=== PATIENT | female | born 1935 | race African-American/Black ===

== ENCOUNTER 2016-08-18 09:31 | Day surgery (SDC) | payer OTHER, MEDICARE ==
[2016-08-17 14:55] VITALS: BMI 25.2
[2016-08-18] MEDS ORDERED: PROPOFOL 20 ML ONE ×3 (12:46)
[2016-08-18 13:22] VITALS: TEMP 97.5
[2016-08-18 14:12] VITALS: BP 136/60; PULSE 56
== END 2016-08-18 14:20 | disposition home or self-care (01) ==
LOC: JASU-ENDO 09:31
PROVIDERS: ATTEND Internal Medicine Gastroenterology
PROC: 0DJD8ZZ Inspection of Lower Intestinal Tract, Via Natural or Artificial Opening Endoscopic (ICD-10-PCS; principal; 2016-08-18 10:30)
DX: Z86.010 Personal history of colon polyps (principal); K57.30 Diverticulosis of large intestine without perforation or abscess without bleeding

== ENCOUNTER 2017-01-15 09:22 | Day surgery (SDC) | payer OTHER, MEDICARE ==
[2017-01-15] MEDS ORDERED: LIDOCAINE HCL 1%, 10 MG/ML (20ML VIAL) ONE (10:05)
[2017-01-15 11:38] VITALS: BMI 25.7
--- NOTE | 2017-01-15 11:51 | HP ---
Admitting History and Physical - Admission Chief Complaint: Dysproteinemia History Source: Patient - Past Medical History Cardiovascular: Yes: HTN Renal/: Yes: Renal Inusuff ...LMP Comment: years ago ...: No Heme/Onc: Yes: Anemia Endocrine: Yes: Diabetes Mellitus - Smoking History Smoking history: Never smoked Have you smoked in the past 12 months: No Aproximately how many cigarettes per day: 0 - Alcohol/Substance Use Hx Alcohol Use: No - Social History Usual Living Arrangement: Yes: With Spouse Home Medications - Allergies Allergies/Adverse Reactions: Allergies Allergy/AdvReac Type Severity Reaction Status Date / Time tetanus and diphtheria Allergy Rash Verified 07/28/16 14:38 toxoids [Tetanus&Diphtheria Toxoid] - Home Medications Home Medications: Ambulatory Orders Allopurinol [Zyloprim -] 100 mg PO DAILY 01/20/14 Amlodipine Besylate [Norvasc -] 5 mg PO DAILY 01/20/14 Rosuvastatin Calcium [Crestor] 10 mg PO HS 01/20/14 Aspirin [ASA -] 81 mg PO DAILY 07/11/16 Losartan Potassium [Cozaar -] 50 mg PO HS 07/11/16 Nateglinide [Starlix (Nf) -] 60 mg PO DAILY 07/11/16 Sitagliptin Phosphate [Januvia] 25 mg PO DAILY 07/11/16 Sodium Bicarbonate - 650 mg PO BID 07/11/16 Isosorbide Mononitrate [Imdur -] 30 mg PO DAILY 07/13/16 Ergocalciferol [Drisdol -] 50,000 unit PO Q7D@1000 08/17/16 Review of Systems - Review of Systems Constitutional: reports: Fever, Loss of Appetite, Night Sweats, Weakness Eyes: denies: Blurred Vision, Double Vision, Photophobia HENT: denies: Difficult Swallowing, Epistaxis, Hearing Loss, Throat Pain Neck: denies: Lumps, Stiffness, Tenderness Cardiovascular: denies: Chest Pain, Shortness of Breath Respiratory: denies: Cough, SOB, SOB on Exertion Gastrointestinal: denies: Constipation, Melena, Nausea, Vomiting Genitourinary: denies: Burning, Dysuria, Flank Pain, Frequency Breasts: reports: No Symptoms Reported Musculoskeletal: reports: Back Pain Integumentary: denies: Eczema, Erythema Neurological: reports: No Symptoms Endocrine: reports: No Symptoms Hematology/Lymphatic: denies: Excessive Bleeding, Swollen Glands Psychiatric: reports: No Symptoms Physical Examination Vital Signs: Vital Signs Temperature 98.1 F 01/15/17 11:26 Pulse Rate 56 L 01/15/17 11:26 Respiratory Rate 18 01/15/17 11:26 Blood Pressure 154/74 01/15/17 11:26 O2 Sat by Pulse Oximetry (%) Constitutional: Yes: No Distress Eyes: Yes: PERRL, Other (proptosis). No: Diplopia, Sclera Icterus HENT: Yes: Normocephalic. No: Hoarseness, Thrush, Tonsillar Exudate Neck: Yes: Supple. No: Lymphadenopathy, Tenderness, Thyromegaly Cardiovascular: Yes: Regular Rate and Rhythm Respiratory: Yes: Regular, CTA Bilaterally Gastrointestinal: Yes: Normal Bowel Sounds, Soft. No: Ascites, Hepatomegaly, Splenomegaly Renal/: No: CVA Tenderness - Left, CVA Tenderness - Right Breast(s): Yes: WNL, Left, Right Musculoskeletal: Yes: Back Pain. No: Muscle Pain Extremities: No: Calf Tenderness Edema: No Integumentary: No: Erythema, Jaundice Neurological: Yes: WNL ...Motor Strength: WNL Psychiatric: Yes: WNL Problem List - Problems (1) Dysproteinemia Assessment/Plan: Anemia, renal insufficiency,dysproteinemia For bone marrow aspirate under CT guidance with biopsy. Code(s): E88.09 - [facility] DISORDERS OF PLASMA-PROTEIN METABOLISM, NEC (2) Diabetes Code(s): E11.9 - TYPE 2 DIABETES MELLITUS WITHOUT COMPLICATIONS Qualifiers: Diabetes mellitus type: type 2 Diabetes mellitus complication status: with kidney complications Diabetes mellitus terminal operator insulin use: without prison use Chronic kidney disease stage: stage 3 (moderate)
[2017-01-15 15:29] VITALS: BP 149/62; PULSE 57; TEMP 98.8
--- NOTE | 2017-01-15 16:41 | PN ---
Progress Note (short form) - Note Progress Note: Patient seen in CT scan . Bone marrow biopsy performed. Hand carried specimen to path. No spicules. Sent for Flow and cytogenetics and biopsy. Spoke with as patient has been sleeping - advil prn. For discharge if stable. Problem List - Problems (1) Dysproteinemia Code(s): E88.09 - OTH DISORDERS OF PLASMA-PROTEIN METABOLISM, NEC (2) Diabetes Code(s): E11.9 - TYPE 2 DIABETES MELLITUS WITHOUT COMPLICATIONS Qualifiers: Diabetes mellitus type: type 2 Diabetes mellitus complication status: with kidney complications Diabetes mellitus ad terminal makeup operator insulin use: without jail use Chronic kidney disease stage: stage 3 (moderate)
[2017-01-15] MEDS ORDERED: IBUPROFEN 100 MG/5 ML UNIT DOSE CUPS PO ONE (16:42)
--- NOTE | 2017-01-20 16:21 | PATH ---
Surgical Pathology Report Patient Name: KING BARNETT Med. Rec. #: [id number] /Age/Gender: 1935 (Age: 81) / F Account: [id number] Location: [facility] MED/SURG Taken: 01/15/2017 Received: 01/15/2017 Reported: 01/20/2017 Physicians: Fariba Goode M.D. 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 Comment: The biopsy shows an increase in plasma cells (~10%), concurrent flow cytometry demonstrates a clonal IgG [place] plasma cell population. 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 Clinical and serological correlations are suggested. Note: The biopsy shows bone marrow with trilineage maturing hematopoiesis and overall cellularity of approximately 35% and M:E ratio of approximately 1.5:1. The aspirate smears are aparticulate. The myeloid precursors show preserved complete maturation to segmented granulocytes. No increase in myeloblasts is seen as highlighted by CD34 immunostain. The erythroid precursors appear slightly decreased as highlighted by CD71 immunostain. The megakaryocytes appear adequate in numbers with no significant cytological atypia. There is a significant increase in plasma cells (~10%) as highlighted by CD138 immunostain; few blood vessels are also positive for CD56 immunostain the plasma cells are negative for MUM-1 immunostain. CD3 immunostain highlight scattered T lymphocytes, CD20 immunostain highlight few B lymphocytes. The stainable iron cannot be assessed since the aspirate is aparticulate. There is mild increase in reticulin fibers seen with reticulin stain. Immunohistochemical stains were performed at the [facility], [place], [place] ([id number]) and interpreted at [facility]. C. 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 Comment: Plasma cell induration by flow cytometry been may not be entirely labor union business representative of the degree of marrow infiltration due to variable sampling. Phenotype: CD38+ clonal plasma cells are detected that co-express IgG and [place] cytoplasmic light chain, comprising 1.2% of all analyzed white blood cells. Lymphocytes include polyclonal B-cells, NK-cells and immunophenotypically normal CD4+ and CD8+ T-cells in normal proportions. Myeloid forms exhibit immunophenotypic evidence of normal maturation. Blasts are not increased. Cytomorphology: Bone marrow aspirate is no other abnormalities in the hematopoietic precursors, scattered plasma cells are seen. 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 No evidence of a deletion of the p53 (17p13) locus. No CCND1/IGH t(11;14) translocation is detected. No FGFR3/IGH t(4;14) translocation is detected. No IGH/MAF t(14;16) translocation is detected. Comments: Deletion of band 13q14 on chromosome 13 is detected in 10% to 20% of patients by conventional cytogenetics and in 50% by FISH. Deletion of 13q is associated with inferior survival after standard chromotherapy. The amplification/duplication of the proximal 1q31 region in MM has been reported by FISH in about 40% of patients with newly diagnosed MM and in 70% of patients at relapse. Electronically Signed Trever Lira M.D. Gross Description A. Received in formalin, labeled with the patient's name and indicated on the requisition to be a bone marrow biopsy, is a 1.0 x 0.8 x 0.2 cm aggregate of [place]an bone fragments admixed with blood clot. The specimen is entirely submitted in one cassette, following decalcification. B. Received are 3 bone marrow aspiration smear slides C. Received are 2 green top tubes of bone marrow blood which are sent to [facility]. 01/18/201701/18/2017
== END 2017-01-15 18:00 | disposition home or self-care (01) ==
LOC: JONCNONCHE 09:22 → J7W 09:23 → JONCNONCHE 18:00
PROVIDERS: ATTEND Internal Medicine Hematology & Oncology
PROC: 07DR3ZX Extraction of Iliac Bone Marrow, Percutaneous Approach, Diagnostic (ICD-10-PCS; principal; 2017-01-15)
PROC: BW2GYZZ Computerized Tomography (CT Scan) of Pelvic Region using Other Contrast (ICD-10-PCS; 2017-01-15)
DX: E88.09 Other disorders of plasma-protein metabolism, not elsewhere classified (principal); I12.9 Hypertensive chronic kidney disease with stage 1 through stage 4 chronic kidney disease, or unspecified chronic kidney disease; E11.22 Type 2 diabetes mellitus with diabetic chronic kidney disease; N18.3 Chronic kidney disease, stage 3 (moderate)
CPT/HCPCS: 13152; 20225; 76098-TC; 87899; 88300-TC; 88305-TC; 88311-TC; 88313-TC

== ENCOUNTER 2017-05-13 13:32 | Inpatient (IN) | payer OTHER, MEDICARE ==
--- NOTE | 2017-05-13 14:07 | PDOC ---
History of Present Illness - General History Source: Patient Exam Limitations: No Limitations - History of Present Illness Initial Comments: 05/13/17 15:16 The patient is a 81 year old female, with a significant past medical history of DM, HTN, HLD who presents to the emergency department s/p fall. Patient went to the bank with her aide when she suddenly felt lightheaded and dizzy. Patient fell onto the ground and was unable to recall the event. Patient reports LOC however denies any nausea, vomiting, headache, neck pain. As per aide, patient hit her head on the parking ground. Patient denies any recent travel or recent illnesses. She denies chest pain, headache. She denies fever, chills, abdominal pain, diarrhea or constipation. She denies dysuria, frequency, urgency or hematuria. <Mis Stern - Last Filed: 05/13/17 15:16> <Krista Zamarripa - Last Filed: 05/13/17 16:07> - General Chief Complaint: Syncope/Near Syncope Stated Complaint: SYNCOPE Time Seen by Provider: 05/13/17 13:53 Past History <Mis Stern - Last Filed: 05/13/17 15:16> - Past Medical History Anemia: No Asthma: No Cancer: No Cardiac Disorders: No CVA: No COPD: No CHF: No Dementia: No Diabetes: Yes GI Disorders: No Disorders: No HTN: Yes Hypercholesterolemia: Yes Liver Disease: No Seizures: No Thyroid Disease: No - Surgical History Neurologic Surgery: No - Immunization History Immunization Up to Date: Yes - Suicide/Smoking/Psychosocial Hx Smoking History: Never smoked Have you smoked in the past 12 months: No Number of Cigarettes Smoked Daily: 0 Hx Alcohol Use: No Drug/Substance Use Hx: No Substance Use Type: None Hx Substance Use Treatment: No <Krista Zamarripa - Last Filed: 05/13/17 16:07> - Past Medical History Allergies/Adverse Reactions: Allergies Allergy/AdvReac Type Severity Reaction Status Date / Time tetanus and diphtheria Allergy Rash Verified 05/13/17 13:36 toxoids [Tetanus&Diphtheria Toxoid] Home Medications: Ambulatory Orders Allopurinol [Zyloprim -] 100 mg PO DAILY 01/20/14 Amlodipine Besylate [Norvasc -] 5 mg PO DAILY 01/20/14 Rosuvastatin Calcium [Crestor] 10 mg PO HS 01/20/14 Aspirin [ASA -] 81 mg PO DAILY 07/11/16 Losartan Potassium [Cozaar -] 50 mg PO HS 07/11/16 Nateglinide [Starlix (Nf) -] 60 mg PO DAILY 07/11/16 Sitagliptin Phosphate [Januvia] 25 mg PO DAILY 07/11/16 Sodium Bicarbonate - 650 mg PO BID 07/11/16 Isosorbide Mononitrate [Imdur -] 30 mg PO DAILY 07/13/16 Ergocalciferol [Vitamin D2] 50,000 unit PO Q7D@1000 08/17/16 Review of Systems - Review of Systems Able to Perform ROS?: Yes Comments:: 05/13/17 15:16 GENERAL/CONSTITUTIONAL: No fever or chills. No weakness. HEAD, EYES, EARS, NOSE AND THROAT: No change in vision. No ear pain or discharge. No sore throat. CARDIOVASCULAR: No chest pain or shortness of breath. RESPIRATORY: No cough, wheezing, or hemoptysis. GASTROINTESTINAL: No nausea, vomiting, diarrhea or constipation. GENITOURINARY: No dysuria, frequency, or change in urination. MUSCULOSKELETAL: No joint or muscle swelling or pain. No neck or back pain. SKIN: No rash NEUROLOGIC: No headache, vertigo, loss of consciousness, or change in strength/ sensation. ENDOCRINE: No increased thirst. No abnormal weight change. HEMATOLOGIC/LYMPHATIC: No anemia, easy bleeding, or history of blood clots. ALLERGIC/IMMUNOLOGIC: No hives or skin allergy. <Mis Stern - Last Filed: 05/13/17 15:16> *Physical Exam - Vital Signs Last Vital Signs Temp Pulse Resp BP Pulse Ox 98.8 F 48 L 20 155/108 98 05/13/17 13:38 05/13/17 13:38 05/13/17 13:38 05/13/17 13:38 05/13/17 13:38 - Physical Exam Comments: 05/13/17 15:17 GENERAL: Awake, alert, and fully oriented, in no acute distress HEAD: No signs of trauma EYES: PERRLA, EOMI, sclera anicteric, conjunctiva clear ENT: Auricles normal inspection, hearing grossly normal, nares patent, oropharynx clear without exudates. Moist mucosa NECK: Normal ROM, supple, no lymphadenopathy, JVD, or masses LUNGS: Breath sounds equal, clear to auscultation bilaterally. No wheezes, and no crackles HEART: Regular rate and rhythm, normal S1 and S2, no murmurs, rubs or gallops ABDOMEN: Soft, nontender, normoactive bowel sounds. No guarding, no rebound. No masses EXTREMITIES: Normal range of motion, no edema. No clubbing or cyanosis. No cords, erythema, or tenderness NEUROLOGICAL: Cranial nerves II through XII grossly intact. Normal speech, normal gait SKIN: Warm, Dry, normal turgor, no rashes or lesions noted. <Mis Stern - Last Filed: 05/13/17 15:16> - Vital Signs Last Vital Signs Temp Pulse Resp BP Pulse Ox 98.8 F 48 L 20 155/108 98 05/13/17 13:38 05/13/17 13:38 05/13/17 13:38 05/13/17 13:38 05/13/17 13:38 <Krista Zamarripa - Last Filed: 05/13/17 16:07> Heart Score/ECG Review - ECG Intrepretation Comment:: 05/13/17 15:05 sinus valentin at 48, nl axis, nl interval, no acute st/t wave findings <Krista Zamarripa - Last Filed: 05/13/17 16:07> ED Treatment Course - LABORATORY CBC & Chemistry Diagram: 05/13/17 14:24 05/13/17 14:24 - ADDITIONAL ORDERS Additional order review: Laboratory Results 05/13/17 05/13/17 05/13/17 14:24 14:24 14:24 PT with INR INR Sodium 140 Potassium 5.2 H Chloride 111 H Carbon Dioxide 20 L Anion Gap 9 BUN 31 H D Creatinine 2.5 H Creat Clearance w eGFR 18.58 Random Glucose 103 Calcium 8.7 Magnesium 2.3 Total Bilirubin 0.4 AST 26 ALT 38 D Alkaline Phosphatase 46 Creatine Kinase 108 Troponin I < 0.02 B-Natriuretic Peptide Cancelled 368.30 Total Protein 7.9 Albumin 2.9 L 05/13/17 14:24 PT with INR 11.20 INR 1.02 Sodium Potassium Chloride Carbon Dioxide Anion Gap BUN Creatinine Creat Clearance w eGFR Random Glucose Calcium Magnesium Total Bilirubin AST ALT Alkaline Phosphatase Creatine Kinase Troponin I B-Natriuretic Peptide Total Protein Albumin 05/13/17 14:24 RBC 3.09 L MCV 93.7 MCHC 33.0 RDW 16.8 H MPV 8.5 D Neutrophils % 54.3 D Lymphocytes % 34.2 D Monocytes % 8.3 Eosinophils % 2.9 Basophils % 0.3 <Mis Stern - Last Filed: 05/13/17 15:16> - LABORATORY CBC & Chemistry Diagram: 05/13/17 14:24 05/13/17 14:24 <Krista Zamarripa - Last Filed: 05/13/17 16:07> Medical Decision Making - Medical Decision Making 05/13/17 15:06 81yo female with a witnessed syncopal episode at the bank -labs -ekg -ct head given closed head injury -cxr -reassess -recently told she had low blood counts - will check HGB -most likely will need admission for syncope workup 05/13/17 16:07 case discussed with hospitalist who accept pt to service <Krista Zamarripa - Last Filed: 05/13/17 16:07> *DC/Admit/Observation/Transfer - Attestations Scribe Attestion: 05/13/17 15:17 Documentation prepared by Mis Stern, acting as medical assistant internal medicine for Krista Zamarripa DO, MD/. <Mis Stern - Last Filed: 05/13/17 15:16> - Discharge Dispostion Admit: Yes - Attestations Physician Attestion: 05/13/17 16:07 I, Dr. Krista Zamarripa DO, attest that this document has been prepared under my direction and personally reviewed by me in its entirety. I further attest, that it accurately reflects all work, treatment, procedures and medical decision -making performed by me. <Krista Zamarripa - Last Filed: 05/13/17 16:07> Diagnosis at time of Disposition: Syncope - Discharge Dispostion Condition at time of disposition: Fair - Referrals Referrals: Ofelia Yoder MD [Primary Care Provider] -
[2017-05-13 14:50] LABS: BASOPHIL 0.3 % (0-2.0); EOSINOPHIL 2.9 % (0-4.5); MCH 30.9 pg (25.7-33.7); MEAN CELL VOLUME 93.7 fl (80-96); MEAN PLT VOLUME 8.5 fl (7.5-11.1); NEUTROPHILS 54.3 % (42.8-82.8); PLATELET COUNT 170 K/MM3 (134-434); RDW 16.8 % (11.6-15.6); WHITE BLOOD COUNT 7.8 K/mm3 (4.0-10.0)
[2017-05-13 15:06] LABS: ALBUMIN 2.9 g/dl (3.4-5.0); ANION GAP 9 (8-16); CALCIUM 8.7 mg/dL (8.5-10.1); CO2 20 mmol/L (21-32); CREATININE 2.5 mg/dL (0.55-1.02); GLUCOSE,RANDOM 103 mg/dL (74-106); INR 1.02 (0.82-1.09); MAGNESIUM 2.3 mg/dL (1.8-2.4); PROTHROMBIN TIME (PATIENT) 11.2 SEC (9.98-11.88); SGOT/AST 26 U/L (15-37); SGPT/ALT 38 U/L (12-78)
[2017-05-13 15:10] LABS: ALK PHOS 46 U/L (45-117); BILIRUBIN,TOTAL 0.4 mg/dL (0.2-1.0); CPK 108 IU/L (26-192); TOT PROT 7.9 g/dl (6.4-8.2); TROPONIN I < 0.02 ng/ml (0.00-0.05)
--- NOTE | 2017-05-13 15:26 | EKG ---
Test Reason : Blood Pressure : / mmHG Vent. Rate : 048 BPM Atrial Rate : 048 BPM P-R Int : 122 ms QRS Dur : 088 ms QT Int : 486 ms P-R-T Axes : 046 010 046 degrees QTc Int : 434 ms SINUS BRADYCARDIA NONSPECIFIC ST AND T WAVE ABNORMALITY ABNORMAL ECG WHEN COMPARED WITH ECG OF 28-JUL-2016 21:52, NO SIGNIFICANT CHANGE WAS FOUND Confirmed by YECENIA HARKINS MD ([id number]) on 05/13/2017 3:26:02 PM Referred By: Confirmed By:YECENIA HARKINS MD
[2017-05-13] MEDS ORDERED: SODIUM CHLORIDE 0.9% 1000 ML INFUS.BAG IV ONE (16:07)
--- NOTE | 2017-05-13 17:24 | HP ---
CHIEF COMPLAINT: PCP: Dr. Barry Cardio: Dr. Estevez heme/onc: Dr. Khan GI: Dr. Galdamez Neurosurg: Dr. Galindo HISTORY OF PRESENT ILLNESS: 81 yr old woman with hx of HTN, CKD, anemia, bradycardia, presents after witnessed syncope this afternoon. She was waiting in line at the bank when she felt a "hot flash" and felt weak when she felt herself go down to the ground. denied LOC but does not know if she hit her head, says she was aware of what happening around her throughout the event. She has not been eating or drinking as per usual for the past few days due to poor appetite. She had a recent medication change by her roll inspector, losartan was changed from 50mg bid to 100mg qd. She was also seen by Dr. Galdamez and started on iron tablets due to a drop in her h/h. she was being followedfor a hx of diverticular bleeds, as per pt. recently told by her friend that she had left lower eye lid continuous fasciculation for past 1 day, patient says she does not feel it and it is not bothering her. denies headache, palpitations, incontinences, post-ictal phase, seizure like activity, dysuria, fever, n/v, diarrhea. ER course was notable for: (1) head CT - no acute pathology (2) IVF Recent Travel: [place] for 2 weeks in march PAST MEDICAL HISTORY: HTN NIDDM Pituitary macroadenoma - stable Multiple myeloma esophageal stricture anemia previous hx of syncopal episodes hx of strep bovis bacteremia - last ech 07/2016 with normal LV fxn, with increased pulmonary HTN PAST SURGICAL HISTORY: bone marrow biopsy in 03/2017 Social History: Smoking: denies Alcohol:denies Drugs: denies Allergies tetanus and diphtheria toxoids [Tetanus&Diphtheria Toxoid] Allergy (Verified 12/23 13:36) Rash HOME MEDICATIONS: [facility] pharmacy allopurinol 100mg daily by dr. barry toprol 25mg bid murphy villarreal januvia 25mg daily dany burris losartan 100mg daily(04/30/2017) dr. mckinney changed from 50mg bid hydralazine 50mg bid norvasc 10mg daily crestor 10mg daily sodium bicarb 650mg bid dr. barry imdur 30mg and 60mg daily murphy villarreal albuterol 100mg daily, prn eye drop: cosopt both eyes daily, lumigan both eyes daily by Dr. Lee Home Medications Medication Instructions Recorded Allopurinol [Zyloprim -] 100 mg PO DAILY 01/20/14 Amlodipine Besylate [Norvasc -] 5 mg PO DAILY 01/20/14 Rosuvastatin Calcium [Crestor] 10 mg PO HS 01/20/14 Aspirin [ASA -] 81 mg PO DAILY 07/11/16 Losartan Potassium [Cozaar -] 50 mg PO HS 07/11/16 Nateglinide [Starlix (Nf) -] 60 mg PO DAILY 07/11/16 Sitagliptin Phosphate [Januvia] 25 mg PO DAILY 07/11/16 Sodium Bicarbonate - 650 mg PO BID 07/11/16 Isosorbide Mononitrate [Imdur -] 30 mg PO DAILY 07/13/16 Ergocalciferol [Vitamin D2] 50,000 unit PO Q7D@1000 08/17/16 REVIEW OF SYSTEMS CONSTITUTIONAL: Present: unintentional 4-6 lbs lost in last 3 months, loss of appetite Absent: fever, chills, diaphoresis, generalized weakness, malaise, HEENT: Present: chronic occasional difficulty with swallowing Absent: rhinorrhea, nasal congestion, throat pain, throat swelling, mouth swelling, ear pain, eye pain, visual changes CARDIOVASCULAR: Present: lightheadedness Absent: chest pain, syncope, palpitations, irregular heart rate, peripheral edema RESPIRATORY: Absent: cough, shortness of breath, dyspnea with exertion, orthopnea, wheezing, stridor, hemoptysis GASTROINTESTINAL: Absent: abdominal pain, abdominal distension, nausea, vomiting, diarrhea, constipation, melena, hematochezia GENITOURINARY: Absent: dysuria, frequency, urgency, hesitancy, hematuria, flank pain MUSCULOSKELETAL: Absent: myalgia, arthralgia, joint swelling, back pain, neck pain SKIN: Absent: rash, itching, pallor HEMATOLOGIC/IMMUNOLOGIC: Absent: easy bleeding, easy bruising, lymphadenopathy, frequent infections ENDOCRINE: Absent: unexplained weight gain, unexplained weight loss, heat intolerance, cold intolerance NEUROLOGIC: Absent: headache, dizziness, unsteady gait, seizure, mental status changes, bladder or bowel incontinence PHYSICAL EXAMINATION GENERAL: Awake, alert, and fully oriented, in no acute distress. HEAD: Normal with no signs of trauma. EYES: Pupils equal, round and reactive to light, extraocular movements intact, sclera anicteric, conjunctiva clear. No lid lag. mild proptosis. EARS, NOSE, THROAT: Ears normal, nares patent, oropharynx clear without exudates. Moist mucous membranes. NECK: Normal range of motion, supple without lymphadenopathy, JVD, or masses. LUNGS: Breath sounds equal, clear to auscultation bilaterally. No wheezes, and no crackles. No accessory muscle use. HEART: Regular rate and rhythm, normal S1 and S2 without murmur, rub or gallop. ABDOMEN: Soft, nontender, not distended, normoactive bowel sounds, no guarding, no rebound, no masses. No hepatomegaly or splenomegaly. MUSCULOSKELETAL: Normal range of motion at all joints. No bony deformities or tenderness. No CVA tenderness. UPPER EXTREMITIES: 2+ radial pulses, warm, well-perfused. No cyanosis. No clubbing. No peripheral edema. LOWER EXTREMITIES: 2+ dp pulses, warm, well-perfused. No calf tenderness. No peripheral edema. NEUROLOGICAL: Cranial nerves II-XII intact. Normal speech. left lower eye lid fasciculations. no in upper or lower extremitities. PSYCHIATRIC: Cooperative. Good eye contact. Appropriate mood and affect. SKIN: Warm, dry, normal turgor, no rashes or lesions noted, normal capillary refill. ASSESSMENT/PLAN: 81 yr old woman with multiple co-morbidities, hx of syncopal episodes presents after syncopal episode found to have LISANDRA and be bradycardic, admitted to Tele for further w/u. #Syncope - likely vasovagal vs orthostatic - poor po intake/waiting in line, vs bradycardia as cause, but less likely. lower suspicion for infectious/cva/acs - r/o acs, trend trop x2 - telemonitoring for bradycardia, hold losartan and toprol - gentle hydration with NS @50cc/hr due to pulm htn - orthostatic BPs #LISANDRA (CKD baseline Cr 2.0) - in setting of poo po intake, repeat bmp after hydration #Hyperkalemia - in setting of LISANDRA likely secondary to volume depletion and +arb use, no changes in EKG, repeat labs #DM - hold oral meds, BGM ACHS with NISS #HTN - cont norvasc, imdur, hydralazine, hold losartan and toprol #bradycardia - hold losartan and toprol #DVT: heparin TID #Diet: low/diabetic Visit type - Emergency Visit Emergency Visit: Yes ED Registration Date: 05/13/17 Care time: The patient presented to the Emergency Department on the above date and was hospitalized for further evaluation of their emergent condition. - New Patient This patient is new to me today: Yes Date on this admission: 05/13/17 - Critical Care Critical Care patient: No
--- NOTE | 2017-05-13 17:40 | PN ---
Teaching Attending Note Name of Resident: Lucrecia Dawson ATTENDING PHYSICIAN STATEMENT I saw and evaluated the patient. I reviewed the resident's note and discussed the case with the resident. I agree with the resident's findings and plan as documented. SUBJECTIVE: 81 y/o lady with h/o HTN, CKD , DM , pituitary macroadenoma,recent diagnosis of MM, HTN and gout , who presented with a fall , and near syncope. She walked to the store and stood in line whenshe felt light headed, and fell down to the floor. She denies LOC. reports recent changes to her BP meds. no cp or SOB or palpitations before or after the fall, no urinary or stool incontinence OBJECTIVE: NAD , AAOx3. HEENT: EOMI, round pupils, R deformed with sluggish reaction. CV: RRR, noMRG Lungs: CTAB Abd : soft, NT, ND , NL BS Ext: no edema Neuro : EOMI, pupils as above, no facial droop, nl facial sensation , tongue at mid line. strength 5/5 in upper and lower extremities proximally and distally. sensation to light touch nL. reflexes 2+ b/l knee jerk and biceps ASSESSMENT AND PLAN: 81 y/o lady with h/o HTN, CKD , DM , pituitary macroadenoma,recent diagnosis of MM, HTN and gout , who presented with a fall , and near syncope.She was found to have LISANDRA on CKD and hyperkalemia 1- Near syncope: etiology is likely due to orthostatic hypotension ( LISANDRA, change in BP meds, decreased flluid intake , also positive orthostatics by diastolic BP even after receiving IVF in ER) other DDx include vasovagal syncope. arrhythmias are lesslikely. Bradycardia is unlikely to be causing that. EKG with 1st degreee AV block, no other signs of ischemia . Unlikly NSTEMI. Unlikly seizure or TIA. - tele - repeat trop - give IVF - repeat ortho VS tomorrow 2- LISANDRA on CKD : base line Cr 2. - cont IVF - hold losartan due to hyperkalemia and LISANDRA - cont sodium bicarb 3- Hyperkalemia , due to LISANDRA and losartan use - hold losartan - repeat K tonight 4- DM : hold oral meds and give SSI 5- HTN: meds to be confirmed. cousin to bring med list in AM - Cont norvasc, HZN, Imdur, and hold losartan as above 6- DVT px : heparin
[2017-05-13] MEDS ORDERED: FLU VACCINE QUAD 60 MCG/0.5 ML (MDV 17-18) IM ONE (18:04)
[2017-05-13] MEDS ORDERED: PNEUMOC 13-VAL CONJ-DIP CRM/PF 0.5 ML DISP.SYRIN IM ONE (18:04)
[2017-05-13] MEDS ORDERED: SODIUM CHLORIDE 1,000 ML IV SCH (18:45)
[2017-05-13] MEDS ORDERED: ISOSORBIDE MONONITRATE 30 MG TAB.SR.24H (FP) PO SCH (19:00)
--- NOTE | 2017-05-13 19:11 | HP ---
Addendum entered and electronically signed by Lucrecia Dawson I RES 05/14/17 05: 45: She had colonoscopy last year, has diverticulosis and anemia. Mamography done 2 years ago Had not been up to date on vaccines, received pneumovax and influenza vaccine in this visit. Original Note: CHIEF COMPLAINT: Syncope PCP: Dr. Ofelia Calhoun Wafer Production Worker: Dr Barakat GI: Dr Galdamez Hemonc: Dr Khan HISTORY OF PRESENT ILLNESS: The patient is a 81 F with PMHx of DM, HTN, HLD, Gout, CKD, Multiple myeloma, Pituitary macroadenoma with independent ADLs and recurrent syncope, presenting with syncope. The patient walked up a steep hill for about half a mile, sat down briefly at the bank with her paid corporate administrative assistant, then when she got up to join the bank line, she suddenly felt dizzy, felt a glare and warmth all over her, and then felt weak then fell down. She said she did not loose consciousness, but there was no one with her to confirm her story. There was no associated seizures, no bowel or urinary incontinence, no weakness of any side of her body. She could not tell whether or not she hit her head but says she was aware of her surroundings as she could hear voices. There was no hx of headaches, no nausea or vomiting and no fevers. No palpitations, no cough, no SOB, no chest pain, no dyspnea, no orthopnea or PND. Patient had a recent adjustment to her medications (04/28) with her cozaar changed from 50 bid to 100 HS. She also said she has not been eating and drinking as well as before. Patient has been admitted here for similar symptoms in the past. At the ED she was found to be bradycardic at 48/min, 155/108 ER course was notable for: (1)Head CT_ stable macroadenoma, no evidence of hemorrehage (2) EKG- sinus valentin, nl axis, no acute ST findings, QT/QTc- 486/434 (3)Hyperkalemia-5.2, Cr-2.5, 4) Trops were negative, BNP-38.0 5) CXR- Recent Travel: Traveled to [place] in March and returned Apr 15 PAST MEDICAL HISTORY: DM, HTN, HLD, Gout, CKD, Multiple myeloma, Pituitary macroadenoma PAST SURGICAL HISTORY: R eye Cataract surgery 2014 Social History: Smoking: Never Alcohol:Never Drugs: Never Family History: Allergies tetanus and diphtheria toxoids [Tetanus&Diphtheria Toxoid] Allergy (Verified 12/23 13:36) Rash HOME MEDICATIONS: Home Medications Medication Instructions Recorded Allopurinol [Zyloprim -] 100 mg PO DAILY 01/20/14 Amlodipine Besylate [Norvasc -] 5 mg PO DAILY 01/20/14 Rosuvastatin Calcium [Crestor] 10 mg PO HS 01/20/14 Aspirin [ASA -] 81 mg PO DAILY 07/11/16 Losartan Potassium [Cozaar -] 50 mg PO HS 07/11/16 Nateglinide [Starlix (Nf) -] 60 mg PO DAILY 07/11/16 Sitagliptin Phosphate [Januvia] 25 mg PO DAILY 07/11/16 Sodium Bicarbonate - 650 mg PO BID 07/11/16 Isosorbide Mononitrate [Imdur -] 30 mg PO DAILY 07/13/16 Ergocalciferol [Vitamin D2] 50,000 unit PO Q7D@1000 08/17/16 REVIEW OF SYSTEMS CONSTITUTIONAL: Absent: fever, chills, diaphoresis, generalized weakness, malaise, loss of appetite, weight change HEENT: Absent: rhinorrhea, nasal congestion, throat pain, throat swelling, difficulty swallowing, mouth swelling, ear pain, eye pain, visual changes CARDIOVASCULAR: Absent: chest pain, syncope, palpitations, irregular heart rate, lightheadedness , peripheral edema RESPIRATORY: Absent: cough, shortness of breath, dyspnea with exertion, orthopnea, wheezing, stridor, hemoptysis GASTROINTESTINAL: Absent: abdominal pain, abdominal distension, nausea, vomiting, diarrhea, constipation, melena, hematochezia GENITOURINARY: Absent: dysuria, frequency, urgency, hesitancy, hematuria, flank pain, genital pain MUSCULOSKELETAL: Absent: myalgia, arthralgia, joint swelling, back pain, neck pain SKIN: Absent: rash, itching, pallor HEMATOLOGIC/IMMUNOLOGIC: Absent: easy bleeding, easy bruising, lymphadenopathy, frequent infections ENDOCRINE: Absent: unexplained weight gain, unexplained weight loss, heat intolerance, cold intolerance NEUROLOGIC: Absent: headache, focal weakness or paresthesias, dizziness+, unsteady gait, seizure, mental status changes, bladder or bowel incontinence PSYCHIATRIC: Absent: anxiety, depression, suicidal or homicidal ideation, hallucinations. PHYSICAL EXAMINATION Vital Signs - 24 hr 05/13/17 05/13/17 17:46 18:07 Temperature 98.8 F Pulse Rate 49 L Pulse Rate [ 47 L Right side Standing] Respiratory 20 Rate Blood Pressure 159/92 Blood Pressure 159/69 [Right side Standing] GENERAL: Awake, alert, and fully oriented, in no acute distress. HEAD: Normal with no signs of trauma. EYES: Bilateral mild exophthalmos, arcus senilis bilaterally, extraocular movements intact, sclera anicteric, conjunctiva clear. No lid lag. EARS, NOSE, THROAT: Ears normal, nares patent, oropharynx clear without exudates. Moist mucous membranes. NECK: Normal range of motion, supple without lymphadenopathy, JVD, or masses. LUNGS: Breath sounds equal, clear to auscultation bilaterally. No wheezes, and no crackles. No accessory muscle use. HEART: bradycardia, S1 and S2 without murmur, rub or gallop. ABDOMEN: Soft, nontender, not distended, normoactive bowel sounds, no guarding, no rebound, no masses. No hepatomegaly or splenomegaly. MUSCULOSKELETAL: Normal range of motion at all joints. No bony deformities or tenderness. No CVA tenderness. UPPER EXTREMITIES: 2+ pulses, warm, well-perfused. No cyanosis. No clubbing. No peripheral edema. LOWER EXTREMITIES: 2+ pulses, warm, well-perfused. No calf tenderness. No peripheral edema. NEUROLOGICAL: No facial droop, Cranial nerves II-XII intact. Normal speech. Normal tone globally, power 5/5, reflexes 2+ globally. PSYCHIATRIC: Cooperative. Good eye contact. Appropriate mood and affect. SKIN: Warm, dry, normal turgor, no rashes or lesions noted, normal capillary refill. ASSESSMENT/PLAN: 81 F with PMHx of DM, HTN, HLD, Gout, CKD, Multiple myeloma, Pituitary macroadenoma with independent ADLs and recurrent syncope, presenting with syncope. #Syncope: Likely orthostatic Patient had not been eating and drink as well of late and could be dehydrated, Also she had just walked half a mile, sat down briefly, then had the syncope after she got up suddenly Also she had recently had her cozaar changed from 50mg bid to 100mg daily She also has CKD and could be volume depleted as a result Plan orthostatic vitals iv fluid Nsaline @ 50mls/hr Hold losartan Telemetry- continous cardiac monitoring R/O cardiogenic, but unlikely because the bradycardia is not severe, and she has no other cardiac symptoms or signs- EKG showed no ischemia, trops are negative Monitor #Hyperkalemia Patient has been on cozaar Also had CKD with baseline creatinine as 2 No tented T waves or other evidence of hyperkalemia on EKG Repeat K this evening Monitor #LISANDRA Likely prerenal from reduced intake, dehydration IV Normal saline 50mls/hr BMP Monitor #CKD Could be due to the DM, HTN, or MM BMP Will monitor #DM Hold Januvia ISS BGM #HTN Hold cozaar Cont Imdur, toprol and norvasc #Gout Stable Monitor #Pit Macroadenoma Stable Monitor #DVT Heparin 5000 tid #FEN IV Normal saline 50mls/hr Monitor electrolytes DM diet #Dispo Telemetry Visit type - Emergency Visit Emergency Visit: Yes ED Registration Date: 05/13/17 Care time: The patient presented to the Emergency Department on the above date and was hospitalized for further evaluation of their emergent condition. - New Patient This patient is new to me today: Yes Date on this admission: 05/13/17 - Critical Care Critical Care patient: No
[2017-05-13 19:28] LABS: URINE APPEARANCE SLCLOUDY; URINE BILIRUBIN NEGATIVE (NEGATIVE); URINE BLOOD NEGATIVE (NEGATIVE); URINE COLOR LTYELLOW; URINE GLUCOSE (UA) NEGATIVE (NEGATIVE); URINE KETONE NEGATIVE (NEGATIVE); URINE NITRITE NEGATIVE (NEGATIVE); URINE UROBILINOGEN NEGATIVE mg/dL (0.2-1.0)
[2017-05-13 19:31] LABS: URINE PROTEIN 2+ (NEGATIVE)
[2017-05-13 19:34] LABS: URINE BACTERIA RARE /hpf (NONE SEEN); URINE RBC 1 /hpf (0-3); URINE WBC 21 /hpf (3-5)
[2017-05-13 21:28] LABS: ANION GAP 11 (8-16); CALCIUM 8.8 mg/dL (8.5-10.1); CO2 20 mmol/L (21-32); CREATININE 2.5 mg/dL (0.55-1.02); GLUCOSE,RANDOM 103 mg/dL (74-106)
[2017-05-13 21:49] LABS: URINE LEUK ESTERASE 1+ (NEGATIVE)
[2017-05-13] MEDS: SODIUM BICARBONATE 650 MG TABLET PO SCH (22:14)
[2017-05-13] MEDS: HEPARIN NA (PORCINE) 5,000 UNITS/ML 1ML VIAL SQ SCH ×2 (22:15→22:27)
[2017-05-13] MEDS: hydrALAZINE HCL 50 MG TABLET (FP) PO SCH (22:15)
[2017-05-13] MEDS: ROSUVASTATIN CA 10 MG TABLET (FP) PO SCH (22:15)
[2017-05-13] MEDS: INSULIN SLIDING SCALE (NOVOLOG) 1 VIAL SQ SCH (22:16)
[2017-05-14] MEDS: INSULIN SLIDING SCALE (NOVOLOG) 1 VIAL SQ SCH ×4 (06:14→21:53)
[2017-05-14] MEDS: HEPARIN NA (PORCINE) 5,000 UNITS/ML 1ML VIAL SQ SCH ×3 (06:15→21:50)
[2017-05-14 07:16] LABS: BASOPHIL 0.3 % (0-2.0); EOSINOPHIL 1.9 % (0-4.5); MCH 31.1 pg (25.7-33.7); MCHC 33.1 g/dl (32.0-36.0); MEAN CELL VOLUME 93.9 fl (80-96); MEAN PLT VOLUME 8.4 fl (7.5-11.1); NEUTROPHILS 61.4 % (42.8-82.8); PLATELET COUNT 168 K/MM3 (134-434); RDW 17.1 % (11.6-15.6); WHITE BLOOD COUNT 7.1 K/mm3 (4.0-10.0)
[2017-05-14 07:32] LABS: ALBUMIN 2.9 g/dl (3.4-5.0); ANION GAP 11 (8-16); CALCIUM 8.4 mg/dL (8.5-10.1); CO2 19 mmol/L (21-32); CREATININE 2.3 mg/dL (0.55-1.02); GLUCOSE,RANDOM 83 mg/dL (74-106); PHOSPHOROUS 3.7 mg/dL (2.5-4.9); SGOT/AST 26 U/L (15-37); SGPT/ALT 36 U/L (12-78)
[2017-05-14 07:34] LABS: ALK PHOS 46 U/L (45-117); BILIRUBIN,TOTAL 0.6 mg/dL (0.2-1.0)
[2017-05-14] MEDS ORDERED: ISOSORBIDE MONONITRATE 30 MG TAB.SR.24H (FP) PO ONE (09:19)
[2017-05-14] MEDS ORDERED: ISOSORBIDE MONONITRATE 60 MG TAB.SR.24H (FP) PO ONE (09:19)
[2017-05-14] MEDS ORDERED: ASPIRIN COATED 81 MG TABLET.EC PO SCH (10:00)
[2017-05-14] MEDS ORDERED: ASPIRIN 81 MG CHEWABLE TABLETS PO SCH (10:00)
[2017-05-14] MEDS ORDERED: PATIENT'S OWN MEDICATION (NON-FORMULARY) (Bimatoprost [Lumigan] 1 DROP) IO SCH (10:00)
[2017-05-14] MEDS ORDERED: ISOSORBIDE MONONITRATE 60 MG TAB.SR.24H (FP) PO SCH (10:00)
[2017-05-14] MEDS: hydrALAZINE HCL 50 MG TABLET (FP) PO SCH (11:30)
[2017-05-14] MEDS: FERROUS SO4 325 MG TABLET (FP) PO SCH (11:31)
[2017-05-14] MEDS: amLODIPine BESYLATE 10 MG TABLET (FP) PO SCH (11:31)
[2017-05-14] MEDS: SODIUM BICARBONATE 650 MG TABLET PO SCH ×2 (11:31→21:50)
[2017-05-14] MEDS: ALLOPURINOL 100 MG TABLET (FP) PO SCH (11:31)
[2017-05-14] MEDS: ISOSORBIDE MONONITRATE 30 MG, ISOSORBIDE MONONITRATE 60 MG PO SCH (11:31)
[2017-05-14] MEDS: DOCUSATE SODIUM 100 MG CAPSULE (FP) PO SCH (11:31)
[2017-05-14 11:49] VITALS: BMI 23.6
--- NOTE | 2017-05-14 11:49 | CON.NEP ---
Consult Consult Specialty:: Nephrology ([facility]) Referred by:: Dr. Pena Reason for Consultation:: LISANDRA/CKD - History of Present Illness Chief Complaint: Syncope History of Present Illness: This is a 81 year old woman with PMhx of Proteinuric CKD Stage 4 (baseline Cr ~ 1.7-2.2), Multiple Myloma, Pituitary adenoma, Hypertension, HLD who presented with syncope and found to have BUN/Cr of 31/2.5 and K of 5.2. Last outpatient Cr was 2.76 in March. Pt reports prodrome of dizziness prior to syncope. Pt also reports decreased appetite recently. No N/V/D. No fever or chills. No chest pain or palpitations. No flank pain. Losartan recently increased to 100mg once daily. - History Source History Provided By: Patient Limitations to Obtaining History: No Limitations - Past Medical History Cardio/Vascular: Yes: HTN Renal/: Yes: Renal Inusuff Endocrine: Yes: Diabetes Mellitus - Alcohol/Substance Use Hx Alcohol Use: No - Smoking History Smoking history: Never smoked Have you smoked in the past 12 months: No Aproximately how many cigarettes per day: 0 Home Medications - Allergies Allergies/Adverse Reactions: Allergies Allergy/AdvReac Type Severity Reaction Status Date / Time tetanus and diphtheria Allergy Rash Verified 05/13/17 13:36 toxoids [Tetanus&Diphtheria Toxoid] - Home Medications Home Medications: Ambulatory Orders Allopurinol [Zyloprim -] 100 mg PO DAILY 01/20/14 Rosuvastatin Calcium [Crestor] 10 mg PO HS 01/20/14 Aspirin [ASA -] 81 mg PO DAILY 07/11/16 Sitagliptin Phosphate [Januvia] 25 mg PO DAILY 07/11/16 Sodium Bicarbonate - 650 mg PO BID 07/11/16 Isosorbide Mononitrate [Imdur -] 30 mg PO DAILY 07/13/16 Bimatoprost [Lumigan] 1 drop IO DAILY 05/13/17 Dorzolamide HCl/Timolol Maleat [Cosopt Eye Drops] 10 ml OP 05/13/17 Hydralazine HCl 50 BID 05/13/17 Isosorbide Mononitrate [Imdur] 60 mg PO DAILY 05/13/17 Losartan Potassium 100 mg PO DAILY 05/13/17 Metoprolol Succinate [Toprol XL -] 25 tab DAILY 05/13/17 Review of Systems - Review of Systems Constitutional: reports: No Symptoms Eyes: reports: No Symptoms HENT: reports: No Symptoms Neck: reports: No Symptoms Cardiovascular: denies: Chest Pain, Edema, Palpitations, Shortness of Breath Respiratory: denies: Cough, Hemoptysis, Orthopnea, PND, Snoring, SOB, SOB on Exertion Gastrointestinal: denies: Abdominal Pain, Constipation, Diarrhea, Dysphagia, Indigestion, Vomiting Genitourinary: denies: Burning, Discharge, Dysuria, Flank Pain, Hematuria Musculoskeletal: denies: Back Pain Neurological: reports: Dizziness, Syncope. denies: Change in Speech, Confusion , Headache, Incoordination, Numbness Nephrology Consult - Height Height: 5 ft 4 in - Weight Weight: 138 lb - BMI Body Mass Index (BMI): 23.6 - Lab Results CBC,BMP: CBC, BMP 05/14/17 06:30 05/14/17 06:30 Anion Gap: Anion Gap Anion Gap 11 (8-16) 05/14/17 06:30 - Imaging Chest X-ray: Report Reviewed Cat Scan: Report Reviewed - Physical Examination Vital Signs: Vital Signs Temperature 98.3 F 05/14/17 02:20 Pulse Rate 52 L 05/14/17 06:50 Respiratory Rate 20 05/14/17 06:00 Blood Pressure 119/54 05/14/17 06:50 O2 Sat by Pulse Oximetry (%) 100 05/13/17 21:00 Constitutional: Yes: Well Nourished, No Distress, Calm Eyes: Yes: Conjunctiva Clear, EOM Intact HENT: Yes: Atraumatic, Normocephalic Neck: Yes: Supple Cardiovascular: Yes: Regular Rate and Rhythm, Bradycardia, S1, S2. No: JVD, Murmur Respiratory: Yes: Regular, CTA Bilaterally. No: Rales, Rhonchi, SOB, Wheezes Gastrointestinal: Yes: Normal Bowel Sounds, Soft. No: Tenderness Renal/: No: Anuria, Bladder Distention, CVA Tenderness - Left, CVA Tenderness - Right Extremities: No: Cold, Cool, Cyanosis Edema: No Neurological: Yes: Alert, Oriented Psychiatric: Yes: Alert, Oriented Problem List - Problems (1) Syncope Code(s): R55 - SYNCOPE AND COLLAPSE (2) Near syncope Code(s): R55 - SYNCOPE AND COLLAPSE (3) Diabetes Code(s): E11.9 - TYPE 2 DIABETES MELLITUS WITHOUT COMPLICATIONS Qualifiers: Diabetes mellitus type: type 2 Diabetes mellitus complication status: with kidney complications Diabetes mellitus watermaster insulin use: without retirement use Chronic kidney disease stage: stage 3 (moderate) (4) Hypertension Code(s): I10 - ESSENTIAL (PRIMARY) HYPERTENSION Qualifiers: Hypertension type: essential hypertension Qualified Code(s): I10 - Essential (primary) hypertension; I10 - Essential (primary) hypertension; I10 - Essential (primary) hypertension (5) Weakness Code(s): R53.1 - WEAKNESS (6) CKD (chronic kidney disease) Code(s): N18.9 - CHRONIC KIDNEY DISEASE, UNSPECIFIED (7) Acute kidney failure Code(s): N17.9 - ACUTE KIDNEY FAILURE, UNSPECIFIED (8) Proteinuria Code(s): R80.9 - PROTEINURIA, UNSPECIFIED (9) Multiple myeloma Code(s): C90.00 - MULTIPLE MYELOMA NOT HAVING ACHIEVED REMISSION Assessment/Plan 81 year old woman with PMhx of Proteinuric CKD Stage 4 (baseline 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 #Acute on Chronic Renal Insufficiency with proteinuria with known Multiple Myloma Differential includes volume depletion +/- hemodynamic changes leading to renal hypoprofusion vs. Cr rise with higher dose of ARB vs. progressive CKD in setting of myloma Agree with holding ARB for the time being Check Urine studies for FeNa, UPCR Check Renal US to r/o obstruction and check size of the kidneys continue isotonic IVF keep MAP > 65 Avoid NSAIDs, Fleets, IV contrast if possible Dose all meds for Cr Cl less then 20 no indication for VAMP SEAMER #Hypertension BP higher now that pt is off ARB can up titrate Hydrazine to 100mg BID if BP remains persistency > 150/100 expect BP to be lower once off IVF Thank you Will follow Current Medications Allopurinol (Zyloprim -) 100 mg PO DAILY [facility] Last Admin: 05/14/17 11:31 Dose: 100 mg Amlodipine Besylate (Norvasc -) 10 mg PO DAILY [facility] Last Admin: 05/14/17 11:31 Dose: 10 mg Docusate Sodium (Colace -) 100 mg PO DAILY [facility] Last Admin: 05/14/17 11:31 Dose: Not Given Ferrous Sulfate (Feosol -) 325 mg PO DAILY [facility] Last Admin: 05/14/17 11:31 Dose: 325 mg Heparin Sodium (Porcine) (Heparin -) 5,000 unit SQ TID [facility] Last Admin: 05/14/17 06:15 Dose: 5,000 unit Hydralazine HCl (Apresoline -) 50 mg PO BID [facility] Last Admin: 05/14/17 11:30 Dose: Not Given Sodium Chloride (Normal Saline -) 1,000 mls @ 50 mls/hr IV ASDIR [facility] Stop: 05/14/17 18:42 Last Admin: 05/13/17 22:06 Dose: 50 mls/hr Insulin Aspart (Novolog Vial Sliding Scale -) 1 vial SQ ACHS [facility] PRN Reason: Protocol Last Admin: 05/14/17 11:36 Dose: Not Given Isosorbide Mononitrate 30 mg/ (Isosorbide Mononitrate 60 mg) 90 mg PO DAILY [facility] Last Admin: 05/14/17 11:31 Dose: 90 mg Non-Formulary Medication (Bimatoprost [Lumigan]) 1 drop IO DAILY [facility] Rosuvastatin Calcium (Crestor -) 10 mg PO HS [facility] Last Admin: 05/13/17 22:15 Dose: Not Given Sodium Bicarbonate (Sodium Bicarbonate -) 650 mg PO BID [facility] Last Admin: 05/14/17 11:31 Dose: 650 mg
--- NOTE | 2017-05-14 17:44 | PN ---
Teaching Attending Note Name of Resident: Lucrecia Dawson ATTENDING PHYSICIAN STATEMENT I saw and evaluated the patient. I reviewed the resident's note and discussed the case with the resident. I agree with the resident's findings and plan as documented. SUBJECTIVE: no fever or chills. feels well. No SOB . walked to bathroom with no problem OBJECTIVE: NAD , AAOx3. HEENT: EOMI, round pupils, R deformed with sluggish reaction. CV: RRR, no MRG Lungs: CTAB Abd: soft, NT, ND, NL BS Ext: no edema ASSESSMENT AND PLAN: 81 y/o lady with h/o HTN, CKD , DM , pituitary macroadenoma,recent diagnosis of MM, HTN and gout , who presented with a fall , and near syncope.She was found to have LISANDRA on CKD and hyperkalemia 1- Near syncope: likely due to orthostatic hypotension. She is still orthostatic this am. - cont tele - cont IVF - repeat ortho VS tomorrow - No need to repeat echo and carotid US ( done 07/24) 2- LISANDRA on CKD : base line Cr 2. I don't believe there was a kidney Bx done in past. - cont IVF - cont to hold losartan - cont sodium bicarb 3- Hyperkalemia , due to LISANDRA and losartan use - resolved . losartan on hold 4- DM : hold oral meds and give SSI 5- HTN: better this afternoon. Meds confirmed . Not on HZN at home. - cont imdur, norvasc, and resume home metoprolol - dc HZN as she had experienced SE to it before. 6- DVT px : heparin MEDS confirmed with family
--- NOTE | 2017-05-14 17:54 | PN ---
Physical Exam: SUBJECTIVE: Patient seen and examined this am. [place] a bit wobbly last night on the way to bathroom, but feels better today. OBJECTIVE: Vital Signs Period Temp Pulse Resp BP Sys/Gustafson Pulse Ox Last 24 Hr 98.1 F-98.8 F 47-60 20-20 119-175/54-92 100 Selected Entries 05/14/17 05/14/17 06:50 11:44 Blood Pressure 123/54 147/68 [Right side Sitting] Blood Pressure 119/54 135/65 [Right side Standing] Blood Pressure 175/74 167/60 [Right side Supine] GENERAL: The patient is awake, in no acute distress. ENT: moist mucous membranes. LUNGS: Breath sounds equal, clear to auscultation bilaterally, no wheezes, no crackles, no accessory muscle use. HEART: Regular rate and rhythm, S1, S2 without murmur, rub or gallop. ABDOMEN: Soft, nontender, nondistended, normoactive bowel sounds, no guarding, no rebound, no hepatosplenomegaly, no masses. EXTREMITIES: 2+ pulses, warm, well-perfused, no edema. NEUROLOGICAL: No facial droop. Normal tone, reflexes and power globally. Normal speech, gait not observed. PSYCH: Normal mood, normal affect. Laboratory Results - last 24 hr 05/13/17 05/13/17 05/13/17 17:30 20:30 20:30 WBC RBC Hgb Hct MCV MCH MCHC RDW Plt Count MPV Neutrophils % Lymphocytes % Monocytes % Eosinophils % Basophils % Sodium 142 Potassium 4.4 Chloride 111 H Carbon Dioxide 20 L Anion Gap 11 BUN 31 H Creatinine 2.5 H Creat Clearance w eGFR POC Glucometer Random Glucose 103 Calcium 8.8 Phosphorus Total Bilirubin AST ALT Alkaline Phosphatase Troponin I < 0.02 Total Protein Albumin Urine Color Ltyellow Urine Appearance Slcloudy Urine pH 7.0 Ur Specific [place] 1.015 Urine Protein 2+ H Urine Glucose (UA) Negative Urine Ketones Negative Urine Blood Negative Urine Nitrite Negative Urine Bilirubin Negative Urine Urobilinogen Negative Ur Leukocyte Esterase 1+ H Urine RBC 1 Urine WBC 21 Ur Epithelial Cells Rare Urine Bacteria Rare U Random Total Protein Ur Random Sodium Ur Random Potassium Ur Random Chloride Ur Random Urea Nitrogn Urine Creatinine 05/13/17 05/14/17 05/14/17 22:02 05:38 06:30 WBC 7.1 RBC 3.24 L Hgb 10.1 L Hct 30.4 L MCV 93.9 MCH 31.1 MCHC 33.1 RDW 17.1 H Plt Count 168 MPV 8.4 Neutrophils % 61.4 Lymphocytes % 29.6 Monocytes % 6.8 Eosinophils % 1.9 Basophils % 0.3 Sodium Potassium Chloride Carbon Dioxide Anion Gap BUN Creatinine Creat Clearance w eGFR POC Glucometer 104 85 Random Glucose Calcium Phosphorus Total Bilirubin AST ALT Alkaline Phosphatase Troponin I Total Protein Albumin Urine Color Urine Appearance Urine pH Ur Specific [place] Urine Protein Urine Glucose (UA) Urine Ketones Urine Blood Urine Nitrite Urine Bilirubin Urine Urobilinogen Ur Leukocyte Esterase Urine RBC Urine WBC Ur Epithelial Cells Urine Bacteria U Random Total Protein Ur Random Sodium Ur Random Potassium Ur Random Chloride Ur Random Urea Nitrogn Urine Creatinine 05/14/17 05/14/17 05/14/17 06:30 11:34 14:40 WBC RBC Hgb Hct MCV MCH MCHC RDW Plt Count MPV Neutrophils % Lymphocytes % Monocytes % Eosinophils % Basophils % Sodium 144 Potassium 4.2 Chloride 114 H Carbon Dioxide 19 L Anion Gap 11 BUN 31 H Creatinine 2.3 H Creat Clearance w eGFR 20.45 POC Glucometer 113 Random Glucose 83 Calcium 8.4 L Phosphorus 3.7 D Total Bilirubin 0.6 D AST 26 ALT 36 Alkaline Phosphatase 46 Troponin I Total Protein 8.0 Albumin 2.9 L Urine Color Urine Appearance Urine pH Ur Specific [place] Urine Protein Urine Glucose (UA) Urine Ketones Urine Blood Urine Nitrite Urine Bilirubin Urine Urobilinogen Ur Leukocyte Esterase Urine RBC Urine WBC Ur Epithelial Cells Urine Bacteria U Random Total Protein 124 H Ur Random Sodium Ur Random Potassium Ur Random Chloride Ur Random Urea Nitrogn Urine Creatinine 05/14/17 05/14/17 05/14/17 14:40 14:40 14:40 WBC RBC Hgb Hct MCV MCH MCHC RDW Plt Count MPV Neutrophils % Lymphocytes % Monocytes % Eosinophils % Basophils % Sodium Potassium Chloride Carbon Dioxide Anion Gap BUN Creatinine Creat Clearance w eGFR POC Glucometer Random Glucose Calcium Phosphorus Total Bilirubin AST ALT Alkaline Phosphatase Troponin I Total Protein Albumin Urine Color Urine Appearance Urine pH Ur Specific [place] Urine Protein Urine Glucose (UA) Urine Ketones Urine Blood Urine Nitrite Urine Bilirubin Urine Urobilinogen Ur Leukocyte Esterase Urine RBC Urine WBC Ur Epithelial Cells Urine Bacteria U Random Total Protein Ur Random Sodium 90 90 Ur Random Potassium 22.7 Ur Random Chloride 86 Ur Random Urea Nitrogn Urine Creatinine 46.8 05/14/17 05/14/17 14:40 15:44 WBC RBC Hgb Hct MCV MCH MCHC RDW Plt Count MPV Neutrophils % Lymphocytes % Monocytes % Eosinophils % Basophils % Sodium Potassium Chloride Carbon Dioxide Anion Gap BUN Creatinine Creat Clearance w eGFR POC Glucometer 101 Random Glucose Calcium Phosphorus Total Bilirubin AST ALT Alkaline Phosphatase Troponin I Total Protein Albumin Urine Color Urine Appearance Urine pH Ur Specific [place] Urine Protein Urine Glucose (UA) Urine Ketones Urine Blood Urine Nitrite Urine Bilirubin Urine Urobilinogen Ur Leukocyte Esterase Urine RBC Urine WBC Ur Epithelial Cells Urine Bacteria U Random Total Protein Ur Random Sodium Ur Random Potassium Ur Random Chloride Ur Random Urea Nitrogn 293 Urine Creatinine Active Medications Generic Name Dose Route Start Last Admin Trade Name Freq PRN Reason Stop Dose Admin Allopurinol 100 mg 05/14/17 10:00 05/14/17 11:31 Zyloprim - PO 100 mg DAILY YASMEEN Administration Amlodipine Besylate 10 mg 05/14/17 10:00 05/14/17 11:31 Norvasc - PO 10 mg DAILY YASMEEN Administration Docusate Sodium 100 mg 05/14/17 10:00 05/14/17 11:31 Colace - PO Not Given DAILY YASMEEN Ferrous Sulfate 325 mg 05/14/17 10:00 05/14/17 11:31 Feosol - PO 325 mg DAILY [facility] Administration Heparin Sodium (Porcine) 5,000 unit 05/13/17 19:00 05/14/17 15:53 Heparin - SQ 5,000 unit TID YASMEEN Administration Sodium Chloride 1,000 mls @ 50 mls/hr 05/13/17 18:45 05/13/17 22:06 Normal Saline - IV 05/14/17 18:42 50 mls/hr ASDIR [facility] Administration Insulin Aspart 1 vial 05/13/17 22:00 05/14/17 16:23 Novolog Vial Sliding Scale - SQ Not Given ACHS [facility] Protocol Isosorbide Mononitrate 30 mg/ 90 mg 05/14/17 10:00 05/14/17 11:31 Isosorbide Mononitrate 60 mg PO 90 mg DAILY YASMEEN Administration Metoprolol Succinate 25 mg 05/15/17 10:00 Toprol Xl - PO DAILY [facility] Non-Formulary Medication 1 drop 05/14/17 10:00 Bimatoprost [Lumigan] IO DAILY [facility] Rosuvastatin Calcium 10 mg 05/13/17 22:00 05/13/17 22:15 Crestor - PO Not Given HS YASMEEN Sodium Bicarbonate 650 mg 05/13/17 22:00 05/14/17 11:31 Sodium Bicarbonate - PO 650 mg BID YASMEEN Administration ASSESSMENT/PLAN: 81 F with PMHx of DM, HTN, HLD, Gout, CKD, Multiple myeloma, Pituitary macroadenoma with independent ADLs and recurrent syncope, presenting with syncope. #Syncope:Likely orthostatic orthostatic hypotension this am and afternoon iv fluid Nsaline @ 50mls/hr Continue to hold losartan Telemetry- Monitor #Hyperkalemia: Likely due to losartan increase or prerenal Resolved Continue to hold losartan Continue IV fluids Monitor #LISANDRA Likely prerenal from reduced intake, dehydration IV Normal saline 50mls/hr BMP Monitor #CKD Could be due to the DM, HTN, or MM BMP Will monitor #DM Hold Januvia ISS BGM #HTN Hold cozaar Cont Imdur, toprol and norvasc #Gout Stable Monitor #Pit Macroadenoma Stable Monitor #DVT Heparin 5000 tid #FEN IV Normal saline 50mls/hr Monitor electrolytes DM diet #Dispo Telemetry Visit type - Emergency Visit Emergency Visit: Yes ED Registration Date: 05/13/17 Care time: The patient presented to the Emergency Department on the above date and was hospitalized for further evaluation of their emergent condition. - New Patient This patient is new to me today: No - Critical Care Critical Care patient: No - Discharge Referral Referred to [facility] Med [facility] No
[2017-05-14] MEDS: ROSUVASTATIN CA 10 MG TABLET (FP) PO SCH (21:50)
[2017-05-15] MEDS: INSULIN SLIDING SCALE (NOVOLOG) 1 VIAL SQ SCH ×4 (06:11→21:36)
[2017-05-15] MEDS: HEPARIN NA (PORCINE) 5,000 UNITS/ML 1ML VIAL SQ SCH ×3 (06:12→21:28)
[2017-05-15 07:02] LABS: BASOPHIL 0.3 % (0-2.0); EOSINOPHIL 3.3 % (0-4.5); MCH 30.8 pg (25.7-33.7); MCHC 32.7 g/dl (32.0-36.0); MEAN CELL VOLUME 94.1 fl (80-96); MEAN PLT VOLUME 8.5 fl (7.5-11.1); NEUTROPHILS 36.4 % (42.8-82.8); PLATELET COUNT 158 K/MM3 (134-434); RDW 16.7 % (11.6-15.6); WHITE BLOOD COUNT 5.9 K/mm3 (4.0-10.0)
[2017-05-15 07:39] LABS: ANION GAP 7 (8-16); CALCIUM 8.5 mg/dL (8.5-10.1); CO2 20 mmol/L (21-32); GLUCOSE,RANDOM 82 mg/dL (74-106); MAGNESIUM 2.3 mg/dL (1.8-2.4); URIC ACID 7.3 mg/dL (2.6-7.2)
[2017-05-15 08:10] LABS: CREATININE 2.3 mg/dL (0.55-1.02)
[2017-05-15] MEDS: amLODIPine BESYLATE 10 MG TABLET (FP) PO SCH (09:15)
[2017-05-15] MEDS: DOCUSATE SODIUM 100 MG CAPSULE (FP) PO SCH (09:15)
[2017-05-15] MEDS: FERROUS SO4 325 MG TABLET (FP) PO SCH (09:15)
[2017-05-15] MEDS: ALLOPURINOL 100 MG TABLET (FP) PO SCH (09:15)
[2017-05-15] MEDS ORDERED: ISOSORBIDE MONONITRATE 30 MG TAB.SR.24H (FP) PO ONE (09:18)
[2017-05-15] MEDS ORDERED: ISOSORBIDE MONONITRATE 60 MG TAB.SR.24H (FP) PO ONE (09:18)
[2017-05-15] MEDS: METOPROLOL SUCCINATE 25 MG TAB.SR.24H (FP) PO SCH (09:22)
[2017-05-15] MEDS: ISOSORBIDE MONONITRATE 30 MG, ISOSORBIDE MONONITRATE 60 MG PO SCH (09:22)
[2017-05-15] MEDS: SODIUM BICARBONATE 650 MG TABLET PO SCH ×2 (09:22→21:28)
[2017-05-15] MEDS ORDERED: LOSARTAN POTASSIUM 50 MG TABLET (FP) PO SCH (10:00)
[2017-05-15] MEDS: NIFEdipine E.R 60 MG TABLET (UD) PO SCH (10:25)
--- NOTE | 2017-05-15 11:08 | PN ---
Progress Note (short form) - Note Progress Note: Renal Follow up for LISANDRA on CKD Pt seen and examined at the bedside awake and alert no acute complaints denies any dizziness, or LOC no sob, chest pain BP high overnight Vital Signs Temperature 98.2 F 05/15/17 09:12 Pulse Rate 68 05/15/17 09:14 Respiratory Rate 14 05/15/17 09:14 Blood Pressure 154/76 05/15/17 09:14 O2 Sat by Pulse Oximetry (%) 100 05/14/17 20:05 Intake & Output 05/12/17 05/13/17 05/14/17 05/15/17 23:59 23:59 23:59 23:59 Intake Total 200 2049 Balance 200 2049 Weight 140 lb 138 lb 137 lb 6.4 oz NAD, awake and alert MMM, no JVD Bradycardic, no Murmur CTA, no rales No edema in LE CBC, BMP 05/15/17 05:10 05/15/17 05:10 Laboratory Tests 05/14/17 05/14/17 05/14/17 14:40 14:40 14:40 Uric Acid Calcium Phosphorus Magnesium U Random Total Protein 124 H Ur Random Sodium 90 Ur Random Potassium 22.7 Ur Random Chloride 86 Ur Random Urea Nitrogn Urine Creatinine 46.8 05/14/17 05/15/17 14:40 05:10 Uric Acid 7.3 H Calcium 8.5 Phosphorus 4.0 Magnesium 2.3 U Random Total Protein Ur Random Sodium Ur Random Potassium Ur Random Chloride Ur Random Urea Nitrogn 293 Urine Creatinine Current Medications Allopurinol (Zyloprim -) 100 mg PO DAILY [facility] Last Admin: 05/15/17 09:15 Dose: 100 mg Docusate Sodium (Colace -) 100 mg PO DAILY [facility] Last Admin: 05/15/17 09:15 Dose: 100 mg Ferrous Sulfate (Feosol -) 325 mg PO DAILY [facility] Last Admin: 05/15/17 09:15 Dose: 325 mg Heparin Sodium (Porcine) (Heparin -) 5,000 unit SQ TID [facility] Last Admin: 05/15/17 06:12 Dose: 5,000 unit Insulin Aspart (Novolog Vial Sliding Scale -) 1 vial SQ ACHS [facility] PRN Reason: Protocol Last Admin: 05/15/17 06:11 Dose: Not Given Isosorbide Mononitrate 30 mg/ (Isosorbide Mononitrate 60 mg) 90 mg PO DAILY [facility] Last Admin: 05/15/17 09:22 Dose: 90 mg Metoprolol Succinate (Toprol Xl -) 25 mg PO DAILY [facility] Last Admin: 05/15/17 09:22 Dose: 25 mg Nifedipine (Procardia Xl -) 60 mg PO DAILY [facility] Last Admin: 05/15/17 10:25 Dose: 60 mg Non-Formulary Medication (Bimatoprost [Lumigan]) 1 drop IO DAILY [facility] Rosuvastatin Calcium (Crestor -) 10 mg PO HS [facility] Last Admin: 05/14/17 21:50 Dose: 10 mg Sodium Bicarbonate (Sodium Bicarbonate -) 650 mg PO BID [facility] Last Admin: 05/15/17 09:22 Dose: 650 mg 81 year old woman with PMhx of Proteinuric CKD Stage 4 (baseline 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 #Acute on Chronic Renal Insufficiency with proteinuria with known Multiple Myloma Differential includes volume depletion +/- hemodynamic changes leading to renal hypoprofusion vs. Cr rise with higher dose of ARB vs. progressive CKD in setting of myloma Renal function essentially unchanged at this time can continue IVF for additional 12-24 hours maintain of ARB for now (can restart as outpatient if renal function remains stable) Urine studies show Fena of 3% and Nephrotic range UPCR (likely due to myloma), will need to recheck once renal function is stable #Hypertension No hydralzine b/c of rash D/c Norvasc, start Nifedipine ER 60mg daily goal BP < 140/90, ideally less then 130/80 given proteinuria #Non Anion gap Metabolic acidosis + urine anion gap - likely RTA 4 / CKD related acidosis continue sodium bicarbonate 650mg BID goal Bicarb >22 Thank you Will follow Problem List - Problems (1) Syncope Code(s): R55 - SYNCOPE AND COLLAPSE (2) Near syncope Code(s): R55 - SYNCOPE AND COLLAPSE (3) Diabetes Code(s): E11.9 - TYPE 2 DIABETES MELLITUS WITHOUT COMPLICATIONS Qualifiers: Diabetes mellitus type: type 2 Diabetes mellitus complication status: with kidney complications Diabetes mellitus snf insulin use: without continuous churn buttermaker use Chronic kidney disease stage: stage 3 (moderate) (4) Hypertension Code(s): I10 - ESSENTIAL (PRIMARY) HYPERTENSION Qualifiers: Hypertension type: essential hypertension Qualified Code(s): I10 - Essential (primary) hypertension; I10 - Essential (primary) hypertension; I10 - Essential (primary) hypertension (5) Weakness Code(s): R53.1 - WEAKNESS (6) CKD (chronic kidney disease) Code(s): N18.9 - CHRONIC KIDNEY DISEASE, UNSPECIFIED (7) Acute kidney failure Code(s): N17.9 - ACUTE KIDNEY FAILURE, UNSPECIFIED (8) Proteinuria Code(s): R80.9 - PROTEINURIA, UNSPECIFIED (9) Multiple myeloma Code(s): C90.00 - MULTIPLE MYELOMA NOT HAVING ACHIEVED REMISSION
--- NOTE | 2017-05-15 15:19 | PN ---
Progress Note (short form) - Note Progress Note: Subjective: no fever or chills. huber sno abd pain , has no CP , no dizziness even when she stood up Objective: Vital Signs: Last Vital Signs Temp Pulse Resp BP Pulse Ox 98.3 F 59 L 20 106/49 100 05/15/17 14:00 05/15/17 14:00 05/15/17 14:00 05/15/17 14:00 05/15/17 09:00 Laboratory Results - last 24 hr 05/14/17 05/14/17 05/14/17 14:40 14:40 14:40 WBC RBC Hgb Hct MCV MCH MCHC RDW Plt Count MPV Neutrophils % Lymphocytes % Monocytes % Eosinophils % Basophils % Sodium Potassium Chloride Carbon Dioxide Anion Gap BUN Creatinine POC Glucometer Random Glucose Uric Acid Calcium Phosphorus Magnesium U Random Total Protein 124 H Ur Random Sodium 90 90 Ur Random Potassium 22.7 Ur Random Chloride 86 Ur Random Urea Nitrogn Urine Creatinine 05/14/17 05/14/17 05/14/17 14:40 14:40 15:44 WBC RBC Hgb Hct MCV MCH MCHC RDW Plt Count MPV Neutrophils % Lymphocytes % Monocytes % Eosinophils % Basophils % Sodium Potassium Chloride Carbon Dioxide Anion Gap BUN Creatinine POC Glucometer 101 Random Glucose Uric Acid Calcium Phosphorus Magnesium U Random Total Protein Ur Random Sodium Ur Random Potassium Ur Random Chloride Ur Random Urea Nitrogn 293 Urine Creatinine 46.8 05/14/17 05/15/17 05/15/17 21:52 05:10 05:10 WBC 5.9 RBC 2.99 L Hgb 9.2 L Hct 28.2 L MCV 94.1 MCH 30.8 MCHC 32.7 RDW 16.7 H Plt Count 158 MPV 8.5 Neutrophils % 36.4 L D Lymphocytes % 52.5 H D Monocytes % 7.5 Eosinophils % 3.3 Basophils % 0.3 Sodium 144 Potassium 4.2 Chloride 117 H Carbon Dioxide 20 L Anion Gap 7 L BUN 30 H Creatinine 2.3 H POC Glucometer 113 Random Glucose 82 Uric Acid 7.3 H Calcium 8.5 Phosphorus 4.0 Magnesium 2.3 U Random Total Protein Ur Random Sodium Ur Random Potassium Ur Random Chloride Ur Random Urea Nitrogn Urine Creatinine 05/15/17 05/15/17 05:26 11:48 WBC RBC Hgb Hct MCV MCH MCHC RDW Plt Count MPV Neutrophils % Lymphocytes % Monocytes % Eosinophils % Basophils % Sodium Potassium Chloride Carbon Dioxide Anion Gap BUN Creatinine POC Glucometer 78 84 Random Glucose Uric Acid Calcium Phosphorus Magnesium U Random Total Protein Ur Random Sodium Ur Random Potassium Ur Random Chloride Ur Random Urea Nitrogn Urine Creatinine Physical Exam: NAD , AAOx3. CV: RRR, no MRG Lungs: CTAB Abd: soft, NT, ND, NL BS Ext: no edema gait, slow but steady , no light headedness was noted ASSESSMENT AND PLAN: 81 y/o lady with h/o HTN, CKD , DM , pituitary macroadenoma,recent diagnosis of MM, HTN and gout , who presented with a fall , and near syncope.She was found to have LISANDRA on CKD and hyperkalemia 1- Near syncope: likely due to orthostatic hypotension. She is still orthostatic - cont tele ( no events on tele , other that bradycardia ) - cont IVF till am - repeat ortho VS tomorrow 2- LISANDRA on CKD : base line Cr 2. CKD cold be due to HTN/MM/Dm or combination . - cont IVF till am - cont to hold losartan ( it will be started as out pt if needed ) - cont sodium bicarb - urine protein /cr = 2.6 . further w/u as out pt 3- Hyperkalemia, due to LISANDRA and losartan use - resolved . losartan on hold 4- DM : hold oral meds and give SSI 5- HTN: better this afternoon. - cont imdur, and metoprolol - appreciate renal input, Niphedipine added - off HZN 6- DVT px : heparin possible dc tomorrow Visit type - Emergency Visit Emergency Visit: Yes ED Registration Date: 05/13/17 Care time: The patient presented to the Emergency Department on the above date and was hospitalized for further evaluation of their emergent condition. - New Patient This patient is new to me today: No - Critical Care Critical Care patient: No
[2017-05-15] MEDS ORDERED: SODIUM CHLORIDE 1,000 ML IV SCH (17:30)
[2017-05-15] MEDS: ROSUVASTATIN CA 10 MG TABLET (FP) PO SCH (21:28)
[2017-05-16] MEDS: HEPARIN NA (PORCINE) 5,000 UNITS/ML 1ML VIAL SQ SCH ×2 (06:23→14:32)
[2017-05-16] MEDS: INSULIN SLIDING SCALE (NOVOLOG) 1 VIAL SQ SCH ×3 (06:28→17:05)
[2017-05-16 07:07] LABS: ANION GAP 9 (8-16); CALCIUM 8.2 mg/dL (8.5-10.1); CO2 19 mmol/L (21-32); CREATININE 2.5 mg/dL (0.55-1.02); GLUCOSE,RANDOM 81 mg/dL (74-106); MAGNESIUM 2.2 mg/dL (1.8-2.4); PHOSPHOROUS 3.9 mg/dL (2.5-4.9)
[2017-05-16 07:26] LABS: BASOPHIL 0.2 % (0-2.0); EOSINOPHIL 3.8 % (0-4.5); MCH 31.1 pg (25.7-33.7); MCHC 33.1 g/dl (32.0-36.0); MEAN CELL VOLUME 93.8 fl (80-96); MEAN PLT VOLUME 8.4 fl (7.5-11.1); NEUTROPHILS 29.3 % (42.8-82.8); PLATELET COUNT 155 K/MM3 (134-434); RDW 16.6 % (11.6-15.6); WHITE BLOOD COUNT 6.6 K/mm3 (4.0-10.0)
--- NOTE | 2017-05-16 08:39 | PN ---
Progress Note (short form) - Note Progress Note: Renal Follow up for LISANDRA on CKD Pt seen and examined at the bedside awake and alert no acute complaints no dizziness Vital Signs Temperature 97.5 F L 05/16/17 05:44 Pulse Rate 60 05/16/17 05:44 Respiratory Rate 18 05/16/17 05:44 Blood Pressure 129/57 05/16/17 05:44 O2 Sat by Pulse Oximetry (%) 96 05/15/17 20:10 Intake & Output 05/13/17 05/14/17 05/15/17 05/16/17 23:59 23:59 23:59 23:59 Intake Total 200 2049 200 700 Balance 200 2049 200 700 Weight 140 lb 138 lb 137 lb 6.4 oz 137 lb 8 oz NAD, awake and alert MMM, no JVD Bradycardic, no Murmur CTA, no rales No edema in LE CBC, BMP 05/16/17 05:10 05/16/17 05:10 Current Medications Allopurinol (Zyloprim -) 100 mg PO DAILY [facility] Last Admin: 05/15/17 09:15 Dose: 100 mg Docusate Sodium (Colace -) 100 mg PO DAILY [facility] Last Admin: 05/15/17 09:15 Dose: 100 mg Ferrous Sulfate (Feosol -) 325 mg PO DAILY [facility] Last Admin: 05/15/17 09:15 Dose: 325 mg Heparin Sodium (Porcine) (Heparin -) 5,000 unit SQ TID [facility] Last Admin: 05/16/17 06:23 Dose: 5,000 unit Sodium Chloride (Normal Saline -) 1,000 mls @ 50 mls/hr IV ASDIR [facility] Stop: 05/16/17 17:25 Last Admin: 05/15/17 17:45 Dose: 50 mls/hr Insulin Aspart (Novolog Vial Sliding Scale -) 1 vial SQ ACHS [facility] PRN Reason: Protocol Last Admin: 05/16/17 06:28 Dose: Not Given Isosorbide Mononitrate 30 mg/ (Isosorbide Mononitrate 60 mg) 90 mg PO DAILY [facility] Last Admin: 05/15/17 09:22 Dose: 90 mg Metoprolol Succinate (Toprol Xl -) 25 mg PO DAILY [facility] Last Admin: 05/15/17 09:22 Dose: 25 mg Nifedipine (Procardia Xl -) 60 mg PO DAILY [facility] Last Admin: 05/15/17 10:25 Dose: 60 mg Non-Formulary Medication (Bimatoprost [Lumigan]) 1 drop IO DAILY [facility] Rosuvastatin Calcium (Crestor -) 10 mg PO HS [facility] Last Admin: 05/15/17 21:28 Dose: 10 mg Sodium Bicarbonate (Sodium Bicarbonate -) 650 mg PO BID [facility] Last Admin: 05/15/17 21:28 Dose: 650 mg 81 year old woman with PMhx of Proteinuric CKD Stage 4 (baseline 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 #Acute on Chronic Renal Insufficiency with proteinuria with known Multiple Myloma Differential includes volume depletion +/- hemodynamic changes leading to renal hypoprofusion vs. Cr rise with higher dose of ARB vs. progressive CKD in setting of myloma Renal function stable at this time pt appears evolemic, can d/c IVF maintain off ARB for now renal US noted, no obstruction #Hypertension with orthostatic hypotension BP improved on nifedipine 60mg orthostatic from yesterday morning remain mildly orthostatic repeat orthostatics today #Non Anion gap Metabolic acidosis + urine anion gap - likely RTA 4 / CKD related acidosis increase sodium bicarb to 1300 BID Thank you Will follow Problem List - Problems (1) Syncope Code(s): R55 - SYNCOPE AND COLLAPSE (2) Near syncope Code(s): R55 - SYNCOPE AND COLLAPSE (3) Diabetes Code(s): E11.9 - TYPE 2 DIABETES MELLITUS WITHOUT COMPLICATIONS Qualifiers: Diabetes mellitus type: type 2 Diabetes mellitus complication status: with kidney complications Diabetes mellitus city solicitor insulin use: without longterm use Chronic kidney disease stage: stage 3 (moderate) (4) Hypertension Code(s): I10 - ESSENTIAL (PRIMARY) HYPERTENSION Qualifiers: Hypertension type: essential hypertension Qualified Code(s): I10 - Essential (primary) hypertension; I10 - Essential (primary) hypertension; I10 - Essential (primary) hypertension (5) Weakness Code(s): R53.1 - WEAKNESS (6) CKD (chronic kidney disease) Code(s): N18.9 - CHRONIC KIDNEY DISEASE, UNSPECIFIED (7) Acute kidney failure Code(s): N17.9 - ACUTE KIDNEY FAILURE, UNSPECIFIED (8) Proteinuria Code(s): R80.9 - PROTEINURIA, UNSPECIFIED (9) Multiple myeloma Code(s): C90.00 - MULTIPLE MYELOMA NOT HAVING ACHIEVED REMISSION
[2017-05-16] MEDS ORDERED: SODIUM BICARBONATE 650 MG TABLET PO SCH (08:40)
[2017-05-16] MEDS ORDERED: ISOSORBIDE MONONITRATE 30 MG TAB.SR.24H (FP) PO ONE (09:20)
[2017-05-16] MEDS ORDERED: ISOSORBIDE MONONITRATE 60 MG TAB.SR.24H (FP) PO ONE (09:20)
[2017-05-16] MEDS: DOCUSATE SODIUM 100 MG CAPSULE (FP) PO SCH (09:28)
[2017-05-16] MEDS: FERROUS SO4 325 MG TABLET (FP) PO SCH (09:28)
[2017-05-16] MEDS: ALLOPURINOL 100 MG TABLET (FP) PO SCH (09:28)
[2017-05-16] MEDS: NIFEdipine E.R 60 MG TABLET (UD) PO SCH (09:28)
[2017-05-16] MEDS: ISOSORBIDE MONONITRATE 30 MG, ISOSORBIDE MONONITRATE 60 MG PO SCH (09:28)
[2017-05-16] MEDS: METOPROLOL SUCCINATE 25 MG TAB.SR.24H (FP) PO SCH (10:30)
--- NOTE | 2017-05-16 13:59 | DS ---
Physical Examination Vital Signs: Vital Signs Temperature 97.5 F L 05/16/17 05:44 Pulse Rate 52 L 05/16/17 08:40 Respiratory Rate 18 05/16/17 09:00 Blood Pressure 154/70 05/16/17 08:40 O2 Sat by Pulse Oximetry (%) 96 05/16/17 09:00 Findings/Remarks: deneis any CP or SOB, has no fever ro chills. has no dizziness with walking PE: NAD , AAOx3. CV: RRR, no MRG Lungs: CTAB Abd: soft, NT, ND, NL BS Ext: no edema gait, slow but steady , no light headedness was noted Labs: CBC, BMP 05/16/17 05:10 05/16/17 05:10 Discharge Summary Reason For Visit: BRADYCARDIA,SYNCOPE Current Active Problems Acute kidney failure (Acute) Near syncope (Acute) Orthostatic hypotension (Acute) CKD (chronic kidney disease) (Chronic) Diabetes (Chronic) Hypertension (Chronic) Multiple myeloma (Chronic) Proteinuria (Chronic) Hospital Course: DC Diagnoses: 1- Near syncope 2- LISANDRA on CKD : stabilized 3- Hyperkalemia : resolved 4- uncontrolled HTN. improved Hospital course 81 y/o lady with h/o HTN, CKD , DM , pituitary macroadenoma,recent diagnosis of MM, HTN and gout , who presented with a fall , and near syncope.She was found to have LISANDRA on CKD and hyperkalemia . On admission, she had a neg CT of the head and her EKG showed no acute ischemic changes ( just 1st degree AV block). Her near syncope was determined to be due to orthostatic hypotension, as her ortho VS were positive even after receiving IVF. She was given more IVF, and monitored on tele which showed sinus bradycardia, especially at night ( 30s) , so toprol was stopped. On day of DC, her VS showed no orthostatic drop and her gait was steady with no light headedness. Her BP was hard to control after losartan was held ( due to LISANDRA and hyperkalemia ) . few changes were made to her BP meds. Norvasc was stopped and Nifedipine was started. torpol was stopped. Losartan was held ( especially it cause hyperkalemia in past too ) . Her imdur was continued Decision about resuming losartan to be made by Dr. Lutz as outpt Her renal function was 2.5 on admission ( base line of 2 ) . cr fluctuated on IVF then stabilized at 2.5. she looked euvolemic today. Her chronci renal failure is thought to be due to MM/HTN/DM. Not clear if she had renal BX in past. Her other chronic conditions were monitored in house Dispo: HOme , has private VNS service Condition : improved Time spent 40 min verbal and written instructions were given. F/U with PCP/Electroencephalograph Technologist Dr. lutz Condition: Improved - Instructions Diet, Activity, Other Instructions: - Please follow with Dr. Lutz in 1 week. - Some adjustments were made to your medications : No longer take the metoprolol, it makes your heart slow your sodium bicarb was increased to 1300 twice a day losartan was stopped. Nifedipine is added. Norvasc ( amlodpipine ) stopped - Dr. Lutz will continue to adjust your meds after discharge . - please do not get up from bed quickly, sit at the edge of the bed for few min first. - call MD with any dizziness, fever , chills, or palpitations . Referrals: Ofelia Yoder MD [Primary Care Provider] - 1 Week Disposition: VNS/HOME HEALTH CARE - Home Medications Comprehensive Discharge Medication List: Ambulatory Orders Allopurinol [Zyloprim -] 100 mg PO DAILY 01/20/14 Rosuvastatin Calcium [Crestor] 10 mg PO HS 01/20/14 Sitagliptin Phosphate [Januvia] 25 mg PO DAILY 07/11/16 Isosorbide Mononitrate [Imdur -] 30 mg PO DAILY 07/13/16 Bimatoprost [Lumigan] 1 drop IO DAILY 05/13/17 Dorzolamide HCl/Timolol Maleat [Cosopt Eye Drops] 10 ml OP DAILY 05/13/17 Isosorbide Mononitrate [Imdur] 60 mg PO DAILY 05/13/17 Ferrous Sulfate [Feosol] 325 mg PO DAILY 05/14/17 Nifedipine ER [Procardia XL -] 60 mg PO DAILY #30 tab 05/16/17 Sodium Bicarbonate - 1,300 mg PO BID #90 tab 05/16/17 This patient is new to me today: No Emergency Visit: Yes ED Registration Date: 05/13/17 Care time: The patient presented to the Emergency Department on the above date and was hospitalized for further evaluation of their emergent condition. Critical Care patient: No - Discharge Referral Referred to [facility] No
[2017-05-16 14:19] VITALS: BP 136/68; PULSE 75; TEMP 99
[2017-05-20] MEDS ORDERED: ERGOCALCIFEROL (VITAMIN D2) 50,000 UNIT CAPSULE (FP) PO SCH (10:00)
== END 2017-05-16 18:18 | disposition home health service (06) | DRG 312 ==
LOC: JER 13:32 → JERBED 16:07 → J4W 18:05
PROVIDERS: ADMIT Internal Medicine; ATTEND Internal Medicine
DX: I95.1 Orthostatic hypotension (principal); C90.00 Multiple myeloma not having achieved remission; N17.9 Acute kidney failure, unspecified; N18.4 Chronic kidney disease, stage 4 (severe); E87.2 Acidosis; E78.5 Hyperlipidemia, unspecified; D64.9 Anemia, unspecified; I12.9 Hypertensive chronic kidney disease with stage 1 through stage 4 chronic kidney disease, or unspecified chronic kidney disease; I27.20 Pulmonary hypertension, unspecified; M10.9 Gout, unspecified; E87.5 Hyperkalemia; D35.2 Benign neoplasm of pituitary gland; E86.0 Dehydration; E11.22 Type 2 diabetes mellitus with diabetic chronic kidney disease; Z79.84 Long term (current) use of oral hypoglycemic drugs; Z86.718 Personal history of other venous thrombosis and embolism
CPT/HCPCS: 36415; 70450-TC; 71010-TC; 76775-TC; 80048; 80053; 81003; 81015; 82436; 82570; 83735; 83880; 84100; 84133; 84156; 84300; 84484; 84540; 84550; 85025; 85610; 85730; 86850; 86900; 86901; 90670; 90688; 93005; 93010; 99285-25; J1644

== ENCOUNTER 2019-08-16 04:46 | Day surgery (SDC) | payer OTHER, MEDICARE ==
[2019-08-03 11:51] VITALS: BMI 25.9
[2019-08-16] MEDS ORDERED: BUPIVACAINE HCL/EPINEPHRINE/PF 30 ML VIAL IJ ONE (10:12)
[2019-08-16] MEDS ORDERED: ceFAZolin SODIUM 1 GM VIAL ONE (10:31)
[2019-08-16] MEDS ORDERED: LIDOCAINE HCL/PF 2% SDV 5ML VIAL ONE (10:31)
[2019-08-16] MEDS ORDERED: DEXAMETHASONE SOD PHOSPHATE 4 MG/1 ML VIAL ONE (10:31)
[2019-08-16] MEDS ORDERED: SODIUM CHLORIDE 0.9% P/F 10 ML VIAL IJ ONE (10:31)
[2019-08-16] MEDS ORDERED: ROCURONIUM BROMIDE 50 MG/5 ML SYRINGE ONE (10:32)
[2019-08-16] MEDS ORDERED: PROPOFOL 20 ML ONE (10:32)
[2019-08-16] MEDS ORDERED: SUCCINYLCHOLINE CHLORIDE 200 MG/10 ML SYRINGE ONE (10:42)
[2019-08-16] MEDS ORDERED: ONDANSETRON 4 MG/2 ML VIAL IVPUSH PRN (10:45)
--- NOTE | 2019-08-16 10:50 | HP ---
History & Physical Update - History History: No Change - Physical Physical: No Change - Assessment Assessment: No Change - Plan Plan: No Change
[2019-08-16] MEDS ORDERED: ceFAZolin 2 GRAM PREMIX BAG IVPB ONE (11:29)
[2019-08-16] MEDS ORDERED: BUPIVACAINE HCL/PF 0.5% (5 MG/ML) 30 ML VIAL IJ ONE ×2 (11:34)
[2019-08-16] MEDS ORDERED: GLYCOPYRROLATE 0.2 MG/1 ML VIAL ONE ×3 (11:34→12:15)
[2019-08-16] MEDS ORDERED: NEOSTIGMINE METHYLSULFATE 0.5 MG/ML - 10 ML MDV ONE (12:07)
--- NOTE | 2019-08-16 12:34 | OP ---
Operative Note - Note: Operative Date: 08/16/19 Pre-Operative Diagnosis: Renal Failure Operation: Laparoscopy. Placement peritoneal dialysis catheter. Repair of umbilical hernia Findings: No intraabdominal adhesions, small umbilical hernia Implants: Small venralex mesh, PD catheter Post-Operative Diagnosis: Other (Umbilical hernia) Surgeon: Mark Rios Syrup Mixer Helper: Kellie Tian Anesthesiologist/WAITER/WAITRESS CLUB: Sixto Velázquez Anesthesia: General Estimated Blood Loss (mls): 5
[2019-08-16] MEDS ORDERED: oxyCODONE HCL 5 MG TABLET PO PRN (13:04)
[2019-08-16] MEDS ORDERED: ACETAMINOPHEN 325 MG TABLET (FP) PO PRN (13:04)
--- NOTE | 2019-08-16 13:56 | SURG ---
Surgery Nursing Informatics Clinical Analyst Note Nursing Informatics Clinical Analyst: Kellie Tina PA-C Date of Service: 08/16/19 Diagnosis: Renal Failure Procedure: Laparoscopy. Placement peritoneal dialysis catheter. Repair of umbilical hernia I was present for the entirety of the operative procedure. For further detail, please refer to operative report. Visit type - Case Type Case Type: Scheduled - Emergency Emergency Visit: No - New patient This patient is new to me today: Yes Date on this admission: 08/16/19
[2019-08-16 15:16] VITALS: TEMP 97.5
[2019-08-16 17:27] VITALS: BP 140/68; PULSE 56
--- NOTE | 2019-08-16 18:21 | OP ---
DATE OF OPERATION: 08/16/2019 SURGEON: Mark Villagran MD BOILER ROOM OPERATOR: NELIDA Serrano PROCEDURES: Laparoscopy with repair of umbilical hernia and placement of peritoneal dialysis catheter. PREOPERATIVE DIAGNOSIS: Renal failure. POSTOPERATIVE DIAGNOSIS: Renal failure with umbilical hernia. ANESTHESIA: General. ANESTHESIOLOGIST: Sixto Velázquez CRNA OPERATIVE FINDINGS: There were no intraabdominal adhesions. There was a small fascial defect at the umbilicus with a hernia that was without contents. OPERATIVE PROCEDURE: Following routine patient identification, general anesthesia was induced. The abdomen was prepped with ChloraPrep. A time-out was performed. A Veress needle was inserted atraumatically through the umbilicus and pneumoperitoneum was established to 15 mmHg pressure with carbon dioxide. A 5-mm Optiview port was then placed through a small incision in the left abdominal wall. Then, 0.5% Marcaine was infiltrated into all incisions. A 30-degree angled laparoscope was used to explore the abdomen with the above-noted findings. The decision was made to repair the umbilical defect to prevent a large hernia forming when the patient starts on peritoneal dialysis. A second 5-mm port was placed in the right side of the abdominal wall. A LigaSure was used to remove properitoneal fat from the fascia surrounding the fascial defect. An incision was then made through the umbilicus and an 8-mm port was advanced under laparoscopic vision through the hernia defect. A small Ventralex mesh was passed through the port and the port was removed. The mesh was pulled taut up against the abdominal wall. ProTack was used to fix the mesh along its edges to the muscle fascia. An incision was then made to the right, superiorly up to the umbilicus, and the 8-mm port was advanced through the fascia until the tip was seen tenting the peritoneum. It was then advanced toward the pelvis, where it entered the peritoneal cavity inferior to the umbilicus. A curled swan-neck double-cuff Tenckhoff catheter was then straightened with a stylet, passed through the 8-mm port and deployed into the pelvis. The inner cuff was left at the level of the fascia. The port was removed. The other end of the catheter was attached to a curved metal trocar which was passed in the subcutaneous tissues to exit at the predetermined site in the left lower abdominal wall. The Luer lock adapter was attached to the catheter and then, one liter of saline was run into the peritoneal cavity under gravity drainage after removing the carbon dioxide. This took approximately 3-1/2 minutes. The bag was dropped to the floor and approximately 400 mL drained within the first minute. The catheter was filled with heparin solution and was capped. All skin incisions were closed with subcutaneous sutures of 3-0 Vicryl and running subcuticular suture of 4-0 Biosyn. Dermabond glue was applied as dressing. The catheter was attached to the skin with a Tegaderm and a sterile dressing was applied. The patient was then taken to the recovery room in stable condition. MARK VILLAGRAN M.D. [id number] MTDD
== END 2019-08-16 16:15 | disposition home or self-care (01) ==
LOC: JASU-SURG 04:46
PROVIDERS: ATTEND Surgery
PROC: 0WUF4JZ Supplement Abdominal Wall with Synthetic Substitute, Percutaneous Endoscopic Approach (ICD-10-PCS; 2019-08-16)
PROC: 0WHG43Z Insertion of Infusion Device into Peritoneal Cavity, Percutaneous Endoscopic Approach (ICD-10-PCS; principal; 2019-08-16 10:00)
DX: I12.0 Hypertensive chronic kidney disease with stage 5 chronic kidney disease or end stage renal disease (principal); E11.22 Type 2 diabetes mellitus with diabetic chronic kidney disease; N18.6 End stage renal disease; Z99.2 Dependence on renal dialysis; K42.9 Umbilical hernia without obstruction or gangrene
CPT/HCPCS: 82962; 94760; J1644

== ENCOUNTER 2020-03-31 12:25 | Inpatient (IN) | payer OTHER, MEDICARE ==
[2020-03-31 12:33] VITALS: BMI 24.0
--- NOTE | 2020-03-31 13:27 | PDOC ---
History of Present Illness - General Chief Complaint: Weakness Stated Complaint: SENT BY DOC Time Seen by Provider: 03/31/20 12:40 History Source: Patient, Care Provider Exam Limitations: No Limitations - History of Present Illness Initial Comments: 03/31/20 13:19 84yo F with PMH of DM, HTN, HLD, Gout, CKD on PD, anemia,multiple myeloma, pituitary macroadenoma, independent in ADLs brought to ED by INFORMATICS PHARMACIST for generalized weakness, shivering, and reported fever of 100 at home. INFORMATICS PHARMACIST states that the patient normally can walk on her own, but was unsteady on her feet this morning, so the INFORMATICS PHARMACIST gave her a walker. She was shivering, so the INFORMATICS PHARMACIST took her temperature and it was 100F. INFORMATICS PHARMACIST also reports that the patient was diagnosed with a LLE DVT four days prior and started Eliquis, but the swelling is still present. The patient reports that she felt weak and nauseous this morning, but feels normal now. She also complains of intermittent, cramping, non-radiating suprapubic pain. She denies fever, chills, vomiting, chest pain, shortness of breath, urinary symptoms, constipation, diarrhea, focal weakness, muscle or joint pain, rash. PMH/PSH: as above Allergies Allergy/AdvReac Type Severity Reaction Status Date / Time No Known Drug Allergies Allergy Verified 03/31/20 12:33 tetanus and diphtheria Allergy Rash Verified 03/31/20 12:33 toxoids [Tetanus&Diphtheria Toxoid] Home Medication List Medication Instructions Recorded Confirmed Type Allopurinol [Zyloprim -] 100 mg PO DAILY 01/20/14 03/31/20 History Rosuvastatin Calcium [Crestor] 20 mg PO HS 01/20/14 03/31/20 History Bimatoprost [Lumigan] 1 drop IO DAILY 05/13/17 03/31/20 History Dorzolamide HCl/Timolol Maleat 10 ml OP DAILY 05/13/17 03/31/20 History [Cosopt Eye Drops] Ascorbic Acid [Vitamin C with Giuliana 500 mg PO DAILY 08/16/19 03/31/20 History Hips] Folic Acid 1 mg PO DAILY 08/16/19 03/31/20 History Furosemide 80 mg PO HS 08/16/19 03/31/20 History Icosapent Ethyl [Vascepa] 2 gm PO BID 08/16/19 03/31/20 History Metoprolol Succinate [Toprol Xl] 25 mg PO DAILY 08/16/19 03/31/20 History Nateglinide [Starlix (Nf) -] 60 mg PO BID 08/16/19 03/31/20 History Apixaban [Eliquis] 5 mg PO BID 03/31/20 03/31/20 History Docusate Sodium [Stool Softener] 100 mg PO DAILY 03/31/20 03/31/20 History Pantoprazole Sodium 40 mg PO DAILY 03/31/20 03/31/20 History Sevelamer Carbonate [Renvela] 800 mg PO TID 03/31/20 03/31/20 History ROS GENERAL/CONSTITUTIONAL: chills and weakness earlier this morning HEAD, EYES, EARS, NOSE AND THROAT: No change in vision. No ear pain or dis charge. No sore throat. CARDIOVASCULAR: No chest pain or shortness of breath RESPIRATORY: No cough, wheezing, or hemoptysis. GASTROINTESTINAL: nausea earlier this morning, no vomiting, diarrhea or constipation. GENITOURINARY: No dysuria, frequency, or change in urination. MUSCULOSKELETAL: No joint or muscle swelling or pain. No neck or back pain. SKIN: No rash NEUROLOGIC: No headache, vertigo, loss of consciousness, or change in strength/sensation. ENDOCRINE: No increased thirst. No abnormal weight change HEMATOLOGIC/LYMPHATIC: No anemia, easy bleeding, or history of blood clots. ALLERGIC/IMMUNOLOGIC: No hives or skin allergy. PE GENERAL: Awake, alert, and fully oriented, in no acute distress HEAD: No signs of trauma, normocephalic, atraumatic EYES: PERRLA, EOMI, sclera anicteric, conjunctiva clear ENT: Auricles normal inspection, hearing grossly normal, nares patent, oropharynx clear without exudates. Moist mucosa NECK: Normal ROM, supple, no lymphadenopathy, JVD, or masses LUNGS: No distress, speaks full sentences, clear to auscultation bilaterally HEART: Regular rate and rhythm, normal S1 and S2, no murmurs, rubs or gallops, peripheral pulses normal and equal bilaterally. ABDOMEN: Distending, PD attached, soft, nontender, normoactive bowel sounds. No guarding, no rebound. No masses EXTREMITIES : LLE swelling and calf tenderness. Normal range of motion, no edema. No clubbing or cyanosis. NEUROLOGICAL: Cranial nerves II through XII grossly intact. Normal speech, no focal sensorimotor deficits SKIN: Warm, Dry, normal turgor, no rashes or lesions noted Vital Signs Temp Pulse Resp BP Pulse Ox 98 F 79 18 132/70 99 03/31/20 12:28 03/31/20 12:28 03/31/20 12:28 03/31/20 12:28 03/31/20 12:28 84yo F with PMH of DM, HTN, HLD, Gout, CKD on PD, multiple myeloma, pituitary macroadenoma, independent in ADLs brought to ED by INFORMATICS PHARMACIST for generalized weakness, shivering, and reported fever of 100 at home. Recal temp 98.6. Physical exam did not show any focal neurological deficits. Differential includes infection, metabolic derangement, ACS. -Sepsis workup given reported fever, chills, weakness and on PD -Cardiac workup given age, nausea, weakness -Will not pursue PE workup in the setting of recent DVT as patient has normal HR, O2 sat, no SOB -Will not get CT A/P in the setting of intermittent suprapubic pain, as patient is not tender to palpation and not currently complaining of abdominal pain. 03/31/20 15:22 EKG: NSR, rate 78, PACs with aberrant conduction, normal axis and intervals, nonspecific t-wave abnormality CXR (portable): wnl (my read) Labs: no white count, baseline anemia, Na 129, Cl 89, BUN/Cr 40.8/89, glucose 181, lactate 3.[address] Mena (storeroom keeper on-call for Dr. Ofelia Yoder), who recommended getting a cell count and culture on the PD fluid. Stated he would see the patient later today. Will defer fluid management to nephrology and primary team. Admit to hospital for further workup and management. Will get urine via straight cath, and will obtain peritoneal fluid for cell count and culture. Trop 0.05 with non-specific t-wave changes. Will get second trop at 1700 03/31/20 16:15 Unable to obtain peritoneal fluid. 03/31/20 16:[address] Rahman, admitting physician. She recommended we do a 250ml fluid bolus, which we will do now. Past History - Medical History Allergies/Adverse Reactions: Allergies Allergy/AdvReac Type Severity Reaction Status Date / Time No Known Drug Allergies Allergy Verified 03/31/20 12:33 tetanus and diphtheria Allergy Rash Verified 03/31/20 12:33 toxoids [Tetanus&Diphtheria Toxoid] Home Medications: Ambulatory Orders Allopurinol [Zyloprim -] 100 mg PO DAILY 01/20/14 Rosuvastatin Calcium [Crestor] 20 mg PO HS 01/20/14 Bimatoprost [Lumigan] 1 drop IO DAILY 05/13/17 Dorzolamide HCl/Timolol Maleat [Cosopt Eye Drops] 10 ml OP DAILY 05/13/17 Ascorbic Acid [Vitamin C with Giuliana Hips] 500 mg PO DAILY 08/16/19 Folic Acid 1 mg PO DAILY 08/16/19 Furosemide 80 mg PO HS 08/16/19 Icosapent Ethyl [Vascepa] 2 gm PO BID 08/16/19 Metoprolol Succinate [Toprol Xl] 25 mg PO DAILY 08/16/19 Nateglinide [Starlix (Nf) -] 60 mg PO BID 08/16/19 Apixaban [Eliquis] 5 mg PO BID 03/31/20 Docusate Sodium [Stool Softener] 100 mg PO DAILY 03/31/20 Pantoprazole Sodium 40 mg PO DAILY 03/31/20 Sevelamer Carbonate [Renvela] 800 mg PO TID 03/31/20 Anemia: No Asthma: No Cancer: No Cardiac Disorders: No CVA: No COPD: No CHF: No Dementia: No Diabetes: Yes GI Disorders: No Disorders: No HTN: Yes Hypercholesterolemia: Yes Liver Disease: No Seizures: No Thyroid Disease: No Other medical history: LLE DVT - Surgical History Neurologic Surgery: No - Immunization History Immunization Up to Date: Yes - Psycho-Social/Smoking History Smoking History: Never smoked Have you smoked in the past 12 months: No Number of Cigarettes Smoked Daily: 0 - Substance Abuse Hx (Audit-C & DAST Scrn) How often the patient has a drink containing alcohol: Never Score: In Men: 4 or > Positive; In Women: 3 or > Positive: 0 Screen Result (Pos requires Nsg. Audit-10AR): Negative *Physical Exam - Vital Signs Last Vital Signs Temp Pulse Resp BP Pulse Ox 98 F 79 18 132/70 99 03/31/20 12:28 03/31/20 12:28 03/31/20 12:28 03/31/20 12:28 03/31/20 12:28 ED Treatment Course - LABORATORY CBC & Chemistry Diagram: 03/31/20 14:00 03/31/20 14:00 Discharge - Discharge Information Problems reviewed: Yes Clinical Impression/Diagnosis: Hyponatremia, Hypochloremia, Elevated serum creatinine, Elevated BUN, Lactate blood increase - Admission Yes - Follow up/Referral - Patient Discharge Instructions - Post Discharge Activity
--- NOTE | 2020-03-31 13:45 | PDOC ---
Documentation entered by Eli Rocha SCRIBE, acting as scribe for Fatemeh Garcia MD. Fatemeh Garcia MD: This documentation has been prepared by the scribe, Eli Rocha SCRIBE, under my direction and personally reviewed by me in its entirety. I confirm that the documentation accurately reflects all work, treatment, procedures, and medical decision making performed by me. Attending Attestation - Resident Resident Name: CristianElan - ED Attending Attestation I have performed the following: I have examined & evaluated the patient, The case was reviewed & discussed with the resident, I agree w/resident's findings & plan, Exceptions are as noted - HPI HPI: 03/31/20 12:43 Patient is an 84 year old female with a significant past medical history of recent LLE DVT diagnosis, diabetes, hypertension, hyperlipidemia, gout, CKD, multiple myeloma, and pituitary macroadenoma, who presents to the ED with generalized weakness, shivering, and fever. Patient stated she felt weak nauseous earlier this morning but says she feels fine now. At baseline, patient can walk on her own but was "unsteady on her feet" today. Patient denies: fever, chills, SOB, vomiting, chest pain, abdominal pain, or any other related symptoms. Allergies: tetanus and diphtheria toxoids. - Physicial Exam PE: GENERAL: Awake, alert, and fully oriented, in no acute distress HEAD: No signs of trauma EYES: PERRLA, EOMI, sclera anicteric, conjunctiva clear ENT: Auricles normal inspection, hearing grossly normal, nares patent, oropharynx clear without exudates. Moist mucosa NECK: Normal ROM, supple, no lymphadenopathy, JVD, or masses LUNGS: Breath sounds equal, clear to auscultation bilaterally. No wheezes, and no crackles HEART: Regular rate and rhythm, normal S1 and S2, no murmurs, rubs or gallops ABDOMEN: Soft, nontender, normoactive bowel sounds. +Moderate distension with fluid wave. +Dialysis catheter to LLQ. No guarding, no rebound. No masses EXTREMITIES: Normal range of motion, no edema. No clubbing or cyanosis. No cords, erythema, or tenderness NEUROLOGICAL: Cranial nerves II through XII grossly intact. Normal speech. Motor and sensation intact SKIN: Warm, dry, normal turgor, no rashes or lesions noted. - Medical Decision Making Pt with elevated lactate, hyponatremia. In light of her complex PMH, will admit based on the elevated lactate. High risk for sepsis. No signs of SBP on exam in ED, however, will send peritoneal fluid for culture. Discharge - Discharge Information Problems reviewed: Yes Clinical Impression/Diagnosis: Hyponatremia, Hypochloremia, Elevated serum creatinine, Elevated BUN - Follow up/Referral - Patient Discharge Instructions - Post Discharge Activity
[2020-03-31 14:11] LABS: BASO % 0.8 % (0-2.0); EOS % 0.7 % (0-4.5); HEMATOCRIT 29.5 % (32.4-45.2); HEMOGLOBIN 9.8 GM/dL (10.7-15.3); LYMPH % 30.8 % (8-40); MCHC 33.3 g/dl (32.0-36.0); MEAN CELL VOLUME 105.3 fl (80-96); MEAN PLT VOLUME 7.8 fl (7.5-11.1); NEUT % 57.7 % (42.8-82.8); PLATELET COUNT 240 K/MM3 (134-434); RDW 20.1 % (11.6-15.6); WHITE BLOOD COUNT 7.2 K/mm3 (4.0-10.0)
[2020-03-31 14:50] LABS: ALBUMIN 2.5 g/dl (3.4-5.0); BILIRUBIN,TOTAL 0.5 mg/dL (0.2-1); BLOOD UREA NITROGEN 40.8 mg/dL (7-18); CALCIUM 8.9 mg/dL (8.5-10.1); POTASSIUM 3.5 mmol/L (3.5-5.1); TOT PROT 8.9 g/dl (6.4-8.2)
[2020-03-31 14:52] LABS: CREATININE 8.9 mg/dL (0.55-1.3)
[2020-03-31 15:24] LABS: ANISOCYTOSIS 1+; MACROCYTOSIS 1+; PLATELET ESTIMATE NORMAL
--- NOTE | 2020-03-31 15:48 | HP ---
CHIEF COMPLAINT: unsteady on her feet, t 100.0, nausea PCP: Ofelia Lutz HISTORY OF PRESENT ILLNESS: 84yo Fwith PMH of DM, HTN, HLD, Gout, CKD on PD (baseline Cr about 5), anemia,multiple myeloma, pituitary macroadenoma, independent in ADLs brought to ED by ANIMAL BIOLOGIST for generalized weakness, chills and temp 100.0. As per ANIMAL BIOLOGIST pt usually performs own ALDs, but since yest, decreased po intake and not feeling well. Pt was nauseated this am, no vomiting, abd pain, cp or sob. Set to ED when aide noted chills and temp of 100.0 Of note, pt was recently noted to have a LLE dvt and started on Eliquis; Still reports some soreness to the LLE When examined by me in the ED -- pt states she feels much better, ANIMAL BIOLOGIST at bedside reports her being back to herself. Pt denies any cp, sob, cough, no further nausea, no vomiting or recent diarrhea. Still feels tired though Aide reports her BP being low at home, but could not quantify how low ER course was notable for: (1) CR up to 8.9 (2) normal vitals (3) Recent Travel: Denies PAST MEDICAL HISTORY: as above PAST SURGICAL HISTORY: recent cataract surgery PD catheter placement Social History: Smoking: Denies Alcohol: Denies Drugs: Denies Allergies No Known Drug Allergies Allergy (Verified 03/31/20 12:33) tetanus and diphtheria toxoids [Tetanus&Diphtheria Toxoid] Allergy (Verified 03/31/20 12:33) Rash HOME MEDICATIONS: Home Medications Medication Instructions Recorded Allopurinol [Zyloprim -] 100 mg PO DAILY 01/20/14 Rosuvastatin Calcium [Crestor] 20 mg PO HS 01/20/14 Bimatoprost [Lumigan] 1 drop IO DAILY 05/13/17 Dorzolamide HCl/Timolol Maleat 10 ml OP DAILY 05/13/17 [Cosopt Eye Drops] Ascorbic Acid [Vitamin C with Giuliana 500 mg PO DAILY 08/16/19 Hips] Folic Acid 1 mg PO DAILY 08/16/19 Furosemide 80 mg PO HS 08/16/19 Icosapent Ethyl [Vascepa] 2 gm PO BID 08/16/19 Metoprolol Succinate [Toprol Xl] 25 mg PO DAILY 08/16/19 Nateglinide [Starlix (Nf) -] 60 mg PO BID 08/16/19 Apixaban [Eliquis] 5 mg PO BID 03/31/20 Docusate Sodium [Stool Softener] 100 mg PO DAILY 03/31/20 Pantoprazole Sodium 40 mg PO DAILY 03/31/20 Sevelamer Carbonate [Renvela] 800 mg PO TID 03/31/20 REVIEW OF SYSTEMS CONSTITUTIONAL: POS fever, chills AT HOME TODAY, NO diaphoresis, POS generalized weakness, malaise, loss of appetite, NO weight change HEENT: Absent: rhinorrhea, nasal congestion, throat pain, throat swelling, difficulty swallowing, mouth swelling, ear pain, eye pain, visual changes CARDIOVASCULAR: Absent: chest pain, syncope, palpitations, irregular heart rate, lightheadedness, peripheral edema RESPIRATORY: Absent: cough, shortness of breath, dyspnea with exertion, orthopnea, wheezing, stridor, hemoptysis GASTROINTESTINAL: Absent: abdominal pain, abdominal distension, POS nausea THIS AM, NO vomiting, diarrhea, constipation, melena, hematochezia GENITOURINARY: Absent: dysuria, frequency, urgency, hesitancy, hematuria, flank pain, genital pain MUSCULOSKELETAL: Absent: myalgia, arthralgia, joint swelling, back pain, neck pain SKIN: Absent: rash, itching, pallor HEMATOLOGIC/IMMUNOLOGIC: Absent: easy bleeding, easy bruising, lymphadenopathy, frequent infections ENDOCRINE: Absent: unexplained weight gain, unexplained weight loss, heat intolerance, cold intolerance NEUROLOGIC: Absent: headache, focal weakness or paresthesias, dizziness, POS unsteady gait THIS AM, seizure, mental status changes, bladder or bowel incontinence PSYCHIATRIC: Absent: anxiety, depression, suicidal or homicidal ideation, hallucinations. PHYSICAL EXAMINATION Vital Signs - 24 hr 03/31/20 03/31/20 03/31/20 12:28 13:15 14:39 Temperature 98 F 98.6 F Pulse Rate 79 Pulse Rate [ 71 Radial] Respiratory 18 20 Rate Blood Pressure 132/70 Blood Pressure 126/63 [Right Arm] O2 Sat by Pulse 99 97 Oximetry (%) 03/31/20 15:23 Temperature Pulse Rate Pulse Rate [ Radial] Respiratory Rate Blood Pressure Blood Pressure [Right Arm] O2 Sat by Pulse 98 Oximetry (%) GENERAL: Awake, alert, and fully oriented, in no acute distress. FRAIL INDIVIDUAL HEAD: Normal with no signs of trauma. EYES: Pupils equal, round and reactive to light, POS CRUSTING OF BOTH EYELIDS WITH INJECTED CONJUNCTIVA extraocular movements intact, sclera anicteric, No lid lag. EARS, NOSE, THROAT: Ears normal, nares patent, oropharynx clear without exudates. Moist mucous membranes. NECK: Normal range of motion, supple without lymphadenopathy, JVD, or masses. LUNGS: Breath sounds equal, clear to auscultation bilaterally. No wheezes, and no crackles. No accessory muscle use. HEART: Regular rate and rhythm, normal S1 and S2 without murmur, rub or gallop. ABDOMEN: Soft, nontender, not distended, normoactive bowel sounds, no guarding, no rebound, no masses. No hepatomegaly or splenomegaly. POS LLQ PERITONEAL DIALYSIS CATHETER IN PLACE MUSCULOSKELETAL: Normal range of motion at all joints. No bony deformities or tenderness. No CVA tenderness. UPPER EXTREMITIES: 2+ pulses, warm, well-perfused. No cyanosis. No clubbing. No peripheral edema. LOWER EXTREMITIES: 2+ pulses, warm, well-perfused. MILD LEFT LE CALF TENDERNESS No peripheral edema. NEUROLOGICAL: Cranial nerves II-XII intact. Normal speech. DID NOT ASSESS GAIT PSYCHIATRIC: Cooperative. Good eye contact. Appropriate mood and affect. SKIN: Warm, dry, normal turgor, no rashes or lesions noted, normal capillary refill. Laboratory Results - last 24 hr 03/31/20 03/31/20 03/31/20 14:00 14:00 14:00 WBC 7.2 RBC 2.80 L Hgb 9.8 L Hct 29.5 L MCV 105.3 H MCH 35.0 H MCHC 33.3 RDW 20.1 H Plt Count 240 D MPV 7.8 Absolute Neuts (auto) 4.2 Neutrophils % 57.7 D Neutrophils % (Manual) 57.0 Band Neutrophils % 0.0 Lymphocytes % 30.8 D Lymphocytes % (Manual) 33.0 Monocytes % 10.0 Monocytes % (Manual) 6 Eosinophils % 0.7 Eosinophils % (Manual) 1.0 Basophils % 0.8 Basophils % (Manual) 0.0 Myelocytes % (Man) 2 Promyelocytes % (Man) 1 Blast Cells % (Manual) 0 Nucleated RBC % 0 Metamyelocytes 0 Hypochromia 0 Platelet Estimate Normal Polychromasia 0 Poikilocytosis 0 Anisocytosis 1+ Microcytosis 0 Macrocytosis 1+ Sodium 129 L Potassium 3.5 Chloride 89 L Carbon Dioxide 26 Anion Gap 13 BUN 40.8 H Creatinine 8.9 H* Est GFR (CKD-EPI)AfAm 4.32 Est GFR (CKD-EPI)NonAf 3.73 Random Glucose 181 H Lactic Acid Calcium 8.9 Total Bilirubin 0.5 AST 20 ALT 36 Alkaline Phosphatase 69 Creatine Kinase 42 Troponin I 0.05 0.05 Total Protein 8.9 H Albumin 2.5 L 03/31/20 14:00 WBC RBC Hgb Hct MCV MCH MCHC RDW Plt Count MPV Absolute Neuts (auto) Neutrophils % Neutrophils % (Manual) Band Neutrophils % Lymphocytes % Lymphocytes % (Manual) Monocytes % Monocytes % (Manual) Eosinophils % Eosinophils % (Manual) Basophils % Basophils % (Manual) Myelocytes % (Man) Promyelocytes % (Man) Blast Cells % (Manual) Nucleated RBC % Metamyelocytes Hypochromia Platelet Estimate Polychromasia Poikilocytosis Anisocytosis Microcytosis Macrocytosis Sodium Potassium Chloride Carbon Dioxide Anion Gap BUN Creatinine Est GFR (CKD-EPI)AfAm Est GFR (CKD-EPI)NonAf Random Glucose Lactic Acid 3.2 H* Calcium Total Bilirubin AST ALT Alkaline Phosphatase Creatine Kinase Troponin I Total Protein Albumin EKG: NSR@78BPM, PAC CXR: PER MY INTERPRETATION, [facility] -- AWAITING FINAL READ ASSESSMENT/PLAN: 84 Y/O FEMALE WITH THE ABOVE MED HX ADMITTED WITH FEVERS, CHILLS, ACUTE ON CKD *FEVERS/CHILLS - AFEBRILE IN THE ED CURRENTLY APPEARS STABLE UA WITH POS LEUKOCYTE ESTERASE, NEG NITRITE -- WILL COVER FOR UTI DID NOT MEET SIRS CRITERIA UPON ARRIVAL TO ED BLOOD CULTURES AND URINE CULTURES SENT ALREADY ID EVAL PERITONEAL CATHETER APPEARS CLEAN NO LEUKOCYTOSIS MONITOR FOR ANY FURTHER SIGNS OF INFECTION LACTATE ELEVATED BUT IN PT WITH KIDNEY DISEASE AND DEF VOLUME CONTRACTED REPEAT IN AM AFTER GENTLE HYDRATION *ACUTE ON CKD -- ED TO GIVE A SMALL BOLUS AND WILL GENTLY HYDRATE FOR ANOTHER 250CC RENAL EVAL NO S/SX OF FLUID OVERLOAD ON EXAM CURRENTLY BELIEVE PT IS PRERENAL, DECREASED PO INTAKE THE PAST TWO DAYS * LLE DVT - CAN CONT ELIQUIS *ANEMIA - HX OF MULTIPLE MYELOMA AND CKD NO S.SX OF ACUTE BLEEDING H/H STABLE WILL MONITOR AND RECHECK IN AM *HYPONATREMIA/HYPOCHLOREMIA - FROM VOLUME CONTRACTION GENTLY HYDRATING RECHECK IN AM *DVT PROPHY - ON ELIQUIS ALREADY Family Medical History Family History: As Documented Family Hx Cardiac Disorders: Father Visit type - Medication Review Med list reviewed for High Risk Meds patients 65 and older: Yes - Emergency Visit Emergency Visit: Yes ED Registration Date: 03/31/20 Care time: The patient presented to the Emergency Department on the above date and was hospitalized for further evaluation of their emergent condition. - New Patient This patient is new to me today: Yes Date on this admission: 03/31/20 - Critical Care Critical Care patient: No
[2020-03-31 16:18] LABS: EPI CELLS 29 /uL (0-25.1); HYALINE CASTS 3 /uL (0-3.1); URINE APPEARANCE CLOUDY; URINE BACTERIA 57 /uL (0-1359); URINE BILIRUBIN NEGATIVE (NEGATIVE); URINE COLOR YELLOW; URINE GLUCOSE (UA) NEGATIVE (NEGATIVE); URINE KETONE TRACE (NEGATIVE); URINE LEUK ESTERASE 1+ (NEGATIVE); URINE NITRITE NEGATIVE (NEGATIVE); URINE PROTEIN 3+ (NEGATIVE); URINE RBC 13 /uL (0-23.9); URINE WBC 36 /uL (0-25.8)
[2020-03-31] MEDS ORDERED: SODIUM CHLORIDE 0.9% 500 ML INFUS.BAG IV ONE (16:24)
[2020-03-31] MEDS ORDERED: ONDANSETRON 4 MG/2 ML VIAL IVPUSH PRN (17:00)
[2020-03-31] MEDS ORDERED: SODIUM CHLORIDE 250 ML IV SCH (17:00)
[2020-03-31] MEDS ORDERED: CEFTRIAXONE 1 GM/50 ML BAG ONE (17:40)
[2020-03-31] MEDS: ERYTHROMYCIN 0.5% OPHTHALMIC OINTMENT 3.5 GM TUBE OU SCH (17:52)
[2020-03-31] MEDS: CEFTRIAXONE 1 GM in DEXTROSE 5%-WATER - 50 ML IVPB SCH (17:53)
[2020-03-31 18:11] LABS: INR 2.69 (0.83-1.09); PROTHROMBIN TIME (PATIENT) 32.1 SEC (9.7-13.0)
[2020-03-31] MEDS ORDERED: ROSUVASTATIN CA 20 MG TABLET (FP) PO SCH (22:00)
[2020-03-31] MEDS ORDERED: APIXABAN 5 MG TABLET PO SCH (22:00)
[2020-03-31] MEDS ORDERED: PATIENT'S OWN MEDICATION (NON-FORMULARY) (Icosapent Ethyl [Vascepa] 2 GM) PO SCH (22:00)
[2020-03-31] MEDS: INSULIN SLIDING SCALE (NOVOLOG) 1 VIAL SQ SCH (22:21)
[2020-03-31] MEDS: LATANOPROST 0.005% OPHTH SOLN 2.5ML BOTTLE OS SCH (22:22)
[2020-03-31] MEDS: ROSUVASTATIN CA 10 MG TABLET (FP) PO SCH (22:22)
[2020-04-01] MEDS: INSULIN SLIDING SCALE (NOVOLOG) 1 VIAL SQ SCH ×4 (06:08→21:21)
[2020-04-01 07:34] LABS: HEMOGLOBIN 8.8 GM/dL (10.7-15.3); MCH 34.8 pg (25.7-33.7); MCHC 33.9 g/dl (32.0-36.0); MEAN CELL VOLUME 102.9 fl (80-96); MEAN PLT VOLUME 7.7 fl (7.5-11.1); PLATELET COUNT 211 K/MM3 (134-434); RBC 2.53 M/mm3 (3.60-5.2); RDW 20.1 % (11.6-15.6); WHITE BLOOD COUNT 6.6 K/mm3 (4.0-10.0)
[2020-04-01 07:53] LABS: INR 2.34 (0.83-1.09); PROTHROMBIN TIME (PATIENT) 27.9 SEC (9.7-13.0)
[2020-04-01 07:57] LABS: BLOOD UREA NITROGEN 45.3 mg/dL (7-18); CALCIUM 8.1 mg/dL (8.5-10.1); MAGNESIUM 2.1 mg/dL (1.8-2.4); PHOSPHOROUS 3.9 mg/dL (2.5-4.9); POTASSIUM 3.7 mmol/L (3.5-5.1)
[2020-04-01 08:22] LABS: CREATININE 9.2 mg/dL (0.55-1.3)
[2020-04-01] MEDS: SEVELAMER CARBONATE 800 MG TAB (FP) PO SCH ×3 (09:25→17:22)
[2020-04-01] MEDS ORDERED: cefTRIAXone SODIUM 1 GM VIAL ONE (09:36)
[2020-04-01] MEDS ORDERED: PT OWN MED DRAWER 7, Y5N ONE ×4 (09:36→14:15)
[2020-04-01] MEDS ORDERED: DEXTROSE 5%-WATER - 50 ML IVPB ONE ×3 (09:36→17:14)
[2020-04-01] MEDS: CEFTRIAXONE 1 GM in DEXTROSE 5%-WATER - 50 ML IVPB SCH (09:55)
[2020-04-01] MEDS: DOCUSATE SODIUM 100 MG CAPSULE (FP) PO SCH (09:56)
[2020-04-01] MEDS: PANTOPRAZOLE 40 MG TABLET PO SCH (09:56)
[2020-04-01] MEDS: metoPROLOL SUCCINATE 25 MG TAB.SR.24H (FP) PO SCH (09:56)
[2020-04-01] MEDS: FOLIC ACID 1 MG TABLET (FP) PO SCH (09:56)
[2020-04-01] MEDS: ALLOPURINOL 100 MG TABLET (FP) PO SCH (09:56)
[2020-04-01] MEDS ORDERED: PATIENT'S OWN MEDICATION (NON-FORMULARY) (Dorzolamide Hcl/Timolol Maleat [Cosopt Eye Drops OP SCH (10:00)
[2020-04-01] MEDS ORDERED: PATIENT'S OWN MEDICATION (NON-FORMULARY) (Bimatoprost [Lumigan] 1 DROP) IO SCH (10:00)
[2020-04-01] MEDS ORDERED: APIXABAN 5 MG TABLET PO SCH (10:00)
--- NOTE | 2020-04-01 11:29 | CON.ID ---
Consult Consult Specialty:: infectious diseases Referred by:: hospitalist Reason for Consultation:: sepsis,fever,confusion - History of Present Illness Chief Complaint: fever,sepsis,confusion History of Present Illness: history obtained from the charts,as patient is confused and not able to give any history 84yo Fwith PMH of DM, HTN, HLD, Gout, CKD on PD (baseline Cr about 5), anemia,multiple myeloma, pituitary macroadenoma, independent in ADLs brought to ED by COUNTY TREASURER for generalized weakness, chills and temp 100.0. As per COUNTY TREASURER pt usually performs own ALDs, but since yest, decreased po intake and not feeling well. Pt was nauseated this am, no vomiting, abd pain, cp or sob. Set to ED when aide noted chills and temp of 100.0 Of note, pt was recently noted to have a LLE dvt and started on Eliquis; Still reports some soreness to the LLE patient very weak and confused, does not know what is going on - History Source History Provided By: Medical Record Limitations to Obtaining History: Clinical Condition - Past Medical History Cardio/Vascular: Yes: HTN Renal/: Yes: Renal Inusuff Endocrine: Yes: Diabetes Mellitus - Alcohol/Substance Use Hx Alcohol Use: No - Smoking History Smoking history: Never smoked Have you smoked in the past 12 months: No Aproximately how many cigarettes per day: 0 Home Medications - Allergies Allergies/Adverse Reactions: Allergies Allergy/AdvReac Type Severity Reaction Status Date / Time No Known Drug Allergies Allergy Verified 03/31/20 12:33 tetanus and diphtheria Allergy Rash Verified 03/31/20 12:33 toxoids [Tetanus&Diphtheria Toxoid] - Home Medications Home Medications: Ambulatory Orders RX: Allopurinol [Zyloprim -] 100 mg PO DAILY 01/20/14 RX: Rosuvastatin Calcium [Crestor] 20 mg PO HS 01/20/14 RX: Bimatoprost [Lumigan] 1 drop IO DAILY 05/13/17 RX: Dorzolamide HCl/Timolol Maleat [Cosopt Eye Drops] 10 ml OP DAILY 05/13/17 RX: Ascorbic Acid [Vitamin C with Giuliana Hips] 500 mg PO DAILY 08/16/19 RX: Folic Acid 1 mg PO DAILY 08/16/19 RX: Furosemide 80 mg PO HS 08/16/19 RX: Icosapent Ethyl [Vascepa] 2 gm PO BID 08/16/19 RX: Metoprolol Succinate [Toprol Xl] 25 mg PO DAILY 08/16/19 RX: Nateglinide [Starlix (Nf) -] 60 mg PO BID 08/16/19 Apixaban [Eliquis] 5 mg PO BID 03/31/20 Docusate Sodium [Stool Softener] 100 mg PO DAILY 03/31/20 RX: Pantoprazole Sodium 40 mg PO DAILY 03/31/20 Sevelamer Carbonate [Renvela] 800 mg PO TID 03/31/20 Family Medical History Family Hx Cardiac Disorders: Father Review of Systems Unable to obtain ROS, reason: unable to obtain Physical Exam Vital Signs: Vital Signs Temperature 98.8 F 04/01/20 06:00 Pulse Rate 80 04/01/20 06:00 Respiratory Rate 18 04/01/20 06:00 Blood Pressure 116/60 04/01/20 06:00 O2 Sat by Pulse Oximetry (%) 99 04/01/20 06:00 Constitutional: Yes: Thin, Other (failure to thrive) HENT: Yes: Atraumatic, Normocephalic Neck: Yes: Supple, Trachea Midline Cardiovascular: Yes: Regular Rate and Rhythm Respiratory: Yes: Regular, CTA Bilaterally Gastrointestinal: Yes: Normal Bowel Sounds, Soft, Other (PD catheter in place) Musculoskeletal: Yes: WNL Extremities: Yes: Other Neurological: Yes: Alert, Confusion, Other Psychiatric: Yes: Other Labs: CBC, BMP 04/01/20 06:19 04/01/20 06:19 Imaging - Results Chest X-ray: Report Reviewed, Image Reviewed Assessment/Plan 84-year-old -Russian woman with a past medical history of end-stage kidney disease on peritoneal dialysis, hypertension, hyperlipidemia, gout, recent diagnosis of deep venous thrombosis who presented from home with complaints of generalized malaise and low-grade fever with mild abdominal discomfort. fever esrd htn abd pain hld sepsis plan continue abx await for all cx reports should get a ct scan nutrition dialysis rest as per the team
[2020-04-01] MEDS ORDERED: EPOETIN ALFA 20,000 UNIT/1 ML VIAL SQ ONE (13:15)
[2020-04-01] MEDS: POTASSIUM CHLORIDE TABS 20 MEQ TABLET.ER (FP) PO SCH (13:17)
[2020-04-01] MEDS: ACETAMINOPHEN 325 MG TABLET (FP) PO PRN ×2 (13:48→20:31)
[2020-04-01] MEDS: ERYTHROMYCIN 0.5% OPHTHALMIC OINTMENT 3.5 GM TUBE OU SCH (13:58)
[2020-04-01] MEDS: TIMOLOL 0.5% OPHTHALMIC SOL 5 ML BOTTLE OS SCH (14:06)
[2020-04-01] MEDS ORDERED: PIPERACILLIN/TAZOBACTAM 2.25 GM VIAL IVPB ONE ×2 (14:12→17:14)
[2020-04-01] MEDS: DORZOLAMIDE 2% HCL OPHTHALMIC SOLUTION 10 ML BOTTLE OS SCH (14:13)
--- NOTE | 2020-04-01 14:20 | PN ---
Teaching Attending Note Name of Resident: Bella Liao ATTENDING PHYSICIAN STATEMENT I saw and evaluated the patient. I reviewed the resident's note and discussed the case with the resident. I agree with the resident's findings and plan as documented. SUBJECTIVE: seen at around 10 am . no fever or chills, no pain , reported abd pain at home x 2 days , had no dysuria, no BOOTHE . she is a poor historian and her aid will be called by team . OBJECTIVE: NAD, awake, alert, cooeprative , knows her location, her age, and not year or home address [place], in both eyes . R pupil is defromed, L pupil is round . MMM CV: RRR, no MRG , + JVD Lungs: CTAB Abd: soft, TTP in epigastric area and RUQ and RLQ. no guarding. nl BS . distended . + shifting dullness. LLQ PD cath with intact skin around it with no erythema or discharge Ext : No edema or erytehma abnormal skin turgor . + armpit sweating ASSESSMENT AND PLAN: 84 y/o lady with h/o DM, HTN, HLD, Gout, CKD on PD, anemia,multiple myeloma, pituitary macroadenoma who has 24 hour aids and lives a lone, who presented with fever and abd pain . 1- Fever. source could be UTI VS peritonitis given her PD cath. - follow blood cx - cont ceftriaxone - follow urine cx - peritoneal fluid to be taken for analysis and cx during dialysis today - tylenol for fever 2- SKD on PD: - received IVF in ER. volume status is better now. - hold off more IVF. - also hold home lasix - PD today - oral hydration - d/W dr. Means 3- H/o HTN: cont BB 4- H/o DVT: US on 03/27 shoed extensive DVT in LLE . dr. manriquez treated her fro the DVT. - Spoke to Herb Gr. She was given 10 mg BID of eliquis x 1 week then the 5 BID after then - will change eliquis to 10 BID x 1 more day then 5 BID - since she tolerated the hhigh dose of eliquis and per the manufacture , no dose adjustment is needed in setting of renal failure on dialysis ( in setting of DVT) 5- h/o DM : cont SSI fo rnow - check A1c . HLOC team to speak to son and to home aids for more details .
[2020-04-01] MEDS: PIPERACILLIN/TAZOB 2.25 GM 2.25 GM in DEXTROSE 5%-WATER - 50 ML IVPB SCH ×2 (14:24→17:22)
--- NOTE | 2020-04-01 14:56 | CON.NEP ---
Consult Consult Specialty:: Nephrology Referred by:: Medicine Reason for Consultation:: ESRD on PD - History of Present Illness Chief Complaint: Fever and abdominal pain History of Present Illness: This is a 84-year-old -[place] woman with a past medical history of end- stage kidney disease on peritoneal dialysis, hypertension, hyperlipidemia, gout, recent diagnosis of deep venous thrombosis who presented from home with complaints of generalized malaise and low-grade fever with mild abdominal discomfort. Patient was seen and examined at the bedside. She denies any fevers or chills currently. She still has some mild abdominal discomfort but not overt tenderness throughout the abdomen. She usually has her exchanges done by a home health aide but she denies seeing any cloudy peritoneal fluid. She denies any nausea, vomiting or diarrhea. She has no tenderness at her peritoneal dialysis catheter site. She was recently found to have a DVT and started on Eliquis 5 mg twice a day. - History Source History Provided By: Patient Limitations to Obtaining History: No Limitations - Past Medical History Cardio/Vascular: Yes: HTN Renal/: Yes: Renal Inusuff Endocrine: Yes: Diabetes Mellitus - Alcohol/Substance Use Hx Alcohol Use: No - Smoking History Smoking history: Never smoked Have you smoked in the past 12 months: No Aproximately how many cigarettes per day: 0 Home Medications - Allergies Allergies/Adverse Reactions: Allergies Allergy/AdvReac Type Severity Reaction Status Date / Time No Known Drug Allergies Allergy Verified 03/31/20 12:33 tetanus and diphtheria Allergy Rash Verified 03/31/20 12:33 toxoids [Tetanus&Diphtheria Toxoid] - Home Medications Home Medications: Ambulatory Orders Allopurinol [Zyloprim -] 100 mg PO DAILY 01/20/14 Rosuvastatin Calcium [Crestor] 20 mg PO HS 01/20/14 Bimatoprost [Lumigan] 1 drop IO DAILY 05/13/17 Dorzolamide HCl/Timolol Maleat [Cosopt Eye Drops] 10 ml OP DAILY 05/13/17 Ascorbic Acid [Vitamin C with Giuliana Hips] 500 mg PO DAILY 08/16/19 Folic Acid 1 mg PO DAILY 08/16/19 Furosemide 80 mg PO HS 08/16/19 Icosapent Ethyl [Vascepa] 2 gm PO BID 08/16/19 Metoprolol Succinate [Toprol Xl] 25 mg PO DAILY 08/16/19 Nateglinide [Starlix (Nf) -] 60 mg PO BID 08/16/19 Apixaban [Eliquis] 5 mg PO BID 03/31/20 Docusate Sodium [Stool Softener] 100 mg PO DAILY 03/31/20 Pantoprazole Sodium 40 mg PO DAILY 03/31/20 Sevelamer Carbonate [Renvela] 800 mg PO TID 03/31/20 Family Medical History Family History: Unremarkable Family Hx Cardiac Disorders: Father Review of Systems - Review of Systems Constitutional: reports: Fever, Malaise Eyes: reports: No Symptoms HENT: reports: No Symptoms, Ocular Prosthesis Cardiovascular: reports: No Symptoms Respiratory: reports: No Symptoms Gastrointestinal: reports: Abdominal Pain. denies: Bloating, Constipation, Melena Genitourinary: reports: No Symptoms Musculoskeletal: reports: No Symptoms Neurological: reports: No Symptoms Nephrology Consult - Height Height: 5 ft 4 in - Weight Weight: 63.503 kg - BMI Body Mass Index (BMI): 24.0 - Lab Results CBC,BMP: CBC, BMP 04/01/20 06:19 04/01/20 06:19 Anion Gap: Anion Gap Anion Gap 13 MMOL/L (8-16) 04/01/20 06:19 - Imaging Chest X-ray: Report Reviewed, Image Reviewed - Physical Examination Vital Signs: Vital Signs Temperature 98.3 F 04/01/20 10:00 Pulse Rate 85 04/01/20 10:00 Respiratory Rate 18 04/01/20 11:00 Blood Pressure 124/51 L 04/01/20 10:00 O2 Sat by Pulse Oximetry (%) 99 04/01/20 11:00 Constitutional: Yes: No Distress, Calm Eyes: Yes: Conjunctiva Clear HENT: Yes: Atraumatic Neck: Yes: Supple Cardiovascular: Yes: Regular Rate and Rhythm Respiratory: Yes: Regular. No: Diminished, Rales, Rhonchi Gastrointestinal: Yes: Normal Bowel Sounds, Soft, Other (peritoneal dialysis catheter in place, exit site is clean, and there is no discharge or erythema noted.). No: Tenderness Edema: Yes Edema: LLE: Trace Neurological: Yes: Alert, Oriented Assessment/Plan 84-year-old -[place] woman with a past medical history of end-stage kidney disease on peritoneal dialysis, hypertension, hyperlipidemia, gout, recent diagnosis of deep venous thrombosis who presented from home with complaints of generalized malaise and low-grade fever with mild abdominal discomfort. 1. low-grade fever with abdominal pain rule out peritonitis in a PD patient. 2. End-stage kidney disease on peritoneal dialysis. 3. Recently diagnosed DVT. 4. Hypertension 5. Hyperlipidemia We will continue peritoneal dialysis every 6 hours while inpatient. We will use 2 L of 1.5% solution will dwell time of 6 hours. Check PD fluid cell count and culture to rule out peritonitis. Antibiotics as per infectious disease. Continue Eliquis for management of DVT. given lactic acidosis on admission patient likely hypovolemic will use lower dextrose concentration to remove less fluid during PD. We will reevaluate fluid balance daily. Trend electrolytes daily well and patient. Trend hemoglobin/hematocrit, give CRESENCIO subcutaneously for anemia management. Thank you will follow. Nacho Means DO
[2020-04-01] MEDS: PERITONEAL DIALYSIS 1.5% SOLN 2,000 ML IP SCH ×2 (17:37→21:41)
--- NOTE | 2020-04-01 17:58 | CONSULT ---
Consultation: REQUESTING PROVIDER: CONSULT REQUEST: We have been asked to medically evaluate this patient for admission to the medical floors. 84yo F who is a poor historian with PMHx of DM, HTN, HLD, Gout, CKD on PD done nightly as per her cousin (baseline Cr about 9), anemia, multiple myeloma, pituitary macroadenoma, arcus senalis, independent in ADLs presented to the ED by her [employer]ST[employer] CREW PUSHER for generalized weakness, chills and temp 100.0. As per ROUSTABOUT CREW PUSHER pt usually performs own ADLs, but since yesterday has had decreased po intake and has not been feeling well. ROUSTABOUT CREW PUSHER noted a soft fever of 100.0 and chills w/ nausea, but no vomitting. Denied any CP, SoB, abdominal pain, dysuria. Patient recently had a LLE dvt and was started on Eliquis 10mg BID q7days, however is unsure if she has been taking the dose. To confirm with home care assistant. Still reports some soreness to the LLE REVIEW OF SYSTEMS: Unable to accurately complete 2/2 patient's mental status. However, patient does not appear to have any complaints. PHYSICAL EXAMINATION Vital Signs - 24 hr Last Vital Signs Temp Pulse Resp BP Pulse Ox 98.3 F 85 18 124/51 L 99 04/01/20 10:00 04/01/20 10:00 04/01/20 11:00 04/01/20 10:04/01/20 11:00 GENERAL: Awake, alert, and conversational, however, has baseline AMS HEAD: Normal with no signs of trauma. EYES: Arcus Senalis in both eyes bilaterally. THROAT: Oropharynx clear without exudates. Moist mucous membranes. NECK: JVD present. Normal range of motion, supple without lymphadenopathy. LUNGS: Breath sounds equal, clear to auscultation bilaterally. No wheezes, and no crackles. No accessory muscle use. HEART: Regular rate and rhythm, normal S1 and S2 without murmur, rub or gallop. ABDOMEN: Distended. Soft, nontender, normoactive bowel sounds MUSCULOSKELETAL: Not assessed UPPER EXTREMITIES: 2+ pulses, warm, well-perfused. No cyanosis. No clubbing. No peripheral edema. LOWER EXTREMITIES: 2+ pulses, warm, well-perfused. No peripheral edema. NEUROLOGICAL: Normal speech with altered mental status. Normal gait. PSYCHIATRIC: Cooperative. Good eye contact. SKIN: Warm, dry, decreased turgor Laboratory Results - last 24 hr CBC, BMP 04/01/20 06:19 04/01/20 06:19 Troponin, BNP 03/31/20 04/01/20 04/01/20 16:30 06:19 12:41 Troponin I 0.06 H 0.06 H 0.07 H Active Medications Acetaminophen (Tylenol -) 650 mg PO Q4H PRN PRN Reason: FEVER Last Admin: 04/01/20 13:48 Dose: 650 mg Documented by: Allopurinol (Zyloprim -) 100 mg PO DAILY [facility] Last Admin: 04/01/20 09:56 Dose: 100 mg Documented by: Apixaban (Eliquis -) 10 mg PO BID [facility] Stop: 04/02/20 22:01 Apixaban (Eliquis -) 5 mg PO BID [facility] Docusate Sodium (Colace -) 100 mg PO DAILY [facility] Last Admin: 04/01/20 09:56 Dose: 100 mg Documented by: Dorzolamide HCl (Trusopt 2%) 1 drop OS DAILY [facility] Last Admin: 04/01/20 14:13 Dose: 1 drop Documented by: Erythromycin (Erythromycin 0.5% Eye Ointment) 1 applic OU DAILY [facility] Last Admin: 04/01/20 13:58 Dose: 1 tube Documented by: Folic Acid (Folic Acid -) 1 mg PO DAILY [facility] Last Admin: 04/01/20 09:56 Dose: 1 mg Documented by: Peritoneal Dialysis Solution (Dianeal 1.5%) 2,000 mls @ 4,000 mls/hr IP Q6H [facility]; Protocol Last Admin: 04/01/20 17:37 Dose: 4,000 mls/hr Documented by: Piperacillin Sod/Tazobactam (Sod 2.25 gm/ Dextrose) 50 mls @ 100 mls/hr IVPB Q8H-IV [facility]; Protocol Last Admin: 04/01/20 17:22 Dose: 100 mls/hr Documented by: Insulin Aspart (Novolog Vial Sliding Scale -) 0 vial SQ ACHS [facility]; Protocol Last Admin: 04/01/20 17:09 Dose: Not Given Documented by: Latanoprost (Xalatan 0.005% Eye Drops -) 1 drop OS HS [facility] Last Admin: 08/23/20 22:22 Dose: Not Given Documented by: Metoprolol Succinate (Toprol Xl -) 25 mg PO DAILY [facility] Last Admin: 04/01/20 09:56 Dose: 25 mg Documented by: Non-Formulary Medication (Icosapent Ethyl [Vascepa]) 2 gm PO BID [facility] Ondansetron HCl (Zofran Injection) 4 mg IVPUSH Q6H PRN PRN Reason: NAUSEA Pantoprazole Sodium (Protonix -) 40 mg PO DAILY [facility] Last Admin: 04/01/20 09:56 Dose: 40 mg Documented by: Potassium Chloride (K-Dur -) 20 meq PO DAILY [facility] Last Admin: 04/01/20 13:17 Dose: 20 meq Documented by: Rosuvastatin Calcium (Crestor -) 10 mg PO HS [facility] Last Admin: 03/31/20 22:22 Dose: Not Given Documented by: Sevelamer Carbonate (Renvela -) 800 mg PO TIDCM [facility] Last Admin: 04/01/20 17:22 Dose: 800 mg Documented by: Timolol Maleate (Timoptic 0.5%) 1 drop OS DAILY [facility] Last Admin: 04/01/20 14:06 Dose: 1 drop Documented by: ASSESSMENT/PLAN: 84yo F who is a poor historian with PMHx of DM, HTN, HLD, Gout, CKD on PD done nightly as per her cousin (baseline Cr about 9), anemia, multiple myeloma, pituitary macroadenoma, arcus senalis, independent in ADLs presented to the ED by her [employer] P[employer]HER for generalized weakness, chills and temp 100.0. Chronic CKD on Nightly PD: - PD Nightly per ptn cousin, performed by [employer] PUSHER - received IVF in ER --> Patient is volume resuscitated --> DC IV fluids - DC Home lasix --> Reassess volume status and continue if necessary - Per Nephrology: PD today -1 Liter removed per nursing -2 liters infused per Nephro (Dr. Means) -Send fluid for cultures to r/o ascitic infx Fever of Unknown Origin - Possible 2/2 UTI vs Peritonitis: - FU Blood cx - FU Urine Cx - Trend WBCs - Per ID: DC Ceftriaxone, start Zosyn 2.225 - Peritoneal fluid culture following dialysis - Tylenol PRN for fever Hx of LLE DVT: - US on 03/27 demonstrated extensive DVT in LLE . - Treated by Dr. Melgar - Given 10 mg BID of eliquis x 1 week then the 5 BID after then - Day 6 of Elliquis, change Eliquis to 10 BID x 1 more day then 5 BID - Continue elliquis without dose adjustment, in spite of ESRD. Mfg shows no risk involved in use of drug. - Elevated INR expected on Elliquis, do not adjust Chronic Anemia -Likely 2/2 Chronic Renal Disease -Hgb 8.8 -Iron Studies, B12, Folate, Retic ordered -Continue Folic acid Hx of HTN: - VSS - BP stable - Continue Metoprolol 25mg qdaily. - Continue Vascepa - Slight troponins: Likely 2/2 demand ischemia Hx of DM: -DC Home Medications for now -Confirm Home meds with family -ISS -2/2 only 1 oral agent at home, no need to repeat Hba1c (6.5) Hx of HLD -Continue Rosuvastatin Hx of Gout -Continue Allopurinol Hx of Hypocalcemia -Continue Sevelemer Hx of Glaucoma -Continue Timolol -Continue Dorazolamide -Continue Lantaprost Goals of Care -Full Code -Followup w/ [employer] PUSHER & Cousin for further details -Phone number incorrect: [phone] . PPx -DVT Treatment: Elliquis 10mg BID -GI PPx: Pantoprazole FEN Fluids: No standing fluids Electrolytes: Monitor BMP Nutrition: Diabetic Diet Dispo: We will continue to follow the patient. Thank you for this consultative opportunity. ATTENDING PHYSICIAN STATEMENT I saw and evaluated the patient. I reviewed the resident's note and discussed the case with the resident. I agree with the resident's findings and plan as documented. SUBJECTIVE: OBJECTIVE: ASSESSMENT AND PLAN:
--- NOTE | 2020-04-01 18:25 | EKG ---
Test Reason : Blood Pressure : / mmHG Vent. Rate : 078 BPM Atrial Rate : 078 BPM P-R Int : 122 ms QRS Dur : 080 ms QT Int : 380 ms P-R-T Axes : 056 013 077 degrees QTc Int : 433 ms SINUS RHYTHM WITH PREMATURE ATRIAL COMPLEXES WITH ABERRANT CONDUCTION NONSPECIFIC T WAVE ABNORMALITY ABNORMAL ECG WHEN COMPARED WITH ECG OF 03-AUG-2019 11:33, ABERRANT CONDUCTION IS NOW PRESENT T WAVE VARIATION Confirmed by MIGUEL A MONTGOMERY, LAURENCE ([id number]) on 04/01/2020 6:25:03 PM Referred By: Confirmed By:LAURENCE GRADY MD
--- NOTE | 2020-04-01 18:42 | PN ---
Physical Exam: SUBJECTIVE: We have been asked to medically evaluate this patient for admission to the medical floors. 84yo F who is a poor historian with PMHx of DM, HTN, HLD, Gout, CKD on PD done nightly as per her cousin (baseline Cr about 9), anemia, multiple myeloma, pituitary macroadenoma, arcus senalis, independent in ADLs presented to the ED by her STEAM FLATTENER for generalized weakness, chills and temp 100.0. As per STEAM FLATTENER pt usually performs own ADLs, but since yesterday has had decreased po intake and has not been feeling well. STEAM FLATTENER noted a soft fever of 100.0 and chills w/ nausea, but no vomitting. Denied any CP, SoB, abdominal pain, dysuria. Patient recently had a LLE dvt and was started on Eliquis 10mg BID q7days, however is unsure if she has been taking the dose. To confirm with home housekeeper. Still reports some soreness to the LLE REVIEW OF SYSTEMS: Unable to accurately complete 2/2 patient's mental status. However, patient does not appear to have any complaints. OBJECTIVE: Vital Signs Period Temp Pulse Resp BP Sys/Gustafson Pulse Ox Last 24 Hr 98.1 F-99.6 F 76-93 17-20 116-151/49-88 98-99 GENERAL: Awake, alert, and conversational, however, has baseline AMS HEAD: Normal with no signs of trauma. EYES: Arcus Senalis in both eyes bilaterally. THROAT: Oropharynx clear without exudates. Moist mucous membranes. NECK: JVD present. Normal range of motion, supple without lymphadenopathy. LUNGS: Breath sounds equal, clear to auscultation bilaterally. No wheezes, and no crackles. No accessory muscle use. HEART: Regular rate and rhythm, normal S1 and S2 without murmur, rub or gallop. ABDOMEN: Distended. Soft, nontender, normoactive bowel sounds MUSCULOSKELETAL: Not assessed UPPER EXTREMITIES: 2+ pulses, warm, well-perfused. No cyanosis. No clubbing. No peripheral edema. LOWER EXTREMITIES: 2+ pulses, warm, well-perfused. No peripheral edema. NEUROLOGICAL: Normal speech with altered mental status. Normal gait. PSYCHIATRIC: Cooperative. Good eye contact. SKIN: Warm, dry, decreased turgor Laboratory Results - last 24 hr CBC, BMP 04/01/20 06:19 04/01/20 06:19 Troponin, BNP 04/01/20 04/01/20 06:19 12:41 Troponin I 0.06 H 0.07 H Active Medications Acetaminophen (Tylenol -) 650 mg PO Q4H PRN PRN Reason: FEVER Last Admin: 04/01/20 13:48 Dose: 650 mg Documented by: Allopurinol (Zyloprim -) 100 mg PO DAILY [facility] Last Admin: 04/01/20 09:56 Dose: 100 mg Documented by: Apixaban (Eliquis -) 10 mg PO BID [facility] Stop: 04/02/20 22:01 Apixaban (Eliquis -) 5 mg PO BID [facility] Docusate Sodium (Colace -) 100 mg PO DAILY [facility] Last Admin: 04/01/20 09:56 Dose: 100 mg Documented by: Dorzolamide HCl (Trusopt 2%) 1 drop OS DAILY [facility] Last Admin: 04/01/20 14:13 Dose: 1 drop Documented by: Erythromycin (Erythromycin 0.5% Eye Ointment) 1 applic OU DAILY [facility] Last Admin: 04/01/20 13:58 Dose: 1 tube Documented by: Folic Acid (Folic Acid -) 1 mg PO DAILY [facility] Last Admin: 04/01/20 09:56 Dose: 1 mg Documented by: Peritoneal Dialysis Solution (Dianeal 1.5%) 2,000 mls @ 4,000 mls/hr IP Q6H [facility]; Protocol Last Admin: 04/01/20 17:37 Dose: 4,000 mls/hr Documented by: Piperacillin Sod/Tazobactam (Sod 2.25 gm/ Dextrose) 50 mls @ 100 mls/hr IVPB Q8H-IV [facility]; Protocol Last Admin: 04/01/20 17:22 Dose: 100 mls/hr Documented by: Insulin Aspart (Novolog Vial Sliding Scale -) 0 vial SQ ACHS [facility]; Protocol Last Admin: 04/01/20 17:09 Dose: Not Given Documented by: Latanoprost (Xalatan 0.005% Eye Drops -) 1 drop OS HS [facility] Last Admin: 03/31/20 22:22 Dose: Not Given Documented by: Metoprolol Succinate (Toprol Xl -) 25 mg PO DAILY [facility] Last Admin: 04/01/20 09:56 Dose: 25 mg Documented by: Non-Formulary Medication (Icosapent Ethyl [Vascepa]) 2 gm PO BID [facility] Ondansetron HCl (Zofran Injection) 4 mg IVPUSH Q6H PRN PRN Reason: NAUSEA Pantoprazole Sodium (Protonix -) 40 mg PO DAILY [facility] Last Admin: 04/01/20 09:56 Dose: 40 mg Documented by: Potassium Chloride (K-Dur -) 20 meq PO DAILY [facility] Last Admin: 04/01/20 13:17 Dose: 20 meq Documented by: Rosuvastatin Calcium (Crestor -) 10 mg PO HS [facility] Last Admin: 03/31/20 22:22 Dose: Not Given Documented by: Sevelamer Carbonate (Renvela -) 800 mg PO TIDCM [facility] Last Admin: 04/01/20 17:22 Dose: 800 mg Documented by: Timolol Maleate (Timoptic 0.5%) 1 drop OS DAILY [facility] Last Admin: 04/01/20 14:06 Dose: 1 drop Documented by: ASSESSMENT/PLAN: 84yo F who is a poor historian with PMHx of DM, HTN, HLD, Gout, CKD on PD done nightly as per her cousin (baseline Cr about 9), anemia, multiple myeloma, pituitary macroadenoma, arcus senalis, independent in ADLs presented to the ED by her STEAM FLATTENER for generalized weakness, chills and temp 100.0. Chronic CKD on Nightly PD: - PD Nightly per ptn cousin, performed by STEAM FLATTENER - received IVF in ER --> Patient is volume resuscitated --> DC IV fluids - DC Home lasix --> Reassess volume status and continue if necessary - Per Nephrology: PD today -1 Liter removed per nursing -2 liters infused per Nephro (Dr. Means) -Send fluid for cultures to r/o ascitic infx Fever of Unknown Origin - Possible 2/2 UTI vs Peritonitis: - FU Blood cx - FU Urine Cx - Trend WBCs - LA normalizing - Per ID: DC Ceftriaxone, start Zosyn 2.225 - Peritoneal fluid culture following dialysis - Tylenol PRN for fever Hx of LLE DVT: - US on 03/27 demonstrated extensive DVT in LLE . - Treated by Dr. Melgar - Given 10 mg BID of eliquis x 1 week then the 5 BID after then - Day 6 of Elliquis, change Eliquis to 10 BID x 1 more day then 5 BID - Continue elliquis without dose adjustment, in spite of ESRD. Mfg shows no risk involved in use of drug. - Elevated INR expected on Elliquis, do not adjust Chronic Anemia -Likely 2/2 Chronic Renal Disease -Hgb 8.8 -Iron Studies, B12, Folate, Retic ordered -Continue Folic acid Hx of HTN: - VSS - BP stable - Continue Metoprolol 25mg qdaily. - Continue Vascepa - Slight troponins: Likely 2/2 demand ischemia Hx of DM: -DC Home Medications for now -Confirm Home meds with family -ISS -FU Hba1C Hx of HLD -Continue Rosuvastatin Hx of Gout -Continue Allopurinol Hx of Hypocalcemia -Continue Sevelemer Hx of Glaucoma -Continue Timolol -Continue Dorazolamide -Continue Lantaprost Recent Cataract Surgery Left Eye -Continue Erythromycin eye ointment Goals of Care -Full Code -Followup w/ STEAM FLATTENER & Cousin for further details -Phone number incorrect: [phone] . PPx -DVT Treatment: Elliquis 10mg BID -GI PPx: Pantoprazole FEN Fluids: No standing fluids Electrolytes: Monitor BMP Nutrition: Diabetic Diet Dispo: We will continue to follow the patient. Thank you for this consultative opportunity. Visit type - Emergency Visit Emergency Visit: No - New Patient This patient is new to me today: Yes Date on this admission: 04/01/20 - Critical Care Critical Care patient: No - Discharge Referral Referred to [facility] Med [facility] No - Medication Review Med list reviewed for High Risk Meds patients 65 and older: Yes ATTENDING PHYSICIAN STATEMENT I saw and evaluated the patient. I reviewed the resident's note and discussed the case with the resident. I agree with the resident's findings and plan as documented. SUBJECTIVE: OBJECTIVE: ASSESSMENT AND PLAN:
[2020-04-01 20:26] LABS: BF WBC & OTHER NUCLEATED CELLS 14 /mm3
[2020-04-01] MEDS ORDERED: INSULIN SLIDING SCALE (NOVOLOG) 1 VIAL SQ ONE (21:15)
[2020-04-01] MEDS: APIXABAN 5 MG TABLET PO SCH (21:20)
[2020-04-01] MEDS: ROSUVASTATIN CA 10 MG TABLET (FP) PO SCH (21:20)
[2020-04-01 21:39] LABS: BODY FLUID MACROPHAGES 33 %; BODY FLUID MESOTHELIAL 4 %; BODY FLUID MONOCYTE 5 %
[2020-04-01] MEDS: LATANOPROST 0.005% OPHTH SOLN 2.5ML BOTTLE OS SCH (21:39)
[2020-04-02] MEDS ORDERED: PIPERACILLIN/TAZOBACTAM 2.25 GM VIAL IVPB ONE ×3 (01:34→16:52)
[2020-04-02] MEDS ORDERED: DEXTROSE 5%-WATER - 50 ML IVPB ONE ×3 (01:34→16:52)
[2020-04-02] MEDS: PIPERACILLIN/TAZOB 2.25 GM 2.25 GM in DEXTROSE 5%-WATER - 50 ML IVPB SCH ×3 (01:58→17:00)
[2020-04-02] MEDS: PERITONEAL DIALYSIS 1.5% SOLN 2,000 ML IP SCH ×4 (04:34→21:24)
[2020-04-02] MEDS: ACETAMINOPHEN 325 MG TABLET (FP) PO PRN ×2 (06:18→19:00)
[2020-04-02] MEDS: INSULIN SLIDING SCALE (NOVOLOG) 1 VIAL SQ SCH ×4 (06:18→21:26)
[2020-04-02 07:44] LABS: BASO % 0.4 % (0-2.0); EOS % 0.2 % (0-4.5); HEMATOCRIT 25.8 % (32.4-45.2); HEMOGLOBIN 8.7 GM/dL (10.7-15.3); MCH 34.7 pg (25.7-33.7); MCHC 33.8 g/dl (32.0-36.0); MEAN CELL VOLUME 102.7 fl (80-96); MEAN PLT VOLUME 8.2 fl (7.5-11.1); MONO % 7.1 % (3.8-10.2); NEUT % 65.3 % (42.8-82.8); PLATELET COUNT 195 K/MM3 (134-434); RBC 2.52 M/mm3 (3.60-5.2); RDW 19.5 % (11.6-15.6); WHITE BLOOD COUNT 7.4 K/mm3 (4.0-10.0)
[2020-04-02 07:49] LABS: INR 2.39 (0.83-1.09); PROTHROMBIN TIME (PATIENT) 28.4 SEC (9.7-13.0)
[2020-04-02] MEDS: SEVELAMER CARBONATE 800 MG TAB (FP) PO SCH ×3 (08:25→16:58)
--- NOTE | 2020-04-02 08:36 | PN ---
Teaching Attending Note Name of Resident: Christiano Lindquist ATTENDING PHYSICIAN STATEMENT I saw and evaluated the patient. I reviewed the resident's note and discussed the case with the resident. I agree with the resident's findings and plan as documented. SUBJECTIVE: + for Rigors, visitor at bedside OBJECTIVE: Vital Signs Temperature 99.6 F 04/02/20 08:29 Pulse Rate 91 H 04/02/20 08:29 Respiratory Rate 16 04/02/20 08:29 Blood Pressure 117/56 L 04/02/20 08:29 O2 Sat by Pulse Oximetry (%) 99 04/02/20 08:29 PE:+ Rigors + Cataract of both eyes rest per resident's note CBCD WBC 7.4 K/mm3 (4.0-10.0) 04/02/20 06:34 RBC 2.52 M/mm3 (3.60-5.2) L 04/02/20 06:34 Hgb 8.7 GM/dL (10.7-15.3) L 04/02/20 06:34 Hct 25.8 % (32.4-45.2) L 04/02/20 06:34 MCV 102.7 fl (80-96) H 04/02/20 06:34 MCHC 33.8 g/dl (32.0-36.0) 04/02/20 06:34 RDW 19.5 % (11.6-15.6) H 04/02/20 06:34 Plt Count 195 K/MM3 (134-434) 04/02/20 06:34 MPV 8.2 fl (7.5-11.1) 04/02/20 06:34 CMP Sodium 131 mmol/L (136-145) L 04/01/20 06:19 Potassium 3.7 mmol/L (3.5-5.1) 04/01/20 06:19 Chloride 93 mmol/L (98-107) L 04/01/20 06:19 Carbon Dioxide 25 mmol/L (21-32) 04/01/20 06:19 Anion Gap 13 MMOL/L (8-16) 04/01/20 06:19 BUN 45.3 mg/dL (7-18) H 04/01/20 06:19 Creatinine 9.2 mg/dL (0.55-1.3) H* 04/01/20 06:19 Random Glucose 102 mg/dL (74-106) 04/01/20 06:19 Calcium 8.1 mg/dL (8.5-10.1) L 04/01/20 06:19 Total Bilirubin 0.5 mg/dL (0.2-1) 03/31/20 14:00 AST 20 U/L (15-37) 03/31/20 14:00 ALT 36 U/L (13-61) 03/31/20 14:00 Alkaline Phosphatase 69 U/L (45-117) 03/31/20 14:00 Total Protein 8.9 g/dl (6.4-8.2) H 03/31/20 14:00 Albumin 2.5 g/dl (3.4-5.0) L 03/31/20 14:00 CARDIAC ENZYMES Creatine Kinase 40 U/L (26-192) 03/31/20 16:30 Troponin I 0.07 ng/ml (0.00-0.05) H 04/01/20 21:35 Current Medications Generic Name Dose Route Start Last Admin Trade Name Freq PRN Reason Stop Dose Admin Acetaminophen 650 mg 03/31/20 16:55 04/02/20 06:18 Tylenol - PO 650 mg Q4H PRN Administration FEVER Allopurinol 100 mg 04/01/20 10:00 04/01/20 09:56 Zyloprim - PO 100 mg DAILY [facility] Administration Apixaban 10 mg 04/01/20 22:00 04/01/20 21:20 Eliquis - PO 04/02/20 22:01 10 mg BID [facility] Administration Apixaban 5 mg 04/03/20 10:00 Eliquis - PO BID [facility] Docusate Sodium 100 mg 04/01/20 10:00 04/01/20 09:56 Colace - PO 100 mg DAILY [facility] Administration Dorzolamide HCl 1 drop 04/01/20 10:00 04/01/20 14:13 Trusopt 2% OS 1 drop DAILY [facility] Administration Erythromycin 1 applic 03/31/20 17:30 04/01/20 13:58 Erythromycin 0.5% Eye Ointment OU 1 tube DAILY [facility] Administration Folic Acid 1 mg 04/01/20 10:00 04/01/20 09:56 Folic Acid - PO 1 mg DAILY [facility] Administration Peritoneal Dialysis Solution 2,000 mls @ 4,000 mls/hr 04/01/20 13:30 04/02/20 04:34 Dianeal 1.5% IP 4,000 mls/hr Q6H [facility] Administration Protocol Piperacillin Sod/Tazobactam 50 mls @ 100 mls/hr 04/01/20 14:00 04/02/20 01:58 Sod 2.25 gm/ Dextrose IVPB 100 mls/hr Q8H-IV [facility] Administration Protocol Insulin Aspart 0 vial 03/31/20 22:00 04/02/20 06:18 Novolog Vial Sliding Scale - SQ 2 unit ACHS [facility] Administration Protocol Latanoprost 1 drop 03/31/20 22:00 04/01/20 21:39 Xalatan 0.005% Eye Drops - OS 1 drop HS [facility] Administration Metoprolol Succinate 25 mg 04/01/20 10:00 04/01/20 09:56 Toprol Xl - PO 25 mg DAILY [facility] Administration [id number] Ethyl Esters 2 gm 04/02/20 10:00 Lovaza - PO BID [facility] Ondansetron HCl 4 mg 03/31/20 17:00 Zofran Injection IVPUSH Q6H PRN NAUSEA Pantoprazole Sodium 40 mg 04/01/20 10:00 04/01/20 09:56 Protonix - PO 40 mg DAILY [facility] Administration Potassium Chloride 20 meq 04/01/20 12:00 04/01/20 13:17 K-Dur - PO 20 meq DAILY [facility] Administration Rosuvastatin Calcium 10 mg 03/31/20 22:00 04/01/20 21:20 Crestor - PO 10 mg HS [facility] Administration Sevelamer Carbonate 800 mg 04/01/20 08:00 04/02/20 08:25 Renvela - PO 800 mg TIDCM [facility] Administration Timolol Maleate 1 drop 04/01/20 10:00 04/01/20 14:06 Timoptic 0.5% OS 1 drop DAILY [facility] Administration Home Medications Medication Instructions Recorded Allopurinol [Zyloprim -] 100 mg PO DAILY 01/20/14 Rosuvastatin Calcium [Crestor] 20 mg PO HS 01/20/14 Bimatoprost [Lumigan] 1 drop IO DAILY 05/13/17 Dorzolamide HCl/Timolol Maleat 10 ml OP DAILY 05/13/17 [Cosopt Eye Drops] Ascorbic Acid [Vitamin C with Giuliana 500 mg PO DAILY 08/16/19 Hips] Folic Acid 1 mg PO DAILY 08/16/19 Furosemide 80 mg PO HS 08/16/19 Icosapent Ethyl [Vascepa] 2 gm PO BID 08/16/19 Metoprolol Succinate [Toprol Xl] 25 mg PO DAILY 08/16/19 Nateglinide [Starlix (Nf) -] 60 mg PO BID 08/16/19 Apixaban [Eliquis] 5 mg PO BID 03/31/20 Docusate Sodium [Stool Softener] 100 mg PO DAILY 03/31/20 Pantoprazole Sodium 40 mg PO DAILY 03/31/20 Sevelamer Carbonate [Renvela] 800 mg PO TID 03/31/20 ASSESSMENT AND PLAN: This patient is an 84yof with Pmhx of T2DM, HTN, HLD, Gout, CKD on PD, anem ia,multiple myeloma, pituitary macroadenoma who has 24 hour aids and lives a lone, who presented with fever and abd pain , having Rigors # Rigors/ Fever: On PD dialysis, r/o Pneumonia vs UTI vs peritonitis given her PD cath., patient is c/o having low abdominal pain. still makes some urine, on Zosyn, added Vanconycin, will pancx the patient , added Flagyl IV wii continue to monitor, katie get CT abdomen/pelvis and chest # ESRD on PD: dr Means on the case # H/o HTN: cont BB # H/o DVT: US on 03/27 shoed extensive DVT in LLE on Eliquis 10mg bid last 10mg dose tonight then continue with 5mg po bid # h/o DM : cont SSI , check A1c [place] cx the patient. DVT Px: Eliquis 5mg bid
[2020-04-02 09:38] LABS: BLOOD UREA NITROGEN 45.5 mg/dL (7-18); CALCIUM 8.3 mg/dL (8.5-10.1); MAGNESIUM 2.1 mg/dL (1.8-2.4); PHOSPHOROUS 3.8 mg/dL (2.5-4.9); POTASSIUM 4.2 mmol/L (3.5-5.1)
[2020-04-02] MEDS ORDERED: VANCOMYCIN 1 GRAM (PRE-DOCKED) 1,000 MG/250 ML BAG IVPB ONE (09:45)
[2020-04-02] MEDS ORDERED: VANCOMYCIN 1 GM PREMIX - 1 GM/200 ML BAG IVPB ONE (09:45)
[2020-04-02 09:50] LABS: CREATININE 9.3 mg/dL (0.55-1.3)
[2020-04-02] MEDS: PANTOPRAZOLE 40 MG TABLET PO SCH (10:37)
[2020-04-02] MEDS: metoPROLOL SUCCINATE 25 MG TAB.SR.24H (FP) PO SCH (10:37)
[2020-04-02] MEDS: POTASSIUM CHLORIDE TABS 20 MEQ TABLET.ER (FP) PO SCH (10:37)
[2020-04-02] MEDS: APIXABAN 5 MG TABLET PO SCH ×2 (10:37→21:23)
[2020-04-02] MEDS: ALLOPURINOL 100 MG TABLET (FP) PO SCH (10:37)
[2020-04-02] MEDS: FOLIC ACID 1 MG TABLET (FP) PO SCH (10:37)
[2020-04-02] MEDS: DOCUSATE SODIUM 100 MG CAPSULE (FP) PO SCH (10:37)
[2020-04-02] MEDS ORDERED: PT OWN MED DRAWER 7, Y5N ONE ×2 (10:41→21:01)
[2020-04-02] MEDS: OMEGA-3 ACID ETHYL ESTERS (FATTY-ACIDS) 1 GM CAPSULE (FP) PO SCH ×2 (10:43→21:23)
[2020-04-02] MEDS: TIMOLOL 0.5% OPHTHALMIC SOL 5 ML BOTTLE OS SCH (10:44)
[2020-04-02] MEDS: ERYTHROMYCIN 0.5% OPHTHALMIC OINTMENT 3.5 GM TUBE OU SCH (10:44)
[2020-04-02] MEDS: DORZOLAMIDE 2% HCL OPHTHALMIC SOLUTION 10 ML BOTTLE OS SCH (10:44)
[2020-04-02] MEDS ORDERED: INSULIN SLIDING SCALE (NOVOLOG) 1 VIAL SQ ONE (11:48)
--- NOTE | 2020-04-02 13:14 | PN ---
Progress Note, Physician History of Present Illness: spiked fever in the morning currently afebrile - Current Medication List Current Medications: Active Medications Acetaminophen (Tylenol -) 650 mg PO Q4H PRN PRN Reason: FEVER Last Admin: 04/02/20 06:18 Dose: 650 mg Documented by: Allopurinol (Zyloprim -) 100 mg PO DAILY [facility] Last Admin: 04/02/20 10:37 Dose: 100 mg Documented by: Apixaban (Eliquis -) 10 mg PO BID [facility] Stop: 04/02/20 22:01 Last Admin: 04/02/20 10:37 Dose: 10 mg Documented by: Apixaban (Eliquis -) 5 mg PO BID [facility] Docusate Sodium (Colace -) 100 mg PO DAILY [facility] Last Admin: 04/02/20 10:37 Dose: 100 mg Documented by: Dorzolamide HCl (Trusopt 2%) 1 drop OS DAILY [facility] Last Admin: 04/02/20 10:44 Dose: 1 drop Documented by: Erythromycin (Erythromycin 0.5% Eye Ointment) 1 applic OU DAILY [facility] Last Admin: 04/02/20 10:44 Dose: 1 applic Documented by: Folic Acid (Folic Acid -) 1 mg PO DAILY [facility] Last Admin: 04/02/20 10:37 Dose: 1 mg Documented by: Peritoneal Dialysis Solution (Dianeal 1.5%) 2,000 mls @ 4,000 mls/hr IP Q6H [facility]; Protocol Last Admin: 04/02/20 10:38 Dose: 4,000 mls/hr Documented by: Piperacillin Sod/Tazobactam (Sod 2.25 gm/ Dextrose) 50 mls @ 100 mls/hr IVPB Q8H-IV [facility]; Protocol Last Admin: 04/02/20 10:38 Dose: 100 mls/hr Documented by: Insulin Aspart (Novolog Vial Sliding Scale -) 0 vial SQ ACHS [facility]; Protocol Last Admin: 04/02/20 11:50 Dose: 2 unit Documented by: Latanoprost (Xalatan 0.005% Eye Drops -) 1 drop OS HS [facility] Last Admin: 04/01/20 21:39 Dose: 1 drop Documented by: Metoprolol Succinate (Toprol Xl -) 25 mg PO DAILY [facility] Last Admin: 04/02/20 10:37 Dose: 25 mg Documented by: [id number] Ethyl Esters (Lovaza -) 2 gm PO BID [facility] Last Admin: 04/02/20 10:43 Dose: 2 gm Documented by: Ondansetron HCl (Zofran Injection) 4 mg IVPUSH Q6H PRN PRN Reason: NAUSEA Pantoprazole Sodium (Protonix -) 40 mg PO DAILY [facility] Last Admin: 04/02/20 10:37 Dose: 40 mg Documented by: Potassium Chloride (K-Dur -) 20 meq PO DAILY [facility] Last Admin: 04/02/20 10:37 Dose: 20 meq Documented by: Rosuvastatin Calcium (Crestor -) 10 mg PO HS [facility] Last Admin: 04/01/20 21:20 Dose: 10 mg Documented by: Sevelamer Carbonate (Renvela -) 800 mg PO TIDCM [facility] Last Admin: 04/02/20 11:53 Dose: 800 mg Documented by: Timolol Maleate (Timoptic 0.5%) 1 drop OS DAILY [facility] Last Admin: 04/02/20 10:44 Dose: 1 drop Documented by: - Objective Vital Signs: Vital Signs Temperature 99.6 F 04/02/20 08:29 Pulse Rate 91 H 04/02/20 08:29 Respiratory Rate 16 04/02/20 08:29 Blood Pressure 117/56 L 04/02/20 08:29 O2 Sat by Pulse Oximetry (%) 99 04/02/20 08:32 Constitutional: Yes: No Distress, Calm, Other (failure to thrive) Cardiovascular: Yes: S1, S2 Respiratory: Yes: Regular, Other Gastrointestinal: Yes: Normal Bowel Sounds, Soft Musculoskeletal: Yes: WNL Extremities: Yes: WNL Neurological: Yes: Alert, Oriented Psychiatric: Yes: Alert Labs: CBC, BMP 04/02/20 06:34 04/02/20 06:34 INR, PTT INR 2.39 (0.83-1.09) H 04/02/20 06:34 Assessment/Plan 84-year-old -[place]ones[place] woman with a past medical history of end-stage kidney disease on peritoneal dialysis, hypertension, hyperlipidemia, gout, recent diagnosis of deep venous thrombosis who presented from home with complaints of generalized malaise and low-grade fever with mild abdominal discomfort. fever esrd htn abd pain hld plan continue zosyn consider getting an ct of the abdomen close watch monitor for fevers rest as per the team
--- NOTE | 2020-04-02 15:55 | PN ---
Progress Note, Physician Chief Complaint: Fever History of Present Illness: Seen and examined at the bedside awake and alert sleepy febrile this am denies any sob, cp, chills, abdominal pain has been undergoing PD exchanges w/o complication - Current Medication List Current Medications: Active Medications Acetaminophen (Tylenol -) 650 mg PO Q4H PRN PRN Reason: FEVER Last Admin: 04/02/20 06:18 Dose: 650 mg Documented by: Allopurinol (Zyloprim -) 100 mg PO DAILY [facility] Last Admin: 04/02/20 10:37 Dose: 100 mg Documented by: Apixaban (Eliquis -) 10 mg PO BID [facility] Stop: 04/02/20 22:01 Last Admin: 04/02/20 10:37 Dose: 10 mg Documented by: Apixaban (Eliquis -) 5 mg PO BID [facility] Docusate Sodium (Colace -) 100 mg PO DAILY [facility] Last Admin: 04/02/20 10:37 Dose: 100 mg Documented by: Dorzolamide HCl (Trusopt 2%) 1 drop OS DAILY [facility] Last Admin: 04/02/20 10:44 Dose: 1 drop Documented by: Erythromycin (Erythromycin 0.5% Eye Ointment) 1 applic OU DAILY [facility] Last Admin: 04/02/20 10:44 Dose: 1 applic Documented by: Folic Acid (Folic Acid -) 1 mg PO DAILY [facility] Last Admin: 04/02/20 10:37 Dose: 1 mg Documented by: Peritoneal Dialysis Solution (Dianeal 1.5%) 2,000 mls @ 4,000 mls/hr IP Q6H [facility]; Protocol Last Admin: 04/02/20 10:38 Dose: 4,000 mls/hr Documented by: Piperacillin Sod/Tazobactam (Sod 2.25 gm/ Dextrose) 50 mls @ 100 mls/hr IVPB Q8 H-IV [facility]; Protocol Last Admin: 04/02/20 10:38 Dose: 100 mls/hr Documented by: Insulin Aspart (Novolog Vial Sliding Scale -) 0 vial SQ ACHS [facility]; Protocol Last Admin: 04/02/20 11:50 Dose: 2 unit Documented by: Latanoprost (Xalatan 0.005% Eye Drops -) 1 drop OS HS [facility] Last Admin: 04/01/20 21:39 Dose: 1 drop Documented by: Metoprolol Succinate (Toprol Xl -) 25 mg PO DAILY [facility] Last Admin: 04/02/20 10:37 Dose: 25 mg Documented by: [id number] Ethyl Esters (Lovaza -) 2 gm PO BID [facility] Last Admin: 04/02/20 10:43 Dose: 2 gm Documented by: Ondansetron HCl (Zofran Injection) 4 mg IVPUSH Q6H PRN PRN Reason: NAUSEA Pantoprazole Sodium (Protonix -) 40 mg PO DAILY [facility] Last Admin: 04/02/20 10:37 Dose: 40 mg Documented by: Potassium Chloride (K-Dur -) 20 meq PO DAILY [facility] Last Admin: 04/02/20 10:37 Dose: 20 meq Documented by: Rosuvastatin Calcium (Crestor -) 10 mg PO HS [facility] Last Admin: 04/01/20 21:20 Dose: 10 mg Documented by: Sevelamer Carbonate (Renvela -) 800 mg PO TIDCM [facility] Last Admin: 04/02/20 11:53 Dose: 800 mg Documented by: Timolol Maleate (Timoptic 0.5%) 1 drop OS DAILY [facility] Last Admin: 04/02/20 10:44 Dose: 1 drop Documented by: - Objective Vital Signs: Vital Signs Temperature 99.5 F 04/02/20 13:39 Pulse Rate 95 H 04/02/20 13:39 Respiratory Rate 18 04/02/20 13:39 Blood Pressure 122/56 L 04/02/20 13:39 O2 Sat by Pulse Oximetry (%) 99 04/02/20 08:32 Constitutional: Yes: No Distress, Calm HENT: Yes: Atraumatic Neck: Yes: Supple Cardiovascular: Yes: Regular Rate and Rhythm Respiratory: Yes: Regular Edema: Yes Edema: LLE: Trace, RLE: Trace Neurological: Yes: Alert Labs: CBC, BMP 04/02/20 06:34 04/02/20 06:34 INR, PTT INR 2.39 (0.83-1.09) H 04/02/20 06:34 Assessment/Plan 84-year-old -Guy[place] woman with a past medical history of end-stage kidney disease on peritoneal dialysis, hypertension, hyperlipidemia, gout, recent diagnosis of deep venous thrombosis who presented from home with complaints of generalized malaise and low-grade fever with mild abdominal discomfort. 1. Fever 2. End-stage kidney disease on peritoneal dialysis. 3. Recently diagnosed DVT. 4. Hypertension 5. Hyperlipidemia Continue PD exchanges every 6 hours PD fluid WBC cell count < 100, making it less likely that pt has bacterial p eritonitis but will await final culture results. Continue antibiotics as per ID Continue Eliquis for management of DVT. Trend electrolytes daily well and patient. Trend H/H, CRESENCIO given yesterday Thank you will follow. Nacho Means DO
--- NOTE | 2020-04-02 17:12 | PN ---
Physical Exam: SUBJECTIVE: Patient seen and examined today at bedside, in no acute distress. No change in mental status, alert, however not fully oriented. Reported to me, but not seen, that the patient had rigors. OBJECTIVE: Vital Signs Period Temp Pulse Resp BP Sys/Gustafson Pulse Ox Last 24 Hr 98.1 F-102.9 F 76-99 16-18 117-149/56-76 93-99 GENERAL: Awake, alert, and conversational, however, has baseline AMS HEAD: Normal with no signs of trauma. EYES: Arcus Senalis in both eyes bilaterally. THROAT: Oropharynx clear without exudates. Moist mucous membranes. NECK: JVD present. Normal range of motion, supple without lymphadenopathy. LUNGS: Breath sounds equal, clear to auscultation bilaterally. No wheezes, and no crackles. No accessory muscle use. HEART: Regular rate and rhythm, normal S1 and S2 without murmur, rub or gallop. ABDOMEN: Distended. Soft, nontender, normoactive bowel sounds MUSCULOSKELETAL: Not assessed UPPER EXTREMITIES: 2+ pulses, warm, well-perfused. No cyanosis. No clubbing. No peripheral edema. LOWER EXTREMITIES: 2+ pulses, warm, well-perfused. No peripheral edema. NEUROLOGICAL: Normal speech with altered mental status. Normal gait. PSYCHIATRIC: Cooperative. Good eye contact. SKIN: Warm, dry, decreased turgor Laboratory Results - last 24 hr CBC, BMP 04/02/20 06:34 04/02/20 06:34 Troponin, BNP 04/01/20 04/01/20 04/02/20 12:41 21:35 06:34 Troponin I 0.07 H 0.07 H 0.13 H Active Medications Acetaminophen (Tylenol -) 650 mg PO Q4H PRN PRN Reason: FEVER Last Admin: 04/02/20 06:18 Dose: 650 mg Documented by: Allopurinol (Zyloprim -) 100 mg PO DAILY [facility] Last Admin: 04/02/20 10:37 Dose: 100 mg Documented by: Apixaban (Eliquis -) 10 mg PO BID [facility] Stop: 04/02/20 22:01 Last Admin: 04/02/20 10:37 Dose: 10 mg Documented by: Apixaban (Eliquis -) 5 mg PO BID [facility] Docusate Sodium (Colace -) 100 mg PO DAILY [facility] Last Admin: 04/02/20 10:37 Dose: 100 mg Documented by: Dorzolamide HCl (Trusopt 2%) 1 drop OS DAILY [facility] Last Admin: 04/02/20 10:44 Dose: 1 drop Documented by: Erythromycin (Erythromycin 0.5% Eye Ointment) 1 applic OU DAILY [facility] Last Admin: 04/02/20 10:44 Dose: 1 applic Documented by: Folic Acid (Folic Acid -) 1 mg PO DAILY [facility] Last Admin: 04/02/20 10:37 Dose: 1 mg Documented by: Peritoneal Dialysis Solution (Dianeal 1.5%) 2,000 mls @ 4,000 mls/hr IP Q6H [facility]; Protocol Last Admin: 04/02/20 16:46 Dose: 4,000 mls/hr Documented by: Piperacillin Sod/Tazobactam (Sod 2.25 gm/ Dextrose) 50 mls @ 100 mls/hr IVPB Q8H-IV [facility]; Protocol Last Admin: 04/02/20 17:00 Dose: 100 mls/hr Documented by: Insulin Aspart (Novolog Vial Sliding Scale -) 0 vial SQ ACHS [facility]; Protocol Last Admin: 04/02/20 16:41 Dose: 2 unit Documented by: Latanoprost (Xalatan 0.005% Eye Drops -) 1 drop OS HS [facility] Last Admin: 04/01/20 21:39 Dose: 1 drop Documented by: Metoprolol Succinate (Toprol Xl -) 25 mg PO DAILY [facility] Last Admin: 04/02/20 10:37 Dose: 25 mg Documented by: [id number] Ethyl Esters (Lovaza -) 2 gm PO BID [facility] Last Admin: 04/02/20 10:43 Dose: 2 gm Documented by: Ondansetron HCl (Zofran Injection) 4 mg IVPUSH Q6H PRN PRN Reason: NAUSEA Pantoprazole Sodium (Protonix -) 40 mg PO DAILY [facility] Last Admin: 04/02/20 10:37 Dose: 40 mg Documented by: Potassium Chloride (K-Dur -) 20 meq PO DAILY [facility] Last Admin: 04/02/20 10:37 Dose: 20 meq Documented by: Rosuvastatin Calcium (Crestor -) 10 mg PO HS [facility] Last Admin: 04/01/20 21:20 Dose: 10 mg Documented by: Sevelamer Carbonate (Renvela -) 800 mg PO TIDCM [facility] Last Admin: 04/02/20 16:58 Dose: 800 mg Documented by: Timolol Maleate (Timoptic 0.5%) 1 drop OS DAILY [facility] Last Admin: 04/02/20 10:44 Dose: 1 drop Documented by: ASSESSMENT/PLAN: 84yo F who is a poor historian with PMHx of DM, HTN, HLD, Gout, CKD on PD done nightly as per her cousin (baseline Cr about 9), anemia, multiple myeloma, pituitary macroadenoma, arcus senalis, independent in ADLs presented to the ED by her UNIX MANAGER for generalized weakness, chills and temp 100.0. Chronic CKD on Nightly PD: - PD Nightly per ptn cousin, performed by UNIX MANAGER - received IVF in ER --> Patient is volume resuscitated --> DC IV fluids - DC Home lasix --> Reassess volume status and continue if necessary - Per Nephrology: PD today -1 Liter removed per nursing -2 liters infused per Nephro (Dr. Means) -Send fluid for cultures to r/o ascitic infx Fever of Unknown Origin - Possible 2/2 UTI vs Peritonitis: -Per Nephro: CT w/wo PO contrast acceptable in light of ESRD - FU Blood cx - FU Urine Cx - WBCs trending up, w/ Rigors - LA normalizing - Per ID: DC Ceftriaxone, start Zosyn 2.225 - Peritoneal fluid culture following dialysis -Culture shows no organisms on gram stain - Tylenol PRN for fever Hx of LLE DVT: - US on 03/27 demonstrated extensive DVT in LLE . - Treated by Dr. Melgar - Given 10 mg BID of eliquis x 1 week then the 5 BID after then - Day 6 of Elliquis, change Eliquis to 10 BID x 1 more day then 5 BID - Continue elliquis without dose adjustment, in spite of ESRD. Mfg shows no risk involved in use of drug. - Elevated INR expected on Elliquis, do not adjust Chronic Anemia -Likely 2/2 Chronic Renal Disease -Hgb 8.8 -Iron Studies, B12, Folate, Retic ordered -Likely Anemia of Chronic Disease -Normal Retic Count -Continue Folic acid Hx of HTN: - VSS - BP stable - Continue Metoprolol 25mg qdaily. - Continue Vascepa - Slight troponins: Likely 2/2 demand ischemia Hx of DM: -DC Home Medications for now -Confirm Home meds with family -ISS -FU Hba1C Hx of HLD -Continue Rosuvastatin Hx of Gout -Continue Allopurinol Hx of Hypocalcemia -Continue Sevelemer Hx of Glaucoma -Continue Timolol -Continue Dorazolamide -Continue Lantaprost Recent Cataract Surgery Left Eye -Continue Erythromycin eye ointment Goals of Care -Full Code -Followup w/ UNIX MANAGER & Cousin for further details -Phone number incorrect: [phone] . PPx -DVT Treatment: Elliquis 10mg BID -GI PPx: Pantoprazole FEN Fluids: No standing fluids Electrolytes: Monitor BMP Nutrition: Diabetic Diet Dispo: We will continue to follow the patient. Thank you for this consultative opportunity. Visit type - Emergency Visit Emergency Visit: No - New Patient This patient is new to me today: No - Critical Care Critical Care patient: No - Discharge Referral Referred to [facility] No - Medication Review Med list reviewed for High Risk Meds patients 65 and older: Yes ATTENDING PHYSICIAN STATEMENT I saw and evaluated the patient. I reviewed the resident's note and discussed the case with the resident. I agree with the resident's findings and plan as documented. SUBJECTIVE: OBJECTIVE: ASSESSMENT AND PLAN:
--- NOTE | 2020-04-02 20:13 | ECHO ---
Version: 1 Name: KING BARNETT Exam: Adult Echocardiogram Study Date: 04/02/2020, 2:01 PM Age: 84 Years Doppler Measurements & Calculations MV E max prasanth: 55.3 cm/sec Med E/e': 9.7 MV A max prasanth: 101.2 cm/sec Med Peak E' Prasanth: 5.7 cm/sec MV E/A: 0.55 Lat E/e': 11.7 Lat Peak E' Prasanth: 4.7 cm/sec Ao max P.0 mmHg Ao V2 max: 111.3 cm/sec Tech Comments . . technically difficult. Summary Statements Normal LV size and function EF 59% Normal RV size and function Normal LA and RA size Normal Mitral valve Normal Tricuspid valve Normal aortic valve Fibrocalcific changes of the aortic valve without aortic stenosis MD Jarred Cordero 04/02/2020, 8:12 PM Ordering Physician: Katie Thompson Referring Physician: ABE Performed By: Darlene Neville
[2020-04-02] MEDS: ROSUVASTATIN CA 10 MG TABLET (FP) PO SCH (21:23)
[2020-04-02] MEDS: LATANOPROST 0.005% OPHTH SOLN 2.5ML BOTTLE OS SCH (21:24)
[2020-04-03] MEDS: PERITONEAL DIALYSIS 1.5% SOLN 2,000 ML IP SCH ×4 (01:13→19:15)
[2020-04-03] MEDS ORDERED: PIPERACILLIN/TAZOBACTAM 2.25 GM VIAL IVPB ONE ×2 (01:17→09:00)
[2020-04-03] MEDS ORDERED: DEXTROSE 5%-WATER - 50 ML IVPB ONE ×2 (01:17→09:00)
[2020-04-03] MEDS: PIPERACILLIN/TAZOB 2.25 GM 2.25 GM in DEXTROSE 5%-WATER - 50 ML IVPB SCH ×2 (01:30→09:03)
[2020-04-03] MEDS: INSULIN SLIDING SCALE (NOVOLOG) 1 VIAL SQ SCH ×4 (06:17→21:20)
[2020-04-03 08:00] LABS: BASO % 0.6 % (0-2.0); EOS % 0.9 % (0-4.5); HEMATOCRIT 24.4 % (32.4-45.2); HEMOGLOBIN 8.2 GM/dL (10.7-15.3); LYMPH % 34.8 % (8-40); MCH 34.5 pg (25.7-33.7); MCHC 33.3 g/dl (32.0-36.0); MEAN CELL VOLUME 103.5 fl (80-96); MEAN PLT VOLUME 8.2 fl (7.5-11.1); MONO % 7.8 % (3.8-10.2); NEUT % 55.9 % (42.8-82.8); PLATELET COUNT 157 K/MM3 (134-434); RBC 2.36 M/mm3 (3.60-5.2); RDW 19.7 % (11.6-15.6); WHITE BLOOD COUNT 6.6 K/mm3 (4.0-10.0)
[2020-04-03 08:36] LABS: ALBUMIN 1.7 g/dl (3.4-5.0); BILIRUBIN,TOTAL 0.4 mg/dL (0.2-1); BLOOD UREA NITROGEN 40.3 mg/dL (7-18); CALCIUM 7.9 mg/dL (8.5-10.1); POTASSIUM 3.7 mmol/L (3.5-5.1); TOT PROT 7.1 g/dl (6.4-8.2)
[2020-04-03 08:38] LABS: EPI CELLS 8 /uL (0-25.1); HYALINE CASTS 0 /uL (0-3.1); PH,URINE 7.5 (5.0-8.0); URINE APPEARANCE CLEAR; URINE BACTERIA 2 /uL (0-1359); URINE BILIRUBIN NEGATIVE (NEGATIVE); URINE COLOR YELLOW; URINE GLUCOSE (UA) NEGATIVE (NEGATIVE); URINE KETONE NEGATIVE (NEGATIVE); URINE LEUK ESTERASE NEGATIVE (NEGATIVE); URINE NITRITE NEGATIVE (NEGATIVE); URINE PROTEIN 3+ (NEGATIVE); URINE RBC 8 /uL (0-23.9); URINE UROBILINOGEN 0.2 mg/dL (0.2-1.0); URINE WBC 3 /uL (0-25.8)
[2020-04-03 08:57] LABS: CREATININE 8.5 mg/dL (0.55-1.3)
[2020-04-03] MEDS ORDERED: PT OWN MED DRAWER 7, Y5N ONE (09:00)
[2020-04-03] MEDS: APIXABAN 5 MG TABLET PO SCH ×2 (09:03→21:20)
[2020-04-03] MEDS: OMEGA-3 ACID ETHYL ESTERS (FATTY-ACIDS) 1 GM CAPSULE (FP) PO SCH ×2 (09:03→21:20)
[2020-04-03] MEDS: metoPROLOL SUCCINATE 25 MG TAB.SR.24H (FP) PO SCH (09:03)
[2020-04-03] MEDS: ALLOPURINOL 100 MG TABLET (FP) PO SCH (09:03)
[2020-04-03] MEDS: POTASSIUM CHLORIDE TABS 20 MEQ TABLET.ER (FP) PO SCH (09:03)
[2020-04-03] MEDS: DORZOLAMIDE 2% HCL OPHTHALMIC SOLUTION 10 ML BOTTLE OS SCH (09:04)
[2020-04-03] MEDS: PANTOPRAZOLE 40 MG TABLET PO SCH (09:04)
[2020-04-03] MEDS: DOCUSATE SODIUM 100 MG CAPSULE (FP) PO SCH (09:04)
[2020-04-03] MEDS: FOLIC ACID 1 MG TABLET (FP) PO SCH (09:04)
[2020-04-03] MEDS: SEVELAMER CARBONATE 800 MG TAB (FP) PO SCH ×3 (09:04→17:23)
[2020-04-03] MEDS: ERYTHROMYCIN 0.5% OPHTHALMIC OINTMENT 3.5 GM TUBE OU SCH (09:04)
[2020-04-03] MEDS: TIMOLOL 0.5% OPHTHALMIC SOL 5 ML BOTTLE OS SCH (09:04)
[2020-04-03 10:01] LABS: ANISOCYTOSIS 2+; MACROCYTOSIS 1+; PLATELET ESTIMATE DECREASED
--- NOTE | 2020-04-03 10:39 | PN ---
Progress Note, Physician History of Present Illness: patient still spiking fevers inspite of being on zosyn more calmer still not fully oriented awake - Current Medication List Current Medications: Active Medications Acetaminophen (Tylenol -) 650 mg PO Q4H PRN PRN Reason: FEVER Last Admin: 04/02/20 19:00 Dose: 650 mg Documented by: Allopurinol (Zyloprim -) 100 mg PO DAILY [facility] Last Admin: 04/03/20 09:03 Dose: 100 mg Documented by: Apixaban (Eliquis -) 5 mg PO BID [facility] Last Admin: 04/03/20 09:03 Dose: 5 mg Documented by: Docusate Sodium (Colace -) 100 mg PO DAILY [facility] Last Admin: 04/03/20 09:04 Dose: 100 mg Documented by: Dorzolamide HCl (Trusopt 2%) 1 drop OS DAILY [facility] Last Admin: 04/03/20 09:04 Dose: 1 drop Documented by: Erythromycin (Erythromycin 0.5% Eye Ointment) 1 applic OU DAILY [facility] Last Admin: 04/03/20 09:04 Dose: 1 applic Documented by: Folic Acid (Folic Acid -) 1 mg PO DAILY [facility] Last Admin: 04/03/20 09:04 Dose: 1 mg Documented by: Peritoneal Dialysis Solution (Dianeal 1.5%) 2,000 mls @ 4,000 mls/hr IP Q6H [facility]; Protocol Last Admin: 04/03/20 07:19 Dose: 4,000 mls/hr Documented by: Metronidazole (Flagyl 500mg Premixed Ivpb -) 500 mg in 100 mls @ 100 mls/hr IVPB Q8H-IV [facility] Last Admin: 04/03/20 09:04 Dose: 100 mls/hr Documented by: Meropenem 500 mg/ Dextrose 100 mls @ 200 mls/hr IVPB Q12H [facility] Insulin Aspart (Novolog Vial Sliding Scale -) 0 vial SQ ACHS [facility]; Protocol Last Admin: 04/03/20 06:17 Dose: Not Given Documented by: Latanoprost (Xalatan 0.005% Eye Drops -) 1 drop OS HS [facility] Last Admin: 04/02/20 21:24 Dose: 1 drop Documented by: Metoprolol Succinate (Toprol Xl -) 25 mg PO DAILY [facility] Last Admin: 04/03/20 09:03 Dose: 25 mg Documented by: [id number] Ethyl Esters (Lovaza -) 2 gm PO BID [facility] Last Admin: 04/03/20 09:03 Dose: 2 gm Documented by: Ondansetron HCl (Zofran Injection) 4 mg IVPUSH Q6H PRN PRN Reason: NAUSEA Pantoprazole Sodium (Protonix -) 40 mg PO DAILY [facility] Last Admin: 04/03/20 09:04 Dose: 40 mg Documented by: Potassium Chloride (K-Dur -) 20 meq PO DAILY [facility] Last Admin: 04/03/20 09:03 Dose: 20 meq Documented by: Rosuvastatin Calcium (Crestor -) 10 mg PO HS [facility] Last Admin: 04/02/20 21:23 Dose: 10 mg Documented by: Sevelamer Carbonate (Renvela -) 800 mg PO TIDCM [facility] Last Admin: 04/03/20 09:04 Dose: 800 mg Documented by: Timolol Maleate (Timoptic 0.5%) 1 drop OS DAILY [facility] Last Admin: 04/03/20 09:04 Dose: 1 drop Documented by: - Objective Vital Signs: Vital Signs Temperature 99.5 F 04/03/20 06:00 Pulse Rate 95 H 04/03/20 06:00 Respiratory Rate 18 04/03/20 06:00 Blood Pressure 131/52 L 04/03/20 06:00 O2 Sat by Pulse Oximetry (%) 95 04/02/20 22:00 Constitutional: Yes: Calm, Mild Distress Cardiovascular: Yes: S1, S2 Respiratory: Yes: Regular, Poor Air Entry Gastrointestinal: Yes: Soft, Ascites, Other (pd catheter) Musculoskeletal: Yes: WNL Extremities: Yes: WNL Neurological: Yes: Alert Labs: CBC, BMP 04/03/20 07:10 04/03/20 07:10 INR, PTT INR 2.39 (0.83-1.09) H 04/02/20 06:34 - ....Imaging Cat Scan: Report Reviewed, Image Reviewed Assessment/Plan 84-year-old -[place] woman with a past medical history of end-stage kidney disease on peritoneal dialysis, hypertension, hyperlipidemia, gout, recent diagnosis of deep venous thrombosis who presented from home with complaints of generalized malaise and low-grade fever with mild abdominal discomfort. fever esrd htn abd pain hld plan i am going to change abx to meropenam and observe monitor fevers rest as per the team
[2020-04-03] MEDS ORDERED: MEROPENEM 500 MG VIAL (RESTRICTED TO ID) IVPB ONE ×2 (11:04→20:51)
[2020-04-03] MEDS ORDERED: DEXTROSE 5%-WATER 100 ML IVPB ONE ×2 (11:04→20:51)
[2020-04-03] MEDS: MEROPENEM 500 MG in DEXTROSE 5%-WATER 100 ML IVPB SCH ×2 (11:12→22:18)
[2020-04-03] MEDS ORDERED: ARTIFICIAL TEARS (POLYVINYL ALCOHOL) OPTH DROPS OU PRN (12:41)
--- NOTE | 2020-04-03 14:53 | PN ---
Physical Exam: SUBJECTIVE: Patient seen and examined this morning, appeared in no acute distress, able to answer questions. Nursing reported multiple episodes of diarrhea overnight. OBJECTIVE: Vital Signs Period Temp Pulse Resp BP Sys/Gustafson Pulse Ox Last 24 Hr 99.2 F-102.9 F 82-105 18-20 110-145/52-84 95-100 GENERAL: Awake, alert, and conversational, however, has baseline AMS HEAD: Normal with no signs of trauma. EYES: Arcus Senalis in both eyes bilaterally. THROAT: Oropharynx clear without exudates. Moist mucous membranes. NECK: JVD present. Normal range of motion, supple without lymphadenopathy. LUNGS: Breath sounds equal, clear to auscultation bilaterally. No wheezes, and no crackles. No accessory muscle use. HEART: Regular rate and rhythm, normal S1 and S2 without murmur, rub or gallop. ABDOMEN: Distended. Soft, nontender, normoactive bowel sounds MUSCULOSKELETAL: Not assessed UPPER EXTREMITIES: 2+ pulses, warm, well-perfused. No cyanosis. No clubbing. No peripheral edema. LOWER EXTREMITIES: 2+ pulses, warm, well-perfused. No peripheral edema. NEUROLOGICAL: Normal speech with altered mental status. Normal gait. PSYCHIATRIC: Cooperative. Good eye contact. SKIN: Warm, dry, decreased turgor Laboratory Results - last 24 hr CBC, BMP 04/03/20 07:10 04/03/20 07:10 Troponin, BNP 04/02/20 19:45 Troponin I 0.21 H Active Medications Acetaminophen (Tylenol -) 650 mg PO Q4H PRN PRN Reason: FEVER Last Admin: 04/02/20 19:00 Dose: 650 mg Documented by: Allopurinol (Zyloprim -) 100 mg PO DAILY [facility] Last Admin: 04/03/20 09:03 Dose: 100 mg Documented by: Apixaban (Eliquis -) 5 mg PO BID [facility] Last Admin: 04/03/20 09:03 Dose: 5 mg Documented by: Artificial Tears (Artificial Tears) 1 drop OU TID PRN PRN Reason: DRY EYES Docusate Sodium (Colace -) 100 mg PO DAILY [facility] Last Admin: 04/03/20 09:04 Dose: 100 mg Documented by: Dorzolamide HCl (Trusopt 2%) 1 drop OS DAILY [facility] Last Admin: 04/03/20 09:04 Dose: 1 drop Documented by: Erythromycin (Erythromycin 0.5% Eye Ointment) 1 applic OU DAILY [facility] Last Admin: 04/03/20 09:04 Dose: 1 applic Documented by: Folic Acid (Folic Acid -) 1 mg PO DAILY [facility] Last Admin: 04/03/20 09:04 Dose: 1 mg Documented by: Peritoneal Dialysis Solution (Dianeal 1.5%) 2,000 mls @ 4,000 mls/hr IP Q6H [facility]; Protocol Last Admin: 04/03/20 13:28 Dose: 4,000 mls/hr Documented by: Metronidazole (Flagyl 500mg Premixed Ivpb -) 500 mg in 100 mls @ 100 mls/hr IVPB Q8H-IV [facility] Last Admin: 04/03/20 09:04 Dose: 100 mls/hr Documented by: Meropenem 500 mg/ Dextrose 100 mls @ 200 mls/hr IVPB Q12H [facility] Last Admin: 04/03/20 11:12 Dose: 200 mls/hr Documented by: Insulin Aspart (Novolog Vial Sliding Scale -) 0 vial SQ ACHS [facility]; Protocol Last Admin: 04/03/20 11:19 Dose: 3 unit Documented by: Latanoprost (Xalatan 0.005% Eye Drops -) 1 drop OS [facility] Last Admin: 04/02/20 21:24 Dose: 1 drop Documented by: Metoprolol Succinate (Toprol Xl -) 25 mg PO DAILY [facility] Last Admin: 04/03/20 09:03 Dose: 25 mg Documented by: [id number] Ethyl Esters (Lovaza -) 2 gm PO BID [facility] Last Admin: 04/03/20 09:03 Dose: 2 gm Documented by: Ondansetron HCl (Zofran Injection) 4 mg IVPUSH Q6H PRN PRN Reason: NAUSEA Pantoprazole Sodium (Protonix -) 40 mg PO DAILY [facility] Last Admin: 04/03/20 09:04 Dose: 40 mg Documented by: Potassium Chloride (K-Dur -) 20 meq PO DAILY [facility] Last Admin: 04/03/20 09:03 Dose: 20 meq Documented by: Rosuvastatin Calcium (Crestor -) 10 mg PO HS [facility] Last Admin: 04/02/20 21:23 Dose: 10 mg Documented by: Sevelamer Carbonate (Renvela -) 800 mg PO TIDCM [facility] Last Admin: 04/03/20 11:18 Dose: 800 mg Documented by: Timolol Maleate (Timoptic 0.5%) 1 drop OS DAILY [facility] Last Admin: 04/03/20 09:04 Dose: 1 drop Documented by: ASSESSMENT/PLAN: 84yo F who is a poor historian with PMHx of DM, HTN, HLD, Gout, CKD on PD done nightly as per her cousin (baseline Cr about 9), anemia, multiple myeloma, pituitary macroadenoma, arcus senalis, independent in ADLs presented to the ED by her [employer] for generalized weakness, chills and temp 100.0. Chronic CKD on Nightly PD: - PD Nightly per ptn cousin, performed by [employer] - received IVF in ER --> Patient is volume resuscitated --> DC IV fluids - DC Home lasix --> Reassess volume status and continue if necessary - Per Nephrology: PD q6hrs -1 Liter removed per nursing -2 liters infused per Nephro (Dr. Means) Fever of Unknown Origin - Possible 2/2 UTI vs Peritonitis: -Per Nephro: CT w/wo PO contrast acceptable in light of ESRD - FU Blood cx - FU Urine Cx - WBCs trending up - LA normalizing - Per ID: Start Meropenem - Per Primary Team: Start IV Flagyl - Peritoneal fluid culture following dialysis -Culture shows no organisms on gram stain - Tylenol PRN for fever Hx of LLE DVT: - US on 03/27 demonstrated extensive DVT in LLE . - Treated by Dr. Melgar - Given 10 mg BID of eliquis x 1 week then the 5 BID after then - Continue Eliquis 5mg BID for 6 months - Continue elliquis without dose adjustment, in spite of ESRD. Mfg shows no risk involved in use of drug. - Elevated INR expected on Elliquis, do not adjust Chronic Anemia -Likely 2/2 Chronic Renal Disease -Hgb 8.2 -Iron Studies, B12, Folate, Retic results -Likely Anemia of Chronic Disease -Normal Retic Count -Continue Folic acid Hx of HTN: - VSS - BP stable - Continue Metoprolol 25mg qdaily. - Continue Vascepa - Slight troponins: Likely 2/2 demand ischemia Hx of DM: -DC Home Medications for now -Confirm Home meds with family -ISS -FU Hba1C Hx of HLD -Continue Rosuvastatin Hx of Gout -Continue Allopurinol Hx of Hypocalcemia -Continue Sevelemer Hx of Glaucoma -Continue Timolol -Continue Dorazolamide -Continue Lantaprost Recent Cataract Surgery Left Eye -Continue Erythromycin eye ointment Goals of Care -Full Code -Followup w/ [employer] & Cousin for further details -Phone number incorrect: [phone] . PPx -DVT Treatment: Elliquis 10mg BID -GI PPx: Pantoprazole FEN Fluids: No standing fluids Electrolytes: Monitor BMP Nutrition: Diabetic Diet Dispo: We will continue to follow the patient. Visit type - Emergency Visit Emergency Visit: No - New Patient This patient is new to me today: No - Critical Care Critical Care patient: No - Discharge Referral Referred to [facility] Med P.C[facility] No - Medication Review Med list reviewed for High Risk Meds patients 65 and older: Yes ATTENDING PHYSICIAN STATEMENT I saw and evaluated the patient. I reviewed the resident's note and discussed the case with the resident. I agree with the resident's findings and plan as documented. SUBJECTIVE: OBJECTIVE: ASSESSMENT AND PLAN:
--- NOTE | 2020-04-03 17:30 | PN ---
Teaching Attending Note Name of Resident: Christiano Lindquist ATTENDING PHYSICIAN STATEMENT I saw and evaluated the patient. I reviewed the resident's note and discussed the case with the resident. I agree with the resident's findings and plan as documented. SUBJECTIVE: Patient feels better today, + lethargy , no rigors OBJECTIVE: Vital Signs Temperature 99.7 F H 04/03/20 14:00 Pulse Rate 82 04/03/20 14:00 Respiratory Rate 18 04/03/20 14:00 Blood Pressure 110/56 L 04/03/20 14:00 O2 Sat by Pulse Oximetry (%) 100 04/03/20 10:00 PE: per resident's note more awake and responsive, no rigors today CBCD WBC 6.6 K/mm3 (4.0-10.0) 04/03/20 07:10 RBC 2.36 M/mm3 (3.60-5.2) L 04/03/20 07:10 Hgb 8.2 GM/dL (10.7-15.3) L 04/03/20 07:10 Hct 24.4 % (32.4-45.2) L 04/03/20 07:10 MCV 103.5 fl (80-96) H 04/03/20 07:10 MCHC 33.3 g/dl (32.0-36.0) 04/03/20 07:10 RDW 19.7 % (11.6-15.6) H 04/03/20 07:10 Plt Count 157 K/MM3 (134-434) 04/03/20 07:10 MPV 8.2 fl (7.5-11.1) 04/03/20 07:10 CMP Sodium 131 mmol/L (136-145) L 04/03/20 07:10 Potassium 3.7 mmol/L (3.5-5.1) 04/03/20 07:10 Chloride 95 mmol/L (98-107) L 04/03/20 07:10 Carbon Dioxide 21 mmol/L (21-32) 04/03/20 07:10 Anion Gap 16 MMOL/L (8-16) 04/03/20 07:10 BUN 40.3 mg/dL (7-18) H 04/03/20 07:10 Creatinine 8.5 mg/dL (0.55-1.3) H* 04/03/20 07:10 Random Glucose 142 mg/dL (74-106) H 04/03/20 07:10 Calcium 7.9 mg/dL (8.5-10.1) L 04/03/20 07:10 Total Bilirubin 0.4 mg/dL (0.2-1) 04/03/20 07:10 AST 64 U/L (15-37) H 04/03/20 07:10 ALT 47 U/L (13-61) 04/03/20 07:10 Alkaline Phosphatase 61 U/L (45-117) 04/03/20 07:10 Total Protein 7.1 g/dl (6.4-8.2) 04/03/20 07:10 Albumin 1.7 g/dl (3.4-5.0) L 04/03/20 07:10 CARDIAC ENZYMES Creatine Kinase 40 U/L (26-192) 03/31/20 16:30 Troponin I 0.21 ng/ml (0.00-0.05) H 04/02/20 19:45 Current Medications Generic Name Dose Route Start Last Admin Trade Name Freq PRN Reason Stop Dose Admin Acetaminophen 650 mg 03/31/20 16:55 04/02/20 19:00 Tylenol - PO 650 mg Q4H PRN Administration FEVER Allopurinol 100 mg 04/01/20 10:00 04/03/20 09:03 Zyloprim - PO 100 mg DAILY [facility] Administration Apixaban 5 mg 04/03/20 10:00 04/03/20 09:03 Eliquis - PO 5 mg BID [facility] Administration Artificial Tears 1 drop 04/03/20 12:41 Artificial Tears OU TID PRN DRY EYES Docusate Sodium 100 mg 04/01/20 10:00 04/03/20 09:04 Colace - PO 100 mg DAILY [facility] Administration Dorzolamide HCl 1 drop 04/01/20 10:00 04/03/20 09:04 Trusopt 2% OS 1 drop DAILY [facility] Administration Erythromycin 1 applic 03/31/20 17:30 04/03/20 09:04 Erythromycin 0.5% Eye Ointment OU 1 applic DAILY [facility] Administration Folic Acid 1 mg 04/01/20 10:00 04/03/20 09:04 Folic Acid - PO 1 mg DAILY [facility] Administration Peritoneal Dialysis Solution 2,000 mls @ 4,000 mls/hr 04/01/20 13:30 04/03/20 13:28 Dianeal 1.5% IP 4,000 mls/hr Q6H [facility] Administration Protocol Metronidazole 500 mg in 100 mls @ 100 mls/hr 04/02/20 19:00 04/03/20 17:21 Flagyl 500mg Premixed Ivpb - IVPB 100 mls/hr Q8H-IV [facility] Administration Meropenem 500 mg/ Dextrose 100 mls @ 200 mls/hr 04/03/20 10:45 04/03/20 11:12 IVPB 200 mls/hr Q12H [facility] Administration Insulin Aspart 0 vial 03/31/20 22:00 04/03/20 17:21 Novolog Vial Sliding Scale - SQ Not Given ACHS [facility] Protocol Latanoprost 1 drop 03/31/20 22:00 04/02/20 21:24 Xalatan 0.005% Eye Drops - OS 1 drop HS [facility] Administration Metoprolol Succinate 25 mg 04/01/20 10:00 04/03/20 09:03 Toprol Xl - PO 25 mg DAILY [facility] Administration [id number] Ethyl Esters 2 gm 04/02/20 10:00 04/03/20 09:03 Lovaza - PO 2 gm BID [facility] Administration Ondansetron HCl 4 mg 03/31/20 17:00 Zofran Injection IVPUSH Q6H PRN NAUSEA Pantoprazole Sodium 40 mg 04/01/20 10:00 04/03/20 09:04 Protonix - PO 40 mg DAILY [facility] Administration Potassium Chloride 20 meq 04/01/20 12:00 04/03/20 09:03 K-Dur - PO 20 meq DAILY [facility] Administration Rosuvastatin Calcium 10 mg 03/31/20 22:00 04/02/20 21:23 Crestor - PO 10 mg HS [facility] Administration Sevelamer Carbonate 800 mg 04/01/20 08:00 04/03/20 17:23 Renvela - PO 800 mg TIDCM [facility] Administration Timolol Maleate 1 drop 04/01/20 10:00 04/03/20 09:04 Timoptic 0.5% OS 1 drop DAILY [facility] Administration Home Medications Medication Instructions Recorded Allopurinol [Zyloprim -] 100 mg PO DAILY 01/20/14 Rosuvastatin Calcium [Crestor] 20 mg PO HS 01/20/14 Bimatoprost [Lumigan] 1 drop IO DAILY 05/13/17 Dorzolamide HCl/Timolol Maleat 10 ml OP DAILY 05/13/17 [Cosopt Eye Drops] Ascorbic Acid [Vitamin C with Giuliana 500 mg PO DAILY 08/16/19 Hips] Folic Acid 1 mg PO DAILY 08/16/19 Furosemide 80 mg PO HS 08/16/19 Icosapent Ethyl [Vascepa] 2 gm PO BID 08/16/19 Metoprolol Succinate [Toprol Xl] 25 mg PO DAILY 08/16/19 Nateglinide [Starlix (Nf) -] 60 mg PO BID 08/16/19 Apixaban [Eliquis] 5 mg PO BID 03/31/20 Docusate Sodium [Stool Softener] 100 mg PO DAILY 03/31/20 Pantoprazole Sodium 40 mg PO DAILY 03/31/20 Sevelamer Carbonate [Renvela] 800 mg PO TID 03/31/20 Microbiology 03/31/20 13:50 Blood - Peripheral Venous Blood Culture - Preliminary NO GROWTH OBTAINED AFTER 72 HOURS, INCUBATION TO CONTINUE FOR 2 DAYS. 03/31/20 14:00 Blood - Peripheral Venous Blood Culture - Preliminary NO GROWTH OBTAINED AFTER 72 HOURS, INCUBATION TO CONTINUE FOR 2 DAYS. 04/01/20 17:30 Ascites Gram Stain - Final 04/01/20 17:30 Ascites Body Fluid Culture - Preliminary NO AEROBIC GROWTH, 24 HRS 03/31/20 16:04 Urine - Urine Clean Catch Urine Culture - Final NO GROWTH OBTAINED Chest CT; Left lower lobe Pneumonia. small associated left pleural effusion CT abdomen and pelvis: gallstones, stable 4cm right renal cyst, myomatous uterus in the pelvis, fibroids suspected. ASSESSMENT AND PLAN: This patient is an 84yof with Pmhx of T2DM, HTN, HLD, Gout, CKD on PD, anemia,multiple myeloma, pituitary macroadenoma who has 24 hour aids and lives a lone, who presented with fever and abd pain , having Rigors #LLL Pneumonia: on meropenem and IV flagyl continue , ID on the case # Rigors/ Fever: resolved # ESRD on PD: dr Means on the case , continue PD dialysis # H/o HTN: cont BB # H/o DVT: US on 03/27 shoed extensive DVT in LLE on Eliquis 5mg bid l # h/o DM : cont SSI DVT Px: Eliquis 5mg bid
--- NOTE | 2020-04-03 19:50 | PN ---
Progress Note, Physician Chief Complaint: Fever History of Present Illness: Seen and examined at the bedside awake and alert offers no acute complaints family at the bedside tolerating meals CT yesterday showed possible PNA Tolerating PD exchanges w/o issue - Current Medication List Current Medications: Active Medications Acetaminophen (Tylenol -) 650 mg PO Q4H PRN PRN Reason: FEVER Last Admin: 04/02/20 19:00 Dose: 650 mg Documented by: Allopurinol (Zyloprim -) 100 mg PO DAILY [facility] Last Admin: 04/03/20 09:03 Dose: 100 mg Documented by: Apixaban (Eliquis -) 5 mg PO BID [facility] Last Admin: 04/03/20 09:03 Dose: 5 mg Documented by: Artificial Tears (Artificial Tears) 1 drop OU TID PRN PRN Reason: DRY EYES Docusate Sodium (Colace -) 100 mg PO DAILY [facility] Last Admin: 04/03/20 09:04 Dose: 100 mg Documented by: Dorzolamide HCl (Trusopt 2%) 1 drop OS DAILY [facility] Last Admin: 04/03/20 09:04 Dose: 1 drop Documented by: Erythromycin (Erythromycin 0.5% Eye Ointment) 1 applic OU DAILY [facility] Last Admin: 04/03/20 09:04 Dose: 1 applic Documented by: Folic Acid (Folic Acid -) 1 mg PO DAILY [facility] Last Admin: 04/03/20 09:04 Dose: 1 mg Documented by: Peritoneal Dialysis Solution (Dianeal 1.5%) 2,000 mls @ 4,000 mls/hr IP Q6H [facility]; Protocol Last Admin: 04/03/20 13:28 Dose: 4,000 mls/hr Documented by: Metronidazole (Flagyl 500mg Premixed Ivpb -) 500 mg in 100 mls @ 100 mls/hr IVPB Q8H-IV [facility] Last Admin: 04/03/20 17:21 Dose: 100 mls/hr Documented by: Meropenem 500 mg/ Dextrose 100 mls @ 200 mls/hr IVPB Q12H [facility] Last Admin: 04/03/20 11:12 Dose: 200 mls/hr Documented by: Insulin Aspart (Novolog Vial Sliding Scale -) 0 vial SQ ACHS [facility]; Protocol Last Admin: 04/03/20 17:21 Dose: Not Given Documented by: Latanoprost (Xalatan 0.005% Eye Drops -) 1 drop OS HS [facility] Last Admin: 04/02/20 21:24 Dose: 1 drop Documented by: Metoprolol Succinate (Toprol Xl -) 25 mg PO DAILY [facility] Last Admin: 04/03/20 09:03 Dose: 25 mg Documented by: [id number] Ethyl Esters (Lovaza -) 2 gm PO BID [facility] Last Admin: 04/03/20 09:03 Dose: 2 gm Documented by: Ondansetron HCl (Zofran Injection) 4 mg IVPUSH Q6H PRN PRN Reason: NAUSEA Pantoprazole Sodium (Protonix -) 40 mg PO DAILY [facility] Last Admin: 04/03/20 09:04 Dose: 40 mg Documented by: Potassium Chloride (K-Dur -) 20 meq PO DAILY [facility] Last Admin: 04/03/20 09:03 Dose: 20 meq Documented by: Rosuvastatin Calcium (Crestor -) 10 mg PO [facility] Last Admin: 04/02/20 21:23 Dose: 10 mg Documented by: Sevelamer Carbonate (Renvela -) 800 mg PO TIDCM [facility] Last Admin: 04/03/20 17:23 Dose: 800 mg Documented by: Timolol Maleate (Timoptic 0.5%) 1 drop OS DAILY [facility] Last Admin: 04/03/20 09:04 Dose: 1 drop Documented by: - Objective Vital Signs: Vital Signs Temperature 99 F 04/03/20 17:49 Pulse Rate 81 04/03/20 17:49 Respiratory Rate 18 04/03/20 17:49 Blood Pressure 131/59 L 04/03/20 17:49 O2 Sat by Pulse Oximetry (%) 97 04/03/20 17:49 Constitutional: Yes: No Distress, Calm HENT: Yes: Atraumatic Neck: Yes: Supple Cardiovascular: Yes: Regular Rate and Rhythm Respiratory: Yes: Regular Gastrointestinal: Yes: Soft, Distention Extremities: No: Cyanosis Edema: No Neurological: Yes: Alert Labs: CBC, BMP 04/03/20 07:10 04/03/20 07:10 INR, PTT INR 2.39 (0.83-1.09) H 04/02/20 06:34 Assessment/Plan 84-year-old -[place] woman with a past medical history of end-stage kidney disease on peritoneal dialysis, hypertension, hyperlipidemia, gout, recent diagnosis of deep venous thrombosis who presented from home with complaints of generalized malaise and low-grade fever with mild abdominal discomfort. 1. Fever 2. End-stage kidney disease on peritoneal dialysis. 3. Recently diagnosed DVT. 4. Hypertension 5. Hyperlipidemia Continue PD exchanges every 6 hours PD fluid WBC cell count < 100,and PD fluid culture w/o growth thus far. CT of the chest was suggestive of pneumonia Continue antibiotics as per ID Continue Eliquis for management of DVT. Trend electrolytes daily well and patient. Trend H/H, CRESENCIO given Wednesday. Thank you will follow. Nacho Means DO
[2020-04-03] MEDS: LATANOPROST 0.005% OPHTH SOLN 2.5ML BOTTLE OS SCH (21:20)
[2020-04-03] MEDS: ROSUVASTATIN CA 10 MG TABLET (FP) PO SCH (21:20)
[2020-04-04] MEDS: PERITONEAL DIALYSIS 1.5% SOLN 2,000 ML IP SCH ×4 (01:10→20:26)
[2020-04-04] MEDS: INSULIN SLIDING SCALE (NOVOLOG) 1 VIAL SQ SCH ×4 (06:04→22:09)
[2020-04-04 07:30] LABS: BASO % 0.6 % (0-2.0); EOS % 3.3 % (0-4.5); HEMATOCRIT 21.3 % (32.4-45.2); HEMOGLOBIN 7.2 GM/dL (10.7-15.3); MCH 34.4 pg (25.7-33.7); MCHC 33.8 g/dl (32.0-36.0); MEAN CELL VOLUME 101.8 fl (80-96); MEAN PLT VOLUME 8.6 fl (7.5-11.1); NEUT % 48.1 % (42.8-82.8); PLATELET COUNT 148 K/MM3 (134-434); WHITE BLOOD COUNT 5.4 K/mm3 (4.0-10.0)
[2020-04-04 08:38] LABS: ALBUMIN 1.6 g/dl (3.4-5.0); BILIRUBIN,TOTAL 0.3 mg/dL (0.2-1); BLOOD UREA NITROGEN 40.2 mg/dL (7-18); CALCIUM 7.8 mg/dL (8.5-10.1); POTASSIUM 3.2 mmol/L (3.5-5.1); TOT PROT 6.5 g/dl (6.4-8.2)
[2020-04-04 08:44] LABS: CREATININE 7.7 mg/dL (0.55-1.3)
[2020-04-04 09:12] LABS: ANISOCYTOSIS 1+; MACROCYTOSIS 1+; PLATELET ESTIMATE DECREASED
[2020-04-04] MEDS ORDERED: PT OWN MED DRAWER 7, Y5N ONE ×3 (09:23→21:34)
[2020-04-04] MEDS: DOCUSATE SODIUM 100 MG CAPSULE (FP) PO SCH (09:48)
[2020-04-04] MEDS: PANTOPRAZOLE 40 MG TABLET PO SCH (09:48)
[2020-04-04] MEDS: ALLOPURINOL 100 MG TABLET (FP) PO SCH (09:48)
[2020-04-04] MEDS: APIXABAN 5 MG TABLET PO SCH ×2 (09:48→21:47)
[2020-04-04] MEDS: POTASSIUM CHLORIDE TABS 20 MEQ TABLET.ER (FP) PO SCH (09:48)
[2020-04-04] MEDS: metoPROLOL SUCCINATE 25 MG TAB.SR.24H (FP) PO SCH (09:48)
[2020-04-04] MEDS: SEVELAMER CARBONATE 800 MG TAB (FP) PO SCH ×3 (09:48→16:48)
[2020-04-04] MEDS: FOLIC ACID 1 MG TABLET (FP) PO SCH (09:48)
[2020-04-04] MEDS: TIMOLOL 0.5% OPHTHALMIC SOL 5 ML BOTTLE OS SCH (09:49)
[2020-04-04] MEDS: ERYTHROMYCIN 0.5% OPHTHALMIC OINTMENT 3.5 GM TUBE OU SCH (09:49)
[2020-04-04] MEDS: DORZOLAMIDE 2% HCL OPHTHALMIC SOLUTION 10 ML BOTTLE OS SCH (09:49)
[2020-04-04] MEDS: OMEGA-3 ACID ETHYL ESTERS (FATTY-ACIDS) 1 GM CAPSULE (FP) PO SCH ×2 (09:52→21:47)
--- NOTE | 2020-04-04 10:33 | CONSULT ---
Admitting History and Physical - Primary Care Physician PCP: Katie Thompson - Admission History of Present Illness: 84yof with Pmhx of T2DM, HTN, HLD, Gout, CKD on PD, anemia,multiple myeloma, pituitary macroadenoma who has 24 hour aids and lives a lone, who presented 03/31 with fever and abd pain , having Rigors Selected Entries 04/03/20 04/03/20 04/03/20 06:00 09:00 10:00 Breakfast Diet Tolerated Fair Lunch Supper Temperature Pulse Rate Blood Pressure O2 Sat by Pulse 100 100 Oximetry (%) Oxygen Delivery Room Air Method 04/03/20 04/03/20 04/03/20 10:40 14:00 17:49 Breakfast 50% Diet Tolerated Fair Poor Lunch 25% Supper Temperature Pulse Rate Blood Pressure O2 Sat by Pulse 97 Oximetry (%) Oxygen Delivery Method 04/03/20 04/03/20 04/03/20 21:00 22:00 23:00 Breakfast Diet Tolerated Fair Lunch Supper 50% Temperature Pulse Rate Blood Pressure O2 Sat by Pulse 100 100 Oximetry (%) Oxygen Delivery Room Air Method 04/04/20 04/04/20 04/04/20 02:00 06:00 09:34 Breakfast Diet Tolerated Lunch Supper Temperature 99.4 F 99.5 F 98.6 F Pulse Rate 75 77 73 Blood Pressure 124/58 L 128/56 L 116/57 L O2 Sat by Pulse 99 96 98 Oximetry (%) Oxygen Delivery Method Laboratory Tests 03/31/20 04/04/20 16:05 06:18 WBC 5.4 COVID-19 ([facility]) Not detected Downgraded from reg diet 03/31 to chopped on 04/03. History Source: Patient, Medical Record Limitations to Obtaining History: Clinical Condition - Past Medical History Cardiovascular: Yes: HTN Renal/: Yes: Renal Inusuff Heme/Onc: Yes: Anemia Endocrine: Yes: Diabetes Mellitus - Smoking History Smoking history: Never smoked Have you smoked in the past 12 months: No Aproximately how many cigarettes per day: 0 - Alcohol/Substance Use Hx Alcohol Use: No History - Admission Reason For Visit: HYPONATREMIA/HIGH SERUM CREATINE/BLOOD UREA - Diagnostics X-ray: Report Reviewed CT Scan: Report Reviewed Other: Other (Chest CT; Left lower lobe Pneumonia. small associated left pleural effusion CT abdomen and pelvis: gallstones, stable 4cm right renal cyst, myomatous uterus in the pelvis, fibroids suspected.) - General Mental Status: Awake and Alert, Able to Follow Commands Attention: Intact Ability to Follow Directions: Fair Head/Neck Control: Good - Hearing Hearing: Normal Speech Evaluation - Communication Primary Language: TAJIK Communication: Yes: Simple Responses - Speech Production Intelligibility: Yes: WNL - Speech Characteristics Voice Loudness: Normal Voice Pitch: Yes: Normal Voice Phonatory-based Quality: Yes: Normal Speech Pattern: Normal Articulation: Yes: Precise - Language/Auditory Comprehension Follows: Yes: 1 Stage Simple Commands - Swallow Evaluation/Bedside Assessment Current Nutritional Intake: Other (reg chopped) Oral Secretions: Yes: WFL Dentition: Yes: Adequate Facial Symmetry on Retraction: Symmetrical Against Resistance Opening: Normal Against Resistance Closing: Normal Pucker Lips: Normal Smile: Normal Lingual Movement: Normal, Symmetric Lingual Speed of Movement: Normal Lingual Movement Strgth Against Opposition: Normal Lingual Movement Characteristics: Normal Velopharyngeal Movement: Normal Laryngeal Elevation: WFL Laryngeal Movement: Able to Palpate Needs Assistance: Yes Rate of Intake: Slow/Holding Bolus Size: Small Labial Seal: WFL Chewing: Impaired (slow, delayed transfer) Oral Prep Time: Increased A-P Transit: WFL Pocketing: None Timing of Swallow: WFL Coughing/Throat Clear: No Change in Voice: No Recommendations - Speech Evaluation, Impression/Plan Impression: Slow mastication, requiring cues to swallow. On reg chopped. Observe for now. If po intake insuuficient, may benefit from moist, easier to chew foods. - Dysphagia Impressions/Plan Dysphagia Impressions: Mild Impairment *Silent aspiration: cannot be R/O at bedside Dysphagia Treatment Plan: Small Bites, Clear Pocket Food, Facilitative Feeding, Safe Rate, Elevate HOB during feed, Other (alternate correia with liquids) - Recommendations Diet Consistency: Other (reg chopped downgrade to dys chopped if insufficient po acceptance) Medication Administration: Whole with water Liquids: Thin Liquids Supplement: Ensure, Magic Cup, Ensure Pudding
[2020-04-04] MEDS ORDERED: DEXTROSE 5%-WATER 100 ML IVPB ONE ×2 (11:49→21:34)
[2020-04-04] MEDS ORDERED: MEROPENEM 500 MG VIAL (RESTRICTED TO ID) IVPB ONE ×2 (11:49→21:33)
[2020-04-04] MEDS: MEROPENEM 500 MG in DEXTROSE 5%-WATER 100 ML IVPB SCH ×2 (11:55→21:47)
--- NOTE | 2020-04-04 11:56 | PN ---
Physical Exam: SUBJECTIVE: Patient seen and examined at bedside. No acute events reported overnight. No episodes of fever overnight as per nurse. Patient has no concerns or complaints this morning. OBJECTIVE: Vital Signs Period Temp Pulse Resp BP Sys/Gustfason Pulse Ox Last 24 Hr 98.4 F-99.7 F 73-82 18-20 110-131/56-63 96-100 GENERAL: awake and alert with baseline of AMS HEENT: NCAT, PERRLA, EOMI, sclera anicteric, conjunctiva clear, oropharynx clear w/o exudates. MMM. arcus senalis b/l eyes NECK: Normal ROM, supple, no lymphadenopathy, JVD +, or masses LUNGS: CTABL no wheezes/ rhonchi/ rales. No distress, speaks in full sentences. No increased work of breathing. HEART: RRR, normal S1 S2, no M/R/G, peripheral pulses 2+ and equal b/l ABDOMEN: Soft, + distension, + BS. No guarding or rebound. No hepatomegaly or splenomegaly. EXTREMITIES: Normal inspection. NEUROLOGICAL: CN II-XII intact. Normal speech. AMS + SKIN: Warm, Dry, decreased turgor, no rashes or lesions noted Laboratory Results - last 24 hr CBC, BMP 04/04/20 06:18 04/04/20 06:18 04/01/20 04/04/20 04/04/20 17:30 06:18 06:18 WBC 5.4 RBC 2.10 L Hgb 7.2 L Hct 21.3 L MCV 101.8 H MCH 34.4 H MCHC 33.8 RDW 20.0 H Plt Count 148 MPV 8.6 Absolute Neuts (auto) 2.6 Neutrophils % 48.1 Neutrophils % (Manual) 49.0 Band Neutrophils % 0.0 Lymphocytes % 38.0 Lymphocytes % (Manual) 45.0 H D Monocytes % 10.0 Monocytes % (Manual) 4 D Eosinophils % 3.3 D Eosinophils % (Manual) 2.0 D Basophils % 0.6 Basophils % (Manual) 0.0 Myelocytes % (Man) 0 D Promyelocytes % (Man) 0 Blast Cells % (Manual) 0 Nucleated RBC % 0 Metamyelocytes 0 D Hypochromia 0 Platelet Estimate Decreased Polychromasia 0 Poikilocytosis 0 Anisocytosis 1+ Microcytosis 0 Macrocytosis 1+ Sodium 132 L Potassium 3.2 L Chloride 96 L Carbon Dioxide 23 Anion Gap 13 BUN 40.2 H Creatinine 7.7 H* Est GFR (CKD-EPI)AfAm 5.15 Est GFR (CKD-EPI)NonAf 4.44 Random Glucose 146 H Calcium 7.8 L Total Bilirubin 0.3 AST 44 H ALT 43 Alkaline Phosphatase 53 Total Protein 6.5 Albumin 1.6 L Fluid Glucose 164 Active Medications Generic Name Dose Route Start Last Admin Trade Name Freq PRN Reason Stop Dose Admin Acetaminophen 650 mg 03/31/20 16:55 04/02/20 19:00 Tylenol - PO 650 mg Q4H PRN Administration FEVER Allopurinol 100 mg 04/01/20 10:00 04/04/20 09:48 Zyloprim - PO 100 mg DAILY YASMEEN Administration Apixaban 5 mg 04/03/20 10:00 04/04/20 09:48 Eliquis - PO 5 mg BID YASMEEN Administration Artificial Tears 1 drop 04/03/20 12:41 Artificial Tears OU TID PRN DRY EYES Docusate Sodium 100 mg 04/01/20 10:00 04/04/20 09:48 Colace - PO 100 mg DAILY YASMEEN Administration Dorzolamide HCl 1 drop 04/01/20 10:00 04/04/20 09:49 Trusopt 2% OS 1 drop DAILY YASMEEN Administration Erythromycin 1 applic 03/31/20 17:30 04/04/20 09:49 Erythromycin 0.5% Eye Ointment OU 1 applic DAILY YASMEEN Administration Folic Acid 1 mg 04/01/20 10:00 04/04/20 09:48 Folic Acid - PO 1 mg DAILY YASMEEN Administration Peritoneal Dialysis Solution 2,000 mls @ 4,000 mls/hr 04/01/20 13:30 04/04/20 06:54 Dianeal 1.5% IP 4,000 mls/hr Q6H YASMEEN Administration Protocol Metronidazole 500 mg in 100 mls @ 100 mls/hr 04/02/20 19:00 04/04/20 09:49 Flagyl 500mg Premixed Ivpb - IVPB 100 mls/hr Q8H-IV YASMEEN Administration Meropenem 500 mg/ Dextrose 100 mls @ 200 mls/hr 04/03/20 10:45 04/03/20 22:18 IVPB 200 mls/hr Q12H YASMEEN Administration Insulin Aspart 0 vial 03/31/20 22:00 04/04/20 06:04 Novolog Vial Sliding Scale - SQ Not Given ACHS YASMEEN Protocol Latanoprost 1 drop 03/31/20 22:00 04/03/20 21:20 Xalatan 0.005% Eye Drops - OS 1 drop HS YASMEEN Administration Metoprolol Succinate 25 mg 04/01/20 10:00 04/04/20 09:48 Toprol Xl - PO 25 mg DAILY YASMEEN Administration [id number] Ethyl Esters 2 gm 04/02/20 10:00 04/04/20 09:52 Lovaza - PO 2 gm BID YASMEEN Administration Ondansetron HCl 4 mg 03/31/20 17:00 Zofran Injection IVPUSH Q6H PRN NAUSEA Pantoprazole Sodium 40 mg 04/01/20 10:00 04/04/20 09:48 Protonix - PO 40 mg DAILY YASMEEN Administration Potassium Chloride 20 meq 04/01/20 12:00 04/04/20 09:48 K-Dur - PO 20 meq DAILY YASMEEN Administration Rosuvastatin Calcium 10 mg 03/31/20 22:00 04/03/20 21:20 Crestor - PO 10 mg HS YASMEEN Administration Sevelamer Carbonate 800 mg 04/01/20 08:00 04/04/20 09:48 Renvela - PO 800 mg TIDCM YASMEEN Administration Timolol Maleate 1 drop 04/01/20 10:00 04/04/20 09:49 Timoptic 0.5% OS 1 drop DAILY YASMEEN Administration ASSESSMENT/PLAN: 84yo F who is a poor historian with PMHx of DM, HTN, HLD, Gout, CKD on PD done nightly as per her cousin (baseline Cr about 9), anemia, multiple myeloma, pituitary macroadenoma, arcus senalis, independent in ADLs presented to the ED by her TRANSPORT ENGINEER for generalized weakness, chills and temp of 100.0 F. #Chronic CKD on Nightly PD: - PD Nightly per patient's cousin, performed by home health aid - Per Nephrology: PD q6hrs (1 Liter removed per nursing; 2 liters infused per Nephro (Dr. Means) #Fever of Unknown Origin: - Possible 2/2 UTI vs Peritonitis - f/u Blood cx - f/u Urine Cx - ID consulted: Meropenem abx as per ID - Per Primary Team: IV Flagyl - Peritoneal fluid culture following dialysis negative for organisms - Tylenol PRN for fever #LLE DVT: - US on 03/27 demonstrated extensive DVT in LLE which was managed by Dr. Melgar. - Given 10 mg BID of eliquis x 1 week then the 5 BID - Continue Eliquis 5mg BID for 6 months - Continue Eliquis without dose adjustment, in spite of ESRD. Mfg shows no risk involved in use of drug. - Elevated INR expected on Elliquis, do not adjust #Chronic Anemia -Likely Anemia of Chronic Disease -today's hemoglobin was 7.2 -Continue Folic acid #Hypertension: - VSS - BP stable - Continue Metoprolol 25mg qdaily. - Continue Vascepa - Slight troponins: Likely 2/2 demand ischemia #Diabetes Mellitus: - BGM ISS #Hyperlipidemia: -Rosuvastatin 10 mg PO #Gout -Continue Allopurinol #Hypocalcemia -Continue Sevelemer #Glaucoma -Continue Timolol -Continue Dorazolamide -Continue Lantaprost #Recent Cataract Surgery Left Eye -Erythromycin eye ointment Goals of Care -Full Code -Followup w/ TRANSPORT ENGINEER & Cousin for further details -Updated contact info: [phone] . #PPx -Elliquis 10mg BID -GI PPx: Pantoprazole 40 mg PO #FEN Fluids: No standing fluids Electrolytes: Monitor BMP Nutrition: Diabetic Diet #Dispo: -continue to monitor. Visit type - Emergency Visit Emergency Visit: No - New Patient This patient is new to me today: Yes Date on this admission: 04/04/20 - Critical Care Critical Care patient: No - Discharge Referral Referred to [facility] No - Medication Review Med list reviewed for High Risk Meds patients 65 and older: Yes ATTENDING PHYSICIAN STATEMENT I saw and evaluated the patient. I reviewed the resident's note and discussed the case with the resident. I agree with the resident's findings and plan as documented. SUBJECTIVE: OBJECTIVE: ASSESSMENT AND PLAN:
--- NOTE | 2020-04-04 12:20 | PN ---
Progress Note, Physician Chief Complaint: Fever History of Present Illness: Seen and examined at the bedside awake and alert offers no acute complaints tolerating PD exchanges w/o complication - Current Medication List Current Medications: Active Medications Acetaminophen (Tylenol -) 650 mg PO Q4H PRN PRN Reason: FEVER Last Admin: 04/02/20 19:00 Dose: 650 mg Documented by: Allopurinol (Zyloprim -) 100 mg PO DAILY [facility] Last Admin: 04/04/20 09:48 Dose: 100 mg Documented by: Apixaban (Eliquis -) 5 mg PO BID [facility] Last Admin: 04/04/20 09:48 Dose: 5 mg Documented by: Artificial Tears (Artificial Tears) 1 drop OU TID PRN PRN Reason: DRY EYES Docusate Sodium (Colace -) 100 mg PO DAILY [facility] Last Admin: 04/04/20 09:48 Dose: 100 mg Documented by: Dorzolamide HCl (Trusopt 2%) 1 drop OS DAILY [facility] Last Admin: 04/04/20 09:49 Dose: 1 drop Documented by: Erythromycin (Erythromycin 0.5% Eye Ointment) 1 applic OU DAILY [facility] Last Admin: 04/04/20 09:49 Dose: 1 applic Documented by: Folic Acid (Folic Acid -) 1 mg PO DAILY [facility] Last Admin: 04/04/20 09:48 Dose: 1 mg Documented by: Peritoneal Dialysis Solution (Dianeal 1.5%) 2,000 mls @ 4,000 mls/hr IP Q6H YASMEEN; Protocol Last Admin: 04/04/20 06:54 Dose: 4,000 mls/hr Documented by: Metronidazole (Flagyl 500mg Premixed Ivpb -) 500 mg in 100 mls @ 100 mls/hr IVPB Q8H-IV YASMEEN Last Admin: 04/04/20 09:49 Dose: 100 mls/hr Documented by: Meropenem 500 mg/ Dextrose 100 mls @ 200 mls/hr IVPB Q12H [facility] Last Admin: 04/04/20 11:55 Dose: 200 mls/hr Documented by: Insulin Aspart (Novolog Vial Sliding Scale -) 0 vial SQ ACHS YASMEEN; Protocol Last Admin: 04/04/20 12:03 Dose: 2 unit Documented by: Latanoprost (Xalatan 0.005% Eye Drops -) 1 drop OS HS [facility] Last Admin: 04/03/20 21:20 Dose: 1 drop Documented by: Metoprolol Succinate (Toprol Xl -) 25 mg PO DAILY [facility] Last Admin: 04/04/20 09:48 Dose: 25 mg Documented by: [id number] Ethyl Esters (Lovaza -) 2 gm PO BID [facility] Last Admin: 04/04/20 09:52 Dose: 2 gm Documented by: Ondansetron HCl (Zofran Injection) 4 mg IVPUSH Q6H PRN PRN Reason: NAUSEA Pantoprazole Sodium (Protonix -) 40 mg PO DAILY [facility] Last Admin: 04/04/20 09:48 Dose: 40 mg Documented by: Potassium Chloride (K-Dur -) 20 meq PO DAILY [facility] Last Admin: 04/04/20 09:48 Dose: 20 meq Documented by: Rosuvastatin Calcium (Crestor -) 10 mg PO HS [facility] Last Admin: 04/03/20 21:20 Dose: 10 mg Documented by: Sevelamer Carbonate (Renvela -) 800 mg PO TIDCM [facility] Last Admin: 04/04/20 11:55 Dose: 800 mg Documented by: Timolol Maleate (Timoptic 0.5%) 1 drop OS DAILY [facility] Last Admin: 04/04/20 09:49 Dose: 1 drop Documented by: - Objective Vital Signs: Vital Signs Temperature 98.6 F 04/04/20 09:34 Pulse Rate 73 04/04/20 09:34 Respiratory Rate 18 04/04/20 09:34 Blood Pressure 116/57 L 04/04/20 09:34 O2 Sat by Pulse Oximetry (%) 98 04/04/20 09:34 Constitutional: Yes: No Distress, Calm HENT: Yes: Atraumatic Neck: Yes: Supple Cardiovascular: Yes: Regular Rate and Rhythm. No: Murmur Respiratory: Yes: Regular, Diminished Genitourinary: No: Bladder Distention Extremities: No: Cold, Cool, Cyanosis Edema: No Neurological: Yes: Alert Labs: CBC, BMP 04/04/20 06:18 04/04/20 06:18 INR, PTT INR 2.39 (0.83-1.09) H 04/02/20 06:34 Assessment/Plan 84-year-old -Israeli woman with a past medical history of end-stage kidney disease on peritoneal dialysis, hypertension, hyperlipidemia, gout, recent diagnosis of deep venous thrombosis who presented from home with complaints of generalized malaise and low-grade fever with mild abdominal discomfort. 1. Fever 2. End-stage kidney disease on peritoneal dialysis. 3. Recently diagnosed DVT. 4. Hypertension 5. Hyperlipidemia Continue PD exchanges every 6 hours PD fluid WBC cell count < 100,and PD fluid culture w/o growth thus far. CT of the chest was suggestive of pneumonia Continue antibiotics as per ID Continue Eliquis for management of DVT. Check stool for occult blood and iron studies for anemia. Ig Hgb < 7, will require PRBC transfusion. Will give CRESENCIO 53938 units SC x 1 Trend electrolytes daily well and patient. Thank you will follow. Nacho Means DO
[2020-04-04] MEDS ORDERED: EPOETIN ALFA 20,000 UNIT/1 ML VIAL SQ ONE (13:00)
--- NOTE | 2020-04-04 14:03 | PN ---
Progress Note, Physician History of Present Illness: improving has remained afebrile - Current Medication List Current Medications: Active Medications Acetaminophen (Tylenol -) 650 mg PO Q4H PRN PRN Reason: FEVER Last Admin: 04/02/20 19:00 Dose: 650 mg Documented by: Allopurinol (Zyloprim -) 100 mg PO DAILY [facility] Last Admin: 04/04/20 09:48 Dose: 100 mg Documented by: Apixaban (Eliquis -) 5 mg PO BID [facility] Last Admin: 04/04/20 09:48 Dose: 5 mg Documented by: Artificial Tears (Artificial Tears) 1 drop OU TID PRN PRN Reason: DRY EYES Docusate Sodium (Colace -) 100 mg PO DAILY [facility] Last Admin: 04/04/20 09:48 Dose: 100 mg Documented by: Dorzolamide HCl (Trusopt 2%) 1 drop OS DAILY [facility] Last Admin: 04/04/20 09:49 Dose: 1 drop Documented by: Erythromycin (Erythromycin 0.5% Eye Ointment) 1 applic OU DAILY [facility] Last Admin: 04/04/20 09:49 Dose: 1 applic Documented by: Folic Acid (Folic Acid -) 1 mg PO DAILY [facility] Last Admin: 04/04/20 09:48 Dose: 1 mg Documented by: Peritoneal Dialysis Solution (Dianeal 1.5%) 2,000 mls @ 4,000 mls/hr IP Q6H [facility]; Protocol Last Admin: 04/04/20 13:05 Dose: 4,000 mls/hr Documented by: Metronidazole (Flagyl 500mg Premixed Ivpb -) 500 mg in 100 mls @ 100 mls/hr IVPB Q8H-IV [facility] Last Admin: 04/04/20 09:49 Dose: 100 mls/hr Documented by: Meropenem 500 mg/ Dextrose 100 mls @ 200 mls/hr IVPB Q12H [facility] Last Admin: 04/04/20 11:55 Dose: 200 mls/hr Documented by: Insulin Aspart (Novolog Vial Sliding Scale -) 0 vial SQ ACHS [facility]; Protocol Last Admin: 04/04/20 12:03 Dose: 2 unit Documented by: Latanoprost (Xalatan 0.005% Eye Drops -) 1 drop OS HS [facility] Last Admin: 04/03/20 21:20 Dose: 1 drop Documented by: Metoprolol Succinate (Toprol Xl -) 25 mg PO DAILY [facility] Last Admin: 04/04/20 09:48 Dose: 25 mg Documented by: [id number] Ethyl Esters (Lovaza -) 2 gm PO BID [facility] Last Admin: 04/04/20 09:52 Dose: 2 gm Documented by: Ondansetron HCl (Zofran Injection) 4 mg IVPUSH Q6H PRN PRN Reason: NAUSEA Pantoprazole Sodium (Protonix -) 40 mg PO DAILY [facility] Last Admin: 04/04/20 09:48 Dose: 40 mg Documented by: Potassium Chloride (K-Dur -) 20 meq PO DAILY [facility] Last Admin: 04/04/20 09:48 Dose: 20 meq Documented by: Rosuvastatin Calcium (Crestor -) 10 mg PO HS [facility] Last Admin: 04/03/20 21:20 Dose: 10 mg Documented by: Sevelamer Carbonate (Renvela -) 800 mg PO TIDCM [facility] Last Admin: 04/04/20 11:55 Dose: 800 mg Documented by: Timolol Maleate (Timoptic 0.5%) 1 drop OS DAILY [facility] Last Admin: 04/04/20 09:49 Dose: 1 drop Documented by: - Objective Vital Signs: Vital Signs Temperature 98.6 F 04/04/20 09:34 Pulse Rate 73 04/04/20 09:34 Respiratory Rate 18 04/04/20 09:34 Blood Pressure 116/57 L 04/04/20 09:34 O2 Sat by Pulse Oximetry (%) 98 04/04/20 09:34 Constitutional: Yes: No Distress, Calm Cardiovascular: Yes: S1, S2 Respiratory: Yes: Regular, CTA Bilaterally Gastrointestinal: Yes: Normal Bowel Sounds, Soft, Other (pd catheter in place) Musculoskeletal: Yes: WNL Extremities: Yes: WNL Neurological: Yes: Alert Labs: CBC, BMP 04/04/20 06:18 04/04/20 06:18 INR, PTT INR 2.39 (0.83-1.09) H 04/02/20 06:34 Assessment/Plan 84-year-old -[place]ralt[place] woman with a past medical history of end-stage ki dney disease on peritoneal dialysis, hypertension, hyperlipidemia, gout, recent diagnosis of deep venous thrombosis who presented from home with complaints of generalized malaise and low-grade fever with mild abdominal discomfort. fever esrd htn abd pain hld sepsis plan continue abx nutrition dialysis rest as per the team
--- NOTE | 2020-04-04 15:13 | PN ---
Teaching Attending Note Name of Resident: Christiano Lindquist ATTENDING PHYSICIAN STATEMENT I saw and evaluated the patient. I reviewed the resident's note and discussed the case with the resident. I agree with the resident's findings and plan as documented. SUBJECTIVE: Patient is comfortable with NAD , lying in bed comfortably OBJECTIVE: Vital Signs Temperature 97.3 F L 04/04/20 13:00 Pulse Rate 67 04/04/20 13:00 Respiratory Rate 18 04/04/20 13:00 Blood Pressure 132/60 04/04/20 13:00 O2 Sat by Pulse Oximetry (%) 98 04/04/20 09:34 PE:per resident's note CBCD WBC 5.4 K/mm3 (4.0-10.0) 04/04/20 06:18 RBC 2.10 M/mm3 (3.60-5.2) L 04/04/20 06:18 Hgb 7.2 GM/dL (10.7-15.3) L 04/04/20 06:18 Hct 21.3 % (32.4-45.2) L 04/04/20 06:18 MCV 101.8 fl (80-96) H 04/04/20 06:18 MCHC 33.8 g/dl (32.0-36.0) 04/04/20 06:18 RDW 20.0 % (11.6-15.6) H 04/04/20 06:18 Plt Count 148 K/MM3 (134-434) 04/04/20 06:18 MPV 8.6 fl (7.5-11.1) 04/04/20 06:18 CMP Sodium 132 mmol/L (136-145) L 04/04/20 06:18 Potassium 3.2 mmol/L (3.5-5.1) L 04/04/20 06:18 Chloride 96 mmol/L (98-107) L 04/04/20 06:18 Carbon Dioxide 23 mmol/L (21-32) 04/04/20 06:18 Anion Gap 13 MMOL/L (8-16) 04/04/20 06:18 BUN 40.2 mg/dL (7-18) H 04/04/20 06:18 Creatinine 7.7 mg/dL (0.55-1.3) H* 04/04/20 06:18 Random Glucose 146 mg/dL (74-106) H 04/04/20 06:18 Calcium 7.8 mg/dL (8.5-10.1) L 04/04/20 06:18 Total Bilirubin 0.3 mg/dL (0.2-1) 04/04/20 06:18 AST 44 U/L (15-37) H 04/04/20 06:18 ALT 43 U/L (13-61) 04/04/20 06:18 Alkaline Phosphatase 53 U/L (45-117) 04/04/20 06:18 Total Protein 6.5 g/dl (6.4-8.2) 04/04/20 06:18 Albumin 1.6 g/dl (3.4-5.0) L 04/04/20 06:18 CARDIAC ENZYMES Creatine Kinase 40 U/L (26-192) 03/31/20 16:30 Troponin I 0.21 ng/ml (0.00-0.05) H 04/02/20 19:45 Current Medications Generic Name Dose Route Start Last Admin Trade Name Freq PRN Reason Stop Dose Admin Acetaminophen 650 mg 03/31/20 16:55 04/02/20 19:00 Tylenol - PO 650 mg Q4H PRN Administration FEVER Allopurinol 100 mg 04/01/20 10:00 04/04/20 09:48 Zyloprim - PO 100 mg DAILY YASMEEN Administration Apixaban 5 mg 04/03/20 10:00 04/04/20 09:48 Eliquis - PO 5 mg BID YASMEEN Administration Artificial Tears 1 drop 04/03/20 12:41 Artificial Tears OU TID PRN DRY EYES Docusate Sodium 100 mg 04/01/20 10:00 04/04/20 09:48 Colace - PO 100 mg DAILY YASMEEN Administration Dorzolamide HCl 1 drop 04/01/20 10:00 04/04/20 09:49 Trusopt 2% OS 1 drop DAILY YASMEEN Administration Erythromycin 1 applic 03/31/20 17:30 04/04/20 09:49 Erythromycin 0.5% Eye Ointment OU 1 applic DAILY YASMEEN Administration Folic Acid 1 mg 04/01/20 10:00 04/04/20 09:48 Folic Acid - PO 1 mg DAILY YASMEEN Administration Peritoneal Dialysis Solution 2,000 mls @ 4,000 mls/hr 04/01/20 13:30 04/04/20 13:05 Dianeal 1.5% IP 4,000 mls/hr Q6H YASMEEN Administration Protocol Metronidazole 500 mg in 100 mls @ 100 mls/hr 04/02/20 19:00 04/04/20 09:49 Flagyl 500mg Premixed Ivpb - IVPB 100 mls/hr Q8H-IV YASMEEN Administration Meropenem 500 mg/ Dextrose 100 mls @ 200 mls/hr 04/03/20 10:45 04/04/20 11:55 IVPB 200 mls/hr Q12H YASMEEN Administration Insulin Aspart 0 vial 03/31/20 22:00 04/04/20 12:03 Novolog Vial Sliding Scale - SQ 2 unit ACHS YASMEEN Administration Protocol Latanoprost 1 drop 03/31/20 22:00 04/03/20 21:20 Xalatan 0.005% Eye Drops - OS 1 drop HS YASMEEN Administration Metoprolol Succinate 25 mg 04/01/20 10:00 04/04/20 09:48 Toprol Xl - PO 25 mg DAILY YASMEEN Administration Bbssd-[id number] Ethyl Esters 2 gm 04/02/20 10:00 04/04/20 09:52 Lovaza - PO 2 gm BID YASMEEN Administration Ondansetron HCl 4 mg 03/31/20 17:00 Zofran Injection IVPUSH Q6H PRN NAUSEA Pantoprazole Sodium 40 mg 04/01/20 10:00 04/04/20 09:48 Protonix - PO 40 mg DAILY YASMEEN Administration Potassium Chloride 20 meq 04/01/20 12:00 04/04/20 09:48 K-Dur - PO 20 meq DAILY YASMEEN Administration Rosuvastatin Calcium 10 mg 03/31/20 22:00 04/03/20 21:20 Crestor - PO 10 mg HS YASMEEN Administration Sevelamer Carbonate 800 mg 04/01/20 08:00 04/04/20 11:55 Renvela - PO 800 mg TIDCM YASMEEN Administration Timolol Maleate 1 drop 04/01/20 10:00 04/04/20 09:49 Timoptic 0.5% OS 1 drop DAILY YASMEEN Administration Home Medications Medication Instructions Recorded Allopurinol [Zyloprim -] 100 mg PO DAILY 01/20/14 Rosuvastatin Calcium [Crestor] 20 mg PO HS 01/20/14 Bimatoprost [Lumigan] 1 drop IO DAILY 10/05/17 Dorzolamide HCl/Timolol Maleat 10 ml OP DAILY 05/13/17 [Cosopt Eye Drops] Ascorbic Acid [Vitamin C with Giuliana 500 mg PO DAILY 08/16/19 Hips] Folic Acid 1 mg PO DAILY 08/16/19 Furosemide 80 mg PO HS 08/16/19 Icosapent Ethyl [Vascepa] 2 gm PO BID 08/16/19 Metoprolol Succinate [Toprol Xl] 25 mg PO DAILY 08/16/19 Nateglinide [Starlix (Nf) -] 60 mg PO BID 08/16/19 Apixaban [Eliquis] 5 mg PO BID 03/31/20 Docusate Sodium [Stool Softener] 100 mg PO DAILY 03/31/20 Pantoprazole Sodium 40 mg PO DAILY 03/31/20 Sevelamer Carbonate [Renvela] 800 mg PO TID 03/31/20 Microbiology 03/31/20 13:50 Blood - Peripheral Venous Blood Culture - Preliminary NO GROWTH OBTAINED AFTER 96 HOURS, INCUBATION TO CONTINUE FOR 1 DAYS. 03/31/20 14:00 Blood - Peripheral Venous Blood Culture - Preliminary NO GROWTH OBTAINED AFTER 96 HOURS, INCUBATION TO CONTINUE FOR 1 DAYS. 04/01/20 17:30 Ascites Gram Stain - Final 04/01/20 17:30 Ascites Body Fluid Culture - Final NO GROWTH OF AEROBIC ORGANISMS AFTER 48 HOURS INCUBATION 04/01/20 17:30 Ascites Anaerobic Culture - Final NO ANAEROBES WERE ISOLATED 04/03/20 06:30 Urine - Urine - Catheterized Urine Culture - Final NO GROWTH OBTAINED 04/02/20 18:00 Blood - Peripheral Venous Blood Culture - Preliminary NO GROWTH OBTAINED AFTER 24 HOURS, INCUBATION TO CONTINUE FOR 4 DAYS. 04/02/20 18:00 Blood - Peripheral Venous Blood Culture - Preliminary NO GROWTH OBTAINED AFTER 24 HOURS, INCUBATION TO CONTINUE FOR 4 DAYS. 03/31/20 16:04 Urine - Urine Clean Catch Urine Culture - Final NO GROWTH OBTAINED Chest CT; Left lower lobe Pneumonia. small associated left pleural effusion CT abdomen and pelvis: gallstones, stable 4cm right renal cyst, myomatous uterus in the pelvis, fibroids suspected. ASSESSMENT AND PLAN: This patient is an 84yof with Pmhx of T2DM, HTN, HLD, Gout, CKD on PD, anemia,multiple myeloma, pituitary macroadenoma who has 24 hour aids and lives a lone, who presented with fever and abd pain , having Rigors #LLL Pneumonia: on Meropenem and IV flagyl continue , ID on the case, patient has no fever now #Anemia: chronic , Dr pozo will order epo. inj # Rigors/ Fever: resolved # ESRD on PD: dr Pozo on the case , continue PD dialysis # H/o HTN: cont BB # H/o DVT: US on 03/27 shoed extensive DVT in LLE on Eliquis 5mg bid l # Hx fo DM : cont SSI DVT Px: Eliquis 5mg bid
[2020-04-04] MEDS: ROSUVASTATIN CA 10 MG TABLET (FP) PO SCH (21:47)
[2020-04-04] MEDS: LATANOPROST 0.005% OPHTH SOLN 2.5ML BOTTLE OS SCH (21:50)
[2020-04-05] MEDS: PERITONEAL DIALYSIS 1.5% SOLN 2,000 ML IP SCH ×4 (01:20→19:30)
[2020-04-05] MEDS: ACETAMINOPHEN 325 MG TABLET (FP) PO PRN (01:56)
[2020-04-05] MEDS: INSULIN SLIDING SCALE (NOVOLOG) 1 VIAL SQ SCH ×4 (07:12→22:02)
[2020-04-05 07:33] LABS: BASO % 0.2 % (0-2.0); EOS % 2.9 % (0-4.5); HEMATOCRIT 21.1 % (32.4-45.2); HEMOGLOBIN 7.1 GM/dL (10.7-15.3); LYMPH % 42.3 % (8-40); MCH 34.3 pg (25.7-33.7); MCHC 33.5 g/dl (32.0-36.0); MEAN CELL VOLUME 102.3 fl (80-96); MEAN PLT VOLUME 8.8 fl (7.5-11.1); MONO % 10.9 % (3.8-10.2); NEUT % 43.7 % (42.8-82.8); PLATELET COUNT 180 K/MM3 (134-434); RBC 2.06 M/mm3 (3.60-5.2); RDW 20.2 % (11.6-15.6); WHITE BLOOD COUNT 4.6 K/mm3 (4.0-10.0)
[2020-04-05 08:03] LABS: BLOOD UREA NITROGEN 36.7 mg/dL (7-18); CALCIUM 7.8 mg/dL (8.5-10.1); CREATININE 6.8 mg/dL (0.55-1.3); IRON SERUM 90 ug/dL (50-175); POTASSIUM 3.1 mmol/L (3.5-5.1); TOTAL IRON BINDING CAPACITY 121 ug/dL (250-450)
[2020-04-05] MEDS: SEVELAMER CARBONATE 800 MG TAB (FP) PO SCH ×3 (08:16→16:52)
[2020-04-05] MEDS ORDERED: POTASSIUM CHLORIDE TABS 20 MEQ TABLET.ER (FP) PO ONE (08:46)
[2020-04-05] MEDS ORDERED: POTASSIUM CHLORIDE ORAL LIQUID 20 MEQ/15 ML PO ONE (09:00)
[2020-04-05] MEDS ORDERED: MEROPENEM 500 MG VIAL (RESTRICTED TO ID) IVPB ONE ×2 (09:52→22:21)
[2020-04-05] MEDS ORDERED: DEXTROSE 5%-WATER 100 ML IVPB ONE ×2 (09:52→22:21)
[2020-04-05] MEDS: POTASSIUM CHLORIDE TABS 20 MEQ TABLET.ER (FP) PO SCH (09:56)
[2020-04-05] MEDS: DOCUSATE SODIUM 100 MG CAPSULE (FP) PO SCH (09:56)
[2020-04-05] MEDS: PANTOPRAZOLE 40 MG TABLET PO SCH (09:56)
[2020-04-05] MEDS: ALLOPURINOL 100 MG TABLET (FP) PO SCH (09:56)
[2020-04-05] MEDS: APIXABAN 5 MG TABLET PO SCH ×2 (09:56→21:33)
[2020-04-05] MEDS: TIMOLOL 0.5% OPHTHALMIC SOL 5 ML BOTTLE OS SCH (09:57)
[2020-04-05] MEDS: FOLIC ACID 1 MG TABLET (FP) PO SCH (09:57)
[2020-04-05] MEDS: metoPROLOL SUCCINATE 25 MG TAB.SR.24H (FP) PO SCH (09:57)
[2020-04-05] MEDS: MEROPENEM 500 MG in DEXTROSE 5%-WATER 100 ML IVPB SCH ×2 (09:58→22:23)
[2020-04-05] MEDS: ERYTHROMYCIN 0.5% OPHTHALMIC OINTMENT 3.5 GM TUBE OU SCH (09:59)
[2020-04-05] MEDS: OMEGA-3 ACID ETHYL ESTERS (FATTY-ACIDS) 1 GM CAPSULE (FP) PO SCH ×2 (10:00→21:33)
[2020-04-05] MEDS: DORZOLAMIDE 2% HCL OPHTHALMIC SOLUTION 10 ML BOTTLE OS SCH (10:00)
--- NOTE | 2020-04-05 11:08 | PN ---
Progress Note, FICTION WRITER - Note Progress Note: Selected Entries 04/04/20 04/04/20 04/04/20 02:00 06:00 09:34 Breakfast Diet Tolerated Lunch Supper Temperature 99.4 F 99.5 F 98.6 F Pulse Rate 75 77 73 Blood Pressure 124/58 L 128/56 L 116/57 L 04/04/20 04/04/20 04/05/20 12:32 19:31 01:00 Breakfast 25% Diet Tolerated Fair Lunch 25% Supper 25% Temperature 97.4 F L Pulse Rate 66 Blood Pressure 143/63 04/05/20 04/05/20 04/05/20 05:00 09:55 10:33 Breakfast 75% Diet Tolerated Well Lunch Supper Temperature 97.9 F 98.4 F Pulse Rate 69 64 Blood Pressure 118/69 131/65 Laboratory Tests 04/05/20 06:51 WBC 4.6 Lethargic, arousable, slow to respond, dysphonic, suspect close to baseline per discussion with medical team Pt tolerating reg,chopped diet. Reportedly ate well with family yesterday.
--- NOTE | 2020-04-05 11:24 | PN ---
Progress Note, Physician History of Present Illness: continues to be afebrile - Current Medication List Current Medications: Active Medications Acetaminophen (Tylenol -) 650 mg PO Q4H PRN PRN Reason: FEVER Last Admin: 04/05/20 01:56 Dose: 650 mg Documented by: Allopurinol (Zyloprim -) 100 mg PO DAILY [facility] Last Admin: 04/05/20 09:56 Dose: 100 mg Documented by: Apixaban (Eliquis -) 5 mg PO BID [facility] Last Admin: 04/05/20 09:56 Dose: 5 mg Documented by: Artificial Tears (Artificial Tears) 1 drop OU TID PRN PRN Reason: DRY EYES Docusate Sodium (Colace -) 100 mg PO DAILY [facility] Last Admin: 04/05/20 09:56 Dose: 100 mg Documented by: Dorzolamide HCl (Trusopt 2%) 1 drop OS DAILY [facility] Last Admin: 04/05/20 10:00 Dose: 1 drop Documented by: Erythromycin (Erythromycin 0.5% Eye Ointment) 1 applic OU DAILY [facility] Last Admin: 04/05/20 09:59 Dose: 1 applic Documented by: Folic Acid (Folic Acid -) 1 mg PO DAILY [facility] Last Admin: 04/05/20 09:57 Dose: 1 mg Documented by: Peritoneal Dialysis Solution (Dianeal 1.5%) 2,000 mls @ 4,000 mls/hr IP Q6H [facility]; Protocol Last Admin: 04/05/20 07:15 Dose: 4,000 mls/hr Documented by: Metronidazole (Flagyl 500mg Premixed Ivpb -) 500 mg in 100 mls @ 100 mls/hr IVPB Q8H-IV YASMEEN Last Admin: 04/05/20 10:25 Dose: 100 mls/hr Documented by: Meropenem 500 mg/ Dextrose 100 mls @ 200 mls/hr IVPB Q12H [facility] Last Admin: 04/05/20 09:58 Dose: 200 mls/hr Documented by: Insulin Aspart (Novolog Vial Sliding Scale -) 0 vial SQ ACHS [facility]; Protocol Last Admin: 04/05/20 07:12 Dose: 2 unit Documented by: Latanoprost (Xalatan 0.005% Eye Drops -) 1 drop OS HS [facility] Last Admin: 04/04/20 21:50 Dose: 1 drop Documented by: Metoprolol Succinate (Toprol Xl -) 25 mg PO DAILY [facility] Last Admin: 04/05/20 09:57 Dose: 25 mg Documented by: [id number] Ethyl Esters (Lovaza -) 2 gm PO BID [facility] Last Admin: 04/05/20 10:00 Dose: 2 gm Documented by: Ondansetron HCl (Zofran Injection) 4 mg IVPUSH Q6H PRN PRN Reason: NAUSEA Pantoprazole Sodium (Protonix -) 40 mg PO DAILY [facility] Last Admin: 04/05/20 09:56 Dose: 40 mg Documented by: Potassium Chloride (K-Dur -) 20 meq PO DAILY [facility] Last Admin: 04/05/20 09:56 Dose: 20 meq Documented by: Rosuvastatin Calcium (Crestor -) 10 mg PO HS [facility] Last Admin: 04/04/20 21:47 Dose: 10 mg Documented by: Sevelamer Carbonate (Renvela -) 800 mg PO TIDCM [facility] Last Admin: 04/05/20 08:16 Dose: 800 mg Documented by: Timolol Maleate (Timoptic 0.5%) 1 drop OS DAILY [facility] Last Admin: 04/05/20 09:57 Dose: 1 drop Documented by: - Objective Vital Signs: Vital Signs Temperature 98.4 F 04/05/20 09:55 Pulse Rate 64 04/05/20 09:55 Respiratory Rate 20 04/05/20 09:55 Blood Pressure 131/65 04/05/20 09:55 O2 Sat by Pulse Oximetry (%) 100 04/05/20 09:55 Constitutional: Yes: No Distress, Calm Cardiovascular: Yes: S1, S2 Respiratory: Yes: Regular, CTA Bilaterally Gastrointestinal: Yes: Normal Bowel Sounds, Soft Musculoskeletal: Yes: WNL Extremities: Yes: WNL Neurological: Yes: Alert Psychiatric: Yes: Alert Labs: CBC, BMP 04/05/20 06:51 04/05/20 06:51 INR, PTT INR 2.39 (0.83-1.09) H 04/02/20 06:34 Assessment/Plan 84yo F who is a poor historian with PMHx of DM, HTN, HLD, Gout, CKD on PD done nightly as per her cousin (baseline Cr about 9), anemia, multiple myeloma, pituitary macroadenoma, arcus senalis, independent in ADLs presented to the ED by her [employer] for generalized weakness, chills and temp of 100.0 F. Chronic CKD on Nightly PD: Fever of Unknown Origin: LLE DVT: Chronic Anemia Hypertension: Diabetes Mellitus: Hyperlipidemia: Gout Hypocalcemia Glaucoma sepsis plan continue abx monitor rest as per the team
[2020-04-05] MEDS: KCL 10 MEQ IVPB 10 MEQ/100 ML INFUS.BAG IVPB SCH ×2 (11:47→11:58)
--- NOTE | 2020-04-05 12:05 | PN ---
Physical Exam: SUBJECTIVE: Patient seen and examined this morning, as well as afternoon with her STOCK PITCHER. She was less talkative then prior and seemed withdrawn. Still alert. OBJECTIVE: Vital Signs Period Temp Pulse Resp BP Sys/Gustafson Pulse Ox Last 24 Hr 97.3 F-98.4 F 64-69 18-20 118-144/46-74 99-100 GENERAL: Awake, alert, less conversational, requires orientation, has baseline AMS HEAD: Normal with no signs of trauma. EYES: Arcus Senalis in both eyes bilaterally. THROAT: Oropharynx clear without exudates. Moist mucous membranes. NECK: JVD present. Normal range of motion, supple without lymphadenopathy. LUNGS: Breath sounds equal, clear to auscultation bilaterally. No wheezes, and no crackles. No accessory muscle use. HEART: Regular rate and rhythm, normal S1 and S2 without murmur, rub or gallop. ABDOMEN: Distended. Soft, nontender, normoactive bowel sounds MUSCULOSKELETAL: Not assessed UPPER EXTREMITIES: 2+ pulses, warm, well-perfused. No cyanosis. No clubbing. No peripheral edema. LOWER EXTREMITIES: 2+ pulses, warm, well-perfused. No peripheral edema. NEUROLOGICAL: Normal speech with altered mental status. Gait not tested. PSYCHIATRIC: Cooperative. Good eye contact. SKIN: Warm, dry, decreased turgor. Laboratory Results - last 24 hr CBC, BMP 04/05/20 06:51 04/05/20 06:51 04/04/20 04/05/20 04/05/20 06:18 06:51 06:51 WBC 4.6 RBC 2.06 L Hgb 7.1 L Hct 21.1 L MCV 102.3 H MCHC 33.5 RDW 20.2 H Plt Count 180 D Neutrophils % 43.7 Lymphocytes % 42.3 H Monocytes % 10.9 H Eosinophils % 2.9 Basophils % 0.2 Sodium 132 L 134 L Potassium 3.2 L 3.1 L Chloride 96 L 98 Carbon Dioxide 23 24 Anion Gap 13 12 BUN 40.2 H 36.7 H Creatinine 7.7 H* 6.8 H Active Medications Generic Name Dose Route Start Last Admin Trade Name Freq PRN Reason Stop Dose Admin Acetaminophen 650 mg 03/31/20 16:55 04/05/20 01:56 Tylenol - PO 650 mg Q4H PRN Administration FEVER Allopurinol 100 mg 04/01/20 10:00 04/05/20 09:56 Zyloprim - PO 100 mg DAILY YASMEEN Administration Apixaban 5 mg 04/03/20 10:00 04/05/20 09:56 Eliquis - PO 5 mg BID YASMEEN Administration Artificial Tears 1 drop 04/03/20 12:41 Artificial Tears OU TID PRN DRY EYES Docusate Sodium 100 mg 04/01/20 10:00 04/05/20 09:56 Colace - PO 100 mg DAILY YASMEEN Administration Dorzolamide HCl 1 drop 04/01/20 10:00 04/05/20 10:00 Trusopt 2% OS 1 drop DAILY YASMEEN Administration Erythromycin 1 applic 03/31/20 17:30 04/05/20 09:59 Erythromycin 0.5% Eye Ointment OU 1 applic DAILY YASMEEN Administration Folic Acid 1 mg 04/01/20 10:00 04/05/20 09:57 Folic Acid - PO 1 mg DAILY YASMEEN Administration Peritoneal Dialysis Solution 2,000 mls @ 4,000 mls/hr 04/01/20 13:30 04/05/20 07:15 Dianeal 1.5% IP 4,000 mls/hr Q6H YASMEEN Administration Protocol Metronidazole 500 mg in 100 mls @ 100 mls/hr 04/02/20 19:00 04/05/20 10:25 Flagyl 500mg Premixed Ivpb - IVPB 100 mls/hr Q8H-IV YASMEEN Administration Meropenem 500 mg/ Dextrose 100 mls @ 200 mls/hr 04/03/20 10:45 04/05/20 09:58 IVPB 200 mls/hr Q12H YASMEEN Administration Insulin Aspart 0 vial 03/31/20 22:00 04/05/20 11:58 Novolog Vial Sliding Scale - SQ 3 unit ACHS YASMEEN Administration Protocol Latanoprost 1 drop 03/31/20 22:00 04/04/20 21:50 Xalatan 0.005% Eye Drops - OS 1 drop HS YASMEEN Administration Metoprolol Succinate 25 mg 04/01/20 10:00 04/05/20 09:57 Toprol Xl - PO 25 mg DAILY YASMEEN Administration Dtisn-4-Fioc Ethyl Esters 2 gm 04/02/20 10:00 04/05/20 10:00 Lovaza - PO 2 gm BID YASMEEN Administration Ondansetron HCl 4 mg 03/31/20 17:00 Zofran Injection IVPUSH Q6H PRN NAUSEA Pantoprazole Sodium 40 mg 04/01/20 10:00 04/05/20 09:56 Protonix - PO 40 mg DAILY YASMEEN Administration Potassium Chloride 20 meq 04/01/20 12:00 04/05/20 09:56 K-Dur - PO 20 meq DAILY YASME[facility] Administration Rosuvastatin Calcium 10 mg 03/31/20 22:00 04/04/20 21:47 Crestor - PO 10 mg HS YASMEEN Administration Sevelamer Carbonate 800 mg 04/01/20 08:00 04/05/20 11:44 Renvela - PO 800 mg TIDCM YASMEEN Administration Timolol Maleate 1 drop 04/01/20 10:00 04/05/20 09:57 Timoptic 0.5% OS 1 drop DAILY [facility] Administration ASSESSMENT/PLAN: 84yo F who is a poor historian with PMHx of DM, HTN, HLD, Gout, CKD on PD done nightly as per her cousin (baseline Cr about 9), anemia, multiple myeloma, pituitary macroadenoma, arcus senalis, independent in ADLs presented to the ED by her [employer] for generalized weakness, chills and temp 100.0. Chronic CKD on Nightly PD: - PD Nightly per ptn cousin, performed by STOCK PITCHER - Per Nephrology: PD q6hrs Fever of Unknown Origin: Resolved - Possible 2/2 UTI vs Peritonitis: - Blood/Urine/Ascitic Cultures currently Negative - Per ID: Start Meropenem - Per Primary Team: Start IV Flagyl - Tylenol PRN for fever Hx of LLE DVT: - US on 03/27 demonstrated extensive DVT in LLE . - Treated by Dr. Melgar - Continue Eliquis 5mg BID for 6 months - Continue Elliquis without dose adjustment, in spite of ESRD. Mfg shows no risk involved in use of drug. - Elevated INR expected on Elliquis, do not adjust Acute on Chronic Anemia -Likely 2/2 Chronic Renal Disease -Hgb 8.2 --> 7.1 --> 1 Unit PRBC Ordered (04/05), no risk of overload per Dr. Means --> -Iron Studies, B12, Folate, Retic results -Likely Anemia of Chronic Disease -Normal Retic Count -Continue Folic acid -Rectal Exam Done (04/05) -No exterior excoriations or hemmorhoids, or gross blood -No anal fissures -Normal rectal tone -No polyps, hemorrhoids felt on sweep -Liquid stool felt in vault -No Melena, FOBT + -GI Consulted Hx of HTN: - VSS - BP stable - Continue Metoprolol 25mg qdaily. - Slight troponins: Likely 2/2 demand ischemia Hx of DM: -DC Home Medications for now -ISS -Hba1C 6.4 Hx of HLD -Continue Rosuvastatin Hx of Gout -Continue Allopurinol Hx of Hypocalcemia -Continue Sevelemer Hx of Glaucoma -Continue Timolol -Continue Dorazolamide -Continue Lantaprost Recent Cataract Surgery Left Eye -Continue Erythromycin eye ointment Goals of Care -Full Code -Followup w/ STOCK PITCHER & Cousin for further details -Phone number incorrect: [phone] . PPx -DVT Treatment: Elliquis 5mg BID -GI PPx: Pantoprazole FEN Fluids: No standing fluids Electrolytes: Monitor BMP Nutrition: Diabetic Diet Dispo: Continue medical management. Visit type - Emergency Visit Emergency Visit: No - New Patient This patient is new to me today: No - Critical Care Critical Care patient: No - Discharge Referral Referred to [facility] No - Medication Review Med list reviewed for High Risk Meds patients 65 and older: Yes ATTENDING PHYSICIAN STATEMENT I saw and evaluated the patient. I reviewed the resident's note and discussed the case with the resident. I agree with the resident's findings and plan as documented. SUBJECTIVE: OBJECTIVE: ASSESSMENT AND PLAN:
--- NOTE | 2020-04-05 12:58 | PN ---
Progress Note (short form) - Note Progress Note: PROGRESS NOTE: RECTAL EXAM Rectal exam performed by myself, along side two chaperones (Medical Student, and Nurse - Mia Pierce). Externally, no visible blood, external lesions or hemorrhoids, no anal fissures, anal tone was normal, no internal hemorrhoids, polyps, or other masses felt, liquid stool was felt in the rectal vault, melena not seen. FOBT sent to lab for examination.
--- NOTE | 2020-04-05 15:58 | PN ---
Progress Note (short form) - Note Progress Note: Called to evaluate anemia. Patient is an outpatient of Dr. Galdamez. Advised certified medical transcriptionist Lexa to contact Dr. Galdamez's office for further evaluation.
--- NOTE | 2020-04-05 16:33 | PN ---
Progress Note, Physician Chief Complaint: Fever History of Present Illness: Seen and examined at the bedside awake and alert offers no acute complaints denies any sob, cp, fever, chills, N/V/D tolerating PD exchanges w/o complication - Current Medication List Current Medications: Active Medications Acetaminophen (Tylenol -) 650 mg PO Q4H PRN PRN Reason: FEVER Last Admin: 04/05/20 01:56 Dose: 650 mg Documented by: Allopurinol (Zyloprim -) 100 mg PO DAILY [facility] Last Admin: 04/05/20 09:56 Dose: 100 mg Documented by: Apixaban (Eliquis -) 5 mg PO BID [facility] Last Admin: 04/05/20 09:56 Dose: 5 mg Documented by: Artificial Tears (Artificial Tears) 1 drop OU TID PRN PRN Reason: DRY EYES Docusate Sodium (Colace -) 100 mg PO DAILY [facility] Last Admin: 04/05/20 09:56 Dose: 100 mg Documented by: Dorzolamide HCl (Trusopt 2%) 1 drop OS DAILY [facility] Last Admin: 04/05/20 10:00 Dose: 1 drop Documented by: Erythromycin (Erythromycin 0.5% Eye Ointment) 1 applic OU DAILY [facility] Last Admin: 04/05/20 09:59 Dose: 1 applic Documented by: Folic Acid (Folic Acid -) 1 mg PO DAILY [facility] Last Admin: 04/05/20 09:57 Dose: 1 mg Documented by: Peritoneal Dialysis Solution (Dianeal 1.5%) 2,000 mls @ 4,000 mls/hr IP Q6H [facility]; Protocol Last Admin: 04/05/20 13:00 Dose: 4,000 mls/hr Documented by: Metronidazole (Flagyl 500mg Premixed Ivpb -) 500 mg in 100 mls @ 100 mls/hr IVPB Q8H-IV [facility] Last Admin: 04/05/20 10:25 Dose: 100 mls/hr Documented by: Meropenem 500 mg/ Dextrose 100 mls @ 200 mls/hr IVPB Q12H [facility] Last Admin: 04/05/20 09:58 Dose: 200 mls/hr Documented by: Insulin Aspart (Novolog Vial Sliding Scale -) 0 vial SQ ACHS [facility]; Protocol Last Admin: 04/05/20 11:58 Dose: 3 unit Documented by: Latanoprost (Xalatan 0.005% Eye Drops -) 1 drop OS HS [facility] Last Admin: 04/04/20 21:50 Dose: 1 drop Documented by: Metoprolol Succinate (Toprol Xl -) 25 mg PO DAILY [facility] Last Admin: 04/05/20 09:57 Dose: 25 mg Documented by: [id number] Ethyl Esters (Lovaza -) 2 gm PO BID [facility] Last Admin: 04/05/20 10:00 Dose: 2 gm Documented by: Ondansetron HCl (Zofran Injection) 4 mg IVPUSH Q6H PRN PRN Reason: NAUSEA Pantoprazole Sodium (Protonix -) 40 mg PO DAILY [facility] Last Admin: 04/05/20 09:56 Dose: 40 mg Documented by: Potassium Chloride (K-Dur -) 20 meq PO DAILY [facility] Last Admin: 04/05/20 09:56 Dose: 20 meq Documented by: Rosuvastatin Calcium (Crestor -) 10 mg PO [facility] Last Admin: 04/04/20 21:47 Dose: 10 mg Documented by: Sevelamer Carbonate (Renvela -) 800 mg PO TIDCM [facility] Last Admin: 04/05/20 11:44 Dose: 800 mg Documented by: Timolol Maleate (Timoptic 0.5%) 1 drop OS DAILY [facility] Last Admin: 04/05/20 09:57 Dose: 1 drop Documented by: - Objective Vital Signs: Vital Signs Temperature 97.5 F L 04/05/20 14:14 Pulse Rate 64 04/05/20 14:14 Respiratory Rate 20 04/05/20 14:14 Blood Pressure 147/71 04/05/20 14:14 O2 Sat by Pulse Oximetry (%) 100 04/05/20 09:55 Constitutional: Yes: No Distress, Calm HENT: Yes: Atraumatic Neck: Yes: Supple Respiratory: Yes: Regular Gastrointestinal: Yes: Normal Bowel Sounds, Soft. No: Tenderness Extremities: No: Cyanosis Edema: No Labs: CBC, BMP 04/05/20 06:51 04/05/20 06:51 INR, PTT INR 2.39 (0.83-1.09) H 04/02/20 06:34 Assessment/Plan 84-year-old -[place] woman with a past medical history of end-stage kidney disease on peritoneal dialysis, hypertension, hyperlipidemia, gout, recen t diagnosis of deep venous thrombosis who presented from home with complaints of generalized malaise and low-grade fever with mild abdominal discomfort. 1. Fever 2. End-stage kidney disease on peritoneal dialysis. 3. Recently diagnosed DVT. 4. Hypertension 5. Hyperlipidemia Continue PD exchanges every 6 hours PD fluid WBC cell count < 100,and PD fluid culture w/o growth thus far. CT of the chest was suggestive of pneumonia Continue antibiotics as per ID Continue Eliquis for management of DVT. Check stool for occult blood and iron studies for anemia. To get PRBC transfusion today. s/p Epogen x 1 Trend electrolytes daily well and patient. Thank you will follow. Nacho Means DO
--- NOTE | 2020-04-05 19:03 | PN ---
Teaching Attending Note Name of Resident: Christiano Lindquist ATTENDING PHYSICIAN STATEMENT I saw and evaluated the patient. I reviewed the resident's note and discussed the case with the resident. I agree with the resident's findings and plan as documented. SUBJECTIVE: Patient is doing better with NAD , no further chills or fever OBJECTIVE: Vital Signs Temperature 97.9 F 04/05/20 18:01 Pulse Rate 66 04/05/20 18:01 Respiratory Rate 20 04/05/20 18:01 Blood Pressure 143/66 04/05/20 18:01 O2 Sat by Pulse Oximetry (%) 99 04/05/20 18:01 PE;per resident's note CBCD WBC 4.6 K/mm3 (4.0-10.0) 04/05/20 06:51 RBC 2.06 M/mm3 (3.60-5.2) L 04/05/20 06:51 Hgb 7.1 GM/dL (10.7-15.3) L 04/05/20 06:51 Hct 21.1 % (32.4-45.2) L 04/05/20 06:51 MCV 102.3 fl (80-96) H 04/05/20 06:51 MCHC 33.5 g/dl (32.0-36.0) 04/05/20 06:51 RDW 20.2 % (11.6-15.6) H 04/05/20 06:51 Plt Count 180 K/MM3 (134-434) D 04/05/20 06:51 MPV 8.8 fl (7.5-11.1) 04/05/20 06:51 CMP Sodium 134 mmol/L (136-145) L 04/05/20 06:51 Potassium 3.1 mmol/L (3.5-5.1) L 04/05/20 06:51 Chloride 98 mmol/L (98-107) 04/05/20 06:51 Carbon Dioxide 24 mmol/L (21-32) 04/05/20 06:51 Anion Gap 12 MMOL/L (8-16) 04/05/20 06:51 BUN 36.7 mg/dL (7-18) H 04/05/20 06:51 Creatinine 6.8 mg/dL (0.55-1.3) H 04/05/20 06:51 Random Glucose 167 mg/dL (74-106) H 04/05/20 06:51 Calcium 7.8 mg/dL (8.5-10.1) L 04/05/20 06:51 Total Bilirubin 0.3 mg/dL (0.2-1) 04/04/20 06:18 AST 44 U/L (15-37) H 04/04/20 06:18 ALT 43 U/L (13-61) 04/04/20 06:18 Alkaline Phosphatase 53 U/L (45-117) 04/04/20 06:18 Total Protein 6.5 g/dl (6.4-8.2) 04/04/20 06:18 Albumin 1.6 g/dl (3.4-5.0) L 04/04/20 06:18 CARDIAC ENZYMES Creatine Kinase 40 U/L (26-192) 03/31/20 16:30 Troponin I 0.21 ng/ml (0.00-0.05) H 04/02/20 19:45 Current Medications Generic Name Dose Route Start Last Admin Trade Name Freq PRN Reason Stop Dose Admin Acetaminophen 650 mg 03/31/20 16:55 04/05/20 01:56 Tylenol - PO 650 mg Q4H PRN Administration FEVER Allopurinol 100 mg 04/01/20 10:00 04/05/20 09:56 Zyloprim - PO 100 mg DAILY YASMEEN Administration Apixaban 5 mg 04/03/20 10:00 04/05/20 09:56 Eliquis - PO 5 mg BID YASMEEN Administration Artificial Tears 1 drop 04/03/20 12:41 Artificial Tears OU TID PRN DRY EYES Docusate Sodium 100 mg 04/01/20 10:00 04/05/20 09:56 Colace - PO 100 mg DAILY YASMEEN Administration Dorzolamide HCl 1 drop 04/01/20 10:00 04/05/20 10:00 Trusopt 2% OS 1 drop DAILY [facility]AS[facility]EN Administration Erythromycin 1 applic 03/31/20 17:30 04/05/20 09:59 Erythromycin 0.5% Eye Ointment OU 1 applic DAILY [facility]AS[facility]EN Administration Folic Acid 1 mg 04/01/20 10:00 04/05/20 09:57 Folic Acid - PO 1 mg DAILY YASMEEN Administration Peritoneal Dialysis Solution 2,000 mls @ 4,000 mls/hr 04/01/20 13:30 04/05/20 13:00 Dianeal 1.5% IP 4,000 mls/hr Q6H YASMEEN Administration Protocol Metronidazole 500 mg in 100 mls @ 100 mls/hr 04/02/20 19:00 04/05/20 17:24 Flagyl 500mg Premixed Ivpb - IVPB 100 mls/hr Q8H-IV YASMEEN Administration Meropenem 500 mg/ Dextrose 100 mls @ 200 mls/hr 04/03/20 10:45 04/05/20 09:58 IVPB 200 mls/hr Q12H YASMEEN Administration Insulin Aspart 0 vial 03/31/20 22:00 04/05/20 16:52 Novolog Vial Sliding Scale - SQ 3 unit ACHS YASMEEN Administration Protocol Latanoprost 1 drop 03/31/20 22:00 04/04/20 21:50 Xalatan 0.005% Eye Drops - OS 1 drop HS YASMEEN Administration Metoprolol Succinate 25 mg 04/01/20 10:00 04/05/20 09:57 Toprol Xl - PO 25 mg DAILY [facility]AS[facility]EN Administration Wpjcq-[id number] Ethyl Esters 2 gm 04/02/20 10:00 04/05/20 10:00 Lovaza - PO 2 gm BID YASMEEN Administration Ondansetron HCl 4 mg 03/31/20 17:00 Zofran Injection IVPUSH Q6H PRN NAUSEA Pantoprazole Sodium 40 mg 04/01/20 10:00 04/05/20 09:56 Protonix - PO 40 mg DAILY [facility]AS[facility] Administration Potassium Chloride 20 meq 04/01/20 12:00 04/05/20 09:56 K-Dur - PO 20 meq DAILY [facility]AS[facility] Administration Rosuvastatin Calcium 10 mg 03/31/20 22:00 04/04/20 21:47 Crestor - PO 10 mg HS YASMEEN Administration Sevelamer Carbonate 800 mg 04/01/20 08:00 04/05/20 16:52 Renvela - PO 800 mg TIDCM YASMEEN Administration Timolol Maleate 1 drop 04/01/20 10:00 04/05/20 09:57 Timoptic 0.5% OS 1 drop DAILY [facility]ASMEEN Administration Home Medications Medication Instructions Recorded Allopurinol [Zyloprim -] 100 mg PO DAILY 01/20/14 Rosuvastatin Calcium [Crestor] 20 mg PO HS 01/20/14 Bimatoprost [Lumigan] 1 drop IO DAILY 05/13/17 Dorzolamide HCl/Timolol Maleat 10 ml OP DAILY 05/13/17 [Cosopt Eye Drops] Ascorbic Acid [Vitamin C with Giuliana 500 mg PO DAILY 08/16/19 Hips] Folic Acid 1 mg PO DAILY 08/16/19 Furosemide 80 mg PO HS 08/16/19 Icosapent Ethyl [Vascepa] 2 gm PO BID 08/16/19 Metoprolol Succinate [Toprol Xl] 25 mg PO DAILY 08/16/19 Nateglinide [Starlix (Nf) -] 60 mg PO BID 08/16/19 Apixaban [Eliquis] 5 mg PO BID 03/31/20 Docusate Sodium [Stool Softener] 100 mg PO DAILY 03/31/20 Pantoprazole Sodium 40 mg PO DAILY 03/31/20 Sevelamer Carbonate [Renvela] 800 mg PO TID 03/31/20 Microbiology 04/02/20 18:00 Blood - Peripheral Venous Blood Culture - Preliminary NO GROWTH OBTAINED AFTER 72 HOURS, INCUBATION TO CONTINUE FOR 2 DAYS. 04/02/20 18:00 Blood - Peripheral Venous Blood Culture - Preliminary NO GROWTH OBTAINED AFTER 72 HOURS, INCUBATION TO CONTINUE FOR 2 DAYS. 03/31/20 13:50 Blood - Peripheral Venous Blood Culture - Final NO GROWTH AFTER 5 DAYS INCUBATION 03/31/20 14:00 Blood - Peripheral Venous Blood Culture - Final NO GROWTH AFTER 5 DAYS INCUBATION 04/01/20 17:30 Ascites Gram Stain - Final 04/01/20 17:30 Ascites Body Fluid Culture - Final NO GROWTH OF AEROBIC ORGANISMS AFTER 48 HOURS INCUBATION 04/01/20 17:30 Ascites Anaerobic Culture - Final NO ANAEROBES WERE ISOLATED 04/03/20 06:30 Urine - Urine - Catheterized Urine Culture - Final NO GROWTH OBTAINED 03/31/20 16:04 Urine - Urine Clean Catch Urine Culture - Final NO GROWTH OBTAINED Chest CT; Left lower lobe Pneumonia. small associated left pleural effusion CT abdomen and pelvis: gallstones, stable 4cm right renal cyst, myomatous uterus in the pelvis, fibroids suspected. ASSESSMENT AND PLAN: This patient is an 84yof with Pmhx of T2DM, HTN, HLD, Gout, CKD on PD, anemia,multiple myeloma, pituitary macroadenoma who has 24 hour aids and lives a lone, who presented with fever and abd pain , having Rigors #LLL Pneumonia: on Meropenem and IV flagyl continue , ID on the case, patient h as no fever #Anemia:of chronic disease , also positive hemooccult positive , will get GI involved for futher w/u . Dr pozo will order epo. inj #Rigors/ Fever: resolved # ESRD on PD: dr Pozo on the case , continue PD dialysis # H/o HTN: cont BB # H/o DVT: US on 03/27 showed extensive DVT in LLE on Eliquis 5mg bid # Hx fo DM : cont SSI DVT Px: Eliquis 5mg bid
[2020-04-05] MEDS ORDERED: INSULIN SLIDING SCALE (NOVOLOG) 1 VIAL SQ ONE (21:25)
[2020-04-05] MEDS ORDERED: PT OWN MED DRAWER 7, Y5N ONE (21:26)
[2020-04-05] MEDS: ROSUVASTATIN CA 10 MG TABLET (FP) PO SCH (21:33)
[2020-04-05] MEDS: LATANOPROST 0.005% OPHTH SOLN 2.5ML BOTTLE OS SCH (21:34)
[2020-04-06] MEDS: PERITONEAL DIALYSIS 1.5% SOLN 2,000 ML IP SCH ×4 (01:33→19:03)
[2020-04-06] MEDS: ACETAMINOPHEN 325 MG TABLET (FP) PO PRN (01:40)
[2020-04-06] MEDS: INSULIN SLIDING SCALE (NOVOLOG) 1 VIAL SQ SCH ×4 (06:38→21:08)
[2020-04-06 08:21] LABS: BASO % 0.2 % (0-2.0); EOS % 3.8 % (0-4.5); HEMATOCRIT 25.7 % (32.4-45.2); HEMOGLOBIN 8.9 GM/dL (10.7-15.3); LYMPH % 40.6 % (8-40); MCH 34.1 pg (25.7-33.7); MCHC 34.5 g/dl (32.0-36.0); MEAN PLT VOLUME 8.9 fl (7.5-11.1); MONO % 11.8 % (3.8-10.2); NEUT % 43.6 % (42.8-82.8); PLATELET COUNT 211 K/MM3 (134-434); RDW 20.9 % (11.6-15.6)
[2020-04-06 08:30] LABS: ALBUMIN 1.6 g/dl (3.4-5.0); BILIRUBIN,TOTAL 0.4 mg/dL (0.2-1); BLOOD UREA NITROGEN 37.7 mg/dL (7-18); CALCIUM 7.7 mg/dL (8.5-10.1); CREATININE 6.2 mg/dL (0.55-1.3); PHOSPHOROUS 2.2 mg/dL (2.5-4.9); POTASSIUM 3.6 mmol/L (3.5-5.1); TOT PROT 6.3 g/dl (6.4-8.2)
[2020-04-06] MEDS: SEVELAMER CARBONATE 800 MG TAB (FP) PO SCH ×3 (08:46→17:20)
[2020-04-06] MEDS ORDERED: PT OWN MED DRAWER 7, Y5N ONE ×2 (09:41→20:41)
[2020-04-06] MEDS: ALLOPURINOL 100 MG TABLET (FP) PO SCH (09:44)
[2020-04-06] MEDS: OMEGA-3 ACID ETHYL ESTERS (FATTY-ACIDS) 1 GM CAPSULE (FP) PO SCH ×2 (09:44→21:08)
[2020-04-06] MEDS: APIXABAN 5 MG TABLET PO SCH ×2 (09:44→21:08)
[2020-04-06] MEDS: metoPROLOL SUCCINATE 25 MG TAB.SR.24H (FP) PO SCH (09:44)
[2020-04-06] MEDS: DOCUSATE SODIUM 100 MG CAPSULE (FP) PO SCH (09:44)
[2020-04-06] MEDS: FOLIC ACID 1 MG TABLET (FP) PO SCH (09:44)
[2020-04-06] MEDS: ERYTHROMYCIN 0.5% OPHTHALMIC OINTMENT 3.5 GM TUBE OU SCH (09:44)
[2020-04-06] MEDS: PANTOPRAZOLE 40 MG TABLET PO SCH (09:44)
[2020-04-06] MEDS: POTASSIUM CHLORIDE TABS 20 MEQ TABLET.ER (FP) PO SCH (09:44)
[2020-04-06] MEDS: TIMOLOL 0.5% OPHTHALMIC SOL 5 ML BOTTLE OS SCH (09:45)
[2020-04-06] MEDS: DORZOLAMIDE 2% HCL OPHTHALMIC SOLUTION 10 ML BOTTLE OS SCH (09:45)
[2020-04-06 09:57] LABS: ANISOCYTOSIS 1+; MACROCYTOSIS 1+; PLATELET ESTIMATE NORMAL
[2020-04-06] MEDS ORDERED: MEROPENEM 500 MG VIAL (RESTRICTED TO ID) IVPB ONE ×2 (11:07→20:40)
[2020-04-06] MEDS ORDERED: DEXTROSE 5%-WATER 100 ML IVPB ONE ×2 (11:07→20:40)
[2020-04-06] MEDS: MEROPENEM 500 MG in DEXTROSE 5%-WATER 100 ML IVPB SCH ×2 (11:09→21:53)
--- NOTE | 2020-04-06 14:27 | PN ---
Progress Note (short form) - Note Progress Note: Patient is feeling better with NAD, no further fever, awake. Vital Signs Temperature 97.6 F 04/06/20 10:00 Pulse Rate 61 04/06/20 10:00 Respiratory Rate 18 04/06/20 10:00 Blood Pressure 155/75 04/06/20 10:00 O2 Sat by Pulse Oximetry (%) 97 04/06/20 10:00 GENERAL: The patient is awake, alert, and fully oriented, in no acute distress. HEAD: Normal with no signs of trauma. EYES: PERRL, extraocular movements intact, ENT: Ears normal, oropharynx clear without exudates, moist mucous membranes. NECK: Trachea midline, full range of motion, supple. LUNGS: Breath sounds equal, clear to auscultation bilaterally, no wheezes, no crackles, no accessory muscle use. HEART: Regular rate and rhythm, S1, S2+, ALEXI 2/6 ,no rub or gallop. ABDOMEN: Soft, NT,ND, normoactive bowel sounds, no guarding, no rebound, no hepatosplenomegaly, no masses. EXTREMITIES: 2+ pulses, warm, well-perfused, no edema. NEUROLOGICAL: Cranial nerves II through XII grossly intact. Normal speech, gait not observed. PSYCH: Normal mood, normal affect. SKIN: Warm, dry, normal turgor, no rashes or lesions noted CBCD WBC 6.0 K/mm3 (4.0-10.0) 04/06/20 06:40 RBC 2.60 M/mm3 (3.60-5.2) L 04/06/20 06:40 Hgb 8.9 GM/dL (10.7-15.3) L 04/06/20 06:40 Hct 25.7 % (32.4-45.2) L D 04/06/20 06:40 MCV 99.0 fl (80-96) H 04/06/20 06:40 MCHC 34.5 g/dl (32.0-36.0) 04/06/20 06:40 RDW 20.9 % (11.6-15.6) H 04/06/20 06:40 Plt Count 211 K/MM3 (134-434) 04/06/20 06:40 MPV 8.9 fl (7.5-11.1) 04/06/20 06:40 CMP Sodium 133 mmol/L (136-145) L 04/06/20 06:40 Potassium 3.6 mmol/L (3.5-5.1) 04/06/20 06:40 Chloride 98 mmol/L (98-107) 04/06/20 06:40 Carbon Dioxide 27 mmol/L (21-32) 04/06/20 06:40 Anion Gap 8 MMOL/L (8-16) 04/06/20 06:40 BUN 37.7 mg/dL (7-18) H 04/06/20 06:40 Creatinine 6.2 mg/dL (0.55-1.3) H 04/06/20 06:40 Random Glucose 126 mg/dL (74-106) H 04/06/20 06:40 Calcium 7.7 mg/dL (8.5-10.1) L 04/06/20 06:40 Total Bilirubin 0.4 mg/dL (0.2-1) 04/06/20 06:40 AST 59 U/L (15-37) H 04/06/20 06:40 ALT 37 U/L (13-61) 04/06/20 06:40 Alkaline Phosphatase 51 U/L (45-117) 04/06/20 06:40 Total Protein 6.3 g/dl (6.4-8.2) L 04/06/20 06:40 Albumin 1.6 g/dl (3.4-5.0) L 04/06/20 06:40 CARDIAC ENZYMES Creatine Kinase 40 U/L (26-192) 03/31/20 16:30 Troponin I 0.21 ng/ml (0.00-0.05) H 04/02/20 19:45 Current Medications Generic Name Dose Route Start Last Admin Trade Name Freq PRN Reason Stop Dose Admin Acetaminophen 650 mg 03/31/20 16:55 04/06/20 01:40 Tylenol - PO 650 mg Q4H PRN Administration FEVER Allopurinol 100 mg 04/01/20 10:00 04/06/20 09:44 Zyloprim - PO 100 mg DAILY YASMEEN Administration Apixaban 5 mg 04/03/20 10:00 04/06/20 09:44 Eliquis - PO 5 mg BID YASMEEN Administration Artificial Tears 1 drop 04/03/20 12:41 Artificial Tears OU TID PRN DRY EYES Docusate Sodium 100 mg 04/01/20 10:00 04/06/20 09:44 Colace - PO 100 mg DAILY YASMEEN Administration Dorzolamide HCl 1 drop 04/01/20 10:00 04/06/20 09:45 Trusopt 2% OS 1 drop DAILY YASMEEN Administration Erythromycin 1 applic 03/31/20 17:30 04/06/20 09:44 Erythromycin 0.5% Eye Ointment OU 1 applic DAILY YASMEEN Administration Folic Acid 1 mg 04/01/20 10:00 04/06/20 09:44 Folic Acid - PO 1 mg DAILY YASMEEN Administration Peritoneal Dialysis Solution 2,000 mls @ 4,000 mls/hr 04/01/20 13:30 04/06/20 13:30 Dianeal 1.5% IP 4,000 mls/hr Q6H YASMEEN Administration Protocol Metronidazole 500 mg in 100 mls @ 100 mls/hr 04/02/20 19:00 04/06/20 09:44 Flagyl 500mg Premixed Ivpb - IVPB 100 mls/hr Q8H-IV YASMEEN Administration Meropenem 500 mg/ Dextrose 100 mls @ 200 mls/hr 04/03/20 10:45 04/06/20 11:09 IVPB 200 mls/hr Q12H YASMEEN Administration Insulin Aspart 0 vial 03/31/20 22:00 04/06/20 11:28 Novolog Vial Sliding Scale - SQ 2 unit ACHS YASMEEN Administration Protocol Latanoprost 1 drop 03/31/20 22:00 04/05/20 21:34 Xalatan 0.005% Eye Drops - OS 1 drop HS YASMEEN Administration Metoprolol Succinate 25 mg 04/01/20 10:00 04/06/20 09:44 Toprol Xl - PO 25 mg DAILY YASMEEN Administration [id number]-[id number] Ethyl Esters 2 gm 04/02/20 10:00 04/06/20 09:44 Lovaza - PO 2 gm BID YASMEEN Administration Ondansetron HCl 4 mg 03/31/20 17:00 Zofran Injection IVPUSH Q6H PRN NAUSEA Pantoprazole Sodium 40 mg 04/01/20 10:00 04/06/20 09:44 Protonix - PO 40 mg DAILY YASMEEN Administration Potassium Chloride 20 meq 04/01/20 12:00 04/06/20 09:44 K-Dur - PO 20 meq DAILY YASMEEN Administration Rosuvastatin Calcium 10 mg 03/31/20 22:00 04/05/20 21:33 Crestor - PO 10 mg HS YASMEEN Administration Sevelamer Carbonate 800 mg 04/01/20 08:00 04/06/20 11:28 Renvela - PO 800 mg TIDCM YASMEEN Administration Timolol Maleate 1 drop 04/01/20 10:00 04/06/20 09:45 Timoptic 0.5% OS 1 drop DAILY YASMEEN Administration Home Medications Medication Instructions Recorded RX: Allopurinol [Zyloprim -] 100 mg PO DAILY 01/20/14 RX: Rosuvastatin Calcium [Crestor] 20 mg PO HS 01/20/14 RX: Bimatoprost [Lumigan] 1 drop IO DAILY 05/13/17 RX: Dorzolamide HCl/Timolol Maleat 10 ml OP DAILY 05/13/17 [Cosopt Eye Drops] RX: Ascorbic Acid [Vitamin C with 500 mg PO DAILY 08/16/19 Giuliana Hips] RX: Folic Acid 1 mg PO DAILY 08/16/19 RX: Furosemide 80 mg PO HS 08/16/19 RX: Icosapent Ethyl [Vascepa] 2 gm PO BID 08/16/19 RX: Metoprolol Succinate [Toprol 25 mg PO DAILY 08/16/19 Xl] RX: Nateglinide [Starlix (Nf) -] 60 mg PO BID 08/16/19 Apixaban [Eliquis] 5 mg PO BID 03/31/20 Docusate Sodium [Stool Softener] 100 mg PO DAILY 03/31/20 RX: Pantoprazole Sodium 40 mg PO DAILY 03/31/20 Sevelamer Carbonate [Renvela] 800 mg PO TID 03/31/20 Microbiology 04/02/20 18:00 Blood - Peripheral Venous Blood Culture - Preliminary NO GROWTH OBTAINED AFTER 72 HOURS, INCUBATION TO CONTINUE FOR 2 DAYS. 04/02/20 18:00 Blood - Peripheral Venous Blood Culture - Preliminary NO GROWTH OBTAINED AFTER 72 HOURS, INCUBATION TO CONTINUE FOR 2 DAYS. 03/31/20 13:50 Blood - Peripheral Venous Blood Culture - Final NO GROWTH AFTER 5 DAYS INCUBATION 03/31/20 14:00 Blood - Peripheral Venous Blood Culture - Final NO GROWTH AFTER 5 DAYS INCUBATION 04/01/20 17:30 Ascites Gram Stain - Final 04/01/20 17:30 Ascites Body Fluid Culture - Final NO GROWTH OF AEROBIC ORGANISMS AFTER 48 HOURS INCUBATION 04/01/20 17:30 Ascites Anaerobic Culture - Final NO ANAEROBES WERE ISOLATED 04/03/20 06:30 Urine - Urine - Catheterized Urine Culture - Final NO GROWTH OBTAINED 03/31/20 16:04 Urine - Urine Clean Catch Urine Culture - Final NO GROWTH OBTAINED Chest CT; Left lower lobe Pneumonia. small associated left pleural effusion CT abdomen and pelvis: gallstones, stable 4cm right renal cyst, myomatous uterus in the pelvis, fibroids suspected. ASSESSMENT AND PLAN: This patient is an 84yof with Pmhx of T2DM, HTN, HLD, Gout, CKD on PD, anemia,multiple myeloma, pituitary macroadenoma who has 24 hour aids and lives a lone, who presented with fever and abd pain , having Rigors #LLL Pneumonia: on Meropenem and IV flagyl continue , ID on the case, patient has no fever , feeling better #Anemia:of chronic disease , also positive hemooccult positive , will get GI involved for futher w/u . Dr pozo will order epo. inj , also one unit of blood to transfuse . #Rigors/ Fever: resolved # ESRD on PD: dr Pozo on the case , continue PD dialysis # H/o HTN: cont BB # H/o DVT: US on 03/27 showed extensive DVT in LLE on Eliquis 5mg bid # Hx fo DM : cont SSI #Hx of Glaucoma On Xalatan continue DVT Px: Eliquis 5mg bid Visit type - Emergency Visit Emergency Visit: Yes ED Registration Date: 03/31/20 Care time: The patient presented to the Emergency Department on the above date and was hospitalized for further evaluation of their emergent condition. - New Patient This patient is new to me today: No - Critical Care Critical Care patient: No - Discharge Referral Referred to [facility] Med P.C[facility] No - Medication Review Med list reviewed for High Risk Meds patients 65 and older: Yes
--- NOTE | 2020-04-06 15:40 | PN ---
Progress Note (short form) - Note Progress Note: RENAL Pt is awake and alert comfortable denies complaints Last Vital Signs Temp Pulse Resp BP Pulse Ox 98 F 63 20 147/69 97 04/06/20 14:00 04/06/20 14:00 04/06/20 14:00 04/06/20 14:00 04/06/20 10:00 lungs clear cvs s1s2 rr abd soft ext no edema neuro a+ox3 CBC, BMP 04/06/20 06:40 04/06/20 06:40 Current Medications Generic Name Dose Route Start Last Admin Trade Name Freq PRN Reason Stop Dose Admin Acetaminophen 650 mg 03/31/20 16:55 04/06/20 01:40 Tylenol - PO 650 mg Q4H PRN Administration FEVER Allopurinol 100 mg 04/01/20 10:00 04/06/20 09:44 Zyloprim - PO 100 mg DAILY YASMEEN Administration Apixaban 5 mg 04/03/20 10:00 04/06/20 09:44 Eliquis - PO 5 mg BID YASMEEN Administration Artificial Tears 1 drop 04/03/20 12:41 Artificial Tears OU TID PRN DRY EYES Docusate Sodium 100 mg 04/01/20 10:00 04/06/20 09:44 Colace - PO 100 mg DAILY YASMEEN Administration Dorzolamide HCl 1 drop 04/01/20 10:00 04/06/20 09:45 Trusopt 2% OS 1 drop DAILY YASMEEN Administration Erythromycin 1 applic 03/31/20 17:30 04/06/20 09:44 Erythromycin 0.5% Eye Ointment OU 1 applic DAILY YASMEEN Administration Folic Acid 1 mg 04/01/20 10:00 04/06/20 09:44 Folic Acid - PO 1 mg DAILY YASMEEN Administration Peritoneal Dialysis Solution 2,000 mls @ 4,000 mls/hr 04/01/20 13:30 04/06/20 13:30 Dianeal 1.5% IP 4,000 mls/hr Q6H YASMEEN Administration Protocol Metronidazole 500 mg in 100 mls @ 100 mls/hr 04/02/20 19:00 04/06/20 09:44 Flagyl 500mg Premixed Ivpb - IVPB 100 mls/hr Q8H-IV YASMEEN Administration Meropenem 500 mg/ Dextrose 100 mls @ 200 mls/hr 04/03/20 10:45 04/06/20 11:09 IVPB 200 mls/hr Q12H YASMEEN Administration Insulin Aspart 0 vial 03/31/20 22:00 04/06/20 11:28 Novolog Vial Sliding Scale - SQ 2 unit ACHS YASMEEN Administration Protocol Latanoprost 1 drop 03/31/20 22:00 04/05/20 21:34 Xalatan 0.005% Eye Drops - OS 1 drop HS YASMEEN Administration Metoprolol Succinate 25 mg 04/01/20 10:00 04/06/20 09:44 Toprol Xl - PO 25 mg DAILY YASMEEN Administration Skrpi-0-Clwe Ethyl Esters 2 gm 04/02/20 10:00 04/06/20 09:44 Lovaza - PO 2 gm BID YASMEEN Administration Ondansetron HCl 4 mg 03/31/20 17:00 Zofran Injection IVPUSH Q6H PRN NAUSEA Pantoprazole Sodium 40 mg 04/01/20 10:00 04/06/20 09:44 Protonix - PO 40 mg DAILY YASMEEN Administration Potassium Chloride 20 meq 04/01/20 12:00 04/06/20 09:44 K-Dur - PO 20 meq DAILY YASMEEN Administration Rosuvastatin Calcium 10 mg 03/31/20 22:00 04/05/20 21:33 Crestor - PO 10 mg HS YASMEEN Administration Sevelamer Carbonate 800 mg 04/01/20 08:00 04/06/20 11:28 Renvela - PO 800 mg TIDCM YASMEEN Administration Timolol Maleate 1 drop 04/01/20 10:00 04/06/20 09:45 Timoptic 0.5% OS 1 drop DAILY YASMEEN Administration 84-year-old -[place] woman with a past medical history of end-stage kidney disease on peritoneal dialysis, hypertension, hyperlipidemia, gout, recent diagnosis of deep venous thrombosis who presented from home with complaints of generalized malaise and low-grade fever with mild abdominal discomfort. 1. Fever 2. End-stage kidney disease on peritoneal dialysis. 3. Recently diagnosed DVT. 4. Hypertension 5. Hyperlipidemia no evidence of fluid overload BP stable- therefore no change in dialysis order continue antibiotics erythropoietin MV
--- NOTE | 2020-04-06 16:54 | PN ---
Progress Note, Physician History of Present Illness: Pt is doing well. Alert and without acute distress. Denies SOB, abd pain/n/v/d. Remains afebrile. - Current Medication List Current Medications: Active Medications Acetaminophen (Tylenol -) 650 mg PO Q4H PRN PRN Reason: FEVER Last Admin: 04/06/20 01:40 Dose: 650 mg Documented by: Allopurinol (Zyloprim -) 100 mg PO DAILY [facility] Last Admin: 04/06/20 09:44 Dose: 100 mg Documented by: Apixaban (Eliquis -) 5 mg PO BID [facility] Last Admin: 04/06/20 09:44 Dose: 5 mg Documented by: Artificial Tears (Artificial Tears) 1 drop OU TID PRN PRN Reason: DRY EYES Docusate Sodium (Colace -) 100 mg PO DAILY [facility] Last Admin: 04/06/20 09:44 Dose: 100 mg Documented by: Dorzolamide HCl (Trusopt 2%) 1 drop OS DAILY [facility] Last Admin: 04/06/20 09:45 Dose: 1 drop Documented by: Erythromycin (Erythromycin 0.5% Eye Ointment) 1 applic OU DAILY [facility] Last Admin: 04/06/20 09:44 Dose: 1 applic Documented by: Folic Acid (Folic Acid -) 1 mg PO DAILY [facility] Last Admin: 04/06/20 09:44 Dose: 1 mg Documented by: Peritoneal Dialysis Solution (Dianeal 1.5%) 2,000 mls @ 4,000 mls/hr IP Q6H [facility]; Protocol Last Admin: 04/06/20 13:30 Dose: 4,000 mls/hr Documented by: Metronidazole (Flagyl 500mg Premixed Ivpb -) 500 mg in 100 mls @ 100 mls/hr IVPB Q8H-IV YASMEEN Last Admin: 04/06/20 09:44 Dose: 100 mls/hr Documented by: Meropenem 500 mg/ Dextrose 100 mls @ 200 mls/hr IVPB Q12H [facility] Last Admin: 04/06/20 11:09 Dose: 200 mls/hr Documented by: Insulin Aspart (Novolog Vial Sliding Scale -) 0 vial SQ ACHS YASMEEN; Protocol Last Admin: 04/06/20 11:28 Dose: 2 unit Documented by: Latanoprost (Xalatan 0.005% Eye Drops -) 1 drop OS HS [facility] Last Admin: 04/05/20 21:34 Dose: 1 drop Documented by: Metoprolol Succinate (Toprol Xl -) 25 mg PO DAILY [facility] Last Admin: 04/06/20 09:44 Dose: 25 mg Documented by: [id number] Ethyl Esters (Lovaza -) 2 gm PO BID [facility] Last Admin: 04/06/20 09:44 Dose: 2 gm Documented by: Ondansetron HCl (Zofran Injection) 4 mg IVPUSH Q6H PRN PRN Reason: NAUSEA Pantoprazole Sodium (Protonix -) 40 mg PO DAILY [facility] Last Admin: 04/06/20 09:44 Dose: 40 mg Documented by: Potassium Chloride (K-Dur -) 20 meq PO DAILY [facility] Last Admin: 04/06/20 09:44 Dose: 20 meq Documented by: Rosuvastatin Calcium (Crestor -) 10 mg PO [facility] Last Admin: 04/05/20 21:33 Dose: 10 mg Documented by: Sevelamer Carbonate (Renvela -) 800 mg PO TIDCM [facility] Last Admin: 04/06/20 11:28 Dose: 800 mg Documented by: Timolol Maleate (Timoptic 0.5%) 1 drop OS DAILY [facility] Last Admin: 04/06/20 09:45 Dose: 1 drop Documented by: - Objective Vital Signs: Vital Signs Temperature 98 F 04/06/20 14:00 Pulse Rate 63 04/06/20 14:00 Respiratory Rate 20 04/06/20 14:00 Blood Pressure 147/69 04/06/20 14:00 O2 Sat by Pulse Oximetry (%) 97 04/06/20 10:00 Constitutional: Yes: No Distress, Calm Cardiovascular: Yes: Regular Rate and Rhythm Respiratory: Yes: Rales (Lt base) Gastrointestinal: Yes: Normal Bowel Sounds, Soft Genitourinary: Yes: WNL Musculoskeletal: Yes: WNL Extremities: Yes: WNL Edema: No Integumentary: Yes: WNL Neurological: Yes: Alert, Oriented Labs: CBC, BMP 04/06/20 06:40 04/06/20 06:40 INR, PTT INR 2.39 (0.83-1.09) H 04/02/20 06:34 Laboratory Last Values WBC 6.0 K/mm3 (4.0-10.0) 04/06/20 06:40 RBC 2.60 M/mm3 (3.60-5.2) L 04/06/20 06:40 Hgb 8.9 GM/dL (10.7-15.3) L 04/06/20 06:40 Hct 25.7 % (32.4-45.2) L D 04/06/20 06:40 MCV 99.0 fl (80-96) H 04/06/20 06:40 MCH 34.1 pg (25.7-33.7) H 04/06/20 06:40 MCHC 34.5 g/dl (32.0-36.0) 04/06/20 06:40 RDW 20.9 % (11.6-15.6) H 04/06/20 06:40 Plt Count 211 K/MM3 (134-434) 04/06/20 06:40 MPV 8.9 fl (7.5-11.1) 04/06/20 06:40 Absolute Neuts (auto) 2.6 K/mm3 (1.5-8.0) 04/06/20 06:40 Neutrophils % 43.6 % (42.8-82.8) 04/06/20 06:40 Neutrophils % (Manual) 53.0 % (42.8-82.8) 04/06/20 06:40 Band Neutrophils % 2.4 % 04/06/20 06:40 Lymphocytes % 40.6 % (8-40) H 04/06/20 06:40 Lymphocytes % (Manual) 33.8 % (8-40) D 04/06/20 06:40 Monocytes % 11.8 % (3.8-10.2) H 04/06/20 06:40 Monocytes % (Manual) 8 % (3.8-10.2) D 04/06/20 06:40 Eosinophils % 3.8 % (0-4.5) 04/06/20 06:40 Eosinophils % (Manual) 2.4 % (0-4.5) 04/06/20 06:40 Basophils % 0.2 % (0-2.0) 04/06/20 06:40 Basophils % (Manual) 0.0 % (0-2.0) 04/06/20 06:40 Myelocytes % (Man) 0 % (0-2) 04/06/20 06:40 Promyelocytes % (Man) 0 % (0-2) 04/06/20 06:40 Blast Cells % (Manual) 0 % (0-0) 04/06/20 06:40 Nucleated RBC % 2 % (0-0) H 04/06/20 06:40 Metamyelocytes 0 % (0-2) 04/06/20 06:40 Hypochromia 0 04/06/20 06:40 Platelet Estimate Normal 04/06/20 06:40 Polychromasia 1+ 04/06/20 06:40 Poikilocytosis 0 04/06/20 06:40 Anisocytosis 1+ 04/06/20 06:40 Microcytosis 0 04/04/20 06:18 Macrocytosis 1+ 04/06/20 06:40 Retic Count 0.88 % (0.5-1.5) D 04/02/20 06:34 PT with INR 28.40 SEC (9.7-13.0) H 04/02/20 06:34 INR 2.39 (0.83-1.09) H 04/02/20 06:34 PTT (Actin FS) 35.0 SECONDS (25.2-36.5) 03/31/20 18:00 Sodium 133 mmol/L (136-145) L 04/06/20 06:40 Potassium 3.6 mmol/L (3.5-5.1) 04/06/20 06:40 Chloride 98 mmol/L (98-107) 04/06/20 06:40 Carbon Dioxide 27 mmol/L (21-32) 04/06/20 06:40 Anion Gap 8 MMOL/L (8-16) 04/06/20 06:40 BUN 37.7 mg/dL (7-18) H 04/06/20 06:40 Creatinine 6.2 mg/dL (0.55-1.3) H 04/06/20 06:40 Est GFR (CKD-EPI)AfAm 6.69 04/06/20 06:40 Est GFR (CKD-EPI)NonAf 5.77 04/06/20 06:40 POC Glucometer 179 UNITS (80-120) 04/06/20 11:28 Random Glucose 126 mg/dL (74-106) H 04/06/20 06:40 Hemoglobin A1c % 6.4 % (4.2-6.3) H 04/02/20 06:34 Lactic Acid 2.0 mmol/L (0.4-2.0) 04/01/20 06:19 Calcium 7.7 mg/dL (8.5-10.1) L 04/06/20 06:40 Phosphorus 2.2 mg/dL (2.5-4.9) L 04/06/20 06:40 Magnesium 2.1 mg/dL (1.8-2.4) 04/02/20 06:34 Iron 110 ug/dL (50-175) 04/06/20 06:40 TIBC 153 ug/dL (250-450) L 04/06/20 06:40 Iron Saturation 71 % (17.5-39) H 04/06/20 06:40 Unsaturated IBC 43 ug/dL (200-275) L 04/06/20 06:40 Ferritin 8431.6 ng/ml (8-388) H 04/04/20 06:18 Total Bilirubin 0.4 mg/dL (0.2-1) 04/06/20 06:40 AST 59 U/L (15-37) H 04/06/20 06:40 ALT 37 U/L (13-61) 04/06/20 06:40 Alkaline Phosphatase 51 U/L (45-117) 04/06/20 06:40 Creatine Kinase 40 U/L (26-192) 03/31/20 16:30 Troponin I 0.21 ng/ml (0.00-0.05) H 04/02/20 19:45 Total Protein 6.3 g/dl (6.4-8.2) L 04/06/20 06:40 Albumin 1.6 g/dl (3.4-5.0) L 04/06/20 06:40 Vitamin B12 1297 pg/ml (193-986) H 04/02/20 06:34 Serum Folate 99 ng/mL (3.1-17.5) H 04/02/20 06:34 TSH 0.56 uIU/ml (0.358-3.74) 04/01/20 06:19 Urine Color Yellow 04/03/20 06:30 Urine Appearance Clear 04/03/20 06:30 Urine pH 7.5 (5.0-8.0) D 04/03/20 06:30 Ur Specific [place] 1.025 (1.010-1.035) 04/03/20 06:30 Urine Protein 3+ (NEGATIVE) H 04/03/20 06:30 Urine Glucose (UA) Negative (NEGATIVE) 04/03/20 06:30 Urine Ketones Negative (NEGATIVE) 04/03/20 06:30 Urine Blood Trace (NEGATIVE) 04/03/20 06:30 Urine Nitrite Negative (NEGATIVE) 04/03/20 06:30 Urine Bilirubin Negative (NEGATIVE) 04/03/20 06:30 Urine Urobilinogen 0.2 mg/dL (0.2-1.0) 04/03/20 06:30 Ur Leukocyte Esterase Negative (NEGATIVE) 04/03/20 06:30 Urine WBC (Auto) 3 /uL (0-25.8) 04/03/20 06:30 Urine RBC (Auto) 8 /uL (0-23.9) 04/03/20 06:30 Urine Casts (Auto) 0 /uL (0-3.1) 04/03/20 06:30 U Epithel Cells (Auto) 8 /uL (0-25.1) 04/03/20 06:30 Urine Bacteria (Auto) 2 /uL (0-1359) 04/03/20 06:30 Fluid Source Ascitis 04/01/20 17:30 Fluid WBC 14 /mm3 04/01/20 17:30 Fluid RBC 550 /mm3 04/01/20 17:30 Fluid Neutrophils 6 % 04/01/20 17:30 Fluid Lymphocytes 52 % 04/01/20 17:30 Fluid Glucose 164 mg/dL (.) 04/01/20 17:30 Pleural Monocytes 5 % 04/01/20 17:30 Pleural Macrophages 33 % 04/01/20 17:30 Pleural Mesothelial 4 % 04/01/20 17:30 Stool Occult Blood Positive (NEGATIVE) 04/05/20 12:00 COVID-19 ([facility]) Not detected (Not Detected) 03/31/20 16:05 Blood Type O POSITIVE 04/05/20 15:30 Antibody Screen Negative 04/05/20 15:30 Crossmatch See Detail 04/05/20 15:30 Microbiology 04/02/20 18:00 Blood - Peripheral Venous Blood Culture - Preliminary NO GROWTH OBTAINED AFTER 72 HOURS, INCUBATION TO CONTINUE FOR 2 DAYS. 04/02/20 18:00 Blood - Peripheral Venous Blood Culture - Preliminary NO GROWTH OBTAINED AFTER 72 HOURS, INCUBATION TO CONTINUE FOR 2 DAYS. 03/31/20 13:50 Blood - Peripheral Venous Blood Culture - Final NO GROWTH AFTER 5 DAYS INCUBATION 03/31/20 14:00 Blood - Peripheral Venous Blood Culture - Final NO GROWTH AFTER 5 DAYS INCUBATION 04/01/20 17:30 Ascites Gram Stain - Final 04/01/20 17:30 Ascites Body Fluid Culture - Final NO GROWTH OF AEROBIC ORGANISMS AFTER 48 HOURS INCUBATION 04/01/20 17:30 Ascites Anaerobic Culture - Final NO ANAEROBES WERE ISOLATED 04/03/20 06:30 Urine - Urine - Catheterized Urine Culture - Final NO GROWTH OBTAINED 03/31/20 16:04 Urine - Urine Clean Catch Urine Culture - Final NO GROWTH OBTAINED - ....Imaging Chest X-ray: Report Reviewed Cat Scan: Report Reviewed Problem List - Problems (1) Anemia Code(s): D64.9 - ANEMIA, UNSPECIFIED (2) CKD (chronic kidney disease) Code(s): N18.9 - CHRONIC KIDNEY DISEASE, UNSPECIFIED (3) Diabetes Code(s): E11.9 - TYPE 2 DIABETES MELLITUS WITHOUT COMPLICATIONS Qualifiers: Diabetes mellitus type: type 2 Diabetes mellitus 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 terminal operator insulin use: w ithout 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 terminal operator use Diabetes mellitus complication status: with kidney c omplications Chronic kidney disease stage: stage 3 (moderate) (4) Hypertension Code(s): I10 - ESSENTIAL (PRIMARY) HYPERTENSION Qualifiers: Hypertension type: essential hypertension Qualified Code(s): I10 - Essential (primary) hypertension (5) Multiple myeloma Code(s): C90.00 - MULTIPLE MYELOMA NOT HAVING ACHIEVED REMISSION Assessment/Plan LLL PNA ESRD on PD Multiple myeloma HTN LLE DVT DM HTN Pituitary microadenoma -- Pt is alert, fevers resolved, no distress -- Continue antibiotics -- Blood/Urine/Peritoneal fluid cultures negative -- vitals relatively stable continue monitor
[2020-04-06] MEDS: LATANOPROST 0.005% OPHTH SOLN 2.5ML BOTTLE OS SCH (21:08)
[2020-04-06] MEDS: ROSUVASTATIN CA 10 MG TABLET (FP) PO SCH (21:08)
--- NOTE | 2020-04-06 22:13 | CON.GI ---
Consult Consult Specialty:: GI - History of Present Illness History of Present Illness: 84yo Fwith PMH of DM, HTN, HLD, Gout, CKD on PD (baseline Cr about 5), anemia,multiple myeloma, pituitary macroadenoma, independent in ADLs brought to ED by CONFERENCE DIRECTOR for generalized weakness, chills and temp 100.0. As per CONFERENCE DIRECTOR pt usually performs own ALDs, but since yest, decreased po intake and not feeling well. Pt was nauseated this am, no vomiting, abd pain, cp or sob. Set to ED when aide noted chills and temp of 100.0 Of note, pt was recently noted to have a LLE dvt and started on Eliquis; Still reports some soreness to the LLE Patient noted to have progressive anemia associated with guaic positive stool. - Past Medical History Cardio/Vascular: Yes: HTN Renal/: Yes: Renal Inusuff Endocrine: Yes: Diabetes Mellitus - Alcohol/Substance Use Hx Alcohol Use: No - Smoking History Smoking history: Never smoked Have you smoked in the past 12 months: No Aproximately how many cigarettes per day: 0 Home Medications - Allergies Allergies/Adverse Reactions: Allergies Allergy/AdvReac Type Severity Reaction Status Date / Time No Known Drug Allergies Allergy Verified 03/31/20 12:33 tetanus and diphtheria Allergy Rash Verified 03/31/20 12:33 toxoids [Tetanus&Diphtheria Toxoid] - Home Medications Home Medications: Ambulatory Orders Allopurinol [Zyloprim -] 100 mg PO DAILY 01/20/14 Rosuvastatin Calcium [Crestor] 20 mg PO HS 01/20/14 Bimatoprost [Lumigan] 1 drop IO DAILY 05/13/17 Dorzolamide HCl/Timolol Maleat [Cosopt Eye Drops] 10 ml OP DAILY 05/13/17 Ascorbic Acid [Vitamin C with Giuliana Hips] 500 mg PO DAILY 08/16/19 Folic Acid 1 mg PO DAILY 08/16/19 Furosemide 80 mg PO HS 08/16/19 Icosapent Ethyl [Vascepa] 2 gm PO BID 08/16/19 Metoprolol Succinate [Toprol Xl] 25 mg PO DAILY 08/16/19 Nateglinide [Starlix (Nf) -] 60 mg PO BID 08/16/19 Apixaban [Eliquis] 5 mg PO BID 03/31/20 Docusate Sodium [Stool Softener] 100 mg PO DAILY 03/31/20 Pantoprazole Sodium 40 mg PO DAILY 03/31/20 Sevelamer Carbonate [Renvela] 800 mg PO TID 03/31/20 Family Medical History Family History: Unremarkable Family Hx Cardiac Disorders: Father Physical Exam-GI Vital Signs: Vital Signs Temperature 97.5 F L 04/06/20 17:14 Pulse Rate 71 04/06/20 17:14 Respiratory Rate 17 04/06/20 17:14 Blood Pressure 134/67 04/06/20 17:14 O2 Sat by Pulse Oximetry (%) 100 04/06/20 17:14 Constitutional: Yes: No Distress Eyes: Yes: Conjunctiva Clear Cardiovascular: Yes: Regular Rate and Rhythm Respiratory: Yes: CTA Bilaterally ...Palpate: Yes: Soft. No: Firm/Rigid, Guarding, Hepatomegaly, Mass, Pulsatile Mass, Splenomegaly, Tenderness Labs: CBC, BMP 04/06/20 06:40 04/06/20 06:40 INR, PTT INR 2.39 (0.83-1.09) H 04/02/20 06:34 Problem List - Problems (1) Anemia Assessment/Plan: multifactorial including secondary to occult gi bleeding fro Eliquis, Renal failure and multiple myeloma R> transfuse to Hgb of 8, because of multile medical problem she is high risk for any GI procedures will continue supportive care at this time will condsider repeat gi work up once medically improved Code(s): D64.9 - ANEMIA, UNSPECIFIED
[2020-04-07] MEDS: PERITONEAL DIALYSIS 1.5% SOLN 2,000 ML IP SCH ×4 (01:15→19:02)
[2020-04-07] MEDS: INSULIN SLIDING SCALE (NOVOLOG) 1 VIAL SQ SCH ×4 (06:05→22:31)
[2020-04-07] MEDS: SEVELAMER CARBONATE 800 MG TAB (FP) PO SCH ×3 (08:05→17:41)
[2020-04-07] MEDS ORDERED: PT OWN MED DRAWER 7, Y5N ONE ×2 (09:46→21:11)
[2020-04-07] MEDS: APIXABAN 5 MG TABLET PO SCH (09:59)
[2020-04-07] MEDS: POTASSIUM CHLORIDE TABS 20 MEQ TABLET.ER (FP) PO SCH (09:59)
[2020-04-07] MEDS: PANTOPRAZOLE 40 MG TABLET PO SCH (09:59)
[2020-04-07] MEDS: OMEGA-3 ACID ETHYL ESTERS (FATTY-ACIDS) 1 GM CAPSULE (FP) PO SCH ×2 (09:59→22:31)
[2020-04-07] MEDS: ALLOPURINOL 100 MG TABLET (FP) PO SCH (09:59)
[2020-04-07] MEDS: metoPROLOL SUCCINATE 25 MG TAB.SR.24H (FP) PO SCH (09:59)
[2020-04-07] MEDS: FOLIC ACID 1 MG TABLET (FP) PO SCH (09:59)
[2020-04-07] MEDS: ERYTHROMYCIN 0.5% OPHTHALMIC OINTMENT 3.5 GM TUBE OU SCH (09:59)
[2020-04-07] MEDS: DOCUSATE SODIUM 100 MG CAPSULE (FP) PO SCH (09:59)
[2020-04-07] MEDS: DORZOLAMIDE 2% HCL OPHTHALMIC SOLUTION 10 ML BOTTLE OS SCH (10:00)
[2020-04-07] MEDS: TIMOLOL 0.5% OPHTHALMIC SOL 5 ML BOTTLE OS SCH (10:00)
[2020-04-07 10:49] LABS: BASO % 0.4 % (0-2.0); EOS % 2.4 % (0-4.5); HEMATOCRIT 26.2 % (32.4-45.2); LYMPH % 42.2 % (8-40); MCH 33.7 pg (25.7-33.7); MCHC 34.3 g/dl (32.0-36.0); MEAN CELL VOLUME 98.4 fl (80-96); MEAN PLT VOLUME 7.9 fl (7.5-11.1); MONO % 8.7 % (3.8-10.2); NEUT % 46.3 % (42.8-82.8); PLATELET COUNT 254 K/MM3 (134-434); RBC 2.66 M/mm3 (3.60-5.2); RDW 20.5 % (11.6-15.6)
--- NOTE | 2020-04-07 11:10 | PN ---
Physical Exam: SUBJECTIVE: Patient seen and examined this morning, per nursing, no episodes of melanotic stool. Ptn is alert and conversational. OBJECTIVE: Vital Signs Period Temp Pulse Resp BP Sys/Gustafson Pulse Ox Last 24 Hr 97.5 F-98.3 F 63-71 17-20 134-154/67-74 98-100 GENERAL: Awake, alert, less conversational, requires orientation, has baseline AMS HEAD: Normal with no signs of trauma. EYES: Arcus Senalis in both eyes bilaterally. THROAT: Oropharynx clear without exudates. Moist mucous membranes. NECK: JVD present. Normal range of motion, supple without lymphadenopathy. LUNGS: Breath sounds equal, clear to auscultation bilaterally. No wheezes, and no crackles. No accessory muscle use. HEART: Regular rate and rhythm, normal S1 and S2 without murmur, rub or gallop. ABDOMEN: Distended. Soft, nontender, normoactive bowel sounds MUSCULOSKELETAL: Not assessed UPPER EXTREMITIES: 2+ pulses, warm, well-perfused. No cyanosis. No clubbing. No peripheral edema. LOWER EXTREMITIES: 2+ pulses, warm, well-perfused. No peripheral edema. NEUROLOGICAL: Normal speech with altered mental status. Gait not tested. PSYCHIATRIC: Cooperative. Good eye contact. SKIN: Warm, dry, decreased turgor. Laboratory Results - last 24 hr CBC, BMP 04/07/20 10:14 04/07/20 10:14 Active Medications Generic Name Dose Route Start Last Admin Trade Name Freq PRN Reason Stop Dose Admin Acetaminophen 650 mg 03/31/20 16:55 04/06/20 01:40 Tylenol - PO 650 mg Q4H PRN Administration FEVER Allopurinol 100 mg 04/01/20 10:00 04/07/20 09:59 Zyloprim - PO 100 mg DAILY YASMEEN Administration Apixaban 5 mg 04/03/20 10:00 04/07/20 09:59 Eliquis - PO 5 mg BID YASMEEN Administration Artificial Tears 1 drop 04/03/20 12:41 Artificial Tears OU TID PRN DRY EYES Docusate Sodium 100 mg 04/01/20 10:00 04/07/20 09:59 Colace - PO 100 mg DAILY YASMEEN Administration Dorzolamide HCl 1 drop 04/01/20 10:00 04/07/20 10:00 Trusopt 2% OS 1 drop DAILY YASMEEN Administration Erythromycin 1 applic 03/31/20 17:30 04/07/20 09:59 Erythromycin 0.5% Eye Ointment OU 1 applic DAILY YASMEEN Administration Folic Acid 1 mg 04/01/20 10:00 04/07/20 09:59 Folic Acid - PO 1 mg DAILY YASMEEN Administration Peritoneal Dialysis Solution 2,000 mls @ 4,000 mls/hr 04/01/20 13:30 04/07/20 07:15 Dianeal 1.5% IP 4,000 mls/hr Q6H YASMEEN Administration Protocol Metronidazole 500 mg in 100 mls @ 100 mls/hr 04/02/20 19:00 04/07/20 09:59 Flagyl 500mg Premixed Ivpb - IVPB 100 mls/hr Q8H-IV YASMEEN Administration Meropenem 500 mg/ Dextrose 100 mls @ 200 mls/hr 04/03/20 10:45 04/06/20 21:53 IVPB 200 mls/hr Q12H YASMEEN Administration Insulin Aspart 0 vial 03/31/20 22:00 04/07/20 06:05 Novolog Vial Sliding Scale - SQ Not Given ACHS [facility] Protocol Latanoprost 1 drop 03/31/20 22:00 04/06/20 21:08 Xalatan 0.005% Eye Drops - OS 1 drop HS YASMEEN Administration Metoprolol Succinate 25 mg 04/01/20 10:00 04/07/20 09:59 Toprol Xl - PO 25 mg DAILY YASMEEN Administration [id number] Ethyl Esters 2 gm 04/02/20 10:00 04/07/20 09:59 Lovaza - PO 2 gm BID YASMEEN Administration Ondansetron HCl 4 mg 03/31/20 17:00 Zofran Injection IVPUSH Q6H PRN NAUSEA Pantoprazole Sodium 40 mg 04/01/20 10:00 04/07/20 09:59 Protonix - PO 40 mg DAILY YASMEEN Administration Potassium Chloride 20 meq 04/01/20 12:00 04/07/20 09:59 K-Dur - PO 20 meq DAILY YASMEEN Administration Rosuvastatin Calcium 10 mg 03/31/20 22:00 04/06/20 21:08 Crestor - PO 10 mg HS YASMEEN Administration Sevelamer Carbonate 800 mg 04/01/20 08:00 04/07/20 08:05 Renvela - PO 800 mg TIDCM YASMEEN Administration Timolol Maleate 1 drop 04/01/20 10:00 04/07/20 10:00 Timoptic 0.5% OS 1 drop DAILY YASMEEN Administration ASSESSMENT/PLAN: 84yo F who is a poor historian with PMHx of DM, HTN, HLD, Gout, CKD on PD done nightly as per her cousin (baseline Cr about 9), anemia, multiple myeloma, pituitary macroadenoma, arcus senalis, independent in ADLs presented to the ED by her NET C DEVELOPER for generalized weakness, chills and temp 100.0. Acute on Chronic Anemia -Likely 2/2 Chronic Renal Disease -Hgb 8.2 --> 7.1 --> 1 Unit PRBC Ordered (04/05) --> Hgb (9.0) -Iron Studies, B12, Folate, Retic Count -Multifactorial: ESRD vs AOCD vs hx of MM, vs Anti Coagulation -Normal Retic Count -FOBT+ -Per GI: Consider stopping Eliquis and starting coumadin. -Vascular Surgery Consulted: Placement of IVC filter -Transfuse to > 8hgb Hypokalemia -(04/07): 3.1 --> Repleted w/ 40meq --> FU 04/08 Chronic CKD on Nightly PD: - Per Nephrology: PD q6hrs Fever of Unknown Origin: Resolved - Possible 2/2 UTI vs Peritonitis: - Blood/Urine/Ascitic Cultures currently Negative - Per ID: Start Meropenem - Per Primary Team: Start IV Flagyl - Tylenol PRN for fever Hx of LLE DVT: - US on 03/27 demonstrated extensive DVT in LLE . - Treated by Dr. Melgar - Continue Eliquis 5mg BID for 6 months - Continue Elliquis without dose adjustment, in spite of ESRD. Mfg shows no risk involved in use of drug. - Elevated INR expected on Elliquis, do not adjust PPx -DVT Treatment: Elliquis 5mg BID -GI PPx: Pantoprazole FEN Fluids: No standing fluids Electrolytes: Monitor BMP Nutrition: Diabetic Diet Dispo: Continue medical management. Visit type - Emergency Visit Emergency Visit: No - New Patient This patient is new to me today: No - Critical Care Critical Care patient: No - Discharge Referral Referred to [facility] Med P.C.: No - Medication Review Med list reviewed for High Risk Meds patients 65 and older: Yes ATTENDING PHYSICIAN STATEMENT I saw and evaluated the patient. I reviewed the resident's note and discussed the case with the resident. I agree with the resident's findings and plan as documented. SUBJECTIVE: OBJECTIVE: ASSESSMENT AND PLAN:
[2020-04-07 11:17] LABS: ALBUMIN 1.6 g/dl (3.4-5.0); BILIRUBIN,TOTAL 0.4 mg/dL (0.2-1); BLOOD UREA NITROGEN 33.5 mg/dL (7-18); CALCIUM 7.9 mg/dL (8.5-10.1); CREATININE 5.5 mg/dL (0.55-1.3); POTASSIUM 3.3 mmol/L (3.5-5.1); TOT PROT 6.3 g/dl (6.4-8.2)
[2020-04-07] MEDS ORDERED: MEROPENEM 500 MG VIAL (RESTRICTED TO ID) IVPB ONE ×2 (11:27→22:19)
[2020-04-07] MEDS ORDERED: DEXTROSE 5%-WATER 100 ML IVPB ONE ×2 (11:28→22:19)
[2020-04-07] MEDS: MEROPENEM 500 MG in DEXTROSE 5%-WATER 100 ML IVPB SCH ×2 (11:31→22:32)
--- NOTE | 2020-04-07 12:36 | PN.GI ---
GI Progress Note Subjective: denies abdominal pain, nausea and vomiting - Objective Vital Signs: Vital Signs Temperature 98.2 F 04/07/20 06:00 Pulse Rate 70 04/07/20 06:00 Respiratory Rate 20 04/07/20 06:00 Blood Pressure 151/74 04/07/20 06:00 O2 Sat by Pulse Oximetry (%) 98 04/07/20 06:00 Constitutional: No Distress, Poor Hygeine HENT: Yes: Atraumatic Cardiovascular: Yes: Regular Rate and Rhythm Respiratory: Yes: CTA Bilaterally ...Palpate: Yes: Soft. No: Firm/Rigid, Guarding, Hepatomegaly, Mass, Pulsatile Mass, Splenomegaly, Tenderness Labs: CBC, BMP 04/07/20 10:14 04/07/20 10:14 INR, PTT INR 2.39 (0.83-1.09) H 04/02/20 06:34 Problem List - Problems (1) Anemia Assessment/Plan: guaiac positive stool R> if patient is going to be anticoagulated she has increased risk of bleeding. Will need vascular surgery input regarding IVC filter One should consider to start Coumadin instead as this is reversible Code(s): D64.9 - ANEMIA, UNSPECIFIED
[2020-04-07] MEDS ORDERED: POTASSIUM CHLORIDE TABS 20 MEQ TABLET.ER (FP) PO ONE (14:00)
--- NOTE | 2020-04-07 15:30 | PN ---
Progress Note (short form) - Note Progress Note: RENAL Pt is awake and alert comfortable denies complaints daughter is present Last Vital Signs Temp Pulse Resp BP Pulse Ox 97.6 F 66 20 154/71 100 04/07/20 14:20 04/07/20 14:20 04/07/20 14:20 04/07/20 14:20 04/07/20 14:20 lungs clear cvs s1s2 rr abd soft ext no edema neuro a+ox3 CBC, BMP 04/07/20 10:14 04/07/20 10:14 Current Medications Generic Name Dose Route Start Last Admin Trade Name Freq PRN Reason Stop Dose Admin Acetaminophen 650 mg 03/31/20 16:55 04/06/20 01:40 Tylenol - PO 650 mg Q4H PRN Administration FEVER Allopurinol 100 mg 04/01/20 10:00 04/07/20 09:59 Zyloprim - PO 100 mg DAILY YASMEEN Administration Apixaban 5 mg 04/03/20 10:00 04/07/20 09:59 Eliquis - PO 5 mg BID YASMEEN Administration Artificial Tears 1 drop 04/03/20 12:41 Artificial Tears OU TID PRN DRY EYES Docusate Sodium 100 mg 04/01/20 10:00 04/07/20 09:59 Colace - PO 100 mg DAILY YASMEEN Administration Dorzolamide HCl 1 drop 04/01/20 10:00 04/07/20 10:00 Trusopt 2% OS 1 drop DAILY YASMEEN Administration Erythromycin 1 applic 03/31/20 17:30 04/07/20 09:59 Erythromycin 0.5% Eye Ointment OU 1 applic DAILY YASMEEN Administration Folic Acid 1 mg 04/01/20 10:00 04/07/20 09:59 Folic Acid - PO 1 mg DAILY YASMEEN Administration Peritoneal Dialysis Solution 2,000 mls @ 4,000 mls/hr 04/01/20 13:30 04/07/20 13:44 Dianeal 1.5% IP 4,000 mls/hr Q6H YASMEEN Administration Protocol Metronidazole 500 mg in 100 mls @ 100 mls/hr 04/02/20 19:00 04/07/20 09:59 Flagyl 500mg Premixed Ivpb - IVPB 100 mls/hr Q8H-IV YASMEEN Administration Meropenem 500 mg/ Dextrose 100 mls @ 200 mls/hr 04/03/20 10:45 04/07/20 11:31 IVPB 200 mls/hr Q12H YASMEEN Administration Insulin Aspart 0 vial 03/31/20 22:00 04/07/20 11:32 Novolog Vial Sliding Scale - SQ 3 unit ACHS YASMEEN Administration Protocol Latanoprost 1 drop 03/31/20 22:00 04/06/20 21:08 Xalatan 0.005% Eye Drops - OS 1 drop HS YASMEEN Administration Metoprolol Succinate 25 mg 04/01/20 10:00 04/07/20 09:59 Toprol Xl - PO 25 mg DAILY YASMEEN Administration [id number]-[id number] Ethyl Esters 2 gm 04/02/20 10:00 04/07/20 09:59 Lovaza - PO 2 gm BID YASMEEN Administration Ondansetron HCl 4 mg 03/31/20 17:00 Zofran Injection IVPUSH Q6H PRN NAUSEA Pantoprazole Sodium 40 mg 04/01/20 10:00 04/07/20 09:59 Protonix - PO 40 mg DAILY YASMEEN Administration Potassium Chloride 20 meq 04/01/20 12:00 04/07/20 09:59 K-Dur - PO 20 meq DAILY YASMEEN Administration Rosuvastatin Calcium 10 mg 03/31/20 22:00 04/06/20 21:08 Crestor - PO 10 mg HS YASMEEN Administration Sevelamer Carbonate 800 mg 04/01/20 08:00 04/07/20 11:32 Renvela - PO 800 mg TIDCM YASMEEN Administration Timolol Maleate 1 drop 04/01/20 10:00 04/07/20 10:00 Timoptic 0.5% OS 1 drop DAILY YASMEEN Administration 84-year-old -[place] woman with a past medical history of end-stage kidney disease on peritoneal dialysis, hypertension, hyperlipidemia, gout, recent diagnosis of deep venous thrombosis who presented from home with complaints of generalized malaise and low-grade fever with mild abdominal discomfort. 1. Fever 2. End-stage kidney disease on peritoneal dialysis. 3. Recently diagnosed DVT. 4. Hypertension 5. Hyperlipidemia no evidence of fluid overload BP stable- therefore no change in dialysis order continue antibiotics no changes MV
--- NOTE | 2020-04-07 16:09 | PN ---
Teaching Attending Note Name of Resident: Christiano Lindquist ATTENDING PHYSICIAN STATEMENT I saw and evaluated the patient. I reviewed the resident's note and discussed the case with the resident. I agree with the resident's findings and plan as documented. SUBJECTIVE: Patient is feeling better with NAD OBJECTIVE: Vital Signs Temperature 97.6 F 04/07/20 14:20 Pulse Rate 66 04/07/20 14:20 Respiratory Rate 20 04/07/20 14:20 Blood Pressure 154/71 04/07/20 14:20 O2 Sat by Pulse Oximetry (%) 100 04/07/20 14:20 PE:per resident's note CBCD WBC 7.0 K/mm3 (4.0-10.0) 04/07/20 10:14 RBC 2.66 M/mm3 (3.60-5.2) L 04/07/20 10:14 Hgb 9.0 GM/dL (10.7-15.3) L 04/07/20 10:14 Hct 26.2 % (32.4-45.2) L 04/07/20 10:14 MCV 98.4 fl (80-96) H 04/07/20 10:14 MCHC 34.3 g/dl (32.0-36.0) 04/07/20 10:14 RDW 20.5 % (11.6-15.6) H 04/07/20 10:14 Plt Count 254 K/MM3 (134-434) D 04/07/20 10:14 MPV 7.9 fl (7.5-11.1) D 04/07/20 10:14 CMP Sodium 135 mmol/L (136-145) L 04/07/20 10:14 Potassium 3.3 mmol/L (3.5-5.1) L 04/07/20 10:14 Chloride 102 mmol/L (98-107) 04/07/20 10:14 Carbon Dioxide 24 mmol/L (21-32) 04/07/20 10:14 Anion Gap 9 MMOL/L (8-16) 04/07/20 10:14 BUN 33.5 mg/dL (7-18) H 04/07/20 10:14 Creatinine 5.5 mg/dL (0.55-1.3) H 04/07/20 10:14 Random Glucose 155 mg/dL (74-106) H 04/07/20 10:14 Calcium 7.9 mg/dL (8.5-10.1) L 04/07/20 10:14 Total Bilirubin 0.4 mg/dL (0.2-1) 04/07/20 10:14 AST 54 U/L (15-37) H 04/07/20 10:14 ALT 35 U/L (13-61) 04/07/20 10:14 Alkaline Phosphatase 54 U/L (45-117) 04/07/20 10:14 Total Protein 6.3 g/dl (6.4-8.2) L 04/07/20 10:14 Albumin 1.6 g/dl (3.4-5.0) L 04/07/20 10:14 CARDIAC ENZYMES Creatine Kinase 40 U/L (26-192) 03/31/20 16:30 Troponin I 0.21 ng/ml (0.00-0.05) H 04/02/20 19:45 Current Medications Generic Name Dose Route Start Last Admin Trade Name Kojoq PRN Reason Stop Dose Admin Acetaminophen 650 mg 03/31/20 16:55 04/06/20 01:40 Tylenol - PO 650 mg Q4H PRN Administration FEVER Allopurinol 100 mg 04/01/20 10:00 04/07/20 09:59 Zyloprim - PO 100 mg DAILY YASMEEN Administration Apixaban 5 mg 04/03/20 10:00 04/07/20 09:59 Eliquis - PO 5 mg BID YASMEEN Administration Artificial Tears 1 drop 04/03/20 12:41 Artificial Tears OU TID PRN DRY EYES Docusate Sodium 100 mg 04/01/20 10:00 04/07/20 09:59 Colace - PO 100 mg DAILY YASMEEN Administration Dorzolamide HCl 1 drop 04/01/20 10:00 04/07/20 10:00 Trusopt 2% OS 1 drop DAILY YASMEEN Administration Erythromycin 1 applic 03/31/20 17:30 04/07/20 09:59 Erythromycin 0.5% Eye Ointment OU 1 applic DAILY YASMEEN Administration Folic Acid 1 mg 04/01/20 10:00 04/07/20 09:59 Folic Acid - PO 1 mg DAILY YASMEEN Administration Peritoneal Dialysis Solution 2,000 mls @ 4,000 mls/hr 04/01/20 13:30 04/07/20 13:44 Dianeal 1.5% IP 4,000 mls/hr Q6H YASMEEN Administration Protocol Metronidazole 500 mg in 100 mls @ 100 mls/hr 04/02/20 19:00 04/07/20 09:59 Flagyl 500mg Premixed Ivpb - IVPB 100 mls/hr Q8H-IV YASMEEN Administration Meropenem 500 mg/ Dextrose 100 mls @ 200 mls/hr 04/03/20 10:45 04/07/20 11:31 IVPB 200 mls/hr Q12H YASMEEN Administration Insulin Aspart 0 vial 03/31/20 22:00 04/07/20 11:32 Novolog Vial Sliding Scale - SQ 3 unit ACHS YASMEEN Administration Protocol Latanoprost 1 drop 03/31/20 22:00 04/06/20 21:08 Xalatan 0.005% Eye Drops - OS 1 drop HS YASMEEN Administration Metoprolol Succinate 25 mg 04/01/20 10:00 04/07/20 09:59 Toprol Xl - PO 25 mg DAILY YASMEEN Administration Snrvq-5-[id number] Ethyl Esters 2 gm 04/02/20 10:00 04/07/20 09:59 Lovaza - PO 2 gm BID YASMEEN Administration Ondansetron HCl 4 mg 03/31/20 17:00 Zofran Injection IVPUSH Q6H PRN NAUSEA Pantoprazole Sodium 40 mg 04/01/20 10:00 04/07/20 09:59 Protonix - PO 40 mg DAILY YASMEEN Administration Potassium Chloride 20 meq 04/01/20 12:00 04/07/20 09:59 K-Dur - PO 20 meq DAILY YASMEEN Administration Rosuvastatin Calcium 10 mg 03/31/20 22:00 04/06/20 21:08 Crestor - PO 10 mg HS YASMEEN Administration Sevelamer Carbonate 800 mg 04/01/20 08:00 04/07/20 11:32 Renvela - PO 800 mg TIDCM YASMEEN Administration Timolol Maleate 1 drop 04/01/20 10:00 04/07/20 10:00 Timoptic 0.5% OS 1 drop DAILY YASMEEN Administration Home Medications Medication Instructions Recorded Allopurinol [Zyloprim -] 100 mg PO DAILY 01/20/14 Rosuvastatin Calcium [Crestor] 20 mg PO HS 01/20/14 Bimatoprost [Lumigan] 1 drop IO DAILY 05/13/17 Dorzolamide HCl/Timolol Maleat 10 ml OP DAILY 05/13/17 [Cosopt Eye Drops] Ascorbic Acid [Vitamin C with Giuliana 500 mg PO DAILY 08/16/19 Hips] Folic Acid 1 mg PO DAILY 08/16/19 Furosemide 80 mg PO HS 08/16/19 Icosapent Ethyl [Vascepa] 2 gm PO BID 08/16/19 Metoprolol Succinate [Toprol Xl] 25 mg PO DAILY 08/16/19 Nateglinide [Starlix (Nf) -] 60 mg PO BID 08/16/19 Apixaban [Eliquis] 5 mg PO BID 03/31/20 Docusate Sodium [Stool Softener] 100 mg PO DAILY 03/31/20 Pantoprazole Sodium 40 mg PO DAILY 03/31/20 Sevelamer Carbonate [Renvela] 800 mg PO TID 03/31/20 Microbiology 04/02/20 18:00 Blood - Peripheral Venous Blood Culture - Preliminary NO GROWTH OBTAINED AFTER 96 HOURS, INCUBATION TO CONTINUE FOR 1 DAYS. 04/02/20 18:00 Blood - Peripheral Venous Blood Culture - Preliminary NO GROWTH OBTAINED AFTER 96 HOURS, INCUBATION TO CONTINUE FOR 1 DAYS. 03/31/20 13:50 Blood - Peripheral Venous Blood Culture - Final NO GROWTH AFTER 5 DAYS INCUBATION 03/31/20 14:00 Blood - Peripheral Venous Blood Culture - Final NO GROWTH AFTER 5 DAYS INCUBATION 04/01/20 17:30 Ascites Gram Stain - Final 04/01/20 17:30 Ascites Body Fluid Culture - Final NO GROWTH OF AEROBIC ORGANISMS AFTER 48 HOURS INCUBATION 04/01/20 17:30 Ascites Anaerobic Culture - Final NO ANAEROBES WERE ISOLATED 04/03/20 06:30 Urine - Urine - Catheterized Urine Culture - Final NO GROWTH OBTAINED 03/31/20 16:04 Urine - Urine Clean Catch Urine Culture - Final NO GROWTH OBTAINED Chest CT; Left lower lobe Pneumonia. small associated left pleural effusion CT abdomen and pelvis: gallstones, stable 4cm right renal cyst, myomatous uterus in the pelvis, fibroids suspected. ASSESSMENT AND PLAN: This patient is an 84yof with Pmhx of T2DM, HTN, HLD, Gout, CKD on PD, anemia,multiple myeloma, pituitary macroadenoma who has 24 hour aids and lives a lone, who presented with fever and abd pain , having Rigors #LLL Pneumonia: on Meropenem and IV flagyl continue , ID on the case, patient has no fever , feeling better #Anemia:of chronic disease , also positive hemoccult positive , discussed with Dr Galdamez , suggests that the patient should get IVC filter since she is high risk patient for Re-Bleed , consult for vascular requested for IVC filter . s/p epo and PRBC . #Rigors/ Fever: resolved # ESRD on PD: dr Means on the case , continue PD dialysis # H/o HTN: cont BB # H/o DVT: US on 03/27 showed extensive DVT in LLE on Eliquis 5mg bid , will ask dr hutchins to see the patient for possible IVC filter # Hx fo DM : cont SSI #Hx of Glaucoma On Xalatan continue DVT Px: Eliquis 5mg bid as per GI ; patient is a high risk for rebleed.
--- NOTE | 2020-04-07 16:39 | PN ---
Progress Note, Physician History of Present Illness: Pt remains alert, comfortable. Afebrile without specific complaints. - Current Medication List Current Medications: Active Medications Acetaminophen (Tylenol -) 650 mg PO Q4H PRN PRN Reason: FEVER Last Admin: 04/06/20 01:40 Dose: 650 mg Documented by: Allopurinol (Zyloprim -) 100 mg PO DAILY [facility] Last Admin: 04/07/20 09:59 Dose: 100 mg Documented by: Apixaban (Eliquis -) 5 mg PO BID [facility] Last Admin: 04/07/20 09:59 Dose: 5 mg Documented by: Artificial Tears (Artificial Tears) 1 drop OU TID PRN PRN Reason: DRY EYES Docusate Sodium (Colace -) 100 mg PO DAILY [facility] Last Admin: 04/07/20 09:59 Dose: 100 mg Documented by: Dorzolamide HCl (Trusopt 2%) 1 drop OS DAILY [facility] Last Admin: 04/07/20 10:00 Dose: 1 drop Documented by: Erythromycin (Erythromycin 0.5% Eye Ointment) 1 applic OU DAILY [facility] Last Admin: 04/07/20 09:59 Dose: 1 applic Documented by: Folic Acid (Folic Acid -) 1 mg PO DAILY [facility] Last Admin: 04/07/20 09:59 Dose: 1 mg Documented by: Peritoneal Dialysis Solution (Dianeal 1.5%) 2,000 mls @ 4,000 mls/hr IP Q6H [facility]; Protocol Last Admin: 04/07/20 13:44 Dose: 4,000 mls/hr Documented by: Metronidazole (Flagyl 500mg Premixed Ivpb -) 500 mg in 100 mls @ 100 mls/hr IVPB Q8H-IV YAS[facility]EN Last Admin: 04/07/20 09:59 Dose: 100 mls/hr Documented by: Meropenem 500 mg/ Dextrose 100 mls @ 200 mls/hr IVPB Q12H [facility] Last Admin: 04/07/20 11:31 Dose: 200 mls/hr Documented by: Insulin Aspart (Novolog Vial Sliding Scale -) 0 vial SQ ACHS [facility]; Protocol Last Admin: 04/07/20 11:32 Dose: 3 unit Documented by: Latanoprost (Xalatan 0.005% Eye Drops -) 1 drop OS HS [facility] Last Admin: 04/06/20 21:08 Dose: 1 drop Documented by: Metoprolol Succinate (Toprol Xl -) 25 mg PO DAILY [facility] Last Admin: 04/07/20 09:59 Dose: 25 mg Documented by: [id number] Ethyl Esters (Lovaza -) 2 gm PO BID [facility] Last Admin: 04/07/20 09:59 Dose: 2 gm Documented by: Ondansetron HCl (Zofran Injection) 4 mg IVPUSH Q6H PRN PRN Reason: NAUSEA Pantoprazole Sodium (Protonix -) 40 mg PO DAILY [facility] Last Admin: 04/07/20 09:59 Dose: 40 mg Documented by: Potassium Chloride (K-Dur -) 20 meq PO DAILY [facility] Last Admin: 04/07/20 09:59 Dose: 20 meq Documented by: Rosuvastatin Calcium (Crestor -) 10 mg PO HS [facility] Last Admin: 04/06/20 21:08 Dose: 10 mg Documented by: Sevelamer Carbonate (Renvela -) 800 mg PO TIDCM [facility] Last Admin: 04/07/20 11:32 Dose: 800 mg Documented by: Timolol Maleate (Timoptic 0.5%) 1 drop OS DAILY [facility] Last Admin: 04/07/20 10:00 Dose: 1 drop Documented by: - Objective Vital Signs: Vital Signs Temperature 97.6 F 04/07/20 14:20 Pulse Rate 66 04/07/20 14:20 Respiratory Rate 20 04/07/20 14:20 Blood Pressure 154/71 04/07/20 14:20 O2 Sat by Pulse Oximetry (%) 100 04/07/20 14:20 Constitutional: Yes: No Distress, Calm Cardiovascular: Yes: Regular Rate and Rhythm Respiratory: Yes: Rales (Lt base) Gastrointestinal: Yes: Normal Bowel Sounds, Soft Genitourinary: Yes: WNL Extremities: Yes: WNL Edema: No Integumentary: Yes: WNL Neurological: Yes: Alert, Oriented Labs: CBC, BMP 04/07/20 10:14 04/07/20 10:14 INR, PTT INR 2.39 (0.83-1.09) H 04/02/20 06:34 Laboratory Last Values WBC 7.0 K/mm3 (4.0-10.0) 04/07/20 10:14 RBC 2.66 M/mm3 (3.60-5.2) L 04/07/20 10:14 Hgb 9.0 GM/dL (10.7-15.3) L 04/07/20 10:14 Hct 26.2 % (32.4-45.2) L 04/07/20 10:14 MCV 98.4 fl (80-96) H 04/07/20 10:14 MCH 33.7 pg (25.7-33.7) 04/07/20 10:14 MCHC 34.3 g/dl (32.0-36.0) 04/07/20 10:14 RDW 20.5 % (11.6-15.6) H 04/07/20 10:14 Plt Count 254 K/MM3 (134-434) D 04/07/20 10:14 MPV 7.9 fl (7.5-11.1) D 04/07/20 10:14 Absolute Neuts (auto) 3.3 K/mm3 (1.5-8.0) 04/07/20 10:14 Neutrophils % 46.3 % (42.8-82.8) 04/07/20 10:14 Neutrophils % (Manual) 53.0 % (42.8-82.8) 04/06/20 06:40 Band Neutrophils % 2.4 % 04/06/20 06:40 Lymphocytes % 42.2 % (8-40) H 04/07/20 10:14 Lymphocytes % (Manual) 33.8 % (8-40) D 04/06/20 06:40 Monocytes % 8.7 % (3.8-10.2) 04/07/20 10:14 Monocytes % (Manual) 8 % (3.8-10.2) D 04/06/20 06:40 Eosinophils % 2.4 % (0-4.5) 04/07/20 10:14 Eosinophils % (Manual) 2.4 % (0-4.5) 04/06/20 06:40 Basophils % 0.4 % (0-2.0) 04/07/20 10:14 Basophils % (Manual) 0.0 % (0-2.0) 04/06/20 06:40 Myelocytes % (Man) 0 % (0-2) 04/06/20 06:40 Promyelocytes % (Man) 0 % (0-2) 04/06/20 06:40 Blast Cells % (Manual) 0 % (0-0) 04/06/20 06:40 Nucleated RBC % 0 % (0-0) 04/07/20 10:14 Metamyelocytes 0 % (0-2) 04/06/20 06:40 Hypochromia 0 04/06/20 06:40 Platelet Estimate Normal 04/06/20 06:40 Polychromasia 1+ 04/06/20 06:40 Poikilocytosis 0 04/06/20 06:40 Anisocytosis 1+ 04/06/20 06:40 Microcytosis 0 04/04/20 06:18 Macrocytosis 1+ 04/06/20 06:40 Retic Count 0.88 % (0.5-1.5) D 04/02/20 06:34 PT with INR 28.40 SEC (9.7-13.0) H 04/02/20 06:34 INR 2.39 (0.83-1.09) H 04/02/20 06:34 PTT (Actin FS) 35.0 SECONDS (25.2-36.5) 03/31/20 18:00 Sodium 135 mmol/L (136-145) L 04/07/20 10:14 Potassium 3.3 mmol/L (3.5-5.1) L 04/07/20 10:14 Chloride 102 mmol/L (98-107) 04/07/20 10:14 Carbon Dioxide 24 mmol/L (21-32) 04/07/20 10:14 Anion Gap 9 MMOL/L (8-16) 04/07/20 10:14 BUN 33.5 mg/dL (7-18) H 04/07/20 10:14 Creatinine 5.5 mg/dL (0.55-1.3) H 04/07/20 10:14 Est GFR (CKD-EPI)AfAm 7.74 04/07/20 10:14 Est GFR (CKD-EPI)NonAf 6.67 04/07/20 10:14 POC Glucometer 201 UNITS (80-120) 04/07/20 11:31 Random Glucose 155 mg/dL (74-106) H 04/07/20 10:14 Hemoglobin A1c % 6.4 % (4.2-6.3) H 04/02/20 06:34 Lactic Acid 2.0 mmol/L (0.4-2.0) 04/01/20 06:19 Calcium 7.9 mg/dL (8.5-10.1) L 04/07/20 10:14 Phosphorus 2.2 mg/dL (2.5-4.9) L 04/06/20 06:40 Magnesium 2.1 mg/dL (1.8-2.4) 04/02/20 06:34 Iron 110 ug/dL (50-175) 04/06/20 06:40 TIBC 153 ug/dL (250-450) L 04/06/20 06:40 Iron Saturation 71 % (17.5-39) H 04/06/20 06:40 Unsaturated IBC 43 ug/dL (200-275) L 04/06/20 06:40 Ferritin 8431.6 ng/ml (8-388) H 04/04/20 06:18 Total Bilirubin 0.4 mg/dL (0.2-1) 04/07/20 10:14 AST 54 U/L (15-37) H 04/07/20 10:14 ALT 35 U/L (13-61) 04/07/20 10:14 Alkaline Phosphatase 54 U/L (45-117) 04/07/20 10:14 Creatine Kinase 40 U/L (26-192) 03/31/20 16:30 Troponin I 0.21 ng/ml (0.00-0.05) H 04/02/20 19:45 Total Protein 6.3 g/dl (6.4-8.2) L 04/07/20 10:14 Albumin 1.6 g/dl (3.4-5.0) L 04/07/20 10:14 Vitamin B12 1297 pg/ml (193-986) H 04/02/20 06:34 Serum Folate 99 ng/mL (3.1-17.5) H 04/02/20 06:34 TSH 0.56 uIU/ml (0.358-3.74) 04/01/20 06:19 Urine Color Yellow 04/03/20 06:30 Urine Appearance Clear 04/03/20 06:30 Urine pH 7.5 (5.0-8.0) D 04/03/20 06:30 Ur Specific [place] 1.025 (1.010-1.035) 04/03/20 06:30 Urine Protein 3+ (NEGATIVE) H 04/03/20 06:30 Urine Glucose (UA) Negative (NEGATIVE) 04/03/20 06:30 Urine Ketones Negative (NEGATIVE) 04/03/20 06:30 Urine Blood Trace (NEGATIVE) 04/03/20 06:30 Urine Nitrite Negative (NEGATIVE) 04/03/20 06:30 Urine Bilirubin Negative (NEGATIVE) 04/03/20 06:30 Urine Urobilinogen 0.2 mg/dL (0.2-1.0) 04/03/20 06:30 Ur Leukocyte Esterase Negative (NEGATIVE) 04/03/20 06:30 Urine WBC (Auto) 3 /uL (0-25.8) 04/03/20 06:30 Urine RBC (Auto) 8 /uL (0-23.9) 04/03/20 06:30 Urine Casts (Auto) 0 /uL (0-3.1) 04/03/20 06:30 U Epithel Cells (Auto) 8 /uL (0-25.1) 04/03/20 06:30 Urine Bacteria (Auto) 2 /uL (0-1359) 04/03/20 06:30 Fluid Source Ascitis 04/01/20 17:30 Fluid WBC 14 /mm3 04/01/20 17:30 Fluid RBC 550 /mm3 04/01/20 17:30 Fluid Neutrophils 6 % 04/01/20 17:30 Fluid Lymphocytes 52 % 04/01/20 17:30 Fluid Glucose 164 mg/dL (.) 04/01/20 17:30 Pleural Monocytes 5 % 04/01/20 17:30 Pleural Macrophages 33 % 04/01/20 17:30 Pleural Mesothelial 4 % 04/01/20 17:30 Stool Occult Blood Positive (NEGATIVE) 04/05/20 12:00 COVID-19 ([facility]) Not detected (Not Detected) 03/31/20 16:05 Blood Type O POSITIVE 04/05/20 15:30 Antibody Screen Negative 04/05/20 15:30 Crossmatch See Detail 04/05/20 15:30 Microbiology 04/02/20 18:00 Blood - Peripheral Venous Blood Culture - Preliminary NO GROWTH OBTAINED AFTER 96 HOURS, INCUBATION TO CONTINUE FOR 1 DAYS. 04/02/20 18:00 Blood - Peripheral Venous Blood Culture - Preliminary NO GROWTH OBTAINED AFTER 96 HOURS, INCUBATION TO CONTINUE FOR 1 DAYS. 03/31/20 13:50 Blood - Peripheral Venous Blood Culture - Final NO GROWTH AFTER 5 DAYS INCUBATION 03/31/20 14:00 Blood - Peripheral Venous Blood Culture - Final NO GROWTH AFTER 5 DAYS INCUBATION 04/01/20 17:30 Ascites Gram Stain - Final 04/01/20 17:30 Ascites Body Fluid Culture - Final NO GROWTH OF AEROBIC ORGANISMS AFTER 48 HOURS INCUBATION 04/01/20 17:30 Ascites Anaerobic Culture - Final NO ANAEROBES WERE ISOLATED 04/03/20 06:30 Urine - Urine - Catheterized Urine Culture - Final NO GROWTH OBTAINED 03/31/20 16:04 Urine - Urine Clean Catch Urine Culture - Final NO GROWTH OBTAINED Problem List - Problems (1) Anemia Code(s): D64.9 - ANEMIA, UNSPECIFIED (2) CKD (chronic kidney disease) Code(s): N18.9 - CHRONIC KIDNEY DISEASE, UNSPECIFIED (3) Diabetes Code(s): E11.9 - TYPE 2 DIABETES MELLITUS WITHOUT COMPLICATIONS Qualifiers: Diabetes mellitus type: type 2 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: without intermodal owner operator truck driver use Diabetes mellitus complication status: with kidney complications Chronic kidney disease stage: stage 3 (moderate) (4) Hypertension Code(s): I10 - ESSENTIAL (PRIMARY) HYPERTENSION Qualifiers: Hypertension type: essential hypertension Qualified Code(s): I10 - Essential (primary) hypertension (5) Multiple myeloma Code(s): C90.00 - MULTIPLE MYELOMA NOT HAVING ACHIEVED REMISSION Assessment/Plan LLL PNA ESRD on PD Multiple myeloma HTN LLE DVT DM HTN Pituitary microadenoma -- Pt is alert, fully responsive,fevers resolved, no respiratory distress -- Continue Meropenem, suggest d/c Flagyl -- Blood/Urine/Peritoneal fluid cultures negative -- vitals, stable continue monitor
--- NOTE | 2020-04-07 17:27 | CONSULT ---
Consult - text type - Consultation Consultation Note: 84 year old woman with ESRD on PD admitted with abdominal pain last week. Prior to admission she was diagnosed with left leg DVT and started in Eliquis. She has hem positive stools and has required transfusion. GI work up is ongoing but may require invasive procedures, biopsy and surgery. Placement of a retrievable IVC filter is a reasonable option given the potential need to stop anticoagulation at least temporarily during this evaluation and treatment. Hold Eliquis and start SQ Lovenox (renal failure dosing) Filter placement 04/09
[2020-04-07] MEDS: ROSUVASTATIN CA 10 MG TABLET (FP) PO SCH (22:31)
[2020-04-07] MEDS: ENOXAPARIN NA (PORCINE) 30 MG/0.3 ML DISP.SYRIN SQ SCH (22:31)
[2020-04-07] MEDS: LATANOPROST 0.005% OPHTH SOLN 2.5ML BOTTLE OS SCH (22:32)
[2020-04-08] MEDS: PERITONEAL DIALYSIS 1.5% SOLN 2,000 ML IP SCH ×4 (01:20→18:58)
[2020-04-08] MEDS: INSULIN SLIDING SCALE (NOVOLOG) 1 VIAL SQ SCH ×4 (06:00→21:08)
[2020-04-08 07:25] LABS: BASO % 0.2 % (0-2.0); EOS % 1.6 % (0-4.5); HEMATOCRIT 27.3 % (32.4-45.2); HEMOGLOBIN 9.2 GM/dL (10.7-15.3); LYMPH % 47.1 % (8-40); MCH 33.6 pg (25.7-33.7); MCHC 33.5 g/dl (32.0-36.0); MEAN PLT VOLUME 7.8 fl (7.5-11.1); MONO % 9.2 % (3.8-10.2); NEUT % 41.9 % (42.8-82.8); PLATELET COUNT 300 K/MM3 (134-434); RBC 2.73 M/mm3 (3.60-5.2); RDW 20.7 % (11.6-15.6); WHITE BLOOD COUNT 7.7 K/mm3 (4.0-10.0)
[2020-04-08 07:47] LABS: ALBUMIN 1.7 g/dl (3.4-5.0); BILIRUBIN,TOTAL 0.5 mg/dL (0.2-1); BLOOD UREA NITROGEN 31.1 mg/dL (7-18); CALCIUM 8.1 mg/dL (8.5-10.1); CREATININE 5.1 mg/dL (0.55-1.3); MAGNESIUM 1.8 mg/dL (1.8-2.4); PHOSPHOROUS 1.7 mg/dL (2.5-4.9); POTASSIUM 4.2 mmol/L (3.5-5.1); TOT PROT 6.6 g/dl (6.4-8.2)
[2020-04-08] MEDS: SEVELAMER CARBONATE 800 MG TAB (FP) PO SCH ×4 (08:45→17:05)
[2020-04-08 09:25] LABS: ANISOCYTOSIS 2+; MACROCYTOSIS 1+; PLATELET ESTIMATE NORMAL
[2020-04-08] MEDS: PANTOPRAZOLE 40 MG TABLET PO SCH (09:44)
[2020-04-08] MEDS: OMEGA-3 ACID ETHYL ESTERS (FATTY-ACIDS) 1 GM CAPSULE (FP) PO SCH ×2 (09:44→21:13)
[2020-04-08] MEDS: metoPROLOL SUCCINATE 25 MG TAB.SR.24H (FP) PO SCH (09:45)
[2020-04-08] MEDS: POTASSIUM CHLORIDE TABS 20 MEQ TABLET.ER (FP) PO SCH (09:45)
[2020-04-08] MEDS: ERYTHROMYCIN 0.5% OPHTHALMIC OINTMENT 3.5 GM TUBE OU SCH (09:45)
[2020-04-08] MEDS: FOLIC ACID 1 MG TABLET (FP) PO SCH (09:45)
[2020-04-08] MEDS: ALLOPURINOL 100 MG TABLET (FP) PO SCH (09:45)
[2020-04-08] MEDS: DOCUSATE SODIUM 100 MG CAPSULE (FP) PO SCH (09:45)
[2020-04-08] MEDS: TIMOLOL 0.5% OPHTHALMIC SOL 5 ML BOTTLE OS SCH (09:55)
[2020-04-08] MEDS: ENOXAPARIN NA (PORCINE) 30 MG/0.3 ML DISP.SYRIN SQ SCH ×3 (09:55→21:13)
[2020-04-08] MEDS: DORZOLAMIDE 2% HCL OPHTHALMIC SOLUTION 10 ML BOTTLE OS SCH (09:55)
[2020-04-08] MEDS ORDERED: MEROPENEM 500 MG VIAL (RESTRICTED TO ID) IVPB ONE ×2 (10:08→22:04)
[2020-04-08] MEDS: MEROPENEM 500 MG in DEXTROSE 5%-WATER 100 ML IVPB SCH ×2 (10:09→22:09)
[2020-04-08] MEDS ORDERED: DEXTROSE 5%-WATER 100 ML IVPB ONE ×2 (10:09→22:04)
--- NOTE | 2020-04-08 10:11 | SPA.PREOP ---
- PRE-OP NOTE Dx: LLE DVT. GI Bleed Planned Procedure: IVC Filter Placement Surgeon: Mark Rios Last Vital Signs Temp Pulse Resp BP Pulse Ox 97.8 F 66 18 160/74 100 04/08/20 08:48 04/08/20 08:48 04/08/20 08:48 04/08/20 08:48 04/08/20 08:48 Lab Results WBC 7.7 K/mm3 (4.0-10.0) 04/08/20 06:41 RBC 2.73 M/mm3 (3.60-5.2) L 04/08/20 06:41 Hgb 9.2 GM/dL (10.7-15.3) L 04/08/20 06:41 Hct 27.3 % (32.4-45.2) L 04/08/20 06:41 MCV 100.0 fl (80-96) H 04/08/20 06:41 MCHC 33.5 g/dl (32.0-36.0) 04/08/20 06:41 RDW 20.7 % (11.6-15.6) H 04/08/20 06:41 Plt Count 300 K/MM3 (134-434) 04/08/20 06:41 INR 2.39 (0.83-1.09) H 04/02/20 06:34 Sodium 138 mmol/L (136-145) 04/08/20 06:41 Potassium 4.2 mmol/L (3.5-5.1) 04/08/20 06:41 Chloride 104 mmol/L (98-107) 04/08/20 06:41 Carbon Dioxide 28 mmol/L (21-32) 04/08/20 06:41 Anion Gap 6 MMOL/L (8-16) L 04/08/20 06:41 BUN 31.1 mg/dL (7-18) H 04/08/20 06:41 Creatinine 5.1 mg/dL (0.55-1.3) H 04/08/20 06:41 Random Glucose 117 mg/dL (74-106) H 04/08/20 06:41 Calcium 8.1 mg/dL (8.5-10.1) L 04/08/20 06:41 Blood Type O POSITIVE 04/05/20 15:30 Antibody Screen Negative 04/05/20 15:30 Serology Test 03/31/20 16:05 COVID-19 ([facility]) Not detected - ASSESSMENT/PLAN 1. Make NPO after midnight except po meds 2. GI/DVT PPX 3. Medical optimization / clearance 4. Consent to be obtained by surgeon after risks, benefits and alternatives discussed with patient and or Health Care Proxy. Problem List - Problems (1) Left leg DVT Code(s): I82.402 - ACUTE EMBOLISM AND THOMBOS UNSP DEEP VEINS OF L LOW EXTREM (2) Anemia Code(s): D64.9 - ANEMIA, UNSPECIFIED (3) CKD (chronic kidney disease) Code(s): N18.9 - CHRONIC KIDNEY DISEASE, UNSPECIFIED (4) Diabetes Code(s): E11.9 - TYPE 2 DIABETES MELLITUS WITHOUT COMPLICATIONS Qualifiers: Diabetes mellitus type: type 2 Diabetes mellitus penitentiary insulin use: without penitentiary use Diabetes mellitus complication status: with kidney complications Chronic kidney disease stage: stage 3 (moderate) Visit type - Case Type Case Type: ED Admission - Emergency Emergency Visit: Yes ED Registration Date: 03/31/20 Care time: The patient presented to the Emergency Department on the above date and was hospitalized for further evaluation of their emergent condition. - New patient This patient is new to me today: Yes Date on this admission: 04/08/20
--- NOTE | 2020-04-08 11:57 | PN ---
Progress Note, Physician History of Present Illness: stable afebrile procedure being planned - Current Medication List Current Medications: Active Medications Acetaminophen (Tylenol -) 650 mg PO Q4H PRN PRN Reason: FEVER Last Admin: 04/06/20 01:40 Dose: 650 mg Documented by: Allopurinol (Zyloprim -) 100 mg PO DAILY [facility] Last Admin: 04/08/20 09:45 Dose: 100 mg Documented by: Apixaban (Eliquis -) 5 mg PO BID [facility] Last Admin: 04/07/20 09:59 Dose: 5 mg Documented by: Artificial Tears (Artificial Tears) 1 drop OU TID PRN PRN Reason: DRY EYES Docusate Sodium (Colace -) 100 mg PO DAILY [facility] Last Admin: 04/08/20 09:45 Dose: 100 mg Documented by: Dorzolamide HCl (Trusopt 2%) 1 drop OS DAILY [facility] Last Admin: 04/08/20 09:55 Dose: 1 drop Documented by: Enoxaparin Sodium (Lovenox -) 30 mg SQ BID [facility] Last Admin: 04/08/20 10:09 Dose: 30 mg Documented by: Erythromycin (Erythromycin 0.5% Eye Ointment) 1 applic OU DAILY [facility] Last Admin: 04/08/20 09:45 Dose: 1 applic Documented by: Folic Acid (Folic Acid -) 1 mg PO DAILY [facility] Last Admin: 04/08/20 09:45 Dose: 1 mg Documented by: Peritoneal Dialysis Solution (Dianeal 1.5%) 2,000 mls @ 4,000 mls/hr IP Q6H [facility]; Protocol Last Admin: 04/08/20 07:15 Dose: 4,000 mls/hr Documented by: Meropenem 500 mg/ Dextrose 100 mls @ 200 mls/hr IVPB Q12H [facility] Last Admin: 04/08/20 10:09 Dose: 200 mls/hr Documented by: Insulin Aspart (Novolog Vial Sliding Scale -) 0 vial SQ ACHS [facility]; Protocol Last Admin: 04/08/20 06:00 Dose: Not Given Documented by: Latanoprost (Xalatan 0.005% Eye Drops -) 1 drop OS HS [facility] Last Admin: 04/07/20 22:32 Dose: 1 drop Documented by: Metoprolol Succinate (Toprol Xl -) 25 mg PO DAILY [facility] Last Admin: 04/08/20 09:45 Dose: 25 mg Documented by: [id number] Ethyl Esters (Lovaza -) 2 gm PO BID [facility] Last Admin: 04/08/20 09:44 Dose: 2 gm Documented by: Ondansetron HCl (Zofran Injection) 4 mg IVPUSH Q6H PRN PRN Reason: NAUSEA Pantoprazole Sodium (Protonix -) 40 mg PO DAILY [facility] Last Admin: 04/08/20 09:44 Dose: 40 mg Documented by: Potassium Chloride (K-Dur -) 20 meq PO DAILY [facility] Last Admin: 04/08/20 09:45 Dose: 20 meq Documented by: Rosuvastatin Calcium (Crestor -) 10 mg PO HS [facility] Last Admin: 04/07/20 22:31 Dose: 10 mg Documented by: Sevelamer Carbonate (Renvela -) 800 mg PO TIDCM [facility] Last Admin: 04/08/20 10:10 Dose: 800 mg Documented by: Timolol Maleate (Timoptic 0.5%) 1 drop OS DAILY [facility] Last Admin: 04/08/20 09:55 Dose: 1 drop Documented by: - Objective Vital Signs: Vital Signs Temperature 97.8 F 04/08/20 08:48 Pulse Rate 66 04/08/20 08:48 Respiratory Rate 18 04/08/20 08:48 Blood Pressure 160/74 04/08/20 08:48 O2 Sat by Pulse Oximetry (%) 100 04/08/20 08:48 Constitutional: Yes: No Distress, Calm Cardiovascular: Yes: S1, S2 Respiratory: Yes: Regular, CTA Bilaterally Gastrointestinal: Yes: Normal Bowel Sounds, Soft Musculoskeletal: Yes: WNL Extremities: Yes: WNL Neurological: Yes: Alert Psychiatric: Yes: Alert Labs: CBC, BMP 04/08/20 06:41 04/08/20 06:41 INR, PTT INR 2.39 (0.83-1.09) H 04/02/20 06:34 Assessment/Plan Problem List - Problems (1) Anemia Code(s): D64.9 - ANEMIA, UNSPECIFIED (2) CKD (chronic kidney disease) Code(s): N18.9 - CHRONIC KIDNEY DISEASE, UNSPECIFIED (3) Diabetes Code(s): E11.9 - TYPE 2 DIABETES MELLITUS WITHOUT COMPLICATIONS Qualifiers: Diabetes mellitus type: type 2 Diabetes mellitus snf insulin 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 Diabetes mellitus complication status: with kidney complications Chronic kidney disease stage: stage 3 (moderate) (4) Hypertension Code(s): I10 - ESSENTIAL (PRIMARY) HYPERTENSION Qualifiers: Hypertension type: essential hypertension Qualified Code(s): I10 - Essential (primary) hypertension (5) Multiple myeloma Code(s): C90.00 - MULTIPLE MYELOMA NOT HAVING ACHIEVED REMISSION Assessment/Plan LLL PNA ESRD on PD Multiple myeloma HTN LLE DVT DM HTN Pituitary microadenoma -- Pt is alert, fully responsive,fevers resolved, no respiratory distress --continue faustino once [id number] done and patient remains stable will deescalte for ivc filter
--- NOTE | 2020-04-08 13:04 | PN ---
Physical Exam: SUBJECTIVE: Patient seen and examined thsi morning, conversational. Aware of procedure to have tomorrow and reason. Per nursing, ptn is having frequent, non-loose, bowel movements which are causing excoriations. OBJECTIVE: Vital Signs Period Temp Pulse Resp BP Sys/Gustafson Pulse Ox Last 24 Hr 97.2 F-98.2 F 64-67 16-20 137-160/67-78 100-100 GENERAL: Awake, alert, less conversational, requires orientation, has baseline AMS HEAD: Normal with no signs of trauma. EYES: Arcus Senalis in both eyes bilaterally. THROAT: Oropharynx clear without exudates. Moist mucous membranes. NECK: JVD present. Normal range of motion, supple without lymphadenopathy. LUNGS: Breath sounds equal, clear to auscultation bilaterally. No wheezes, and no crackles. No accessory muscle use. HEART: Regular rate and rhythm, normal S1 and S2 without murmur, rub or gallop. ABDOMEN: Distended. Soft, nontender, normoactive bowel sounds MUSCULOSKELETAL: Not assessed UPPER EXTREMITIES: 2+ pulses, warm, well-perfused. No cyanosis. No clubbing. No peripheral edema. LOWER EXTREMITIES: 2+ pulses, warm, well-perfused. No peripheral edema. NEUROLOGICAL: Normal speech with altered mental status. Gait not tested. PSYCHIATRIC: Cooperative. Good eye contact. SKIN: Warm, dry, decreased turgor. Laboratory Results - last 24 hr CBC, BMP 04/08/20 06:41 04/08/20 06:41 Active Medications Generic Name Dose Route Start Last Admin Trade Name Freq PRN Reason Stop Dose Admin Acetaminophen 650 mg 03/31/20 16:55 04/06/20 01:40 Tylenol - PO 650 mg Q4H PRN Administration FEVER Allopurinol 100 mg 04/01/20 10:00 04/08/20 09:45 Zyloprim - PO 100 mg DAILY [facility] Administration Apixaban 5 mg 04/03/20 10:00 04/07/20 09:59 Eliquis - PO 5 mg BID [facility] Administration Artificial Tears 1 drop 04/03/20 12:41 Artificial Tears OU TID PRN DRY EYES Docusate Sodium 100 mg 04/01/20 10:00 04/08/20 09:45 Colace - PO 100 mg DAILY [facility] Administration Dorzolamide HCl 1 drop 04/01/20 10:00 04/08/20 09:55 Trusopt 2% OS 1 drop DAILY [facility] Administration Enoxaparin Sodium 30 mg 04/07/20 22:00 04/08/20 10:09 Lovenox - SQ 30 mg BID [facility] Administration Erythromycin 1 applic 03/31/20 17:30 04/08/20 09:45 Erythromycin 0.5% Eye Ointment OU 1 applic DAILY [facility] Administration Folic Acid 1 mg 04/01/20 10:00 04/08/20 09:45 Folic Acid - PO 1 mg DAILY [facility] Administration Peritoneal Dialysis Solution 2,000 mls @ 4,000 mls/hr 04/01/20 13:30 04/08/20 07:15 Dianeal 1.5% IP 4,000 mls/hr Q6H [facility] Administration Protocol Meropenem 500 mg/ Dextrose 100 mls @ 200 mls/hr 04/03/20 10:45 04/08/20 10:09 IVPB 200 mls/hr Q12H [facility] Administration Insulin Aspart 0 vial 03/31/20 22:00 04/08/20 11:57 Novolog Vial Sliding Scale - SQ Not Given ACHS [facility] Protocol Latanoprost 1 drop 03/31/20 22:00 04/07/20 22:32 Xalatan 0.005% Eye Drops - OS 1 drop HS [facility] Administration Metoprolol Succinate 25 mg 04/01/20 10:00 04/08/20 09:45 Toprol Xl - PO 25 mg DAILY [facility] Administration [id number] Ethyl Esters 2 gm 04/02/20 10:00 04/08/20 09:44 Lovaza - PO 2 gm BID [facility] Administration Ondansetron HCl 4 mg 03/31/20 17:00 Zofran Injection IVPUSH Q6H PRN NAUSEA Pantoprazole Sodium 40 mg 04/01/20 10:00 04/08/20 09:44 Protonix - PO 40 mg DAILY [facility] Administration Potassium Chloride 20 meq 04/01/20 12:00 04/08/20 09:45 K-Dur - PO 20 meq DAILY [facility] Administration Rosuvastatin Calcium 10 mg 03/31/20 22:00 04/07/20 22:31 Crestor - PO 10 mg HS [facility] Administration Sevelamer Carbonate 800 mg 04/01/20 08:00 04/08/20 11:55 Renvela - PO 800 mg TIDCM [facility] Administration Timolol Maleate 1 drop 04/01/20 10:00 04/08/20 09:55 Timoptic 0.5% OS 1 drop DAILY [facility] Administration ASSESSMENT/PLAN: 84yo F who is a poor historian with PMHx of DM, HTN, HLD, Gout, CKD on PD done n ightly as per her cousin (baseline Cr about 9), anemia, multiple myeloma, pituitary macroadenoma, arcus senalis, independent in ADLs presented to the ED by 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 Acute on Chronic Anemia -Likely 2/2 Chronic Renal Disease -Hgb 8.2 --> 7.1 --> 1 Unit PRBC Ordered (04/05) --> Hgb (9.2) -FOBT+ -Eliquis Stopped -Lovenox 30 started -Per Vascular: IVC Filter placement for 04/09 Chronic CKD on PD: - Per Nephrology: PD q6hrs Fever of Unknown Origin: Resolved - Possible 2/2 UTI vs Peritonitis: - Blood/Urine/Ascitic Cultures Negative (FINAL) - Per ID: Continue Meropenem, Deescalate after IVC Filter and ptn remains stable. - Tylenol PRN for fever Hx of LLE DVT: - US on 03/27 demonstrated extensive DVT in LLE . - Treated by Dr. Melgar - Per Vascular ([facility]): IVC filter to be placed (04/09) 2/2 recurrent b leeding on eliquis PPx -DVT Treatment: Lovenox 30 -GI PPx: Pantoprazole FEN Fluids: No standing fluids Electrolytes: Monitor BMP Nutrition: Diabetic Diet w/ NPO after midnight prior to surgery Dispo: Continue medical management. Visit type - Emergency Visit Emergency Visit: No - New Patient This patient is new to me today: No - Critical Care Critical Care patient: No - Discharge Referral Referred to [facility] No - Medication Review Med list reviewed for High Risk Meds patients 65 and older: Yes ATTENDING PHYSICIAN STATEMENT I saw and evaluated the patient. I reviewed the resident's note and discussed the case with the resident. I agree with the resident's findings and plan as documented. SUBJECTIVE: OBJECTIVE: ASSESSMENT AND PLAN:
[2020-04-08] MEDS ORDERED: ZINC OXIDE 20% TOPICAL OINTMENT 30 GM TUBE TP PRN (15:20)
--- NOTE | 2020-04-08 16:01 | PN ---
Teaching Attending Note Name of Resident: Christiano Lindquist ATTENDING PHYSICIAN STATEMENT I saw and evaluated the patient. I reviewed the resident's note and discussed the case with the resident. I agree with the resident's findings and plan as documented. SUBJECTIVE: Patient is alert, awake with NAD. oriented x3 OBJECTIVE: Vital Signs Temperature 97.0 F L 04/08/20 14:00 Pulse Rate 55 L 04/08/20 14:00 Respiratory Rate 20 04/08/20 14:00 Blood Pressure 139/75 04/08/20 14:00 O2 Sat by Pulse Oximetry (%) 100 04/08/20 14:00 PE: per resident's note CBCD WBC 7.7 K/mm3 (4.0-10.0) 04/08/20 06:41 RBC 2.73 M/mm3 (3.60-5.2) L 04/08/20 06:41 Hgb 9.2 GM/dL (10.7-15.3) L 04/08/20 06:41 Hct 27.3 % (32.4-45.2) L 04/08/20 06:41 MCV 100.0 fl (80-96) H 04/08/20 06:41 MCHC 33.5 g/dl (32.0-36.0) 04/08/20 06:41 RDW 20.7 % (11.6-15.6) H 04/08/20 06:41 Plt Count 300 K/MM3 (134-434) 04/08/20 06:41 MPV 7.8 fl (7.5-11.1) 04/08/20 06:41 CMP Sodium 138 mmol/L (136-145) 04/08/20 06:41 Potassium 4.2 mmol/L (3.5-5.1) 04/08/20 06:41 Chloride 104 mmol/L (98-107) 04/08/20 06:41 Carbon Dioxide 28 mmol/L (21-32) 04/08/20 06:41 Anion Gap 6 MMOL/L (8-16) L 04/08/20 06:41 BUN 31.1 mg/dL (7-18) H 04/08/20 06:41 Creatinine 5.1 mg/dL (0.55-1.3) H 04/08/20 06:41 Random Glucose 117 mg/dL (74-106) H 04/08/20 06:41 Calcium 8.1 mg/dL (8.5-10.1) L 04/08/20 06:41 Total Bilirubin 0.5 mg/dL (0.2-1) 04/08/20 06:41 AST 56 U/L (15-37) H 04/08/20 06:41 ALT 37 U/L (13-61) 04/08/20 06:41 Alkaline Phosphatase 58 U/L (45-117) 04/08/20 06:41 Total Protein 6.6 g/dl (6.4-8.2) 04/08/20 06:41 Albumin 1.7 g/dl (3.4-5.0) L 04/08/20 06:41 CARDIAC ENZYMES Creatine Kinase 40 U/L (26-192) 03/31/20 16:30 Troponin I 0.21 ng/ml (0.00-0.05) H 04/02/20 19:45 Current Medications Generic Name Dose Route Start Last Admin Trade Name Kojoq PRN Reason Stop Dose Admin Acetaminophen 650 mg 03/31/20 16:55 04/06/20 01:40 Tylenol - PO 650 mg Q4H PRN Administration FEVER Allopurinol 100 mg 04/01/20 10:00 04/08/20 09:45 Zyloprim - PO 100 mg DAILY YASMEEN Administration Apixaban 5 mg 04/03/20 10:00 04/07/20 09:59 Eliquis - PO 5 mg BID YASMEEN Administration Artificial Tears 1 drop 04/03/20 12:41 Artificial Tears OU TID PRN DRY EYES Docusate Sodium 100 mg 04/01/20 10:00 04/08/20 09:45 Colace - PO 100 mg DAILY YASMEEN Administration Dorzolamide HCl 1 drop 04/01/20 10:00 04/08/20 09:55 Trusopt 2% OS 1 drop DAILY YASMEEN Administration Enoxaparin Sodium 30 mg 04/07/20 22:00 04/08/20 10:09 Lovenox - SQ 30 mg BID YASMEEN Administration Erythromycin 1 applic 03/31/20 17:30 04/08/20 09:45 Erythromycin 0.5% Eye Ointment OU 1 applic DAILY YASMEEN Administration Folic Acid 1 mg 04/01/20 10:00 08/31/20 09:45 Folic Acid - PO 1 mg DAILY YASMEEN Administration Peritoneal Dialysis Solution 2,000 mls @ 4,000 mls/hr 04/01/20 13:30 04/08/20 13:48 Dianeal 1.5% IP 4,000 mls/hr Q6H YASMEEN Administration Protocol Meropenem 500 mg/ Dextrose 100 mls @ 200 mls/hr 04/03/20 10:45 04/08/20 10:09 IVPB 200 mls/hr Q12H YASMEEN Administration Insulin Aspart 0 vial 03/31/20 22:00 04/08/20 11:57 Novolog Vial Sliding Scale - SQ Not Given ACHS YASMEEN Protocol Latanoprost 1 drop 03/31/20 22:00 04/07/20 22:32 Xalatan 0.005% Eye Drops - OS 1 drop HS YASMEEN Administration Metoprolol Succinate 25 mg 04/01/20 10:00 04/08/20 09:45 Toprol Xl - PO 25 mg DAILY YASMEEN Administration Multi-Ingredient Ointment 1 applic 04/08/20 15:20 Zinc Oxide TP Q12H PRN WOUND CARE Lutyz-6-Yxcr Ethyl Esters 2 gm 04/02/20 10:00 04/08/20 09:44 Lovaza - PO 2 gm BID YASMEEN Administration Ondansetron HCl 4 mg 03/31/20 17:00 Zofran Injection IVPUSH Q6H PRN NAUSEA Pantoprazole Sodium 40 mg 04/01/20 10:00 04/08/20 09:44 Protonix - PO 40 mg DAILY YASMEEN Administration Potassium Chloride 20 meq 04/01/20 12:00 04/08/20 09:45 K-Dur - PO 20 meq DAILY YASMEEN Administration Rosuvastatin Calcium 10 mg 03/31/20 22:00 04/07/20 22:31 Crestor - PO 10 mg HS YASMEEN Administration Sevelamer Carbonate 800 mg 04/01/20 08:00 04/08/20 11:55 Renvela - PO 800 mg TIDCM YASMEEN Administration Timolol Maleate 1 drop 04/01/20 10:00 04/08/20 09:55 Timoptic 0.5% OS 1 drop DAILY YASMEEN Administration Home Medications Medication Instructions Recorded Allopurinol [Zyloprim -] 100 mg PO DAILY 01/20/14 Rosuvastatin Calcium [Crestor] 20 mg PO HS 06/14/14 Bimatoprost [Lumigan] 1 drop IO DAILY 05/13/17 Dorzolamide HCl/Timolol Maleat 10 ml OP DAILY 05/13/17 [Cosopt Eye Drops] Ascorbic Acid [Vitamin C with Giuliana 500 mg PO DAILY 08/16/19 Hips] Folic Acid 1 mg PO DAILY 08/16/19 Furosemide 80 mg PO HS 08/16/19 Icosapent Ethyl [Vascepa] 2 gm PO BID 08/16/19 Metoprolol Succinate [Toprol Xl] 25 mg PO DAILY 08/16/19 Nateglinide [Starlix (Nf) -] 60 mg PO BID 08/16/19 Apixaban [Eliquis] 5 mg PO BID 03/31/20 Docusate Sodium [Stool Softener] 100 mg PO DAILY 03/31/20 Pantoprazole Sodium 40 mg PO DAILY 03/31/20 Sevelamer Carbonate [Renvela] 800 mg PO TID 03/31/20 Microbiology 04/02/20 18:00 Blood - Peripheral Venous Blood Culture - Final NO GROWTH AFTER 5 DAYS INCUBATION 04/02/20 18:00 Blood - Peripheral Venous Blood Culture - Final NO GROWTH AFTER 5 DAYS INCUBATION 03/31/20 13:50 Blood - Peripheral Venous Blood Culture - Final NO GROWTH AFTER 5 DAYS INCUBATION 03/31/20 14:00 Blood - Peripheral Venous Blood Culture - Final NO GROWTH AFTER 5 DAYS INCUBATION 04/01/20 17:30 Ascites Gram Stain - Final 04/01/20 17:30 Ascites Body Fluid Culture - Final NO GROWTH OF AEROBIC ORGANISMS AFTER 48 HOURS INCUBATION 04/01/20 17:30 Ascites Anaerobic Culture - Final NO ANAEROBES WERE ISOLATED 04/03/20 06:30 Urine - Urine - Catheterized Urine Culture - Final NO GROWTH OBTAINED 03/31/20 16:04 Urine - Urine Clean Catch Urine Culture - Final NO GROWTH OBTAINED Chest CT; Left lower lobe Pneumonia. small associated left pleural effusion CT abdomen and pelvis: gallstones, stable 4cm right renal cyst, myomatous uterus in the pelvis, fibroids suspected. ASSESSMENT AND PLAN: This patient is an 84yof with Pmhx of T2DM, HTN, HLD, Gout, CKD on PD, anemia,multiple myeloma, pituitary macroadenoma who has 24 hour aids and lives a lone, who presented with fever and abd pain , having Rigors # Extensive DVT of LLE: on US on 03/27 showed extensive DVT in LLE on Eliquis 5mg bid , patient is a high risk bleed, will go for IVC filter placement in am as per DR Johns. on Lovenox now renally dosed per vascular 30mg sq bid #LLL Pneumonia: on Meropenem s/p IV flagyl , ID on the case, patient has no fever , feeling better #Anemia:of chronic disease , also positive hemoccult positive , discussed with Dr Galdamez , suggests that the patient should get IVC filter since she is high risk patient for Re-Bleed . s/p epo and PRBC . #Rigors/ Fever: resolved # ESRD on PD: dr Means on the case , continue PD dialysis # H/o HTN: cont BB # Hx fo DM : cont SSI #Hx of Glaucoma On Xalatan continue DVT Px: on lovenox now 30mg bid renally dosed, once IVCF in place, can dc l ovenox as per GI ; patient is a high risk for rebleed. no ac is recommended as per GI point of view possible dc if stable in am check with ID the antibx for dc
--- NOTE | 2020-04-08 18:11 | PN ---
Progress Note, Physician Chief Complaint: Fever History of Present Illness: Seen and examined at the bedside awake and alert offers no acute complaints denies any sob, cp, fever, chills, N/V/D Denies any abdominal pain - Current Medication List Current Medications: Active Medications Acetaminophen (Tylenol -) 650 mg PO Q4H PRN PRN Reason: FEVER Last Admin: 04/06/20 01:40 Dose: 650 mg Documented by: Allopurinol (Zyloprim -) 100 mg PO DAILY [facility] Last Admin: 04/08/20 09:45 Dose: 100 mg Documented by: Apixaban (Eliquis -) 5 mg PO BID [facility] Last Admin: 04/07/20 09:59 Dose: 5 mg Documented by: Artificial Tears (Artificial Tears) 1 drop OU TID PRN PRN Reason: DRY EYES Docusate Sodium (Colace -) 100 mg PO DAILY [facility] Last Admin: 04/08/20 09:45 Dose: 100 mg Documented by: Dorzolamide HCl (Trusopt 2%) 1 drop OS DAILY [facility] Last Admin: 04/08/20 09:55 Dose: 1 drop Documented by: Enoxaparin Sodium (Lovenox -) 30 mg SQ BID [facility] Last Admin: 04/08/20 10:09 Dose: 30 mg Documented by: Erythromycin (Erythromycin 0.5% Eye Ointment) 1 applic OU DAILY [facility] Last Admin: 04/08/20 09:45 Dose: 1 applic Documented by: Folic Acid (Folic Acid -) 1 mg PO DAILY [facility] Last Admin: 04/08/20 09:45 Dose: 1 mg Documented by: Peritoneal Dialysis Solution (Dianeal 1.5%) 2,000 mls @ 4,000 mls/hr IP Q6H [facility]; Protocol Last Admin: 04/08/20 13:48 Dose: 4,000 mls/hr Documented by: Meropenem 500 mg/ Dextrose 100 mls @ 200 mls/hr IVPB Q12H [facility] Last Admin: 04/08/20 10:09 Dose: 200 mls/hr Documented by: Insulin Aspart (Novolog Vial Sliding Scale -) 0 vial SQ ACHS [facility]; Protocol Last Admin: 04/08/20 17:14 Dose: 2 unit Documented by: Latanoprost (Xalatan 0.005% Eye Drops -) 1 drop OS HS [facility] Last Admin: 04/07/20 22:32 Dose: 1 drop Documented by: Metoprolol Succinate (Toprol Xl -) 25 mg PO DAILY [facility] Last Admin: 04/08/20 09:45 Dose: 25 mg Documented by: Multi-Ingredient Ointment (Zinc Oxide) 1 applic TP Q12H PRN PRN Reason: WOUND CARE Dzdjy-4-Sgyu Ethyl Esters (Lovaza -) 2 gm PO BID [facility] Last Admin: 04/08/20 09:44 Dose: 2 gm Documented by: Ondansetron HCl (Zofran Injection) 4 mg IVPUSH Q6H PRN PRN Reason: NAUSEA Pantoprazole Sodium (Protonix -) 40 mg PO DAILY [facility] Last Admin: 04/08/20 09:44 Dose: 40 mg Documented by: Potassium Chloride (K-Dur -) 20 meq PO DAILY [facility] Last Admin: 04/08/20 09:45 Dose: 20 meq Documented by: Rosuvastatin Calcium (Crestor -) 10 mg PO HS [facility] Last Admin: 04/07/20 22:31 Dose: 10 mg Documented by: Sevelamer Carbonate (Renvela -) 800 mg PO TIDCM [facility] Last Admin: 04/08/20 17:05 Dose: 800 mg Documented by: Timolol Maleate (Timoptic 0.5%) 1 drop OS DAILY [facility] Last Admin: 04/08/20 09:55 Dose: 1 drop Documented by: - Objective Vital Signs: Vital Signs Temperature 97.0 F L 04/08/20 14:00 Pulse Rate 55 L 04/08/20 14:00 Respiratory Rate 20 04/08/20 14:00 Blood Pressure 139/75 04/08/20 14:00 O2 Sat by Pulse Oximetry (%) 100 04/08/20 14:00 Constitutional: Yes: No Distress Eyes: Yes: Conjunctiva Clear HENT: Yes: Atraumatic Neck: Yes: Supple Cardiovascular: Yes: Regular Rate and Rhythm Respiratory: Yes: Regular Gastrointestinal: Yes: Soft Extremities: No: Cyanosis Edema: No Neurological: Yes: Alert Labs: CBC, BMP 04/08/20 06:41 04/08/20 06:41 INR, PTT INR 2.39 (0.83-1.09) H 04/02/20 06:34 Assessment/Plan 84-year-old -[place] woman with a past medical history of end-stage kidney disease on peritoneal dialysis, hypertension, hyperlipidemia, gout, recent diagnosis of deep venous thrombosis who presented from home with complaints of generalized malaise and low-grade fever with mild abdominal discomfort. 1. Fever 2. End-stage kidney disease on peritoneal dialysis. 3. Recently diagnosed DVT. 4. Hypertension 5. Hyperlipidemia Continue PD exchanges every 6 hours No evidence of peritonitis CT of the chest was suggestive of pneumonia Continue antibiotics as per ID Continue Eliquis for management of DVT. Check stool for occult blood and iron studies for anemia. To get IVC filter placed Trend electrolytes daily well and patient. Thank you will follow. Nacho Means DO
[2020-04-08] MEDS: ROSUVASTATIN CA 10 MG TABLET (FP) PO SCH (21:13)
[2020-04-08] MEDS: LATANOPROST 0.005% OPHTH SOLN 2.5ML BOTTLE OS SCH (21:14)
[2020-04-09] MEDS: PERITONEAL DIALYSIS 1.5% SOLN 2,000 ML IP SCH ×5 (01:00→18:31)
[2020-04-09] MEDS: INSULIN SLIDING SCALE (NOVOLOG) 1 VIAL SQ SCH ×4 (06:26→21:51)
[2020-04-09 07:26] LABS: BASO % 0.2 % (0-2.0); EOS % 1.7 % (0-4.5); HEMATOCRIT 27.4 % (32.4-45.2); HEMOGLOBIN 9.4 GM/dL (10.7-15.3); LYMPH % 47.5 % (8-40); MCH 34.7 pg (25.7-33.7); MCHC 34.4 g/dl (32.0-36.0); MEAN CELL VOLUME 100.7 fl (80-96); MONO % 8.7 % (3.8-10.2); NEUT % 41.9 % (42.8-82.8); PLATELET COUNT 311 K/MM3 (134-434); RBC 2.72 M/mm3 (3.60-5.2); RDW 20.3 % (11.6-15.6); WHITE BLOOD COUNT 6.5 K/mm3 (4.0-10.0)
[2020-04-09 07:47] LABS: BLOOD UREA NITROGEN 26.3 mg/dL (7-18); CREATININE 4.6 mg/dL (0.55-1.3)
[2020-04-09] MEDS: SEVELAMER CARBONATE 800 MG TAB (FP) PO SCH ×3 (08:48→16:55)
[2020-04-09] MEDS ORDERED: PT OWN MED DRAWER 7, Y5N ONE (09:12)
[2020-04-09] MEDS: ALLOPURINOL 100 MG TABLET (FP) PO SCH (09:39)
[2020-04-09] MEDS: metoPROLOL SUCCINATE 25 MG TAB.SR.24H (FP) PO SCH (09:39)
[2020-04-09] MEDS: DOCUSATE SODIUM 100 MG CAPSULE (FP) PO SCH (09:39)
[2020-04-09] MEDS: OMEGA-3 ACID ETHYL ESTERS (FATTY-ACIDS) 1 GM CAPSULE (FP) PO SCH ×2 (09:39→21:35)
[2020-04-09] MEDS: PANTOPRAZOLE 40 MG TABLET PO SCH (09:39)
[2020-04-09] MEDS: POTASSIUM CHLORIDE TABS 20 MEQ TABLET.ER (FP) PO SCH (09:39)
[2020-04-09] MEDS: ENOXAPARIN NA (PORCINE) 30 MG/0.3 ML DISP.SYRIN SQ SCH (09:40)
[2020-04-09] MEDS: ERYTHROMYCIN 0.5% OPHTHALMIC OINTMENT 3.5 GM TUBE OU SCH (09:40)
[2020-04-09] MEDS: FOLIC ACID 1 MG TABLET (FP) PO SCH (09:40)
[2020-04-09] MEDS: TIMOLOL 0.5% OPHTHALMIC SOL 5 ML BOTTLE OS SCH (09:53)
[2020-04-09] MEDS ORDERED: DEXTROSE 5%-WATER 100 ML IVPB ONE ×2 (10:51→21:46)
[2020-04-09] MEDS ORDERED: MEROPENEM 500 MG VIAL (RESTRICTED TO ID) IVPB ONE ×2 (10:51→21:46)
[2020-04-09 10:57] LABS: ANISOCYTOSIS 2+; MACROCYTOSIS 1+; PLATELET ESTIMATE NORMAL
--- NOTE | 2020-04-09 11:00 | PN ---
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
[2020-04-09] MEDS: DORZOLAMIDE 2% HCL OPHTHALMIC SOLUTION 10 ML BOTTLE OS SCH (11:53)
[2020-04-09] MEDS: MEROPENEM 500 MG in DEXTROSE 5%-WATER 100 ML IVPB SCH ×2 (11:53→21:54)
[2020-04-09] MEDS ORDERED: metoPROLOL SUCCINATE 25 MG TAB.SR.24H (FP) PO SCH ×2 (13:12→13:15)
--- NOTE | 2020-04-09 13:12 | PN ---
Progress Note, Physician History of Present Illness: Pt seen and examined at bedside. She is tolerating PD. - Current Medication List Current Medications: Active Medications Acetaminophen (Tylenol -) 650 mg PO Q4H PRN PRN Reason: FEVER Last Admin: 04/06/20 01:40 Dose: 650 mg Documented by: Allopurinol (Zyloprim -) 100 mg PO DAILY [facility] Last Admin: 04/09/20 09:39 Dose: 100 mg Documented by: Apixaban (Eliquis -) 5 mg PO BID [facility] Last Admin: 04/07/20 09:59 Dose: 5 mg Documented by: Artificial Tears (Artificial Tears) 1 drop OU TID PRN PRN Reason: DRY EYES Docusate Sodium (Colace -) 100 mg PO DAILY [facility] Last Admin: 04/09/20 09:39 Dose: 100 mg Documented by: Dorzolamide HCl (Trusopt 2%) 1 drop OS DAILY [facility] Last Admin: 04/09/20 11:53 Dose: 1 drop Documented by: Enoxaparin Sodium (Lovenox -) 30 mg SQ BID [facility] Last Admin: 04/09/20 09:40 Dose: 30 mg Documented by: Erythromycin (Erythromycin 0.5% Eye Ointment) 1 applic OU DAILY [facility] Last Admin: 04/09/20 09:40 Dose: 1 applic Documented by: Folic Acid (Folic Acid -) 1 mg PO DAILY [facility] Last Admin: 04/09/20 09:40 Dose: 1 mg Documented by: Peritoneal Dialysis Solution (Dianeal 1.5%) 2,000 mls @ 4,000 mls/hr IP Q6H [facility]; Protocol Last Admin: 04/09/20 06:59 Dose: 4,000 mls/hr Documented by: Meropenem 500 mg/ Dextrose 100 mls @ 200 mls/hr IVPB Q12H [facility] Last Admin: 04/09/20 11:53 Dose: 200 mls/hr Documented by: Insulin Aspart (Novolog Vial Sliding Scale -) 0 vial SQ ACHS [facility]; Protocol Last Admin: 04/09/20 12:13 Dose: Not Given Documented by: Latanoprost (Xalatan 0.005% Eye Drops -) 1 drop OS HS [facility] Last Admin: 04/08/20 21:14 Dose: 1 drop Documented by: Metoprolol Succinate (Toprol Xl -) 25 mg PO DAILY [facility] Last Admin: 04/09/20 09:39 Dose: 25 mg Documented by: Multi-Ingredient Ointment (Zinc Oxide) 1 applic TP Q12H PRN PRN Reason: WOUND CARE Xllrn-6-Pxfj Ethyl Esters (Lovaza -) 2 gm PO BID [facility] Last Admin: 04/09/20 09:39 Dose: 2 gm Documented by: Ondansetron HCl (Zofran Injection) 4 mg IVPUSH Q6H PRN PRN Reason: NAUSEA Pantoprazole Sodium (Protonix -) 40 mg PO DAILY [facility] Last Admin: 04/09/20 09:39 Dose: 40 mg Documented by: Potassium Chloride (K-Dur -) 20 meq PO DAILY [facility] Last Admin: 04/09/20 09:39 Dose: 20 meq Documented by: Rosuvastatin Calcium (Crestor -) 10 mg PO HS [facility] Last Admin: 04/08/20 21:13 Dose: 10 mg Documented by: Sevelamer Carbonate (Renvela -) 800 mg PO TIDCM [facility] Last Admin: 04/09/20 11:54 Dose: 800 mg Documented by: Timolol Maleate (Timoptic 0.5%) 1 drop OS DAILY [facility] Last Admin: 04/09/20 09:53 Dose: 1 drop Documented by: - Objective Vital Signs: Vital Signs Temperature 98.2 F 04/09/20 09:43 Pulse Rate 70 04/09/20 09:43 Respiratory Rate 18 04/09/20 09:43 Blood Pressure 164/85 04/09/20 09:43 O2 Sat by Pulse Oximetry (%) 97 04/09/20 09:43 Constitutional: Yes: Calm HENT: Yes: Atraumatic Cardiovascular: Yes: S1, S2 Respiratory: Yes: CTA Bilaterally Gastrointestinal: Yes: Soft Genitourinary: Yes: WNL Edema: No Neurological: Yes: Oriented Psychiatric: Yes: Oriented Labs: CBC, BMP 04/09/20 05:59 04/09/20 05:59 INR, PTT INR 2.39 (0.83-1.09) H 04/02/20 06:34 Assessment/Plan Current Medications Generic Name Dose Route Start Last Admin Trade Name Freq PRN Reason Stop Dose Admin Acetaminophen 650 mg 03/31/20 16:55 04/06/20 01:40 Tylenol - PO 650 mg Q4H PRN Administration FEVER Allopurinol 100 mg 04/01/20 10:00 04/09/20 09:39 Zyloprim - PO 100 mg DAILY YASMEEN Administration Apixaban 5 mg 04/03/20 10:00 04/07/20 09:59 Eliquis - PO 5 mg BID YASMEEN Administration Artificial Tears 1 drop 04/03/20 12:41 Artificial Tears OU TID PRN DRY EYES Docusate Sodium 100 mg 04/01/20 10:00 04/09/20 09:39 Colace - PO 100 mg DAILY [facility]AS[facility]EN Administration Dorzolamide HCl 1 drop 04/01/20 10:00 04/09/20 11:53 Trusopt 2% OS 1 drop DAILY [facility]AS[facility]EN Administration Enoxaparin Sodium 30 mg 04/07/20 22:00 04/09/20 09:40 Lovenox - SQ 30 mg BID YASMEEN Administration Erythromycin 1 applic 03/31/20 17:30 04/09/20 09:40 Erythromycin 0.5% Eye Ointment OU 1 applic DAILY [facility]ASMEEN Administration Folic Acid 1 mg 04/01/20 10:00 04/09/20 09:40 Folic Acid - PO 1 mg DAILY YASMEEN Administration Peritoneal Dialysis Solution 2,000 mls @ 4,000 mls/hr 04/01/20 13:30 04/09/20 06:59 Dianeal 1.5% IP 4,000 mls/hr Q6H YASMEEN Administration Protocol Meropenem 500 mg/ Dextrose 100 mls @ 200 mls/hr 04/03/20 10:45 04/09/20 11:53 IVPB 200 mls/hr Q12H YASMEEN Administration Insulin Aspart 0 vial 03/31/20 22:00 04/09/20 12:13 Novolog Vial Sliding Scale - SQ Not Given ACHS YASMEEN Protocol Latanoprost 1 drop 03/31/20 22:00 04/08/20 21:14 Xalatan 0.005% Eye Drops - OS 1 drop HS YASMEEN Administration Metoprolol Succinate 25 mg 04/01/20 10:00 04/09/20 09:39 Toprol Xl - PO 25 mg DAILY YASMEEN Administration Multi-Ingredient Ointment 1 applic 04/08/20 15:20 Zinc Oxide TP Q12H PRN WOUND CARE Lrzaa-4-Sipc Ethyl Esters 2 gm 04/02/20 10:00 04/09/20 09:39 Lovaza - PO 2 gm BID YASMEEN Administration Ondansetron HCl 4 mg 03/31/20 17:00 Zofran Injection IVPUSH Q6H PRN NAUSEA Pantoprazole Sodium 40 mg 04/01/20 10:00 04/09/20 09:39 Protonix - PO 40 mg DAILY [facility]ASMEEN Administration Potassium Chloride 20 meq 04/01/20 12:00 04/09/20 09:39 K-Dur - PO 20 meq DAILY [facility]AS[facility]EN Administration Rosuvastatin Calcium 10 mg 03/31/20 22:00 04/08/20 21:13 Crestor - PO 10 mg HS YASMEEN Administration Sevelamer Carbonate 800 mg 04/01/20 08:00 04/09/20 11:54 Renvela - PO 800 mg TIDCM YASMEEN Administration Timolol Maleate 1 drop 04/01/20 10:00 04/09/20 09:53 Timoptic 0.5% OS 1 drop DAILY YASMEEN Administration 1. Fever 2. End-stage kidney disease on peritoneal dialysis. 3. Recently diagnosed DVT. 4. Hypertension 5. Hyperlipidemia Plan - cont with PD - monitor bp - pt going for ivc - potassium stable - monitor bp, can increase toprol to 50 mg - stool positive for occult blood
--- NOTE | 2020-04-09 13:32 | PN ---
Progress Note, Physician - Current Medication List Current Medications: Active Medications Acetaminophen (Tylenol -) 650 mg PO Q4H PRN PRN Reason: FEVER Last Admin: 04/06/20 01:40 Dose: 650 mg Documented by: Allopurinol (Zyloprim -) 100 mg PO DAILY [facility] Last Admin: 04/09/20 09:39 Dose: 100 mg Documented by: Apixaban (Eliquis -) 5 mg PO BID [facility] Last Admin: 04/07/20 09:59 Dose: 5 mg Documented by: Artificial Tears (Artificial Tears) 1 drop OU TID PRN PRN Reason: DRY EYES Docusate Sodium (Colace -) 100 mg PO DAILY [facility] Last Admin: 04/09/20 09:39 Dose: 100 mg Documented by: Dorzolamide HCl (Trusopt 2%) 1 drop OS DAILY [facility] Last Admin: 04/09/20 11:53 Dose: 1 drop Documented by: Enoxaparin Sodium (Lovenox -) 30 mg SQ BID [facility] Last Admin: 04/09/20 09:40 Dose: 30 mg Documented by: Erythromycin (Erythromycin 0.5% Eye Ointment) 1 applic OU DAILY [facility] Last Admin: 04/09/20 09:40 Dose: 1 applic Documented by: Folic Acid (Folic Acid -) 1 mg PO DAILY [facility] Last Admin: 04/09/20 09:40 Dose: 1 mg Documented by: Peritoneal Dialysis Solution (Dianeal 1.5%) 2,000 mls @ 4,000 mls/hr IP Q6H [facility]; Protocol Last Admin: 04/09/20 06:59 Dose: 4,000 mls/hr Documented by: Meropenem 500 mg/ Dextrose 100 mls @ 200 mls/hr IVPB Q12H [facility] Last Admin: 04/09/20 11:53 Dose: 200 mls/hr Documented by: Insulin Aspart (Novolog Vial Sliding Scale -) 0 vial SQ ACHS [facility]; Protocol Last Admin: 04/09/20 12:13 Dose: Not Given Documented by: Latanoprost (Xalatan 0.005% Eye Drops -) 1 drop OS HS [facility] Last Admin: 04/08/20 21:14 Dose: 1 drop Documented by: Metoprolol Succinate (Toprol Xl -) 25 mg PO DAILY [facility] Multi-Ingredient Ointment (Zinc Oxide) 1 applic TP Q12H PRN PRN Reason: WOUND CARE Bhmzd-4-Ijwm Ethyl Esters (Lovaza -) 2 gm PO BID [facility] Last Admin: 04/09/20 09:39 Dose: 2 gm Documented by: Ondansetron HCl (Zofran Injection) 4 mg IVPUSH Q6H PRN PRN Reason: NAUSEA Pantoprazole Sodium (Protonix -) 40 mg PO DAILY [facility] Last Admin: 04/09/20 09:39 Dose: 40 mg Documented by: Potassium Chloride (K-Dur -) 20 meq PO DAILY [facility] Last Admin: 04/09/20 09:39 Dose: 20 meq Documented by: Rosuvastatin Calcium (Crestor -) 10 mg PO HS [facility] Last Admin: 04/08/20 21:13 Dose: 10 mg Documented by: Sevelamer Carbonate (Renvela -) 800 mg PO TIDCM [facility] Last Admin: 04/09/20 11:54 Dose: 800 mg Documented by: Timolol Maleate (Timoptic 0.5%) 1 drop OS DAILY [facility] Last Admin: 04/09/20 09:53 Dose: 1 drop Documented by: - Objective Vital Signs: Vital Signs Temperature 98.2 F 04/09/20 09:43 Pulse Rate 70 04/09/20 09:43 Respiratory Rate 18 04/09/20 09:43 Blood Pressure 164/85 04/09/20 09:43 O2 Sat by Pulse Oximetry (%) 97 04/09/20 10:00 Labs: CBC, BMP 04/09/20 05:59 04/09/20 05:59 INR, PTT INR 2.39 (0.83-1.09) H 04/02/20 06:34
[2020-04-09] MEDS ORDERED: HEPARIN NA (PORCINE) 5,000 UNITS/ML 1ML VIAL ONE (15:26)
[2020-04-09] MEDS ORDERED: LIDOCAINE HCL 1%, 10 MG/ML (20ML VIAL) ONE (15:26)
--- NOTE | 2020-04-09 15:40 | PN ---
Physical Exam: SUBJECTIVE: Patient seen and examined this morning in no acute distress. Night team reported that overnight ptn stated she lost vision in left eye. Ptn subsequently went for Head CT which showed a previously existing pituitary/sella mass. OBJECTIVE: Vital Signs Period Temp Pulse Resp BP Sys/Gustafson Pulse Ox Last 24 Hr 97.5 F-98.6 F 64-72 16-20 140-174/69-86 97-100 GENERAL: Awake, alert, less conversational, requires orientation, has baseline AMS HEAD: Normal with no signs of trauma. EYES: Arcus Senalis in both eyes bilaterally. THROAT: Oropharynx clear without exudates. Moist mucous membranes. NECK: JVD present. Normal range of motion, supple without lymphadenopathy. LUNGS: Breath sounds equal, clear to auscultation bilaterally. No wheezes, and no crackles. No accessory muscle use. HEART: Regular rate and rhythm, normal S1 and S2 without murmur, rub or gallop. ABDOMEN: Distended. Soft, nontender, normoactive bowel sounds MUSCULOSKELETAL: Not assessed UPPER EXTREMITIES: 2+ pulses, warm, well-perfused. No cyanosis. No clubbing. No peripheral edema. LOWER EXTREMITIES: 2+ pulses, warm, well-perfused. No peripheral edema. NEUROLOGICAL: Normal speech with altered mental status. Gait not tested. PSYCHIATRIC: Cooperative. Good eye contact. SKIN: Warm, dry, decreased turgor. Laboratory Results - last 24 hr CBC, BMP 04/09/20 05:59 04/09/20 05:59 Active Medications Generic Name Dose Route Start Last Admin Trade Name Freq PRN Reason Stop Dose Admin Allopurinol 100 mg 04/01/20 10:00 04/09/20 09:39 Zyloprim - PO 100 mg DAILY YASMEEN Administration Apixaban 5 mg 04/03/20 10:00 04/07/20 09:59 Eliquis - PO 5 mg BID YASMEEN Administration Artificial Tears 1 drop 04/03/20 12:41 Artificial Tears OU TID PRN DRY EYES Docusate Sodium 100 mg 04/01/20 10:00 04/09/20 09:39 Colace - PO 100 mg DAILY YASMEEN Administration Dorzolamide HCl 1 drop 04/01/20 10:00 04/09/20 11:53 Trusopt 2% OS 1 drop DAILY YASMEEN Administration Enoxaparin Sodium 30 mg 04/07/20 22:00 04/09/20 09:40 Lovenox - SQ 30 mg BID YASMEEN Administration Erythromycin 1 applic 03/31/20 17:30 04/09/20 09:40 Erythromycin 0.5% Eye Ointment OU 1 applic DAILY YASMEEN Administration Folic Acid 1 mg 04/01/20 10:00 04/09/20 09:40 Folic Acid - PO 1 mg DAILY YASMEEN Administration Peritoneal Dialysis Solution 2,000 mls @ 4,000 mls/hr 04/01/20 13:30 04/09/20 13:45 Dianeal 1.5% IP 4,000 mls/hr Q6H YASMEEN Administration Protocol Meropenem 500 mg/ Dextrose 100 mls @ 200 mls/hr 04/03/20 10:45 04/09/20 11:53 IVPB 200 mls/hr Q12H YASMEEN Administration Insulin Aspart 0 vial 03/31/20 22:00 04/09/20 12:13 Novolog Vial Sliding Scale - SQ Not Given ACHS YASMEEN Protocol Latanoprost 1 drop 03/31/20 22:00 04/08/20 21:14 Xalatan 0.005% Eye Drops - OS 1 drop HS YASMEEN Administration Metoprolol Succinate 25 mg 04/09/20 13:15 04/09/20 15:27 Toprol Xl - PO Not Given DAILY YASMEEN Multi-Ingredient Ointment 1 applic 04/08/20 15:20 Zinc Oxide TP Q12H PRN WOUND CARE [id number] Ethyl Esters 2 gm 04/02/20 10:00 04/09/20 09:39 Lovaza - PO 2 gm BID YASMEEN Administration Ondansetron HCl 4 mg 03/31/20 17:00 Zofran Injection IVPUSH Q6H PRN NAUSEA Pantoprazole Sodium 40 mg 04/01/20 10:00 04/09/20 09:39 Protonix - PO 40 mg DAILY YASMEEN Administration Potassium Chloride 20 meq 04/01/20 12:00 04/09/20 09:39 K-Dur - PO 20 meq DAILY YASMEEN Administration Rosuvastatin Calcium 10 mg 03/31/20 22:00 04/08/20 21:13 Crestor - PO 10 mg HS YASMEEN Administration Sevelamer Carbonate 800 mg 04/01/20 08:00 04/09/20 11:54 Renvela - PO 800 mg TIDCM YASMEEN Administration Timolol Maleate 1 drop 04/01/20 10:00 04/09/20 09:53 Timoptic 0.5% OS 1 drop DAILY YASMEEN Administration ASSESSMENT/PLAN: 84yo F who is a poor historian with PMHx of DM, HTN, HLD, Gout, CKD on PD done nightly as per her cousin (baseline Cr about 9), anemia, multiple myeloma, pit uitary macroadenoma, arcus senalis, independent in ADLs presented 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 Acute on Chronic Anemia -Likely 2/2 Chronic Renal Disease -Hgb 8.2 --> 7.1 --> 1 Unit PRBC Ordered (04/05) -FOBT+ -Eliquis Stopped -Lovenox 30 started: Per pharmacy not recommended for ptn on Dialysis. Eloquis rec 2/2 minimal lost during HD (no evidence on PD) or Coumadin -Per Vascular: IVC Filter to be placed on 04/09 --> Tylenol DCd, monitor for fever -Per GI: Outpatient followup w/ Dr. Denice Guillen 03/16 @ 8:45 Chronic CKD on PD: - Per Nephrology: PD q6hrs Fever of Unknown Origin: Resolved - Possible 2/2 UTI vs Peritonitis: - Blood/Urine/Ascitic Cultures Negative (FINAL) - Per ID: Continue Meropenem, Deescalate after IVC Filter and ptn remains stable. - Hx of LLE DVT: - US on 03/27 demonstrated extensive DVT in LLE . - Treated by Dr. Melgar - Per Vascular ([facility]): IVC filter to be placed (04/09) 2/2 recurrent bleeding on eliquis PPx -DVT Treatment: Lovenox 30 -GI PPx: Pantoprazole FEN Fluids: No standing fluids Electrolytes: Monitor BMP Nutrition: Diabetic Diet w/ NPO after midnight prior to surgery Dispo: Continue medical management. Visit type - Emergency Visit Emergency Visit: No - New Patient This patient is new to me today: No - Critical Care Critical Care patient: No - Discharge Referral Referred to [facility] Med [facility] No - Medication Review Med list reviewed for High Risk Meds patients 65 and older: No ATTENDING PHYSICIAN STATEMENT I saw and evaluated the patient. I reviewed the resident's note and discussed the case with the resident. I agree with the resident's findings and plan as documented. SUBJECTIVE: OBJECTIVE: ASSESSMENT AND PLAN:
--- NOTE | 2020-04-09 17:16 | PN ---
Teaching Attending Note Name of Resident: Christiano Lindquist ATTENDING PHYSICIAN STATEMENT I saw and evaluated the patient. I reviewed the resident's note and discussed the case with the resident. I agree with the resident's findings and plan as documented. SUBJECTIVE: patient resting in bed, has no complaints, feels well OBJECTIVE: Vital Signs Period Temp Pulse Resp BP Sys/Gustafson Pulse Ox Last 24 Hr 97.5 F-98.6 F 64-72 16-20 140-174/69-86 97-100 GENERAL: Awake, alert, in no acute distress. HEAD: Normal with no signs of trauma. EYES: Pupils equal, round and reactive to light, extraocular movements intact, conjuntival injection noted EARS, NOSE, THROAT: Ears normal, nares patent, Moist mucous membranes. NECK: Normal range of motion, No JVD, LUNGS: Breath sounds equal, clear to auscultation bilaterally. No wheezes, and no crackles. No accessory muscle use. HEART: Regular rate and rhythm, normal S1 and S2 without murmur, rub or gallop. ABDOMEN: Soft, nontender, not distended, normoactive bowel sounds, no guarding, no rebound, MUSCULOSKELETAL: Normal range of motion at all joints. No bony deformities or tenderness. No CVA tenderness. EXTREMITIES: 2+ pulses, warm, well-perfused. No calf tenderness. No peripheral edema. NEUROLOGICAL: Cranial nerves II-XII intact. Normal speech. PSYCHIATRIC: Cooperative. Good eye contact. Appropriate mood and affect. SKIN: Warm, dry, normal turgor, no rashes or lesions noted. ASSESSMENT AND PLAN: 84yof with Pmhx of T2DM, HTN, HLD, Gout, CKD on PD, anemia,multiple myeloma, pituitary macroadenoma who presented with fever and abdominal pain Fever/Chills: Now resolved Continue IV ABx, can discontinue tonight after IVCfilter placed Anemia: Likely in setting of Gi blood Loss Take off AC after IVC filter is placed Outpatient Gi follow up for EGD/[place] DVT: Patient reports sedentary lifestyle Will stop eliquis at this time Patient should not receive lovenox given she is on PD Patient will need to be on Coumadin as Eliquis is well studied in PD population
[2020-04-09] MEDS ORDERED: ceFAZolin SODIUM 1 GM VIAL ONE (17:32)
[2020-04-09] MEDS ORDERED: PROPOFOL 20 ML ONE ×2 (17:32)
[2020-04-09] MEDS ORDERED: LIDOCAINE HCL/PF 2% SDV 5ML VIAL ONE (17:32)
[2020-04-09] MEDS ORDERED: MIDAZOLAM HCL 2 MG/2 ML SINGLE DOSE VIAL ONE (17:32)
[2020-04-09] MEDS ORDERED: ceFAZolin SODIUM 1 GM VIAL IVPB ONE (17:57)
[2020-04-09] MEDS ORDERED: LIDOCAINE HCL 1%, 10 MG/ML (20ML VIAL) INF ONE (18:16)
--- NOTE | 2020-04-09 18:29 | OP ---
Operative Note - Note: Operative Date: 04/09/20 Pre-Operative Diagnosis: DVT, GI bleeding Operation: Placement IVC filter with venogram Findings: Patent IVC, normal caliber, no filling defects Implants: Option filter Surgeon: Mark Rios Anesthesiologist/PIPE CREW FOREMAN: Brayan Mike Anesthesia: MAC
[2020-04-09] MEDS ORDERED: LACTATED RINGERS SOLUTION 1,000 ML IV SCH ×2 (18:30→19:33)
[2020-04-09] MEDS ORDERED: ONDANSETRON 4 MG/2 ML VIAL IVPUSH PRN (19:33)
[2020-04-09] MEDS ORDERED: VANCOMYCIN 1 GM PREMIX - 1 GM/200 ML BAG IVPB ONE (19:33)
[2020-04-09] MEDS ORDERED: ARTIFICIAL TEARS (POLYVINYL ALCOHOL) OPTH DROPS OU PRN (19:33)
[2020-04-09] MEDS ORDERED: ZINC OXIDE 20% TOPICAL OINTMENT 30 GM TUBE TP PRN (19:33)
[2020-04-09] MEDS ORDERED: ROSUVASTATIN CA 10 MG TABLET (FP) PO SCH (22:00)
[2020-04-09] MEDS ORDERED: LATANOPROST 0.005% OPHTH SOLN 2.5ML BOTTLE OS SCH (22:00)
[2020-04-09] MEDS ORDERED: ENOXAPARIN NA (PORCINE) 30 MG/0.3 ML DISP.SYRIN SQ SCH (22:00)
[2020-04-10] MEDS: PERITONEAL DIALYSIS 1.5% SOLN 2,000 ML IP SCH ×3 (01:42→13:42)
[2020-04-10] MEDS: INSULIN SLIDING SCALE (NOVOLOG) 1 VIAL SQ SCH ×2 (06:23→11:58)
[2020-04-10 08:11] LABS: BASO % 0.2 % (0-2.0); EOS % 1.4 % (0-4.5); HEMATOCRIT 27.6 % (32.4-45.2); HEMOGLOBIN 9.2 GM/dL (10.7-15.3); LYMPH % 38.9 % (8-40); MCH 33.6 pg (25.7-33.7); MCHC 33.3 g/dl (32.0-36.0); MEAN PLT VOLUME 7.7 fl (7.5-11.1); MONO % 9.1 % (3.8-10.2); NEUT % 50.4 % (42.8-82.8); PLATELET COUNT 324 K/MM3 (134-434); RBC 2.74 M/mm3 (3.60-5.2); RDW 20.2 % (11.6-15.6); WHITE BLOOD COUNT 7.6 K/mm3 (4.0-10.0)
[2020-04-10 08:39] LABS: BLOOD UREA NITROGEN 23.9 mg/dL (7-18); CALCIUM 8.3 mg/dL (8.5-10.1); CREATININE 4.4 mg/dL (0.55-1.3); POTASSIUM 4.7 mmol/L (3.5-5.1)
[2020-04-10] MEDS: SEVELAMER CARBONATE 800 MG TAB (FP) PO SCH ×2 (08:47→11:58)
[2020-04-10] MEDS ORDERED: PT OWN MED DRAWER 7, Y5N ONE (09:34)
[2020-04-10] MEDS: OMEGA-3 ACID ETHYL ESTERS (FATTY-ACIDS) 1 GM CAPSULE (FP) PO SCH (09:43)
[2020-04-10] MEDS ORDERED: DEXTROSE 5%-WATER 100 ML IVPB ONE (09:53)
[2020-04-10] MEDS ORDERED: MEROPENEM 500 MG VIAL (RESTRICTED TO ID) IVPB ONE (09:53)
[2020-04-10] MEDS: MEROPENEM 500 MG in DEXTROSE 5%-WATER 100 ML IVPB SCH (09:55)
[2020-04-10] MEDS ORDERED: metoPROLOL SUCCINATE 25 MG TAB.SR.24H (FP) PO SCH (10:00)
[2020-04-10] MEDS ORDERED: ERYTHROMYCIN 0.5% OPHTHALMIC OINTMENT 3.5 GM TUBE OU SCH (10:00)
[2020-04-10] MEDS ORDERED: FOLIC ACID 1 MG TABLET (FP) PO SCH (10:00)
[2020-04-10] MEDS ORDERED: DORZOLAMIDE 2% HCL OPHTHALMIC SOLUTION 10 ML BOTTLE OS SCH (10:00)
[2020-04-10] MEDS ORDERED: ALLOPURINOL 100 MG TABLET (FP) PO SCH (10:00)
[2020-04-10] MEDS ORDERED: PANTOPRAZOLE 40 MG TABLET PO SCH (10:00)
[2020-04-10] MEDS ORDERED: DOCUSATE SODIUM 100 MG CAPSULE (FP) PO SCH (10:00)
[2020-04-10] MEDS ORDERED: TIMOLOL 0.5% OPHTHALMIC SOL 5 ML BOTTLE OS SCH (10:00)
[2020-04-10] MEDS ORDERED: POTASSIUM CHLORIDE TABS 20 MEQ TABLET.ER (FP) PO SCH (10:00)
--- NOTE | 2020-04-10 11:17 | PN ---
Progress Note (short form) - Note Progress Note: VASCULAR 84yo F s/p IVC filter placement. Pt denies pain or swelling around Rt groin. Last Vital Signs Temp Pulse Resp BP Pulse Ox 98.6 F 71 18 135/73 100 04/10/20 06:00 04/10/20 06:00 04/10/20 06:00 04/10/20 06:00 04/09/20 22:00 CBC, BMP 04/10/20 06:55 04/10/20 06:55 PE: Gen: Awake and alert Resp: breathing comfortably Ext: Rt groin dressing in place, no obvious swelling or pulsatile mass. Problem List - Problems (1) Left leg DVT Assessment/Plan: Plan -if not plan of IVC filter to stay in place pt should follow up with Dr. Rios with in 3 months to schedule removal, otherwise IVC filter may stay in indefinitely if needed. -if any issues please contact Vascular team. Code(s): I82.402 - ACUTE EMBOLISM AND THOMBOS UNSP DEEP VEINS OF L LOW EXTREM
--- NOTE | 2020-04-10 13:00 | PN ---
Progress Note, Physician History of Present Illness: stable s/p ivc filter - Current Medication List Current Medications: Active Medications Allopurinol (Zyloprim -) 100 mg PO DAILY [facility] Last Admin: 04/10/20 09:43 Dose: 100 mg Documented by: Artificial Tears (Artificial Tears) 1 drop OU TID PRN PRN Reason: DRY EYES Docusate Sodium (Colace -) 100 mg PO DAILY [facility] Last Admin: 04/10/20 09:44 Dose: 100 mg Documented by: Dorzolamide HCl (Trusopt 2%) 1 drop OS DAILY [facility] Last Admin: 04/10/20 09:45 Dose: 1 drop Documented by: Erythromycin (Erythromycin 0.5% Eye Ointment) 1 applic OU DAILY [facility] Last Admin: 04/10/20 09:44 Dose: 1 applic Documented by: Folic Acid (Folic Acid -) 1 mg PO DAILY [facility] Last Admin: 04/10/20 09:44 Dose: 1 mg Documented by: Meropenem 500 mg/ Dextrose 100 mls @ 200 mls/hr IVPB Q12H [facility] Last Admin: 04/10/20 09:55 Dose: 200 mls/hr Documented by: Lactated Ringer's (Lactated Ringers Solution) 1,000 mls @ 75 mls/hr IV ASDIR [facility] Last Admin: 04/09/20 20:29 Dose: 75 mls/hr Documented by: Peritoneal Dialysis Solution (Dianeal 1.5%) 2,000 mls @ 4,000 mls/hr IP Q6H [facility]; Protocol Last Admin: 04/10/20 07:45 Dose: 4,000 mls/hr Documented by: Insulin Aspart (Novolog Vial Sliding Scale -) 1 vial SQ ACHS [facility]; Protocol Last Admin: 04/10/20 11:58 Dose: Not Given Documented by: Latanoprost (Xalatan 0.005% Eye Drops -) 1 drop OS HS [facility] Last Admin: 04/09/20 21:36 Dose: 1 drop Documented by: Metoprolol Succinate (Toprol Xl -) 25 mg PO DAILY [facility] Last Admin: 04/10/20 09:43 Dose: 25 mg Documented by: Multi-Ingredient Ointment (Zinc Oxide) 1 applic TP Q12H PRN PRN Reason: WOUND CARE [id number] Ethyl Esters (Lovaza -) 2 gm PO BID [facility] Last Admin: 04/10/20 09:43 Dose: 2 gm Documented by: Ondansetron HCl (Zofran Injection) 4 mg IVPUSH Q6H PRN PRN Reason: NAUSEA Pantoprazole Sodium (Protonix -) 40 mg PO DAILY [facility] Last Admin: 04/10/20 09:43 Dose: 40 mg Documented by: Potassium Chloride (K-Dur -) 20 meq PO DAILY [facility] Last Admin: 04/10/20 09:44 Dose: 20 meq Documented by: Rosuvastatin Calcium (Crestor -) 10 mg PO HS [facility] Last Admin: 04/09/20 21:35 Dose: Not Given Documented by: Sevelamer Carbonate (Renvela -) 800 mg PO TIDCM [facility] Last Admin: 04/10/20 11:58 Dose: 800 mg Documented by: Timolol Maleate (Timoptic 0.5%) 1 drop OS DAILY [facility] Last Admin: 04/10/20 09:45 Dose: 1 drop Documented by: - Objective Vital Signs: Vital Signs Temperature 98.9 F 04/10/20 10:00 Pulse Rate 78 04/10/20 10:00 Respiratory Rate 04/10/20 10:00 Blood Pressure 147/80 04/10/20 10:00 O2 Sat by Pulse Oximetry (%) 99 04/10/20 10:00 Constitutional: Yes: No Distress, Calm Cardiovascular: Yes: S1, S2 Respiratory: Yes: Regular, CTA Bilaterally Gastrointestinal: Yes: Normal Bowel Sounds, Soft Musculoskeletal: Yes: WNL Extremities: Yes: WNL Neurological: Yes: Alert Psychiatric: Yes: Alert Labs: CBC, BMP 04/10/20 06:55 04/10/20 06:55 INR, PTT INR 2.39 (0.83-1.09) H 04/02/20 06:34 Assessment/Plan Problem List - Problems (1) Anemia Code(s): D64.9 - ANEMIA, UNSPECIFIED (2) CKD (chronic kidney disease) Code(s): N18.9 - CHRONIC KIDNEY DISEASE, UNSPECIFIED (3) Diabetes Code(s): E11.9 - TYPE 2 DIABETES MELLITUS WITHOUT COMPLICATIONS Qualifiers: Diabetes mellitus type: type 2 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
[2020-04-10 13:35] VITALS: BP 131/59; PULSE 69; TEMP 98
--- NOTE | 2020-04-10 14:13 | PN ---
Teaching Attending Note Name of Resident: Christiano Lindquist ATTENDING PHYSICIAN STATEMENT I saw and evaluated the patient. I reviewed the resident's note and discussed the case with the resident. I agree with the resident's findings and plan as documented. SUBJECTIVE: patient had IVC filter overnight Feeling well this morning OBJECTIVE: Vital Signs Period Temp Pulse Resp BP Sys/Gustafson Pulse Ox Last 24 Hr 97.5 F-98.9 F 61-80 18-20 131-161/59-80 97-100 GENERAL: Awake, alert, in no acute distress. HEAD: Normal with no signs of trauma. EYES: Pupils equal, round and reactive to light, extraocular movements intact, conjuntival injection noted EARS, NOSE, THROAT: Ears normal, nares patent, Moist mucous membranes. NECK: Normal range of motion, No JVD, LUNGS: Breath sounds equal, clear to auscultation bilaterally. No wheezes, and no crackles. No accessory muscle use. HEART: Regular rate and rhythm, normal S1 and S2 without murmur, rub or gallop. ABDOMEN: Soft, nontender, not distended, normoactive bowel sounds, no guarding, no rebound, PD catheter noted MUSCULOSKELETAL: Normal range of motion at all joints. No bony deformities or tenderness. No CVA tenderness. EXTREMITIES: 2+ pulses, warm, well-perfused. No calf tenderness. No peripheral edema. NEUROLOGICAL: Cranial nerves II-XII intact. Normal speech. PSYCHIATRIC: Cooperative. Good eye contact. Appropriate mood and affect. SKIN: Warm, dry, normal turgor, no rashes or lesions noted. ASSESSMENT AND PLAN: 84yof with Pmhx of T2DM, HTN, HLD, Gout, CKD on PD, anemia,multiple myeloma, pituitary macroadenoma who presented with fever and abdominal pain Fever/Chills: Now resolved Stop Abx at this time has completed 10 day course Anemia: Likely in setting of Gi blood Loss Stop AC at this time, Outpatient Gi follow up for EGD/[place] DVT: Patient reports sedentary lifestyle Patient will need to be on Coumadin as Eliquis is well studied in PD population
--- NOTE | 2020-04-10 14:25 | PN ---
Progress Note (short form) - Note Progress Note: Events reviewed. Patient noted to be anemic since 2017 associated with elevated CEA levels and 8 mm pancreatic cyst. EGD in 2017 revealed erosive gastritis. Colonoscopy revealed moderated diverticulosis. R> in view of occult gi bleeding while on anticoagulants IVC filter was inserted and will benefit in using Coumadin which reversible in the event she develops a life threatening bleed made aware to follow up GI w/u as an outpatient Problem List - Problems (1) Anemia Code(s): D64.9 - ANEMIA, UNSPECIFIED
--- NOTE | 2020-04-10 15:16 | DS ---
Physical Exam: SUBJECTIVE: Patient seen and examined in no acute distress, conversational. Denied any fevers, SoB, BOOTHE. OBJECTIVE: Vital Signs Period Temp Pulse Resp BP Sys/Gustafson Pulse Ox Last 24 Hr 97.5 F-98.9 F 61-80 18-20 131-161/59-80 97-100 PHYSICAL EXAM GENERAL: Awake, alert HEAD: Normal with no signs of trauma. EYES: Arcus Senalis in both eyes bilaterally. R eye has decreased vision. THROAT: Oropharynx clear without exudates. Moist mucous membranes. NECK: JVD present. Normal range of motion, supple without lymphadenopathy. LUNGS: Breath sounds equal, clear to auscultation bilaterally. No wheezes, and no crackles. No accessory muscle use. HEART: Regular rate and rhythm, normal S1 and S2 without murmur, rub or gallop. ABDOMEN: Distended. Soft, nontender, normoactive bowel sounds MUSCULOSKELETAL: Not assessed UPPER EXTREMITIES: 2+ pulses, warm, well-perfused. No cyanosis. No clubbing. No peripheral edema. LOWER EXTREMITIES: 2+ pulses, warm, well-perfused. No peripheral edema. NEUROLOGICAL: Normal speech. Gait not tested. PSYCHIATRIC: Cooperative. Good eye contact. SKIN: Warm, dry, decreased turgor. LABS Laboratory Results - last 24 hr 04/10/20 04/10/20 04/10/20 05:57 06:55 06:55 WBC 7.6 RBC 2.74 L Hgb 9.2 L Hct 27.6 L MCV 101.0 H MCH 33.6 MCHC 33.3 RDW 20.2 H Plt Count 324 MPV 7.7 Absolute Neuts (auto) 3.8 Neutrophils % 50.4 D Lymphocytes % 38.9 Monocytes % 9.1 Eosinophils % 1.4 Basophils % 0.2 Nucleated RBC % 1 H Sodium 136 Potassium 4.7 Chloride 103 Carbon Dioxide 26 Anion Gap 7 L BUN 23.9 H Creatinine 4.4 H Est GFR (CKD-EPI)AfAm 10.13 Est GFR (CKD-EPI)NonAf 8.74 POC Glucometer 101 Random Glucose 101 Calcium 8.3 L 04/10/20 11:57 WBC RBC Hgb Hct MCV MCH MCHC RDW Plt Count MPV Absolute Neuts (auto) Neutrophils % Lymphocytes % Monocytes % Eosinophils % Basophils % Nucleated RBC % Sodium Potassium Chloride Carbon Dioxide Anion Gap BUN Creatinine Est GFR (CKD-EPI)AfAm Est GFR (CKD-EPI)NonAf POC Glucometer 132 Random Glucose Calcium HOSPITAL COURSE: Date of Admission:03/31/[address]: No significant interval change. 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 Echo: EF 59%. Fibrocalcific changes of the AV w/o stenosis EKG: SINUS RHYTHM WITH PREMATURE ATRIAL COMPLEXES WITH ABERRANT CONDUCTION CXR: The left base infiltrate and atelectasis has diminished slightly CT Chest/Abd/Pelvis: -CT chest completed with findings consistent with left lower lobe pneumonia and small left parapneumonic effusion No evidence of abscess, no signs of bowel obstruction or diverticulitis Gallstones Fibroid uterus which requires further investigation with transabdominal and transvaginal pelvic sonogram for close monitoring of fibroid size to exclude any possibility of sarcomatous degeneration. Date of Discharge: 04/10/20 84yo F with PMHx of DM, HTN, HLD, Gout, CKD on PD (baseline Cr about 5), anemia,multiple myeloma, pituitary macroadenoma, independent in ADLs was brought to the ED by her LIGHT BULB REPLACER for generalized weakness, chills and temp 100.0. As per LIGHT BULB REPLACER pt usually performs own ADLs, but since the day before admission has had decreased po intake and has not been feeling well. Of note, patient recently had a LLE dvt and was started on Eliquis During the patient's hospital course, was noted to have an elevated Cr of 9, far above her normal baseline for which PD was performed Q6 hours, eventually with creatinine trending down to ~5. The patient was additionally worked up for a fever of unknown origin with blood, urine, and ascitic fluid cultures, all which were negative. During this time the patient was on Meropenem as well as IV Flagyl. ID was consulted. Following the abatement of the fevers, abx were stopped and the patient did not develop further fevers. Elliquis was continued for managment of the ptn's DVT, however due to repeated positive FOBTs and a chronic anemia requiring 1 unit of PRBCs, following a consult with GI and surgery, Eliquis was stopped and an IVC filter was placed without incident. As of discharge, the patient is medically stable and has an outpatient appointment with GI for followup of her chronic anemia. Minutes to complete discharge: 36 Discharge Summary Problems reviewed: Yes Reason For Visit: HYPONATREMIA/HIGH SERUM CREATINE/BLOOD UREA Current Active Problems Anemia (Chronic) Elevated BUN (Chronic) Elevated serum creatinine (Chronic) Left leg DVT (Chronic) Condition: Stable - Instructions Diet, Activity, Other Instructions: Your visit: You were admitted to the hospital for shortness of breath and fevers. The fevers were likely due to your blood clot as well as a lung infection, which was treated with antibiotics. In order to prevent further bleeding, your blood thinners were discontinued, and you were given instead a filter placed in your vein to prevent the clots from moving elsewhere. At the time of discharge, you were no longer having fevers, were deemed medically stable. Medications changes: -Your Eliquis was stopped because of bleeding. DO NOT TAKE anymore -Continue to take all other home medications as prescribed. Follow up: -Please follow-up with Dr. Galdamez () on Wednesday03/16/2020 at 8:45am. You should discuss the benefits and risks of resuming a blood thinner again with Dr. Galdamez . Additionally you should discuss gallstones, we found on imaging -Please follow up with your kidney doctor, Dr. Means, for continued management of your renal disease. Please continue your peritoneal dialysis treatments. -Please follow up with your Vascular Surgeon Dr. Rios in 2 weeks for continued management of your new IVC filter. -Visit with your Primary Care Provider in 2 weeks. If you do not have a Primary care provider, you can schedule an appointment with Dr. Marinelli at the [facility]. Additional Instructions: -You are being discharged to your home w/ assistance from your home health aide. -Please return to the Emergency Department if you experience worsening shortness of breath, fevers, chills, chest pain, or if you experience any worsening, new or concerning symptoms. Referrals: Juan David Galdamez MD [Staff Physician] - 1 Week Nacho Means MD [Staff Physician] - 2 Weeks Mark Rios MD [Staff Physician] - Disposition: VNS/HOME HEALTH CARE - Home Medications Comprehensive Discharge Medication List: Ambulatory Orders Allopurinol [Zyloprim -] 100 mg PO DAILY 01/20/14 Rosuvastatin Calcium [Crestor] 20 mg PO HS 06/14/14 Bimatoprost [Lumigan] 1 drop IO DAILY 05/13/17 Dorzolamide HCl/Timolol Maleat [Cosopt Eye Drops] 10 ml OP DAILY 05/13/17 Folic Acid 1 mg PO DAILY 08/16/19 Furosemide 80 mg PO HS 08/16/19 Icosapent Ethyl [Vascepa] 2 gm PO BID 08/16/19 Metoprolol Succinate [Toprol Xl] 25 mg PO DAILY 08/16/19 Nateglinide [Starlix (Nf) -] 60 mg PO BID 08/16/19 Pantoprazole Sodium 40 mg PO DAILY 03/31/20 Sevelamer Carbonate [Renvela -] 1,600 mg PO TID 04/10/20 This patient is new to me today: No Emergency Visit: No Critical Care patient: No - Discharge Referral Referred to [facility] Med P.C[facility] No ATTENDING PHYSICIAN STATEMENT I saw and evaluated the patient. I reviewed the resident's note and discussed the case with the resident. I agree with the resident's findings and plan as documented. SUBJECTIVE: OBJECTIVE: ASSESSMENT AND PLAN:
[2020-04-10] MEDS ORDERED: EPOETIN ALFA 20,000 UNIT/1 ML VIAL SQ ONE (16:16)
--- NOTE | 2020-04-17 20:20 | OP ---
DATE OF OPERATION: 04/09/2020 PROCEDURE: Placement of inferior vena cava filter with venogram of the vena cava. PREOPERATIVE DIAGNOSIS: Deep venous thrombosis with gastrointestinal bleeding. POSTOPERATIVE DIAGNOSIS: Deep venous thrombosis with gastrointestinal bleeding. ANESTHESIA: Fractional. ANESTHESIOLOGIST: Brayan Mike MD. OPERATIVE FINDINGS: The inferior vena cava was patent with normal diameter and no filling defects. OPERATIVE PROCEDURE: Following routine patient identification with side and site verification, intravenous sedation was established. The right groin was prepped with ChloraPrep. Timeout was performed. 1% lidocaine was infiltrated in the groin over the femoral vein. Using ultrasound guidance, the vein was cannulated with a micropuncture needle. The wire was passed proximally, and the needle was exchanged for a 5 Romanian catheter. A Paul wire was advanced through the catheter and into the inferior vena cava. A long 6 Romanian sheath was then advanced over the wire and positioned in the distal IVC. Venography was then performed through the sheath to visualize the vena cava and locate the confluence of both renal veins. The sheath was then advanced to the renal veins. An Option filter was then passed through the sheath and deployed with the tip at the level of the renal veins. Completion venogram showed good flow through the filter, which was in good position. The sheath was removed and pressure applied in the groin until bleeding ceased. A sterile dressing was applied, and the patient was taken to the recovery room in stable condition. VIKI VILLAGRAN M.D. [id number]
== END 2020-04-10 17:00 | disposition home health service (06) | DRG 252 ==
LOC: JER 12:25 → JERBED 15:27 → J4S 04-01 01:17
PROVIDERS: ADMIT Internal Medicine; ATTEND Internal Medicine
PROC: 30233N1 Transfusion of Nonautologous Red Blood Cells into Peripheral Vein, Percutaneous Approach (ICD-10-PCS; 2020-04-05)
PROC: 3E1M39Z Irrigation of Peritoneal Cavity using Dialysate, Percutaneous Approach (ICD-10-PCS; 2020-04-09)
PROC: 06H03DZ Insertion of Intraluminal Device into Inferior Vena Cava, Percutaneous Approach (ICD-10-PCS; principal; 2020-04-09 17:30)
DX: I82.4Z2 Acute embolism and thrombosis of unspecified deep veins of left distal lower extremity (principal); N18.6 End stage renal disease; J18.9 Pneumonia, unspecified organism; N17.9 Acute kidney failure, unspecified; C90.00 Multiple myeloma not having achieved remission; I12.0 Hypertensive chronic kidney disease with stage 5 chronic kidney disease or end stage renal disease; E87.1 Hypo-osmolality and hyponatremia; E87.2 Acidosis; J98.11 Atelectasis; K92.2 Gastrointestinal hemorrhage, unspecified; E78.5 Hyperlipidemia, unspecified; M1A.9XX1 Chronic gout, unspecified, with tophus (tophi); E11.9 Type 2 diabetes mellitus without complications; Z99.2 Dependence on renal dialysis; D63.1 Anemia in chronic kidney disease; H40.9 Unspecified glaucoma; E87.6 Hypokalemia; E83.51 Hypocalcemia; H10.9 Unspecified conjunctivitis; R50.9 Fever, unspecified; R62.7 Adult failure to thrive
CPT/HCPCS: 36415; 36430; 70450-TC; 71045-TC-FY; 71250-TC; 74176-TC; 80048; 80053; 80061; 81003; 82272; 82550; 82607; 82728; 82746; 82945; 82962; 83036; 83540; 83550; 83605; 83721; 83735; 84100; 84443; 84484; 85025; 85027; 85045; 85610; 85730; 86850; 86900; 86901; 86922; 87040; 87070; 87075; 87086; 87205; 93005; 93010; 93306-TC; 94760; 99285-25; J0885; J1644; P9058; U0003

== ENCOUNTER 2020-06-19 18:37 | Inpatient (IN) | payer OTHER, MEDICARE ==
[2020-06-19] MEDS ORDERED: SODIUM CHLORIDE 1,000 ML IV STA (19:52)
[2020-06-19] MEDS ORDERED: ACETAMINOPHEN 1000 MG/100 ML VIAL (NON FORMULARY) IVPB ONE (20:09)
[2020-06-19] MEDS ORDERED: ACETAMINOPHEN INJECTION 100 ML IVPB ONE (20:15)
[2020-06-19 20:46] LABS: HEMATOCRIT 24.8 % (32.4-45.2); HEMOGLOBIN 8.5 GM/dL (10.7-15.3); MCH 34.7 pg (25.7-33.7); MCHC 34.5 g/dl (32.0-36.0); MEAN CELL VOLUME 100.6 fl (80-96); MEAN PLT VOLUME 8.7 fl (7.5-11.1); PLATELET COUNT 189 K/MM3 (134-434); RBC 2.46 M/mm3 (3.60-5.2); RDW 19.6 % (11.6-15.6); WHITE BLOOD COUNT 10.1 K/mm3 (4.0-10.0)
[2020-06-19 20:49] LABS: VENOUS BASE EXCESS 1.4 mmol/L (-2-2); VENOUS O2 SATURATION 63.8 % (70-80); VENOUS PCO2 36.6 mmHg (38-52); VENOUS PH 7.457 (7.310-7.410)
[2020-06-19 21:09] LABS: POTASSIUM 3.5 mmol/L (3.5-5.1)
[2020-06-19 21:10] LABS: CALCIUM 9.3 mg/dL (8.5-10.1)
[2020-06-19 21:11] LABS: ALBUMIN 2.5 g/dl (3.4-5.0); BLOOD UREA NITROGEN 39.7 mg/dL (7-18); MAGNESIUM 2.2 mg/dL (1.8-2.4)
[2020-06-19 21:15] LABS: BILIRUBIN,TOTAL 0.6 mg/dL (0.2-1)
[2020-06-19 21:16] LABS: TOT PROT 8.4 g/dl (6.4-8.2)
[2020-06-19 21:39] LABS: CREATININE 8.2 mg/dL (0.55-1.3)
[2020-06-19 23:34] LABS: EPI CELLS >36 /uL (0-25.1); HYALINE CASTS 4 /uL (0-3.1); URINE APPEARANCE CLOUDY; URINE BACTERIA 954 /uL (0-1359); URINE BILIRUBIN NEGATIVE (NEGATIVE); URINE COLOR YELLOW; URINE GLUCOSE (UA) NEGATIVE (NEGATIVE); URINE KETONE TRACE (NEGATIVE); URINE LEUK ESTERASE 2+ (NEGATIVE); URINE NITRITE NEGATIVE (NEGATIVE); URINE PROTEIN 2+ (NEGATIVE); URINE RBC 6 /uL (0-23.9); URINE UROBILINOGEN 0.2 mg/dL (0.2-1.0); URINE WBC 513 /uL (0-25.8)
[2020-06-19] MEDS ORDERED: SODIUM CHLORIDE 500 ML IV STA (23:52)
[2020-06-19] MEDS ORDERED: CEFTRIAXONE 1 GM in DEXTROSE 5%-WATER - 100 ML IVPB ONE (23:52)
[2020-06-20] MEDS ORDERED: CEFTRIAXONE 1 GM/50 ML BAG ONE (00:30)
[2020-06-20] MEDS ORDERED: ACETAMINOPHEN 325 MG TABLET (FP) PO PRN (02:00)
[2020-06-20] MEDS ORDERED: SODIUM CHLORIDE 1,000 ML IV SCH (02:00)
[2020-06-20] MEDS ORDERED: VANCOMYCIN 1 GM in D5W (PRE-DOCKED) 1,000 MG/250 ML IVPB SCH ×2 (02:06→03:00)
[2020-06-20] MEDS ORDERED: cefTAZidime PENTAHYDRATE 1 GM/50ML PRE-DOCKED (RESTRICTED TO ID) IVPB SCH (02:30)
[2020-06-20] MEDS ORDERED: cefTAZidime PENTAHYDRATE 1 GM/50ML PRE-DOCKED (RESTRICTED TO ID) IVPB ONE (02:34)
[2020-06-20 04:55] VITALS: BMI 22.8
[2020-06-20] MEDS: INSULIN SLIDING SCALE (NOVOLOG) 1 VIAL SQ SCH ×4 (06:32→21:29)
[2020-06-20 07:01] LABS: INR 1.13 (0.83-1.09); PROTHROMBIN TIME (PATIENT) 13.9 SEC (9.7-13.0)
[2020-06-20 07:03] LABS: BASO % 0.3 % (0-2.0); EOS % 0.6 % (0-4.5); HEMATOCRIT 23.8 % (32.4-45.2); MCHC 33.6 g/dl (32.0-36.0); MEAN CELL VOLUME 101.2 fl (80-96); MEAN PLT VOLUME 8.7 fl (7.5-11.1); MONO % 5.7 % (3.8-10.2); NEUT % 57.4 % (42.8-82.8); PLATELET COUNT 175 K/MM3 (134-434); RBC 2.36 M/mm3 (3.60-5.2); RDW 20.3 % (11.6-15.6)
[2020-06-20 07:04] LABS: ACTIVATED PTT 18.9 SECONDS (25.2-36.5)
[2020-06-20 07:39] LABS: POTASSIUM 3.8 mmol/L (3.5-5.1)
[2020-06-20 07:40] LABS: CALCIUM 8.4 mg/dL (8.5-10.1)
[2020-06-20 07:41] LABS: ALBUMIN 2.3 g/dl (3.4-5.0); BLOOD UREA NITROGEN 39.9 mg/dL (7-18)
[2020-06-20 07:42] LABS: MAGNESIUM 2.1 mg/dL (1.8-2.4)
[2020-06-20 07:44] LABS: PHOSPHOROUS 3.6 mg/dL (2.5-4.9)
[2020-06-20 07:46] LABS: BILIRUBIN,TOTAL 0.8 mg/dL (0.2-1)
[2020-06-20] MEDS: SEVELAMER CARBONATE 800 MG TAB (FP) PO SCH ×3 (08:07→17:15)
[2020-06-20] MEDS ORDERED: PERITONEAL DIALYSIS 2.5% SOLN 2,500 ML IP SCH (08:45)
[2020-06-20 09:48] LABS: CREATININE 8.4 mg/dL (0.55-1.3)
[2020-06-20] MEDS ORDERED: ALLOPURINOL 100 MG TABLET (FP) PO SCH (10:00)
[2020-06-20] MEDS ORDERED: TIMOLOL 0.5% OPHTHALMIC SOL 5 ML BOTTLE OU SCH (10:00)
[2020-06-20] MEDS ORDERED: PATIENT'S OWN MEDICATION (NON-FORMULARY) (Dorzolamide Hcl/Timolol Maleat [Cosopt Eye Drops OP SCH (10:00)
[2020-06-20] MEDS: FOLIC ACID 1 MG TABLET (FP) PO SCH (10:20)
[2020-06-20] MEDS: PANTOPRAZOLE 40 MG TABLET PO SCH (10:20)
[2020-06-20] MEDS: DORZOLAMIDE 2% HCL OPHTHALMIC SOLUTION 10 ML BOTTLE OU SCH ×2 (10:21→21:30)
[2020-06-20] MEDS ORDERED: SUCRALFATE 1 GM/10 ML UNIT DOSE CUPS PO SCH (12:15)
[2020-06-20] MEDS: FUROSEMIDE 40 MG TABLET (FP) PO SCH (14:00)
[2020-06-20] MEDS ORDERED: DEXTROSE 5%-WATER 100 ML IVPB ONE (14:46)
[2020-06-20] MEDS: CEFTRIAXONE 2 GM in DEXTROSE 5%-WATER 100 ML IVPB SCH (14:47)
[2020-06-20] MEDS: ALLOPURINOL 100 MG TABLET (FP) PO SCH (15:08)
[2020-06-20] MEDS: FERROUS SO4 325 MG TABLET (FP) PO SCH (17:15)
[2020-06-20] MEDS: prednisoLONE ACETATE 1% OPHTH SUSP 5 ML BOTTLE OD SCH ×2 (17:22→21:24)
[2020-06-20] MEDS: SODIUM CHLORIDE 1,000 ML IV SCH (17:38)
[2020-06-20] MEDS: PERITONEAL DIALYSIS 2.5% SOLN 2,500 ML IP SCH (18:30)
[2020-06-20] MEDS: ICOSAPENT ETHYL 2 GM PO SCH (21:28)
[2020-06-20] MEDS: APIXABAN 2.5 MG TABLET PO SCH (21:29)
[2020-06-20] MEDS: ROSUVASTATIN CA 10 MG TABLET (FP) PO SCH (21:29)
[2020-06-20] MEDS: TIMOLOL 0.5% OPHTHALMIC SOL 5 ML BOTTLE OS SCH (21:30)
[2020-06-20] MEDS ORDERED: LATANOPROST 0.005% OPHTH SOLN 2.5ML BOTTLE OU SCH (22:00)
[2020-06-20 22:42] LABS: BF WBC & OTHER NUCLEATED CELLS 9 /mm3
[2020-06-21] MEDS: PERITONEAL DIALYSIS 2.5% SOLN 2,500 ML IP SCH ×4 (00:08→18:10)
[2020-06-21] MEDS: SODIUM CHLORIDE 1,000 ML IV SCH (04:42)
[2020-06-21] MEDS: INSULIN SLIDING SCALE (NOVOLOG) 1 VIAL SQ SCH ×4 (06:29→21:53)
[2020-06-21] MEDS: SEVELAMER CARBONATE 800 MG TAB (FP) PO SCH ×3 (08:24→17:58)
[2020-06-21] MEDS: FERROUS SO4 325 MG TABLET (FP) PO SCH ×3 (08:24→17:58)
[2020-06-21] MEDS ORDERED: EPOETIN ALFA 20,000 UNIT/1 ML VIAL SQ ONE (09:00)
[2020-06-21] MEDS ORDERED: DEXTROSE 5%-WATER 100 ML IVPB ONE (10:22)
[2020-06-21] MEDS: CEFTRIAXONE 2 GM in DEXTROSE 5%-WATER 100 ML IVPB SCH (10:30)
[2020-06-21] MEDS: APIXABAN 2.5 MG TABLET PO SCH ×2 (10:30→21:52)
[2020-06-21] MEDS: FOLIC ACID 1 MG TABLET (FP) PO SCH (10:30)
[2020-06-21] MEDS: PANTOPRAZOLE 40 MG TABLET PO SCH (10:30)
[2020-06-21] MEDS: ALLOPURINOL 100 MG TABLET (FP) PO SCH (10:30)
[2020-06-21] MEDS: ICOSAPENT ETHYL 2 GM PO SCH ×2 (10:31→21:58)
[2020-06-21] MEDS: DORZOLAMIDE 2% HCL OPHTHALMIC SOLUTION 10 ML BOTTLE OU SCH (10:32)
[2020-06-21] MEDS: TIMOLOL 0.5% OPHTHALMIC SOL 5 ML BOTTLE OS SCH ×2 (10:33→22:00)
[2020-06-21] MEDS: prednisoLONE ACETATE 1% OPHTH SUSP 5 ML BOTTLE OD SCH ×3 (10:33→17:59)
[2020-06-21] MEDS: FUROSEMIDE 40 MG TABLET (FP) PO SCH (13:53)
[2020-06-21 14:14] LABS: BASO % 0.3 % (0-2.0); EOS % 2.4 % (0-4.5); HEMATOCRIT 23.6 % (32.4-45.2); HEMOGLOBIN 7.8 GM/dL (10.7-15.3); LYMPH % 40.5 % (8-40); MCH 33.7 pg (25.7-33.7); MEAN CELL VOLUME 102.2 fl (80-96); MEAN PLT VOLUME 8.4 fl (7.5-11.1); MONO % 7.6 % (3.8-10.2); NEUT % 49.2 % (42.8-82.8); PLATELET COUNT 164 K/MM3 (134-434); RBC 2.31 M/mm3 (3.60-5.2); RDW 20.2 % (11.6-15.6); WHITE BLOOD COUNT 6.2 K/mm3 (4.0-10.0)
[2020-06-21 14:35] LABS: ALBUMIN 1.9 g/dl (3.4-5.0); CALCIUM 8.3 mg/dL (8.5-10.1); MAGNESIUM 1.9 mg/dL (1.8-2.4)
[2020-06-21 14:38] LABS: CREATININE 5.9 mg/dL (0.55-1.3); PHOSPHOROUS 2.4 mg/dL (2.5-4.9)
[2020-06-21 14:40] LABS: BILIRUBIN,TOTAL 0.4 mg/dL (0.2-1); TOT PROT 7.2 g/dl (6.4-8.2)
[2020-06-21] MEDS: POTASSIUM CHLORIDE TABS 20 MEQ TABLET.ER (FP) PO SCH (17:58)
[2020-06-21] MEDS ORDERED: LATANOPROST 0.005% OPHTH SOLN 2.5ML BOTTLE OU SCH (18:26)
[2020-06-21] MEDS ORDERED: DORZOLAMIDE 2% HCL OPHTHALMIC SOLUTION 10 ML BOTTLE OU SCH (18:26)
[2020-06-21] MEDS: ROSUVASTATIN CA 10 MG TABLET (FP) PO SCH (21:52)
[2020-06-21] MEDS: LATANOPROST 0.005% OPHTH SOLN 2.5ML BOTTLE OS SCH (21:59)
[2020-06-22] MEDS: PERITONEAL DIALYSIS 2.5% SOLN 2,500 ML IP SCH ×4 (00:30→18:29)
[2020-06-22] MEDS ORDERED: cefTAZidime PENTAHYDRATE 1 GM/50ML PRE-DOCKED (RESTRICTED TO ID) IVPB SCH (03:00)
[2020-06-22] MEDS ORDERED: VANCOMYCIN 1 GM in D5W (PRE-DOCKED) 1,000 MG/250 ML IVPB SCH (03:15)
[2020-06-22] MEDS: INSULIN SLIDING SCALE (NOVOLOG) 1 VIAL SQ SCH ×4 (06:43→22:52)
[2020-06-22] MEDS ORDERED: DEXTROSE 5%-WATER 100 ML IVPB ONE (09:03)
[2020-06-22] MEDS: POTASSIUM CHLORIDE TABS 20 MEQ TABLET.ER (FP) PO SCH (09:21)
[2020-06-22] MEDS: PANTOPRAZOLE 40 MG TABLET PO SCH (09:21)
[2020-06-22] MEDS: APIXABAN 2.5 MG TABLET PO SCH ×2 (09:22→22:51)
[2020-06-22] MEDS: SEVELAMER CARBONATE 800 MG TAB (FP) PO SCH ×3 (09:22→16:48)
[2020-06-22] MEDS: ALLOPURINOL 100 MG TABLET (FP) PO SCH (09:22)
[2020-06-22] MEDS: FOLIC ACID 1 MG TABLET (FP) PO SCH (09:22)
[2020-06-22] MEDS: FERROUS SO4 325 MG TABLET (FP) PO SCH ×3 (09:23→16:49)
[2020-06-22] MEDS: CEFTRIAXONE 2 GM in DEXTROSE 5%-WATER 100 ML IVPB SCH (09:23)
[2020-06-22] MEDS: ICOSAPENT ETHYL 2 GM PO SCH ×2 (09:25→22:52)
[2020-06-22] MEDS ORDERED: DORZOLAMIDE 2% HCL OPHTHALMIC SOLUTION 10 ML BOTTLE OD SCH (10:00)
[2020-06-22] MEDS: DORZOLAMIDE 2% HCL OPHTHALMIC SOLUTION 10 ML BOTTLE OD SCH (10:59)
[2020-06-22] MEDS: TIMOLOL 0.5% OPHTHALMIC SOL 5 ML BOTTLE OS SCH ×2 (11:01→22:52)
[2020-06-22 11:09] LABS: BASO % 0.2 % (0-2.0); EOS % 2.2 % (0-4.5); HEMATOCRIT 20.6 % (32.4-45.2); HEMOGLOBIN 7.1 GM/dL (10.7-15.3); LYMPH % 41.2 % (8-40); MCH 34.8 pg (25.7-33.7); MCHC 34.2 g/dl (32.0-36.0); MEAN CELL VOLUME 101.7 fl (80-96); MEAN PLT VOLUME 8.8 fl (7.5-11.1); MONO % 10.8 % (3.8-10.2); NEUT % 45.6 % (42.8-82.8); PLATELET COUNT 169 K/MM3 (134-434); RBC 2.03 M/mm3 (3.60-5.2); RDW 19.9 % (11.6-15.6); WHITE BLOOD COUNT 5.7 K/mm3 (4.0-10.0)
[2020-06-22 12:26] LABS: BLOOD UREA NITROGEN 22.4 mg/dL (7-18); CALCIUM 7.9 mg/dL (8.5-10.1); CREATININE 4.7 mg/dL (0.55-1.3); MAGNESIUM 1.7 mg/dL (1.8-2.4); PHOSPHOROUS 2.4 mg/dL (2.5-4.9); POTASSIUM 3.1 mmol/L (3.5-5.1)
[2020-06-22] MEDS: FUROSEMIDE 40 MG TABLET (FP) PO SCH (14:37)
[2020-06-22] MEDS ORDERED: amLODIPine BESYLATE 2.5 MG TABLET (FP) PO ONE (15:00)
[2020-06-22] MEDS ORDERED: SODIUM CHLORIDE 1,000 ML IV SCH (15:00)
[2020-06-22] MEDS ORDERED: PERITONEAL DIALYSIS 2.5% SOLN 2,000 ML IP SCH (19:00)
[2020-06-22] MEDS: CYCLOSPORINE 0.05% OU SCH ×4 (20:01→22:52)
[2020-06-22] MEDS ORDERED: PT OWN MED DRAWER 7, Y5N ONE (22:49)
[2020-06-22] MEDS: ROSUVASTATIN CA 10 MG TABLET (FP) PO SCH (22:51)
[2020-06-22] MEDS: LATANOPROST 0.005% OPHTH SOLN 2.5ML BOTTLE OS SCH (22:52)
[2020-06-23] MEDS: PERITONEAL DIALYSIS 2.5% SOLN 2,000 ML IP SCH ×4 (00:20→18:38)
[2020-06-23] MEDS: INSULIN SLIDING SCALE (NOVOLOG) 1 VIAL SQ SCH ×4 (06:37→21:29)
[2020-06-23] MEDS: FERROUS SO4 325 MG TABLET (FP) PO SCH ×3 (08:50→17:12)
[2020-06-23] MEDS: SEVELAMER CARBONATE 800 MG TAB (FP) PO SCH ×3 (08:50→17:12)
[2020-06-23] MEDS ORDERED: DEXTROSE 5%-WATER 100 ML IVPB ONE (09:48)
[2020-06-23] MEDS: PANTOPRAZOLE 40 MG TABLET PO SCH (10:15)
[2020-06-23] MEDS: APIXABAN 2.5 MG TABLET PO SCH ×2 (10:15→21:29)
[2020-06-23] MEDS: amLODIPine BESYLATE 2.5 MG TABLET (FP) PO SCH (10:15)
[2020-06-23] MEDS: POTASSIUM CHLORIDE TABS 20 MEQ TABLET.ER (FP) PO SCH (10:15)
[2020-06-23] MEDS: CYCLOSPORINE 0.05% OU SCH ×2 (10:16→21:24)
[2020-06-23] MEDS: ALLOPURINOL 100 MG TABLET (FP) PO SCH (10:16)
[2020-06-23] MEDS: FOLIC ACID 1 MG TABLET (FP) PO SCH (10:16)
[2020-06-23] MEDS: ICOSAPENT ETHYL 2 GM PO SCH ×2 (10:17→21:33)
[2020-06-23] MEDS: CEFTRIAXONE 2 GM in DEXTROSE 5%-WATER 100 ML IVPB SCH (10:18)
[2020-06-23] MEDS: TIMOLOL 0.5% OPHTHALMIC SOL 5 ML BOTTLE OS SCH ×2 (10:18→21:33)
[2020-06-23] MEDS: DORZOLAMIDE 2% HCL OPHTHALMIC SOLUTION 10 ML BOTTLE OD SCH (10:19)
[2020-06-23] MEDS ORDERED: PT OWN MED DRAWER 7, Y5N ONE ×2 (12:08→21:21)
[2020-06-23 18:22] LABS: POTASSIUM 3.7 mmol/L (3.5-5.1)
[2020-06-23 18:23] LABS: CALCIUM 8.1 mg/dL (8.5-10.1)
[2020-06-23 18:24] LABS: BLOOD UREA NITROGEN 17.7 mg/dL (7-18)
[2020-06-23 18:27] LABS: CREATININE 4.3 mg/dL (0.55-1.3)
[2020-06-23] MEDS: ROSUVASTATIN CA 10 MG TABLET (FP) PO SCH (21:29)
[2020-06-23] MEDS: LATANOPROST 0.005% OPHTH SOLN 2.5ML BOTTLE OS SCH (21:33)
[2020-06-24] MEDS: PERITONEAL DIALYSIS 2.5% SOLN 2,000 ML IP SCH ×3 (00:37→12:30)
[2020-06-24] MEDS: INSULIN SLIDING SCALE (NOVOLOG) 1 VIAL SQ SCH ×2 (06:32→11:43)
[2020-06-24 07:25] LABS: POTASSIUM 3.6 mmol/L (3.5-5.1)
[2020-06-24 07:26] LABS: CALCIUM 7.4 mg/dL (8.5-10.1)
[2020-06-24 07:27] LABS: BLOOD UREA NITROGEN 16.3 mg/dL (7-18)
[2020-06-24 07:30] LABS: BASO % 0.1 % (0-2.0); CREATININE 4.2 mg/dL (0.55-1.3); EOS % 2.1 % (0-4.5); HEMATOCRIT 20.4 % (32.4-45.2); LYMPH % 50.4 % (8-40); MCH 34.3 pg (25.7-33.7); MCHC 34.1 g/dl (32.0-36.0); MEAN CELL VOLUME 100.6 fl (80-96); MEAN PLT VOLUME 8.3 fl (7.5-11.1); MONO % 11.1 % (3.8-10.2); NEUT % 36.3 % (42.8-82.8); PLATELET COUNT 207 K/MM3 (134-434); RBC 2.03 M/mm3 (3.60-5.2); RDW 20.1 % (11.6-15.6); WHITE BLOOD COUNT 5.8 K/mm3 (4.0-10.0)
[2020-06-24] MEDS: SEVELAMER CARBONATE 800 MG TAB (FP) PO SCH ×2 (08:15→12:34)
[2020-06-24] MEDS: FERROUS SO4 325 MG TABLET (FP) PO SCH ×2 (08:15→12:34)
[2020-06-24] MEDS ORDERED: PT OWN MED DRAWER 7, Y5N ONE ×3 (09:27→15:46)
[2020-06-24] MEDS ORDERED: DEXTROSE 5%-WATER 100 ML IVPB ONE (09:28)
[2020-06-24] MEDS: CEFTRIAXONE 2 GM in DEXTROSE 5%-WATER 100 ML IVPB SCH (10:03)
[2020-06-24] MEDS: POTASSIUM CHLORIDE TABS 20 MEQ TABLET.ER (FP) PO SCH (10:04)
[2020-06-24] MEDS: PANTOPRAZOLE 40 MG TABLET PO SCH (10:04)
[2020-06-24] MEDS: ALLOPURINOL 100 MG TABLET (FP) PO SCH (10:04)
[2020-06-24] MEDS: FOLIC ACID 1 MG TABLET (FP) PO SCH (10:04)
[2020-06-24] MEDS: APIXABAN 2.5 MG TABLET PO SCH (10:04)
[2020-06-24] MEDS: DORZOLAMIDE 2% HCL OPHTHALMIC SOLUTION 10 ML BOTTLE OD SCH (10:05)
[2020-06-24] MEDS: ICOSAPENT ETHYL 2 GM PO SCH (10:05)
[2020-06-24] MEDS: amLODIPine BESYLATE 2.5 MG TABLET (FP) PO SCH (10:05)
[2020-06-24] MEDS: TIMOLOL 0.5% OPHTHALMIC SOL 5 ML BOTTLE OS SCH (10:05)
[2020-06-24] MEDS: CYCLOSPORINE 0.05% OU SCH (10:06)
[2020-06-24] MEDS ORDERED: EPOETIN ALFA 20,000 UNIT/1 ML VIAL SQ ONE (11:26)
[2020-06-24 11:33] VITALS: BP 135/71; PULSE 68; TEMP 98
[2020-06-24] MEDS ORDERED: IRON SUCROSE INJECTION 100 MG in SODIUM CHLORIDE 95 ML IVPB ONE (14:30)
[2020-06-26 13:07] LABS: ALBUMIN % 32.3 % (.); ALPHA-1 FOR UPE 4.9 % (.); TOTAL PROTEIN, URINE 59.8 mg/dL (Not Estab.)
== END 2020-06-24 16:30 | disposition home health service (06) | DRG 871 ==
LOC: JER 18:37 → JERBED 06-20 00:05 → J4S 06-20 02:42
PROVIDERS: ADMIT Internal Medicine; ATTEND Internal Medicine
DX: A41.89 Other specified sepsis (principal); N18.6 End stage renal disease; C90.00 Multiple myeloma not having achieved remission; E87.1 Hypo-osmolality and hyponatremia; N17.9 Acute kidney failure, unspecified; I12.0 Hypertensive chronic kidney disease with stage 5 chronic kidney disease or end stage renal disease; K86.2 Cyst of pancreas; E87.2 Acidosis; N39.0 Urinary tract infection, site not specified; E46 Unspecified protein-calorie malnutrition; E78.00 Pure hypercholesterolemia, unspecified; D64.9 Anemia, unspecified; M10.9 Gout, unspecified; E11.22 Type 2 diabetes mellitus with diabetic chronic kidney disease; E11.65 Type 2 diabetes mellitus with hyperglycemia; D35.2 Benign neoplasm of pituitary gland; D63.1 Anemia in chronic kidney disease; Z68.22 Body mass index [BMI] 22.0-22.9, adult; E88.09 Other disorders of plasma-protein metabolism, not elsewhere classified; E86.1 Hypovolemia; R11.10 Vomiting, unspecified; Z99.2 Dependence on renal dialysis; Z86.718 Personal history of other venous thrombosis and embolism; R50.9 Fever, unspecified; D72.829 Elevated white blood cell count, unspecified
CPT/HCPCS: 36415; 71046-TC-FY; 74176-TC; 80048; 80053; 81003; 82272; 82607; 82728; 82746; 82784; 82803; 82962; 83540; 83550; 83605; 83735; 83883; 84100; 84155; 84156; 84165; 84166; 84484; 85025; 85027; 85045; 85610; 85730; 87040; 87070; 87075; 87086; 87205; 93005; 93010; 97116-GP; 97161-GP; 99291; 99292; C9803; J0131; J0885; J1756; U0003

== ENCOUNTER 2020-09-21 17:49 | Inpatient (IN) | payer OTHER, MEDICARE ==
[2020-09-21] MEDS ORDERED: LACTATED RINGERS SOLUTION 1000 ML INFUS.BAG IV ONE (18:38)
[2020-09-21] MEDS ORDERED: PIPERACILLIN/TAZOB 2.25 GM 2.25 GM in DEXTROSE 5%-WATER - 50 ML IVPB ONE (18:42)
[2020-09-21 19:18] LABS: BASO % 0.4 % (0-2.0); EOS % 0.3 % (0-4.5); HEMATOCRIT 31.7 % (32.4-45.2); HEMOGLOBIN 10.6 GM/dL (10.7-15.3); LYMPH % 46.3 % (8-40); MCH 35.3 pg (25.7-33.7); MCHC 33.5 g/dl (32.0-36.0); MEAN CELL VOLUME 105.6 fl (80-96); MEAN PLT VOLUME 9.6 fl (7.5-11.1); MONO % 2.1 % (3.8-10.2); NEUT % 50.9 % (42.8-82.8); PLATELET COUNT 156 K/MM3 (134-434); RDW 16.3 % (11.6-15.6); WHITE BLOOD COUNT 5.3 K/mm3 (4.0-10.0)
[2020-09-21 19:19] LABS: VENOUS BASE EXCESS 0.4 mmol/L (-2-2); VENOUS O2 SATURATION 18.3 % (70-80); VENOUS PCO2 48.8 mmHg (38-52); VENOUS PH 7.354 (7.310-7.410)
[2020-09-21 19:29] LABS: INR 1.13 (0.83-1.09); PROTHROMBIN TIME (PATIENT) 13.6 SEC (9.7-13.0)
[2020-09-21 19:32] LABS: ACTIVATED PTT 26.1 SECONDS (25.2-36.5)
[2020-09-21] MEDS ORDERED: ACETAMINOPHEN 1000 MG/100 ML VIAL (NON FORMULARY) IVPB ONE (19:35)
[2020-09-21 19:46] LABS: CHLORIDE 91 mmol/L (98-107); POTASSIUM 4.4 mmol/L (3.5-5.1); SODIUM 130 mmol/L (136-145)
[2020-09-21] MEDS ORDERED: ACETAMINOPHEN INJECTION 100 ML IVPB ONE (19:47)
[2020-09-21 19:48] LABS: ALBUMIN 2.8 g/dl (3.4-5.0); ANION GAP 13 MMOL/L (8-16); CALCIUM 9.1 mg/dL (8.5-10.1); CO2 26 mmol/L (21-32); GLUCOSE,RANDOM 240 mg/dL (74-106)
[2020-09-21 19:49] LABS: BLOOD UREA NITROGEN 37.7 mg/dL (7-18); LIPASE 713 U/L (73-393); MAGNESIUM 1.9 mg/dL (1.8-2.4)
[2020-09-21 19:52] LABS: SGOT/AST 67 U/L (15-37); SGPT/ALT 68 U/L (13-61)
[2020-09-21 19:53] LABS: BILIRUBIN,TOTAL 0.4 mg/dL (0.2-1); TOT PROT 8.7 g/dl (6.4-8.2)
[2020-09-21 19:54] LABS: ALK PHOS 58 U/L (45-117)
[2020-09-21] MEDS ORDERED: SODIUM CHLORIDE 0.9% 1000 ML INFUS.BAG IV ONE (20:36)
[2020-09-21] MEDS ORDERED: PIPERACILLIN/TAZOB 2.25 GM 2.25 GM/50 ML BAG IVPB ONE (20:42)
[2020-09-21 21:22] LABS: ANISOCYTOSIS 2+; MACROCYTOSIS 0; PLATELET ESTIMATE DECREASED
[2020-09-22] MEDS ORDERED: SODIUM CHLORIDE 1,000 ML IV SCH (02:45)
[2020-09-22] MEDS ORDERED: HEPARIN NA (PORCINE) 5,000 UNITS/ML 1ML VIAL SQ SCH (06:00)
[2020-09-22] MEDS: INSULIN SLIDING SCALE (NOVOLOG) 1 VIAL SQ SCH ×4 (07:29→22:06)
[2020-09-22 08:03] LABS: BASO % 0.1 % (0-2.0); EOS % 0.1 % (0-4.5); HEMOGLOBIN 10.3 GM/dL (10.7-15.3); LYMPH % 17.7 % (8-40); MCHC 34.4 g/dl (32.0-36.0); MEAN CELL VOLUME 104.6 fl (80-96); MEAN PLT VOLUME 10.3 fl (7.5-11.1); NEUT % 78.1 % (42.8-82.8); PLATELET COUNT 145 K/MM3 (134-434); RBC 2.87 M/mm3 (3.60-5.2); RDW 16.6 % (11.6-15.6); WHITE BLOOD COUNT 8.9 K/mm3 (4.0-10.0)
[2020-09-22 08:17] LABS: CHLORIDE 92 mmol/L (98-107); SODIUM 129 mmol/L (136-145)
[2020-09-22 08:27] LABS: BLOOD UREA NITROGEN 40.1 mg/dL (7-18); CALCIUM 8.8 mg/dL (8.5-10.1)
[2020-09-22 08:28] LABS: ALBUMIN 2.2 g/dl (3.4-5.0); CO2 19 mmol/L (21-32); GLUCOSE,RANDOM 194 mg/dL (74-106); MAGNESIUM 1.8 mg/dL (1.8-2.4)
[2020-09-22 08:31] LABS: PHOSPHOROUS 4.3 mg/dL (2.5-4.9); SGOT/AST 53 U/L (15-37); SGPT/ALT 54 U/L (13-61)
[2020-09-22 08:33] LABS: ALK PHOS 39 U/L (45-117)
[2020-09-22 08:34] LABS: BILIRUBIN,TOTAL 0.5 mg/dL (0.2-1); TOT PROT 7.7 g/dl (6.4-8.2)
[2020-09-22 09:14] LABS: ANION GAP 17 MMOL/L (8-16)
[2020-09-22 09:26] LABS: CREATININE 7.5 mg/dL (0.55-1.3); POTASSIUM 6.6 mmol/L (3.5-5.1)
[2020-09-22] MEDS ORDERED: WATER IVPB SCH (10:00)
[2020-09-22] MEDS ORDERED: APIXABAN 2.5 MG TABLET PO SCH (10:00)
[2020-09-22] MEDS ORDERED: CEFEPIME IVPB SCH (10:00)
[2020-09-22] MEDS ORDERED: DEXTROSE 5% IVPB SCH (10:00)
[2020-09-22] MEDS ORDERED: VANCOMYCIN 1 GRAM (PRE-DOCKED) 1,000 MG/250 ML BAG IVPB ONE (10:00)
[2020-09-22 11:27] LABS: BLOOD UREA NITROGEN 40.1 mg/dL (7-18)
[2020-09-22 11:35] LABS: CREATININE 7.6 mg/dL (0.55-1.3)
[2020-09-22 11:36] LABS: POTASSIUM 6.2 mmol/L (3.5-5.1)
[2020-09-22] MEDS: PERITONEAL DIALYSIS 1.5% SOLN 2,000 ML IP SCH ×3 (12:58→21:53)
[2020-09-22] MEDS ORDERED: PIPERACILLIN/TAZOBACTAM 2.25 GM VIAL IVPB ONE (16:31)
[2020-09-22] MEDS ORDERED: DEXTROSE 5%-WATER - 50 ML IVPB ONE (16:31)
[2020-09-22] MEDS: VANCOMYCIN 1 GM in D5W (PRE-DOCKED) 1,000 MG/250 ML IVPB SCH (16:42)
[2020-09-22] MEDS ORDERED: PIPERACILLIN/TAZOB 2.25 GM 2.25 GM in DEXTROSE 5%-WATER - 50 ML IVPB SCH ×2 (17:00→21:00)
[2020-09-22 18:17] LABS: CALCIUM 9.1 mg/dL (8.5-10.1)
[2020-09-22 18:18] LABS: ALBUMIN 2.2 g/dl (3.4-5.0); BLOOD UREA NITROGEN 42.6 mg/dL (7-18)
[2020-09-22 18:23] LABS: BILIRUBIN,TOTAL 0.5 mg/dL (0.2-1); TOT PROT 8.3 g/dl (6.4-8.2)
[2020-09-22 18:38] LABS: CREATININE 7.5 mg/dL (0.55-1.3)
[2020-09-22] MEDS ORDERED: ONDANSETRON 4 MG/2 ML VIAL IVPUSH PRN ×2 (19:35→20:43)
[2020-09-22] MEDS ORDERED: PNEUMOC 13-VAL CONJ-DIP CRM/PF 0.5 ML DISP.SYRIN IM ONE (20:16)
[2020-09-22] MEDS ORDERED: FLU VACCINE (FLULAVAL) PF 60 MCG/0.5 ML SYRINGE 2020-2021 IM ONE (20:16)
[2020-09-22] MEDS ORDERED: MORPHINE SULFATE 2 MG/ML VIAL IVPUSH ONE (21:24)
[2020-09-22] MEDS ORDERED: PERITONEAL DIALYSIS 1.5% SOLN 2,000 ML IP SCH (21:30)
[2020-09-22] MEDS: APIXABAN 2.5 MG TABLET PO SCH (22:04)
[2020-09-23] MEDS ORDERED: PIPERACILLIN/TAZOB 2.25 GM 2.25 GM in DEXTROSE 5%-WATER - 50 ML IVPB SCH (01:00)
[2020-09-23] MEDS ORDERED: PIPERACILLIN/TAZOBACTAM 2.25 GM VIAL IVPB ONE ×3 (01:16→16:29)
[2020-09-23] MEDS ORDERED: DEXTROSE 5%-WATER - 50 ML IVPB ONE ×3 (01:16→16:29)
[2020-09-23] MEDS: PIPERACILLIN/TAZOB 2.25 GM 2.25 GM in DEXTROSE 5%-WATER - 50 ML IVPB SCH ×3 (02:00→17:16)
[2020-09-23] MEDS: PERITONEAL DIALYSIS 1.5% SOLN 2,000 ML IP SCH ×4 (03:44→16:45)
[2020-09-23] MEDS: INSULIN SLIDING SCALE (NOVOLOG) 1 VIAL SQ SCH ×4 (06:41→22:19)
[2020-09-23 07:13] LABS: HEMATOCRIT 25.7 % (32.4-45.2); HEMOGLOBIN 8.8 GM/dL (10.7-15.3); MCHC 34.3 g/dl (32.0-36.0); MEAN CELL VOLUME 104.8 fl (80-96); PLATELET COUNT 128 K/MM3 (134-434); RBC 2.45 M/mm3 (3.60-5.2); RDW 16.4 % (11.6-15.6); WHITE BLOOD COUNT 10.2 K/mm3 (4.0-10.0)
[2020-09-23 07:53] LABS: ALBUMIN 1.8 g/dl (3.4-5.0); BLOOD UREA NITROGEN 42.3 mg/dL (7-18); CALCIUM 8.3 mg/dL (8.5-10.1)
[2020-09-23 07:57] LABS: CREATININE 6.7 mg/dL (0.55-1.3)
[2020-09-23 07:58] LABS: BILIRUBIN,TOTAL 0.9 mg/dL (0.2-1)
[2020-09-23] MEDS: APIXABAN 2.5 MG TABLET PO SCH ×2 (09:44→22:14)
[2020-09-23] MEDS ORDERED: CEFEPIME IVPB SCH (10:00)
[2020-09-23] MEDS ORDERED: DEXTROSE 5% IVPB SCH (10:00)
[2020-09-23] MEDS ORDERED: VANCOMYCIN 1 GM in D5W (PRE-DOCKED) 1,000 MG/250 ML IVPB SCH (10:00)
[2020-09-23] MEDS ORDERED: WATER IVPB SCH (10:00)
[2020-09-23 13:19] LABS: EPI CELLS 27 /uL (0-25.1); HYALINE CASTS 1 /uL (0-3.1); URINE APPEARANCE CLEAR; URINE BACTERIA 17 /uL (0-1359); URINE BILIRUBIN NEGATIVE (NEGATIVE); URINE COLOR YELLOW; URINE GLUCOSE (UA) NEGATIVE (NEGATIVE); URINE KETONE NEGATIVE (NEGATIVE); URINE LEUK ESTERASE 1+ (NEGATIVE); URINE NITRITE NEGATIVE (NEGATIVE); URINE PROTEIN 2+ (NEGATIVE); URINE UROBILINOGEN 0.2 mg/dL (0.2-1.0); URINE WBC 35 /uL (0-25.8)
[2020-09-23 14:10] LABS: URINE CRYSTALS NON SEEN /hpf; URINE RBC 586.7 /uL (0-23.9)
[2020-09-23] MEDS: VANCOMYCIN 1 GM in D5W (PRE-DOCKED) 1,000 MG/250 ML IVPB SCH (17:02)
[2020-09-23 19:07] LABS: HEP B CORE AB, TOT Negative (Negative)
[2020-09-23] MEDS: PERITONEAL DIALYSIS 2.5% SOLN 2,000 ML IP SCH (23:16)
[2020-09-24] MEDS ORDERED: DEXTROSE 5%-WATER - 50 ML IVPB ONE ×3 (01:03→16:53)
[2020-09-24] MEDS ORDERED: PIPERACILLIN/TAZOBACTAM 2.25 GM VIAL IVPB ONE ×3 (01:03→16:53)
[2020-09-24] MEDS: PIPERACILLIN/TAZOB 2.25 GM 2.25 GM in DEXTROSE 5%-WATER - 50 ML IVPB SCH ×3 (01:19→17:13)
[2020-09-24] MEDS: PERITONEAL DIALYSIS 1.5% SOLN 2,000 ML IP SCH ×3 (05:29→19:15)
[2020-09-24] MEDS: INSULIN SLIDING SCALE (NOVOLOG) 1 VIAL SQ SCH ×4 (06:49→21:33)
[2020-09-24 06:58] LABS: BASO % 0.5 % (0-2.0); EOS % 1.4 % (0-4.5); HEMATOCRIT 23.3 % (32.4-45.2); LYMPH % 24.2 % (8-40); MCH 35.9 pg (25.7-33.7); MCHC 34.5 g/dl (32.0-36.0); MEAN CELL VOLUME 104.1 fl (80-96); MEAN PLT VOLUME 9.6 fl (7.5-11.1); MONO % 4.8 % (3.8-10.2); NEUT % 69.1 % (42.8-82.8); PLATELET COUNT 104 K/MM3 (134-434); RBC 2.24 M/mm3 (3.60-5.2); RDW 16.4 % (11.6-15.6); WHITE BLOOD COUNT 11.9 K/mm3 (4.0-10.0)
[2020-09-24 07:38] LABS: POTASSIUM 3.4 mmol/L (3.5-5.1)
[2020-09-24 07:41] LABS: ALBUMIN 1.5 g/dl (3.4-5.0); BLOOD UREA NITROGEN 35.9 mg/dL (7-18)
[2020-09-24 07:43] LABS: CREATININE 5.6 mg/dL (0.55-1.3)
[2020-09-24 07:45] LABS: BILIRUBIN,TOTAL 0.4 mg/dL (0.2-1)
[2020-09-24] MEDS: APIXABAN 2.5 MG TABLET PO SCH ×2 (09:27→21:32)
[2020-09-24] MEDS ORDERED: DOCUSATE SODIUM 100 MG CAPSULE (FP) PO ONE (11:37)
[2020-09-24] MEDS ORDERED: VANCOMYCIN/WATER BAGS 1,250 MG/250 ML BAG IVPB ONE (11:47)
[2020-09-24 12:20] LABS: ANISOCYTOSIS 0; MACROCYTOSIS 1+; PLATELET ESTIMATE DECREASED
[2020-09-24] MEDS: TIMOLOL 0.5% OPHTHALMIC SOL 5 ML BOTTLE OS SCH (13:46)
[2020-09-24] MEDS: DORZOLAMIDE 2% HCL OPHTHALMIC SOLUTION 10 ML BOTTLE OD SCH (13:47)
[2020-09-24] MEDS: DOCUSATE SODIUM 100 MG CAPSULE (FP) PO SCH (21:32)
[2020-09-24] MEDS: LATANOPROST 0.005% OPHTH SOLN 2.5ML BOTTLE OS SCH (21:33)
[2020-09-25] MEDS: PERITONEAL DIALYSIS 2.5% SOLN 2,000 ML IP SCH (01:15)
[2020-09-25] MEDS ORDERED: DEXTROSE 5%-WATER - 50 ML IVPB ONE ×3 (01:17→11:22)
[2020-09-25] MEDS ORDERED: PIPERACILLIN/TAZOBACTAM 2.25 GM VIAL IVPB ONE ×2 (01:17→09:40)
[2020-09-25] MEDS: PIPERACILLIN/TAZOB 2.25 GM 2.25 GM in DEXTROSE 5%-WATER - 50 ML IVPB SCH ×2 (02:06→09:53)
[2020-09-25] MEDS: INSULIN SLIDING SCALE (NOVOLOG) 1 VIAL SQ SCH ×4 (06:16→22:58)
[2020-09-25] MEDS: DOCUSATE SODIUM 100 MG CAPSULE (FP) PO SCH ×3 (06:16→22:58)
[2020-09-25] MEDS: PERITONEAL DIALYSIS 1.5% SOLN 2,000 ML IP SCH ×3 (07:15→18:22)
[2020-09-25] MEDS: APIXABAN 2.5 MG TABLET PO SCH ×2 (09:53→22:58)
[2020-09-25] MEDS: TIMOLOL 0.5% OPHTHALMIC SOL 5 ML BOTTLE OS SCH (09:53)
[2020-09-25] MEDS: DORZOLAMIDE 2% HCL OPHTHALMIC SOLUTION 10 ML BOTTLE OD SCH (09:54)
[2020-09-25 10:24] LABS: BASO % 0.3 % (0-2.0); EOS % 2.5 % (0-4.5); HEMOGLOBIN 8.1 GM/dL (10.7-15.3); LYMPH % 46.1 % (8-40); MCH 35.4 pg (25.7-33.7); MCHC 33.9 g/dl (32.0-36.0); MEAN CELL VOLUME 104.7 fl (80-96); MEAN PLT VOLUME 9.7 fl (7.5-11.1); MONO % 7.7 % (3.8-10.2); NEUT % 43.4 % (42.8-82.8); PLATELET COUNT 123 K/MM3 (134-434); RBC 2.29 M/mm3 (3.60-5.2); RDW 16.3 % (11.6-15.6); WHITE BLOOD COUNT 6.2 K/mm3 (4.0-10.0)
[2020-09-25 10:50] LABS: ALBUMIN 1.6 g/dl (3.4-5.0); CALCIUM 8.2 mg/dL (8.5-10.1)
[2020-09-25 10:51] LABS: MAGNESIUM 1.6 mg/dL (1.8-2.4)
[2020-09-25 10:54] LABS: BILIRUBIN,TOTAL 0.4 mg/dL (0.2-1); TOT PROT 5.8 g/dl (6.4-8.2)
[2020-09-25 10:55] LABS: CREATININE 4.8 mg/dL (0.55-1.3)
[2020-09-25] MEDS ORDERED: POTASSIUM CHLORIDE TABS 20 MEQ TABLET.ER (FP) PO ONE (11:16)
[2020-09-25] MEDS ORDERED: cefTRIAXone SODIUM 1 GM VIAL ONE (11:22)
[2020-09-25] MEDS: CEFTRIAXONE 1 GM in DEXTROSE 5%-WATER - 50 ML IVPB SCH (11:24)
[2020-09-25] MEDS ORDERED: FLU VACCINE (FLULAVAL) PF 60 MCG/0.5 ML SYRINGE 2020-2021 IM ONE (12:15)
[2020-09-25] MEDS: LATANOPROST 0.005% OPHTH SOLN 2.5ML BOTTLE OS SCH (22:59)
[2020-09-26] MEDS: PERITONEAL DIALYSIS 2.5% SOLN 2,000 ML IP SCH (00:30)
[2020-09-26] MEDS: INSULIN SLIDING SCALE (NOVOLOG) 1 VIAL SQ SCH ×4 (06:13→21:38)
[2020-09-26] MEDS: DOCUSATE SODIUM 100 MG CAPSULE (FP) PO SCH ×3 (06:14→21:37)
[2020-09-26] MEDS: PERITONEAL DIALYSIS 1.5% SOLN 2,000 ML IP SCH ×3 (06:19→18:32)
[2020-09-26 07:37] LABS: BASO % 0.1 % (0-2.0); EOS % 2.8 % (0-4.5); HEMATOCRIT 22.9 % (32.4-45.2); HEMOGLOBIN 7.8 GM/dL (10.7-15.3); LYMPH % 55.7 % (8-40); MCH 35.6 pg (25.7-33.7); MCHC 34.1 g/dl (32.0-36.0); MEAN CELL VOLUME 104.6 fl (80-96); MEAN PLT VOLUME 9.2 fl (7.5-11.1); NEUT % 30.4 % (42.8-82.8); PLATELET COUNT 136 K/MM3 (134-434); RBC 2.19 M/mm3 (3.60-5.2); RDW 16.3 % (11.6-15.6); WHITE BLOOD COUNT 3.9 K/mm3 (4.0-10.0)
[2020-09-26 08:37] LABS: ALBUMIN 1.6 g/dl (3.4-5.0); BILIRUBIN,TOTAL 0.3 mg/dL (0.2-1); BLOOD UREA NITROGEN 23.9 mg/dL (7-18); CALCIUM 8.2 mg/dL (8.5-10.1); CREATININE 4.3 mg/dL (0.55-1.3); MAGNESIUM 1.5 mg/dL (1.8-2.4); POTASSIUM 3.3 mmol/L (3.5-5.1); TOT PROT 5.9 g/dl (6.4-8.2)
[2020-09-26] MEDS ORDERED: DEXTROSE 5%-WATER - 50 ML IVPB ONE (08:47)
[2020-09-26] MEDS ORDERED: cefTRIAXone SODIUM 1 GM VIAL ONE (08:47)
[2020-09-26] MEDS: CEFTRIAXONE 1 GM in DEXTROSE 5%-WATER - 50 ML IVPB SCH (09:03)
[2020-09-26] MEDS: APIXABAN 2.5 MG TABLET PO SCH ×2 (09:03→21:37)
[2020-09-26] MEDS: TIMOLOL 0.5% OPHTHALMIC SOL 5 ML BOTTLE OS SCH (09:04)
[2020-09-26] MEDS: DORZOLAMIDE 2% HCL OPHTHALMIC SOLUTION 10 ML BOTTLE OD SCH (09:04)
[2020-09-26] MEDS ORDERED: POTASSIUM CHLORIDE TABS 20 MEQ TABLET.ER (FP) PO ONE (12:11)
[2020-09-26] MEDS ORDERED: MAGNESIUM OXIDE 400 MG TABLET (FP) PO ONE (12:45)
[2020-09-26] MEDS ORDERED: EPOETIN ALFA-EPBX 10,000 UNIT/ML VIAL SQ ONE (16:00)
[2020-09-26] MEDS: hydrALAZINE HCL 10 MG TABLET PO SCH (21:37)
[2020-09-26] MEDS: LATANOPROST 0.005% OPHTH SOLN 2.5ML BOTTLE OS SCH (21:38)
[2020-09-27] MEDS: PERITONEAL DIALYSIS 2.5% SOLN 2,000 ML IP SCH (00:03)
[2020-09-27] MEDS: PERITONEAL DIALYSIS 1.5% SOLN 2,000 ML IP SCH ×3 (06:15→18:57)
[2020-09-27] MEDS: DOCUSATE SODIUM 100 MG CAPSULE (FP) PO SCH ×3 (06:45→21:04)
[2020-09-27] MEDS: INSULIN SLIDING SCALE (NOVOLOG) 1 VIAL SQ SCH ×4 (06:45→21:04)
[2020-09-27 07:22] LABS: BASO % 0.2 % (0-2.0); EOS % 2.1 % (0-4.5); HEMATOCRIT 25.1 % (32.4-45.2); HEMOGLOBIN 8.6 GM/dL (10.7-15.3); MCH 35.6 pg (25.7-33.7); MCHC 34.4 g/dl (32.0-36.0); MEAN CELL VOLUME 103.5 fl (80-96); MEAN PLT VOLUME 9.2 fl (7.5-11.1); MONO % 11.5 % (3.8-10.2); NEUT % 27.2 % (42.8-82.8); PLATELET COUNT 157 K/MM3 (134-434); RBC 2.42 M/mm3 (3.60-5.2); RDW 16.4 % (11.6-15.6); WHITE BLOOD COUNT 4.6 K/mm3 (4.0-10.0)
[2020-09-27 07:43] LABS: POTASSIUM 3.6 mmol/L (3.5-5.1)
[2020-09-27 07:47] LABS: CALCIUM 8.1 mg/dL (8.5-10.1)
[2020-09-27 07:48] LABS: ALBUMIN 1.6 g/dl (3.4-5.0); MAGNESIUM 1.5 mg/dL (1.8-2.4)
[2020-09-27 07:51] LABS: CREATININE 4.2 mg/dL (0.55-1.3)
[2020-09-27 07:55] LABS: BILIRUBIN,TOTAL 0.9 mg/dL (0.2-1)
[2020-09-27] MEDS ORDERED: cefTRIAXone SODIUM 1 GM VIAL ONE (09:01)
[2020-09-27] MEDS ORDERED: DEXTROSE 5%-WATER - 50 ML IVPB ONE (09:01)
[2020-09-27] MEDS: CEFTRIAXONE 1 GM in DEXTROSE 5%-WATER - 50 ML IVPB SCH (09:39)
[2020-09-27] MEDS: APIXABAN 2.5 MG TABLET PO SCH ×2 (09:41→21:04)
[2020-09-27] MEDS: hydrALAZINE HCL 10 MG TABLET PO SCH (09:41)
[2020-09-27] MEDS: TIMOLOL 0.5% OPHTHALMIC SOL 5 ML BOTTLE OS SCH (09:42)
[2020-09-27] MEDS: DORZOLAMIDE 2% HCL OPHTHALMIC SOLUTION 10 ML BOTTLE OD SCH (09:42)
[2020-09-27] MEDS: hydrALAZINE HCL 25 MG TABLET (FP) PO SCH ×2 (15:24→21:04)
[2020-09-27] MEDS: LATANOPROST 0.005% OPHTH SOLN 2.5ML BOTTLE OS SCH (21:05)
[2020-09-28] MEDS: PERITONEAL DIALYSIS 2.5% SOLN 2,000 ML IP SCH (00:15)
[2020-09-28] MEDS: PERITONEAL DIALYSIS 1.5% SOLN 2,000 ML IP SCH ×3 (06:08→18:45)
[2020-09-28] MEDS: hydrALAZINE HCL 25 MG TABLET (FP) PO SCH ×3 (06:32→21:31)
[2020-09-28] MEDS: INSULIN SLIDING SCALE (NOVOLOG) 1 VIAL SQ SCH ×4 (06:32→21:31)
[2020-09-28] MEDS: DOCUSATE SODIUM 100 MG CAPSULE (FP) PO SCH ×3 (06:32→21:31)
[2020-09-28] MEDS ORDERED: cefTRIAXone SODIUM 1 GM VIAL ONE (08:53)
[2020-09-28] MEDS ORDERED: DEXTROSE 5%-WATER - 50 ML IVPB ONE (08:53)
[2020-09-28] MEDS: CEFTRIAXONE 1 GM in DEXTROSE 5%-WATER - 50 ML IVPB SCH (09:00)
[2020-09-28] MEDS: APIXABAN 2.5 MG TABLET PO SCH ×2 (09:00→21:31)
[2020-09-28] MEDS: DORZOLAMIDE 2% HCL OPHTHALMIC SOLUTION 10 ML BOTTLE OD SCH (09:00)
[2020-09-28] MEDS: TIMOLOL 0.5% OPHTHALMIC SOL 5 ML BOTTLE OS SCH (09:01)
[2020-09-28] MEDS: amLODIPine BESYLATE 5 MG TABLET (FP) PO SCH (09:57)
[2020-09-28 18:27] LABS: BASO % 0.2 % (0-2.0); EOS % 1.4 % (0-4.5); HEMATOCRIT 28.1 % (32.4-45.2); HEMOGLOBIN 9.5 GM/dL (10.7-15.3); LYMPH % 52.8 % (8-40); MCH 35.3 pg (25.7-33.7); MCHC 33.9 g/dl (32.0-36.0); MEAN CELL VOLUME 104.1 fl (80-96); MEAN PLT VOLUME 9.3 fl (7.5-11.1); MONO % 9.6 % (3.8-10.2); PLATELET COUNT 181 K/MM3 (134-434); RDW 16.9 % (11.6-15.6)
[2020-09-28 19:26] LABS: POTASSIUM 3.1 mmol/L (3.5-5.1)
[2020-09-28 19:30] LABS: ALBUMIN 1.7 g/dl (3.4-5.0); BLOOD UREA NITROGEN 20.3 mg/dL (7-18); MAGNESIUM 1.6 mg/dL (1.8-2.4)
[2020-09-28 19:32] LABS: CREATININE 3.8 mg/dL (0.55-1.3)
[2020-09-28 19:33] LABS: TOT PROT 6.4 g/dl (6.4-8.2)
[2020-09-28 19:41] LABS: BILIRUBIN,TOTAL 0.3 mg/dL (0.2-1)
[2020-09-28] MEDS: LATANOPROST 0.005% OPHTH SOLN 2.5ML BOTTLE OS SCH (21:58)
[2020-09-29] MEDS: PERITONEAL DIALYSIS 2.5% SOLN 2,000 ML IP SCH (00:10)
[2020-09-29] MEDS: hydrALAZINE HCL 25 MG TABLET (FP) PO SCH ×3 (05:43→22:00)
[2020-09-29] MEDS: DOCUSATE SODIUM 100 MG CAPSULE (FP) PO SCH ×3 (05:44→22:00)
[2020-09-29] MEDS: PERITONEAL DIALYSIS 1.5% SOLN 2,000 ML IP SCH ×3 (06:22→18:15)
[2020-09-29] MEDS: INSULIN SLIDING SCALE (NOVOLOG) 1 VIAL SQ SCH ×4 (06:53→22:01)
[2020-09-29] MEDS ORDERED: cefTRIAXone SODIUM 1 GM VIAL ONE (09:09)
[2020-09-29] MEDS ORDERED: PT OWN MED DRAWER 7, Y5N ONE (09:09)
[2020-09-29] MEDS ORDERED: DEXTROSE 5%-WATER - 50 ML IVPB ONE (09:09)
[2020-09-29] MEDS: amLODIPine BESYLATE 5 MG TABLET (FP) PO SCH (09:18)
[2020-09-29] MEDS: APIXABAN 2.5 MG TABLET PO SCH ×2 (09:18→22:00)
[2020-09-29] MEDS: CEFTRIAXONE 1 GM in DEXTROSE 5%-WATER - 50 ML IVPB SCH (09:18)
[2020-09-29] MEDS: DORZOLAMIDE 2% HCL OPHTHALMIC SOLUTION 10 ML BOTTLE OD SCH (09:19)
[2020-09-29] MEDS: TIMOLOL 0.5% OPHTHALMIC SOL 5 ML BOTTLE OS SCH (09:19)
[2020-09-29 09:59] LABS: BASO % 0.2 % (0-2.0); EOS % 1.9 % (0-4.5); HEMATOCRIT 25.4 % (32.4-45.2); HEMOGLOBIN 8.7 GM/dL (10.7-15.3); LYMPH % 57.3 % (8-40); MCH 35.6 pg (25.7-33.7); MCHC 34.5 g/dl (32.0-36.0); MEAN CELL VOLUME 103.4 fl (80-96); MEAN PLT VOLUME 8.6 fl (7.5-11.1); MONO % 9.1 % (3.8-10.2); NEUT % 31.5 % (42.8-82.8); PLATELET COUNT 184 K/MM3 (134-434); RBC 2.45 M/mm3 (3.60-5.2); RDW 16.2 % (11.6-15.6); WHITE BLOOD COUNT 5.3 K/mm3 (4.0-10.0)
[2020-09-29 10:27] LABS: ALBUMIN 1.6 g/dl (3.4-5.0); BLOOD UREA NITROGEN 17.8 mg/dL (7-18); CALCIUM 8.1 mg/dL (8.5-10.1); MAGNESIUM 1.6 mg/dL (1.8-2.4)
[2020-09-29 10:30] LABS: CREATININE 3.9 mg/dL (0.55-1.3)
[2020-09-29 10:32] LABS: TOT PROT 5.9 g/dl (6.4-8.2)
[2020-09-29 10:36] LABS: BILIRUBIN,TOTAL 0.6 mg/dL (0.2-1)
[2020-09-29 10:43] LABS: POTASSIUM 2.9 mmol/L (3.5-5.1)
[2020-09-29] MEDS ORDERED: POTASSIUM CHLORIDE TABS 20 MEQ TABLET.ER (FP) PO ONE (10:48)
[2020-09-29] MEDS: KCL 10 MEQ IVPB 10 MEQ/100 ML INFUS.BAG IVPB SCH ×2 (11:07→13:34)
[2020-09-29] MEDS ORDERED: POTASSIUM CHLORIDE ORAL LIQUID 20 MEQ/15 ML PO ONE (12:53)
[2020-09-29] MEDS ORDERED: MAGNESIUM OXIDE 400 MG TABLET (FP) PO ONE (18:29)
[2020-09-29 19:29] VITALS: BMI 24.2
[2020-09-29] MEDS: LATANOPROST 0.005% OPHTH SOLN 2.5ML BOTTLE OS SCH (22:06)
[2020-09-30] MEDS: PERITONEAL DIALYSIS 2.5% SOLN 2,000 ML IP SCH ×2 (00:17→22:29)
[2020-09-30] MEDS: INSULIN SLIDING SCALE (NOVOLOG) 1 VIAL SQ SCH ×4 (06:19→22:02)
[2020-09-30] MEDS: hydrALAZINE HCL 25 MG TABLET (FP) PO SCH ×3 (06:19→22:01)
[2020-09-30] MEDS: DOCUSATE SODIUM 100 MG CAPSULE (FP) PO SCH ×3 (06:19→22:02)
[2020-09-30] MEDS: PERITONEAL DIALYSIS 1.5% SOLN 2,000 ML IP SCH ×3 (06:23→17:36)
[2020-09-30 08:39] LABS: BASO % 0.5 % (0-2.0); EOS % 1.2 % (0-4.5); HEMATOCRIT 27.8 % (32.4-45.2); HEMOGLOBIN 9.6 GM/dL (10.7-15.3); LYMPH % 61.3 % (8-40); MCH 35.3 pg (25.7-33.7); MCHC 34.4 g/dl (32.0-36.0); MEAN CELL VOLUME 102.6 fl (80-96); MEAN PLT VOLUME 8.1 fl (7.5-11.1); MONO % 5.9 % (3.8-10.2); NEUT % 31.1 % (42.8-82.8); PLATELET COUNT 237 K/MM3 (134-434); RBC 2.71 M/mm3 (3.60-5.2); RDW 16.5 % (11.6-15.6); WHITE BLOOD COUNT 7.3 K/mm3 (4.0-10.0)
[2020-09-30 09:01] LABS: POTASSIUM 3.5 mmol/L (3.5-5.1)
[2020-09-30 09:13] LABS: ALBUMIN 1.9 g/dl (3.4-5.0); BLOOD UREA NITROGEN 18.4 mg/dL (7-18); CALCIUM 8.5 mg/dL (8.5-10.1); MAGNESIUM 1.9 mg/dL (1.8-2.4)
[2020-09-30 09:18] LABS: BILIRUBIN,TOTAL 0.3 mg/dL (0.2-1); CREATININE 3.9 mg/dL (0.55-1.3); TOT PROT 7.1 g/dl (6.4-8.2)
[2020-09-30] MEDS ORDERED: EPOETIN ALFA-EPBX 10,000 UNIT/ML VIAL SQ SCH (10:00)
[2020-09-30] MEDS ORDERED: PT OWN MED DRAWER 7, Y5N ONE (10:28)
[2020-09-30] MEDS ORDERED: cefTRIAXone SODIUM 1 GM VIAL ONE (10:29)
[2020-09-30] MEDS ORDERED: DEXTROSE 5%-WATER - 50 ML IVPB ONE (10:29)
[2020-09-30] MEDS: CEFTRIAXONE 1 GM in DEXTROSE 5%-WATER - 50 ML IVPB SCH (10:31)
[2020-09-30] MEDS: amLODIPine BESYLATE 5 MG TABLET (FP) PO SCH (10:31)
[2020-09-30] MEDS: TIMOLOL 0.5% OPHTHALMIC SOL 5 ML BOTTLE OS SCH (10:31)
[2020-09-30] MEDS: APIXABAN 2.5 MG TABLET PO SCH ×2 (10:31→22:01)
[2020-09-30] MEDS: DORZOLAMIDE 2% HCL OPHTHALMIC SOLUTION 10 ML BOTTLE OD SCH (10:32)
[2020-09-30 10:43] LABS: ANISOCYTOSIS 1+; MACROCYTOSIS 1+; PLATELET ESTIMATE NORMAL
[2020-09-30] MEDS: POTASSIUM CHLORIDE ORAL LIQUID 20 MEQ/15 ML PO SCH ×2 (12:40→22:01)
[2020-09-30] MEDS ORDERED: SODIUM CHLORIDE 1,000 ML IV SCH (16:30)
[2020-09-30] MEDS: LATANOPROST 0.005% OPHTH SOLN 2.5ML BOTTLE OS SCH (22:02)
[2020-10-01] MEDS: PERITONEAL DIALYSIS 1.5% SOLN 2,000 ML IP SCH ×2 (05:13→10:47)
[2020-10-01] MEDS: DOCUSATE SODIUM 100 MG CAPSULE (FP) PO SCH ×2 (05:14→13:55)
[2020-10-01] MEDS: hydrALAZINE HCL 25 MG TABLET (FP) PO SCH ×2 (05:29→13:55)
[2020-10-01] MEDS: INSULIN SLIDING SCALE (NOVOLOG) 1 VIAL SQ SCH ×2 (07:02→11:31)
[2020-10-01 07:47] LABS: BASO % 0.5 % (0-2.0); EOS % 1.4 % (0-4.5); HEMATOCRIT 27.8 % (32.4-45.2); HEMOGLOBIN 9.4 GM/dL (10.7-15.3); LYMPH % 56.9 % (8-40); MCH 35.2 pg (25.7-33.7); MCHC 33.8 g/dl (32.0-36.0); MEAN CELL VOLUME 104.1 fl (80-96); MEAN PLT VOLUME 8.4 fl (7.5-11.1); MONO % 5.6 % (3.8-10.2); NEUT % 35.6 % (42.8-82.8); PLATELET COUNT 262 K/MM3 (134-434); RBC 2.67 M/mm3 (3.60-5.2); RDW 17.1 % (11.6-15.6)
[2020-10-01 07:56] LABS: POTASSIUM 3.7 mmol/L (3.5-5.1)
[2020-10-01 08:03] LABS: ALBUMIN 1.8 g/dl (3.4-5.0); BLOOD UREA NITROGEN 15.1 mg/dL (7-18); CALCIUM 8.1 mg/dL (8.5-10.1); MAGNESIUM 1.7 mg/dL (1.8-2.4)
[2020-10-01 08:06] LABS: CREATININE 3.7 mg/dL (0.55-1.3)
[2020-10-01 08:08] LABS: BILIRUBIN,TOTAL 0.5 mg/dL (0.2-1); TOT PROT 6.8 g/dl (6.4-8.2)
[2020-10-01] MEDS ORDERED: CEFUROXIME AXETIL 250 MG TABLET PO SCH (10:00)
[2020-10-01] MEDS: POTASSIUM CHLORIDE ORAL LIQUID 20 MEQ/15 ML PO SCH (10:29)
[2020-10-01] MEDS: TIMOLOL 0.5% OPHTHALMIC SOL 5 ML BOTTLE OS SCH (10:29)
[2020-10-01] MEDS: DORZOLAMIDE 2% HCL OPHTHALMIC SOLUTION 10 ML BOTTLE OD SCH (10:29)
[2020-10-01] MEDS: amLODIPine BESYLATE 5 MG TABLET (FP) PO SCH (10:29)
[2020-10-01] MEDS: APIXABAN 2.5 MG TABLET PO SCH (10:29)
[2020-10-01 13:52] VITALS: BP 150/73; PULSE 69; TEMP 97.7
== END 2020-10-01 16:15 | disposition home or self-care (01) | DRG 919 ==
LOC: JER 17:49 → JERBED 23:31 → J5S 09-22 14:32 → J4S 09-22 20:30
PROVIDERS: ADMIT Internal Medicine; ATTEND Nurse Practitioner Acute Care
PROC: 3E1M39Z Irrigation of Peritoneal Cavity using Dialysate, Percutaneous Approach (ICD-10-PCS; principal; 2020-09-22)
DX: T85.71XA Infection and inflammatory reaction due to peritoneal dialysis catheter, initial encounter (principal); N18.6 End stage renal disease; K65.9 Peritonitis, unspecified; A41.81 Sepsis due to Enterococcus; C90.00 Multiple myeloma not having achieved remission; E87.1 Hypo-osmolality and hyponatremia; E87.2 Acidosis; I12.0 Hypertensive chronic kidney disease with stage 5 chronic kidney disease or end stage renal disease; E78.5 Hyperlipidemia, unspecified; E11.22 Type 2 diabetes mellitus with diabetic chronic kidney disease; N18.9 Chronic kidney disease, unspecified; M10.9 Gout, unspecified; Z99.2 Dependence on renal dialysis; Z86.718 Personal history of other venous thrombosis and embolism; E88.09 Other disorders of plasma-protein metabolism, not elsewhere classified; E87.5 Hyperkalemia; N20.0 Calculus of kidney; Y83.8 Other surgical procedures as the cause of abnormal reaction of the patient, or of later complication, without mention of misadventure at the time of the procedure; R07.89 Other chest pain; D63.1 Anemia in chronic kidney disease
CPT/HCPCS: 36415; 71045-TC-FY; 74019-TC-FY; 74176-TC; 76705-TC; 80048; 80053; 81003; 82272; 82550; 82607; 82746; 82803; 82962; 83036; 83540; 83550; 83605; 83690; 83735; 84100; 84484; 85025; 85027; 85610; 85730; 86704; 86706; 86707; 86708; 86709; 86803; 86850; 86900; 86901; 87040; 87070; 87075; 87086; 87186; 87205; 87340; 93005; 93010; 97116-GP; 97161-GP; 99285-25; C9803; G0008; G0480; J0131; Q2036; Q5106; U0003

== ENCOUNTER 2020-10-08 11:39 | Inpatient (IN) | payer OTHER, MEDICARE ==
[2020-10-08] MEDS ORDERED: SODIUM CHLORIDE 0.9% 500 ML INFUS.BAG IV ONE (12:37)
[2020-10-08 12:49] LABS: BASO % 0.5 % (0-2.0); EOS % 0.2 % (0-4.5); HEMATOCRIT 28.5 % (32.4-45.2); HEMOGLOBIN 9.7 GM/dL (10.7-15.3); LYMPH % 54.2 % (8-40); MCH 35.3 pg (25.7-33.7); MCHC 34.2 g/dl (32.0-36.0); MEAN CELL VOLUME 103.3 fl (80-96); MEAN PLT VOLUME 8.4 fl (7.5-11.1); MONO % 15.1 % (3.8-10.2); PLATELET COUNT 313 K/MM3 (134-434); RBC 2.76 M/mm3 (3.60-5.2); RDW 16.5 % (11.6-15.6); WHITE BLOOD COUNT 5.1 K/mm3 (4.0-10.0)
[2020-10-08 12:52] LABS: INR 1.18 (0.83-1.09); PROTHROMBIN TIME (PATIENT) 14.4 SEC (9.7-13.0)
[2020-10-08 12:55] LABS: ACTIVATED PTT 27.3 SECONDS (25.2-36.5)
[2020-10-08 13:10] LABS: BLOOD UREA NITROGEN 30.3 mg/dL (7-18); CALCIUM 8.7 mg/dL (8.5-10.1)
[2020-10-08 13:15] LABS: BILIRUBIN,TOTAL 0.3 mg/dL (0.2-1); TOT PROT 8.3 g/dl (6.4-8.2)
[2020-10-08 13:18] LABS: ALBUMIN 2.2 g/dl (3.4-5.0)
[2020-10-08 13:20] LABS: CREATININE 7.5 mg/dL (0.55-1.3)
[2020-10-08 14:25] LABS: ANISOCYTOSIS 1+; MACROCYTOSIS 0; PLATELET ESTIMATE NORMAL
[2020-10-08 14:31] LABS: EPI CELLS >36 /uL (0-25.1); HYALINE CASTS 3 /uL (0-3.1); PH,URINE 5.5 (5.0-8.0); URINE APPEARANCE TURBID; URINE BACTERIA 243 /uL (0-1359); URINE BILIRUBIN NEGATIVE (NEGATIVE); URINE COLOR YELLOW; URINE GLUCOSE (UA) TRACE (NEGATIVE); URINE KETONE TRACE (NEGATIVE); URINE LEUK ESTERASE TRACE (NEGATIVE); URINE NITRITE NEGATIVE (NEGATIVE); URINE PROTEIN 2+ (NEGATIVE); URINE RBC 16 /uL (0-23.9); URINE UROBILINOGEN 0.2 mg/dL (0.2-1.0); URINE WBC 178 /uL (0-25.8)
[2020-10-08] MEDS ORDERED: VANCOMYCIN 1 GM in D5W (PRE-DOCKED) 1,000 MG/250 ML IVPB ONE (14:58)
[2020-10-08] MEDS ORDERED: PIPERACILLIN/TAZOB 2.25 GM 2.25 GM in DEXTROSE 5%-WATER - 50 ML IVPB ONE (14:59)
[2020-10-08] MEDS ORDERED: VANCOMYCIN 1 GRAM (PRE-DOCKED) 1,000 MG/250 ML BAG IVPB ONE (15:06)
[2020-10-08] MEDS ORDERED: PIPERACILLIN/TAZOB 3.375 GM 3.375 GM/50 ML BAG IVPB ONE (15:06)
[2020-10-08 15:22] LABS: URINE CRYSTALS NEGATIVE /hpf; YEAST NEGATIVE (NEGATIVE)
[2020-10-08] MEDS ORDERED: PIPERACILLIN/TAZOB 2.25 GM 2.25 GM/50 ML BAG IVPB ONE (15:26)
[2020-10-09] MEDS: PANTOPRAZOLE 40 MG TABLET PO SCH (10:44)
[2020-10-09] MEDS: ALLOPURINOL 100 MG TABLET (FP) PO SCH (10:44)
[2020-10-09] MEDS: SEVELAMER CARBONATE 800 MG TAB (FP) PO SCH ×3 (10:45→17:53)
[2020-10-09] MEDS: APIXABAN 2.5 MG TABLET PO SCH ×2 (10:45→22:36)
[2020-10-09] MEDS: amLODIPine BESYLATE 5 MG TABLET (FP) PO SCH (10:45)
[2020-10-09 12:53] LABS: BASO % 0.5 % (0-2.0); EOS % 0.3 % (0-4.5); HEMATOCRIT 27.2 % (32.4-45.2); HEMOGLOBIN 9.2 GM/dL (10.7-15.3); LYMPH % 63.3 % (8-40); MCH 34.9 pg (25.7-33.7); MCHC 33.9 g/dl (32.0-36.0); MEAN CELL VOLUME 102.8 fl (80-96); MEAN PLT VOLUME 8.8 fl (7.5-11.1); MONO % 8.4 % (3.8-10.2); NEUT % 27.5 % (42.8-82.8); PLATELET COUNT 268 K/MM3 (134-434); RBC 2.64 M/mm3 (3.60-5.2); RDW 16.4 % (11.6-15.6); WHITE BLOOD COUNT 4.9 K/mm3 (4.0-10.0)
[2020-10-09 13:23] LABS: ANISOCYTOSIS 1+; MACROCYTOSIS 1+; PLATELET ESTIMATE NORMAL
[2020-10-09 13:29] LABS: ALBUMIN 2.2 g/dl (3.4-5.0); CALCIUM 8.5 mg/dL (8.5-10.1); MAGNESIUM 1.9 mg/dL (1.8-2.4)
[2020-10-09 13:33] LABS: TOT PROT 7.8 g/dl (6.4-8.2)
[2020-10-09 13:34] LABS: BILIRUBIN,TOTAL 0.4 mg/dL (0.2-1)
[2020-10-09 13:49] LABS: CREATININE 8.6 mg/dL (0.55-1.3)
[2020-10-09] MEDS: hydrALAZINE HCL 25 MG TABLET (FP) PO SCH ×2 (14:12→22:36)
[2020-10-09] MEDS: PERITONEAL DIALYSIS 2.5% SOLN 2,500 ML IP SCH ×2 (15:11→21:46)
[2020-10-10] MEDS: PERITONEAL DIALYSIS 2.5% SOLN 2,500 ML IP SCH ×4 (03:50→21:58)
[2020-10-10] MEDS: hydrALAZINE HCL 25 MG TABLET (FP) PO SCH ×3 (06:52→23:03)
[2020-10-10 06:53] LABS: BASO % 0.4 % (0-2.0); EOS % 0.2 % (0-4.5); HEMATOCRIT 30.4 % (32.4-45.2); HEMOGLOBIN 10.3 GM/dL (10.7-15.3); LYMPH % 44.1 % (8-40); MCH 34.8 pg (25.7-33.7); MCHC 33.8 g/dl (32.0-36.0); MEAN PLT VOLUME 9.4 fl (7.5-11.1); MONO % 7.6 % (3.8-10.2); NEUT % 47.7 % (42.8-82.8); PLATELET COUNT 253 K/MM3 (134-434); RBC 2.95 M/mm3 (3.60-5.2); RDW 16.7 % (11.6-15.6); WHITE BLOOD COUNT 4.2 K/mm3 (4.0-10.0)
[2020-10-10 07:28] LABS: CALCIUM 8.5 mg/dL (8.5-10.1)
[2020-10-10 07:29] LABS: ALBUMIN 2.2 g/dl (3.4-5.0); BLOOD UREA NITROGEN 39.7 mg/dL (7-18)
[2020-10-10 07:33] LABS: BILIRUBIN,TOTAL 0.5 mg/dL (0.2-1)
[2020-10-10 07:43] LABS: CREATININE 8.7 mg/dL (0.55-1.3)
[2020-10-10] MEDS: SEVELAMER CARBONATE 800 MG TAB (FP) PO SCH ×3 (08:28→17:33)
[2020-10-10] MEDS: amLODIPine BESYLATE 5 MG TABLET (FP) PO SCH (09:10)
[2020-10-10] MEDS: PANTOPRAZOLE 40 MG TABLET PO SCH (09:10)
[2020-10-10] MEDS: ALLOPURINOL 100 MG TABLET (FP) PO SCH (09:10)
[2020-10-10] MEDS: APIXABAN 2.5 MG TABLET PO SCH ×2 (09:11→23:03)
[2020-10-10] MEDS: VANCOMYCIN 250 MG/5 ML ORAL SOLUTION PO SCH ×2 (17:33→23:04)
[2020-10-11] MEDS ORDERED: ACETAMINOPHEN 325 MG TABLET (FP) PO ONE (02:01)
[2020-10-11] MEDS: PERITONEAL DIALYSIS 2.5% SOLN 2,500 ML IP SCH ×5 (04:04→22:45)
[2020-10-11] MEDS: hydrALAZINE HCL 25 MG TABLET (FP) PO SCH ×2 (06:10→15:00)
[2020-10-11] MEDS: VANCOMYCIN 250 MG/5 ML ORAL SOLUTION PO SCH ×4 (06:10→23:04)
[2020-10-11 07:09] LABS: BASO % 0.2 % (0-2.0); HEMATOCRIT 29.5 % (32.4-45.2); HEMOGLOBIN 10.1 GM/dL (10.7-15.3); LYMPH % 22.3 % (8-40); MCH 35.5 pg (25.7-33.7); MCHC 34.3 g/dl (32.0-36.0); MEAN CELL VOLUME 103.5 fl (80-96); MEAN PLT VOLUME 9.3 fl (7.5-11.1); NEUT % 70.5 % (42.8-82.8); PLATELET COUNT 254 K/MM3 (134-434); RBC 2.85 M/mm3 (3.60-5.2); RDW 16.7 % (11.6-15.6); WHITE BLOOD COUNT 5.3 K/mm3 (4.0-10.0)
[2020-10-11 07:44] LABS: ALBUMIN 2.5 g/dl (3.4-5.0); BILIRUBIN,TOTAL 0.4 mg/dL (0.2-1); BLOOD UREA NITROGEN 31.1 mg/dL (7-18); TOT PROT 8.6 g/dl (6.4-8.2)
[2020-10-11 07:46] LABS: CALCIUM 8.7 mg/dL (8.5-10.1)
[2020-10-11 07:47] LABS: MAGNESIUM 1.6 mg/dL (1.8-2.4)
[2020-10-11] MEDS ORDERED: MAGNESIUM OXIDE 400 MG TABLET (FP) PO ONE ×2 (08:19→10:03)
[2020-10-11 08:34] LABS: CREATININE 8.7 mg/dL (0.55-1.3)
[2020-10-11] MEDS: amLODIPine BESYLATE 5 MG TABLET (FP) PO SCH (09:12)
[2020-10-11] MEDS: PANTOPRAZOLE 40 MG TABLET PO SCH (09:12)
[2020-10-11] MEDS: SEVELAMER CARBONATE 800 MG TAB (FP) PO SCH ×3 (09:13→18:14)
[2020-10-11] MEDS: ALLOPURINOL 100 MG TABLET (FP) PO SCH (09:14)
[2020-10-11] MEDS: APIXABAN 2.5 MG TABLET PO SCH ×2 (09:14→21:41)
[2020-10-11] MEDS ORDERED: INSULIN (LEVEMIR) 100 UNITS/ML UNITS SQ ONE (10:15)
[2020-10-11] MEDS: INSULIN SLIDING SCALE (NOVOLOG) 1 VIAL SQ SCH ×3 (11:49→21:41)
[2020-10-11] MEDS: INSULIN (LEVEMIR) 100 UNITS/ML UNITS SQ SCH (21:41)
[2020-10-12] MEDS: PERITONEAL DIALYSIS 2.5% SOLN 2,500 ML IP SCH ×4 (05:26→22:48)
[2020-10-12] MEDS: VANCOMYCIN 250 MG/5 ML ORAL SOLUTION PO SCH ×3 (06:07→18:43)
[2020-10-12] MEDS: INSULIN SLIDING SCALE (NOVOLOG) 1 VIAL SQ SCH ×4 (06:07→22:09)
[2020-10-12] MEDS: APIXABAN 2.5 MG TABLET PO SCH ×4 (09:13→23:25)
[2020-10-12] MEDS: SEVELAMER CARBONATE 800 MG TAB (FP) PO SCH ×3 (09:13→18:43)
[2020-10-12] MEDS: PANTOPRAZOLE 40 MG TABLET PO SCH (09:13)
[2020-10-12] MEDS: ALLOPURINOL 100 MG TABLET (FP) PO SCH (09:13)
[2020-10-12] MEDS ORDERED: ACETAMINOPHEN 1000 MG/100 ML VIAL (NON FORMULARY) IVPB ONE (11:35)
[2020-10-12] MEDS ORDERED: CEFTRIAXONE 1 GM in DEXTROSE 5%-WATER - 50 ML IVPB ONE (11:36)
[2020-10-12] MEDS ORDERED: DEXTROSE 5%-WATER - 50 ML IVPB ONE ×3 (11:44→17:59)
[2020-10-12] MEDS ORDERED: cefTRIAXone SODIUM 1 GM VIAL ONE (11:44)
[2020-10-12] MEDS ORDERED: PIPERACILLIN/TAZOB 2.25 GM 2.25 GM in DEXTROSE 5%-WATER - 50 ML IVPB ONE (14:12)
[2020-10-12] MEDS ORDERED: PIPERACILLIN/TAZOBACTAM 2.25 GM VIAL IVPB ONE ×2 (14:46→17:58)
[2020-10-12 17:05] LABS: HEMATOCRIT 25.8 % (32.4-45.2); HEMOGLOBIN 8.6 GM/dL (10.7-15.3); MCHC 33.4 g/dl (32.0-36.0); MEAN CELL VOLUME 104.7 fl (80-96); RBC 2.46 M/mm3 (3.60-5.2); RDW 16.8 % (11.6-15.6)
[2020-10-12 17:48] LABS: PLATELET ESTIMATE ADEQUATE
[2020-10-12] MEDS: PIPERACILLIN/TAZOB 2.25 GM 2.25 GM in DEXTROSE 5%-WATER - 50 ML IVPB SCH (18:03)
[2020-10-12 18:18] LABS: BILIRUBIN,TOTAL 0.4 mg/dL (0.2-1); BLOOD UREA NITROGEN 26.1 mg/dL (7-18); CALCIUM 8.2 mg/dL (8.5-10.1); MAGNESIUM 1.6 mg/dL (1.8-2.4); TOT PROT 7.5 g/dl (6.4-8.2)
[2020-10-12 18:22] LABS: CREATININE 8.3 mg/dL (0.55-1.3)
[2020-10-12] MEDS: INSULIN (LEVEMIR) 100 UNITS/ML UNITS SQ SCH (22:09)
[2020-10-13] MEDS: VANCOMYCIN 250 MG/5 ML ORAL SOLUTION PO SCH ×4 (00:38→19:00)
[2020-10-13] MEDS ORDERED: PT OWN MED DRAWER 7, Y5N ONE ×3 (00:58→11:17)
[2020-10-13] MEDS ORDERED: DEXTROSE 5%-WATER - 50 ML IVPB ONE ×3 (02:27→18:10)
[2020-10-13] MEDS ORDERED: PIPERACILLIN/TAZOBACTAM 2.25 GM VIAL IVPB ONE ×3 (02:27→18:10)
[2020-10-13] MEDS: PIPERACILLIN/TAZOB 2.25 GM 2.25 GM in DEXTROSE 5%-WATER - 50 ML IVPB SCH ×3 (03:20→20:06)
[2020-10-13] MEDS: PERITONEAL DIALYSIS 2.5% SOLN 2,500 ML IP SCH ×4 (04:43→22:34)
[2020-10-13] MEDS: INSULIN SLIDING SCALE (NOVOLOG) 1 VIAL SQ SCH ×4 (06:12→22:57)
[2020-10-13] MEDS: PANTOPRAZOLE 40 MG TABLET PO SCH ×2 (10:09→10:30)
[2020-10-13] MEDS: APIXABAN 2.5 MG TABLET PO SCH ×3 (10:09→22:43)
[2020-10-13] MEDS: SEVELAMER CARBONATE 800 MG TAB (FP) PO SCH ×4 (10:09→19:00)
[2020-10-13] MEDS: ALLOPURINOL 100 MG TABLET (FP) PO SCH ×2 (10:10→10:30)
[2020-10-13] MEDS ORDERED: ACETAMINOPHEN 1000 MG/100 ML VIAL (NON FORMULARY) IVPB ONE (10:20)
[2020-10-13] MEDS ORDERED: MAGNESIUM SULF 50% (8.12 MEQ/2 ML-1 GM VIAL) IVPB ONE (10:30)
[2020-10-13] MEDS ORDERED: SODIUM CHLORIDE 1,000 ML IV STA ×2 (15:38→15:45)
[2020-10-13 16:32] LABS: BASO % 0.2 % (0-2.0); CORRECTED WBC 7.26 K/mm3; HEMATOCRIT 29.1 % (32.4-45.2); HEMOGLOBIN 9.6 GM/dL (10.7-15.3); LYMPH % 29.3 % (8-40); MCH 34.7 pg (25.7-33.7); MEAN CELL VOLUME 105.1 fl (80-96); MEAN PLT VOLUME 9.9 fl (7.5-11.1); MONO % 5.8 % (3.8-10.2); NEUT % 64.7 % (42.8-82.8); PLATELET COUNT 190 K/MM3 (134-434); RBC 2.77 M/mm3 (3.60-5.2); RDW 16.7 % (11.6-15.6); WHITE BLOOD COUNT 8.2 K/mm3 (4.0-10.0)
[2020-10-13] MEDS ORDERED: ACETAMINOPHEN 1000 MG/100 ML VIAL (NON FORMULARY) IVPB PRN (17:00)
[2020-10-13 17:14] LABS: ALBUMIN 1.9 g/dl (3.4-5.0); BILIRUBIN,TOTAL 0.4 mg/dL (0.2-1); BLOOD UREA NITROGEN 22.1 mg/dL (7-18); CALCIUM 8.3 mg/dL (8.5-10.1); MAGNESIUM 1.6 mg/dL (1.8-2.4); TOT PROT 7.8 g/dl (6.4-8.2)
[2020-10-13 17:15] LABS: ANISOCYTOSIS 2+; MACROCYTOSIS 1+; PLATELET ESTIMATE NORMAL; TARGET CELLS 1+
[2020-10-13 17:43] LABS: CREATININE 7.6 mg/dL (0.55-1.3)
[2020-10-13] MEDS: KCL 10 MEQ IVPB 10 MEQ/100 ML INFUS.BAG IVPB SCH ×2 (18:54→20:50)
[2020-10-13] MEDS: INSULIN (LEVEMIR) 100 UNITS/ML UNITS SQ SCH (22:57)
[2020-10-14] MEDS: KCL 10 MEQ IVPB 10 MEQ/100 ML INFUS.BAG IVPB SCH ×3 (00:07→15:52)
[2020-10-14] MEDS ORDERED: DEXTROSE 5%-WATER - 50 ML IVPB ONE ×3 (00:11→16:15)
[2020-10-14] MEDS ORDERED: PIPERACILLIN/TAZOBACTAM 2.25 GM VIAL IVPB ONE ×3 (00:11→16:15)
[2020-10-14] MEDS: VANCOMYCIN 250 MG/5 ML ORAL SOLUTION PO SCH ×4 (00:58→17:51)
[2020-10-14] MEDS: PIPERACILLIN/TAZOB 2.25 GM 2.25 GM in DEXTROSE 5%-WATER - 50 ML IVPB SCH ×3 (01:06→17:35)
[2020-10-14] MEDS: PERITONEAL DIALYSIS 2.5% SOLN 2,500 ML IP SCH ×4 (03:27→23:35)
[2020-10-14] MEDS: INSULIN SLIDING SCALE (NOVOLOG) 1 VIAL SQ SCH ×4 (06:06→23:34)
[2020-10-14 06:46] LABS: BASO % 0.2 % (0-2.0); EOS % 0.2 % (0-4.5); HEMATOCRIT 25.2 % (32.4-45.2); HEMOGLOBIN 8.5 GM/dL (10.7-15.3); LYMPH % 21.4 % (8-40); MCH 34.5 pg (25.7-33.7); MCHC 33.6 g/dl (32.0-36.0); MEAN CELL VOLUME 102.7 fl (80-96); MEAN PLT VOLUME 9.2 fl (7.5-11.1); MONO % 4.7 % (3.8-10.2); NEUT % 73.5 % (42.8-82.8); PLATELET COUNT 191 K/MM3 (134-434); RBC 2.46 M/mm3 (3.60-5.2); RDW 16.8 % (11.6-15.6); WHITE BLOOD COUNT 9.1 K/mm3 (4.0-10.0)
[2020-10-14 07:04] LABS: ALBUMIN 1.7 g/dl (3.4-5.0); BLOOD UREA NITROGEN 18.1 mg/dL (7-18); CALCIUM 7.6 mg/dL (8.5-10.1); MAGNESIUM 1.2 mg/dL (1.8-2.4)
[2020-10-14 07:08] LABS: PHOSPHOROUS 1.9 mg/dL (2.5-4.9)
[2020-10-14 07:09] LABS: BILIRUBIN,TOTAL 0.8 mg/dL (0.2-1); TOT PROT 6.6 g/dl (6.4-8.2)
[2020-10-14] MEDS: SEVELAMER CARBONATE 800 MG TAB (FP) PO SCH ×3 (08:00→17:49)
[2020-10-14] MEDS ORDERED: MAGNESIUM SULFATE IN WATER 2 GM/50 ML IVPB IVPB ONE (08:00)
[2020-10-14] MEDS ORDERED: SODIUM CHLORIDE 300 ML IV SCH (08:30)
[2020-10-14] MEDS ORDERED: POTASSIUM PHOSPHATE 30 MM in DEXTROSE 5%-WATER - 250 ML IVPB ONE (09:00)
[2020-10-14] MEDS: APIXABAN 2.5 MG TABLET PO SCH ×2 (10:45→23:30)
[2020-10-14] MEDS: PANTOPRAZOLE 40 MG TABLET PO SCH (10:46)
[2020-10-14] MEDS: ALLOPURINOL 100 MG TABLET (FP) PO SCH (10:46)
[2020-10-14] MEDS ORDERED: POTASSIUM CHLORIDE TABS 20 MEQ TABLET.ER (FP) PO ONE (11:30)
[2020-10-14] MEDS ORDERED: PT OWN MED DRAWER 7, Y5N ONE (11:44)
[2020-10-14] MEDS ORDERED: MAGNESIUM SULF 50% (8.12 MEQ/2 ML-1 GM VIAL) IVPB ONE (14:46)
[2020-10-14 22:35] LABS: BF WBC & OTHER NUCLEATED CELLS 10 /mm3
[2020-10-14 23:08] LABS: BODY FLUID MONOCYTE 23 %
[2020-10-14] MEDS: INSULIN (LEVEMIR) 100 UNITS/ML UNITS SQ SCH (23:34)
[2020-10-15] MEDS: VANCOMYCIN 250 MG/5 ML ORAL SOLUTION PO SCH ×4 (00:38→17:56)
[2020-10-15] MEDS ORDERED: DEXTROSE 5%-WATER - 50 ML IVPB ONE ×2 (02:01→07:56)
[2020-10-15] MEDS ORDERED: PIPERACILLIN/TAZOBACTAM 2.25 GM VIAL IVPB ONE ×2 (02:01→07:55)
[2020-10-15] MEDS: PIPERACILLIN/TAZOB 2.25 GM 2.25 GM in DEXTROSE 5%-WATER - 50 ML IVPB SCH ×2 (02:03→09:01)
[2020-10-15] MEDS: INSULIN SLIDING SCALE (NOVOLOG) 1 VIAL SQ SCH ×4 (06:20→22:02)
[2020-10-15] MEDS ORDERED: SODIUM CHLORIDE 250 ML IV STA (06:39)
[2020-10-15 06:49] LABS: BASO % 0.3 % (0-2.0); EOS % 0.2 % (0-4.5); HEMATOCRIT 22.9 % (32.4-45.2); LYMPH % 23.6 % (8-40); MCH 35.4 pg (25.7-33.7); MCHC 34.7 g/dl (32.0-36.0); MEAN CELL VOLUME 101.9 fl (80-96); MEAN PLT VOLUME 9.1 fl (7.5-11.1); MONO % 4.2 % (3.8-10.2); NEUT % 71.7 % (42.8-82.8); PLATELET COUNT 166 K/MM3 (134-434); RBC 2.25 M/mm3 (3.60-5.2); RDW 16.7 % (11.6-15.6); WHITE BLOOD COUNT 7.7 K/mm3 (4.0-10.0)
[2020-10-15] MEDS: PERITONEAL DIALYSIS 2.5% SOLN 2,500 ML IP SCH ×4 (07:03→22:03)
[2020-10-15 07:10] LABS: CHLORIDE 101 mmol/L (98-107); SODIUM 140 mmol/L (136-145)
[2020-10-15 07:12] LABS: ALBUMIN 1.5 g/dl (3.4-5.0); CALCIUM 7.4 mg/dL (8.5-10.1)
[2020-10-15 07:13] LABS: ANION GAP 13 MMOL/L (8-16); BLOOD UREA NITROGEN 19.5 mg/dL (7-18); CO2 26 mmol/L (21-32); GLUCOSE,RANDOM 263 mg/dL (74-106); MAGNESIUM 1.8 mg/dL (1.8-2.4)
[2020-10-15 07:15] LABS: SGPT/ALT 40 U/L (13-61)
[2020-10-15 07:16] LABS: CREATININE 6.3 mg/dL (0.55-1.3); PHOSPHOROUS 5.1 mg/dL (2.5-4.9); SGOT/AST 121 U/L (15-37)
[2020-10-15 07:17] LABS: BILIRUBIN,TOTAL 0.4 mg/dL (0.2-1); LDH 577 U/L (84-246); TOT PROT 6.1 g/dl (6.4-8.2)
[2020-10-15 07:18] LABS: ALK PHOS 47 U/L (45-117)
[2020-10-15] MEDS ORDERED: PT OWN MED DRAWER 7, Y5N ONE ×4 (07:55→17:15)
[2020-10-15] MEDS ORDERED: VASOPRESSIN 20 UNITS/ML VIAL IV ONE (08:07)
[2020-10-15] MEDS ORDERED: VASOPRESSIN 40 UNITS in SODIUM CHLORIDE 98 ML IVPB SCH (08:15)
[2020-10-15] MEDS: SEVELAMER CARBONATE 800 MG TAB (FP) PO SCH ×3 (08:29→17:56)
[2020-10-15] MEDS ORDERED: KCL 10 MEQ IVPB 10 MEQ/100 ML INFUS.BAG IVPB SCH (08:45)
[2020-10-15] MEDS ORDERED: POTASSIUM CHLORIDE 20 MEQ PREMIX IVPB 100 ML IVPB ONE (08:59)
[2020-10-15] MEDS: APIXABAN 2.5 MG TABLET PO SCH ×2 (09:00→22:01)
[2020-10-15] MEDS: PANTOPRAZOLE 40 MG TABLET PO SCH (09:01)
[2020-10-15] MEDS: ALLOPURINOL 100 MG TABLET (FP) PO SCH (09:02)
[2020-10-15] MEDS ORDERED: EPOETIN ALFA 10,000 UNIT/1 ML VIAL SQ SCH (10:00)
[2020-10-15] MEDS ORDERED: POTASSIUM CHLORIDE 20 MEQ PREMIX IVPB 100 ML IVPB SCH (10:00)
[2020-10-15] MEDS ORDERED: POTASSIUM CHLORIDE TABS 20 MEQ TABLET.ER (FP) PO SCH (10:00)
[2020-10-15] MEDS ORDERED: LACTATED RINGERS SOLUTION 1,000 ML/1,000 ML INFUS.BAG IV STA (10:30)
[2020-10-15] MEDS ORDERED: ACETAMINOPHEN INJECTION 100 ML IVPB ONE (13:45)
[2020-10-15] MEDS: EPOETIN ALFA-EPBX 20,000 UNIT/ML VIAL SQ SCH (14:59)
[2020-10-15] MEDS ORDERED: NOREPINEPHRINE NS PREMIX 16,000 MCG/500 ML BAG IVPB ONE (15:10)
[2020-10-15] MEDS: POTASSIUM CHLORIDE 20 MEQ PREMIX IVPB 100 ML IVPB SCH ×3 (15:21→17:55)
[2020-10-15] MEDS: NOREPINEPHRINE D5W PREMIX 16,000 MCG/500 ML BAG IVPB SCH (16:35)
[2020-10-15] MEDS: AMINO ACIDS/PROTEIN HYDROLYS 30 ML LIQUID.PKT PO SCH (17:56)
[2020-10-15] MEDS ORDERED: ACETAMINOPHEN 1000 MG/100 ML VIAL (NON FORMULARY) IVPB ONE (18:49)
[2020-10-15] MEDS: INSULIN (LEVEMIR) 100 UNITS/ML UNITS SQ SCH (22:02)
[2020-10-16] MEDS: VANCOMYCIN 250 MG/5 ML ORAL SOLUTION PO SCH ×4 (00:37→18:18)
[2020-10-16] MEDS ORDERED: PT OWN MED DRAWER 7, Y5N ONE ×3 (02:13→17:59)
[2020-10-16] MEDS: PERITONEAL DIALYSIS 2.5% SOLN 2,500 ML IP SCH ×3 (05:04→18:07)
[2020-10-16] MEDS: INSULIN SLIDING SCALE (NOVOLOG) 1 VIAL SQ SCH ×3 (06:19→22:46)
[2020-10-16 07:00] LABS: HEMATOCRIT 23.5 % (32.4-45.2); HEMOGLOBIN 8.1 GM/dL (10.7-15.3); MCH 35.1 pg (25.7-33.7); MCHC 34.5 g/dl (32.0-36.0); MEAN CELL VOLUME 101.8 fl (80-96); MEAN PLT VOLUME 8.9 fl (7.5-11.1); PLATELET COUNT 186 K/MM3 (134-434); RBC 2.31 M/mm3 (3.60-5.2); WHITE BLOOD COUNT 8.8 K/mm3 (4.0-10.0)
[2020-10-16 07:29] LABS: ALBUMIN 1.5 g/dl (3.4-5.0); BLOOD UREA NITROGEN 23.7 mg/dL (7-18); CALCIUM 7.2 mg/dL (8.5-10.1)
[2020-10-16 07:31] LABS: CREATININE 6.1 mg/dL (0.55-1.3)
[2020-10-16 07:33] LABS: BILIRUBIN,TOTAL 0.4 mg/dL (0.2-1); TOT PROT 6.4 g/dl (6.4-8.2)
[2020-10-16] MEDS: SEVELAMER CARBONATE 800 MG TAB (FP) PO SCH ×3 (09:01→18:18)
[2020-10-16] MEDS: APIXABAN 2.5 MG TABLET PO SCH ×2 (09:01→22:34)
[2020-10-16] MEDS: AMINO ACIDS/PROTEIN HYDROLYS 30 ML LIQUID.PKT PO SCH ×2 (09:01→18:18)
[2020-10-16] MEDS: PANTOPRAZOLE 40 MG TABLET PO SCH (09:02)
[2020-10-16] MEDS: ALLOPURINOL 100 MG TABLET (FP) PO SCH (09:02)
[2020-10-16] MEDS ORDERED: DEXTROSE 50%-WATER - 25 GM/50 ML VIAL IVPUSH ONE (11:27)
[2020-10-16] MEDS ORDERED: DEXTROSE 50%-WATER 25 GM/50 ML DISP.SYRIN ONE (11:47)
[2020-10-16] MEDS ORDERED: ACETAMINOPHEN INJECTION 100 ML IVPB ONE (11:58)
[2020-10-16] MEDS ORDERED: SODIUM CHLORIDE 0.9% 250 ML INFUS.BAG IV ONE (12:05)
[2020-10-16] MEDS ORDERED: INSULIN SLIDING SCALE (NOVOLOG) 1 VIAL SQ SCH (22:35)
[2020-10-17] MEDS ORDERED: ACETAMINOPHEN 1000 MG/100 ML VIAL (NON FORMULARY) IVPB ONE
[2020-10-17] MEDS: PERITONEAL DIALYSIS 2.5% SOLN 2,500 ML IP SCH ×3 (00:38→08:00)
[2020-10-17] MEDS: VANCOMYCIN 250 MG/5 ML ORAL SOLUTION PO SCH ×6 (00:38→23:03)
[2020-10-17] MEDS ORDERED: PT OWN MED DRAWER 7, Y5N ONE ×2 (02:54→17:19)
[2020-10-17] MEDS: INSULIN SLIDING SCALE (NOVOLOG) 1 VIAL SQ SCH ×4 (06:24→22:59)
[2020-10-17 07:20] LABS: HEMATOCRIT 22.1 % (32.4-45.2); HEMOGLOBIN 7.7 GM/dL (10.7-15.3); MCH 35.4 pg (25.7-33.7); MCHC 34.8 g/dl (32.0-36.0); MEAN CELL VOLUME 101.7 fl (80-96); MEAN PLT VOLUME 8.8 fl (7.5-11.1); PLATELET COUNT 195 K/MM3 (134-434); RBC 2.17 M/mm3 (3.60-5.2); RDW 17.3 % (11.6-15.6); WHITE BLOOD COUNT 8.1 K/mm3 (4.0-10.0)
[2020-10-17 07:33] LABS: CHLORIDE 100 mmol/L (98-107); SODIUM 138 mmol/L (136-145)
[2020-10-17 07:48] LABS: ALBUMIN 1.4 g/dl (3.4-5.0); ANION GAP 10 MMOL/L (8-16); CALCIUM 7.4 mg/dL (8.5-10.1); CO2 28 mmol/L (21-32); MAGNESIUM 1.6 mg/dL (1.8-2.4)
[2020-10-17 07:49] LABS: BLOOD UREA NITROGEN 26.4 mg/dL (7-18); GLUCOSE,RANDOM 224 mg/dL (74-106)
[2020-10-17 07:51] LABS: SGOT/AST 91 U/L (15-37); SGPT/ALT 32 U/L (13-61)
[2020-10-17 07:52] LABS: ALK PHOS 58 U/L (45-117); BILIRUBIN,TOTAL 0.4 mg/dL (0.2-1); PHOSPHOROUS 4.4 mg/dL (2.5-4.9)
[2020-10-17] MEDS ORDERED: MAGNESIUM SULF 50% (8.12 MEQ/2 ML-1 GM VIAL) IVPB ONE ×2 (08:45→16:14)
[2020-10-17] MEDS: POTASSIUM CHLORIDE 20 MEQ PREMIX IVPB 100 ML IVPB SCH ×3 (10:12→14:19)
[2020-10-17] MEDS: APIXABAN 2.5 MG TABLET PO SCH ×2 (10:21→23:00)
[2020-10-17] MEDS: ALLOPURINOL 100 MG TABLET (FP) PO SCH (10:21)
[2020-10-17] MEDS: PANTOPRAZOLE 40 MG TABLET PO SCH (10:21)
[2020-10-17] MEDS: SEVELAMER CARBONATE 800 MG TAB (FP) PO SCH ×3 (10:36→17:19)
[2020-10-17] MEDS: AMINO ACIDS/PROTEIN HYDROLYS 30 ML LIQUID.PKT PO SCH ×2 (10:37→17:19)
[2020-10-17] MEDS ORDERED: SODIUM CHLORIDE 0.9% 500 ML INFUS.BAG IV ONE (11:33)
[2020-10-17] MEDS ORDERED: DEXAMETHASONE SOD PHOSPHATE 10 MG/1 ML VIAL IVPUSH SCH (11:45)
[2020-10-17] MEDS ORDERED: PERITONEAL DIALYSIS 1.5% SOLN 2,000 ML IP SCH (13:00)
[2020-10-17] MEDS: DEXAMETHASONE SOD PHOSPHATE 4 MG/1 ML VIAL IVPUSH SCH (14:24)
[2020-10-17] MEDS: EPOETIN ALFA-EPBX 20,000 UNIT/ML VIAL SQ SCH (15:01)
[2020-10-17] MEDS: NOREPINEPHRINE D5W PREMIX 16,000 MCG/500 ML BAG IVPB SCH (17:30)
[2020-10-17] MEDS: PERITONEAL DIALYSIS 1.5% SOLN 2,500 ML IP SCH (19:17)
[2020-10-18] MEDS: PERITONEAL DIALYSIS 1.5% SOLN 2,500 ML IP SCH ×4 (00:03→17:30)
[2020-10-18] MEDS ORDERED: PT OWN MED DRAWER 7, Y5N ONE ×2 (01:50→16:31)
[2020-10-18] MEDS: INSULIN SLIDING SCALE (NOVOLOG) 1 VIAL SQ SCH ×4 (06:19→21:43)
[2020-10-18] MEDS: VANCOMYCIN 250 MG/5 ML ORAL SOLUTION PO SCH ×3 (06:20→18:43)
[2020-10-18 06:43] LABS: HEMATOCRIT 22.2 % (32.4-45.2); HEMOGLOBIN 7.7 GM/dL (10.7-15.3); MCH 34.8 pg (25.7-33.7); MCHC 34.4 g/dl (32.0-36.0); MEAN PLT VOLUME 8.6 fl (7.5-11.1); PLATELET COUNT 219 K/MM3 (134-434); RDW 17.6 % (11.6-15.6); WHITE BLOOD COUNT 9.6 K/mm3 (4.0-10.0)
[2020-10-18 07:05] LABS: CHLORIDE 101 mmol/L (98-107); SODIUM 137 mmol/L (136-145)
[2020-10-18 07:13] LABS: ALBUMIN 1.3 g/dl (3.4-5.0); ANION GAP 11 MMOL/L (8-16); BLOOD UREA NITROGEN 29.8 mg/dL (7-18); CALCIUM 7.7 mg/dL (8.5-10.1); CO2 25 mmol/L (21-32); GLUCOSE,RANDOM 331 mg/dL (74-106)
[2020-10-18 07:16] LABS: CREATININE 5.5 mg/dL (0.55-1.3); SGOT/AST 67 U/L (15-37); SGPT/ALT 28 U/L (13-61)
[2020-10-18 07:17] LABS: LDH 607 U/L (84-246)
[2020-10-18 07:18] LABS: BILIRUBIN,TOTAL 0.4 mg/dL (0.2-1); TOT PROT 6.1 g/dl (6.4-8.2)
[2020-10-18 07:19] LABS: ALK PHOS 64 U/L (45-117)
[2020-10-18 08:50] LABS: MAGNESIUM 2.8 mg/dL (1.8-2.4)
[2020-10-18 08:52] LABS: PHOSPHOROUS 3.3 mg/dL (2.5-4.9)
[2020-10-18] MEDS: APIXABAN 2.5 MG TABLET PO SCH ×2 (09:33→21:19)
[2020-10-18] MEDS: AMINO ACIDS/PROTEIN HYDROLYS 30 ML LIQUID.PKT PO SCH ×2 (09:33→17:20)
[2020-10-18] MEDS: DEXAMETHASONE SOD PHOSPHATE 4 MG/1 ML VIAL IVPUSH SCH (09:33)
[2020-10-18] MEDS: SEVELAMER CARBONATE 800 MG TAB (FP) PO SCH ×3 (09:33→17:20)
[2020-10-18] MEDS: ALLOPURINOL 100 MG TABLET (FP) PO SCH (09:34)
[2020-10-18] MEDS: PANTOPRAZOLE 40 MG TABLET PO SCH (09:34)
[2020-10-18] MEDS ORDERED: AMINO ACIDS 4.25%/D5W 1,000 ML IV SCH (12:00)
[2020-10-18] MEDS ORDERED: ALBUTEROL SO4 HFA INHALER IH PRN (13:08)
[2020-10-18] MEDS: MULTIVIT INJ. ADULT COMBO WITH VIT K 1 COMBO 10 ML VIAL IV SCH (13:10)
[2020-10-18] MEDS: AMINO ACIDS 4.25%/D5W 1,000 ML IV SCH (13:10)
[2020-10-18] MEDS: INSULIN (LEVEMIR) 100 UNITS/ML UNITS SQ SCH (21:43)
[2020-10-19] MEDS: PERITONEAL DIALYSIS 1.5% SOLN 2,500 ML IP SCH ×4 (02:00→20:10)
[2020-10-19] MEDS ORDERED: PT OWN MED DRAWER 7, Y5N ONE ×5 (06:13→16:16)
[2020-10-19] MEDS: INSULIN SLIDING SCALE (NOVOLOG) 1 VIAL SQ SCH ×4 (06:16→21:29)
[2020-10-19] MEDS: VANCOMYCIN 250 MG/5 ML ORAL SOLUTION PO SCH ×4 (06:17→20:10)
[2020-10-19] MEDS: NOREPINEPHRINE D5W PREMIX 16,000 MCG/500 ML BAG IVPB SCH (06:17)
[2020-10-19 08:01] LABS: CALCIUM 7.1 mg/dL (8.5-10.1); HEMATOCRIT 19.2 % (32.4-45.2); MCH 34.5 pg (25.7-33.7); MCHC 33.7 g/dl (32.0-36.0); MEAN CELL VOLUME 102.1 fl (80-96); MEAN PLT VOLUME 8.7 fl (7.5-11.1); PLATELET COUNT 222 K/MM3 (134-434); RBC 1.88 M/mm3 (3.60-5.2); RDW 17.1 % (11.6-15.6); WHITE BLOOD COUNT 10.9 K/mm3 (4.0-10.0)
[2020-10-19 08:02] LABS: BLOOD UREA NITROGEN 44.7 mg/dL (7-18); MAGNESIUM 2.2 mg/dL (1.8-2.4)
[2020-10-19 08:05] LABS: CREATININE 5.6 mg/dL (0.55-1.3); PHOSPHOROUS 3.6 mg/dL (2.5-4.9)
[2020-10-19 08:41] LABS: HEMOGLOBIN 6.5 GM/dL (10.7-15.3)
[2020-10-19] MEDS: SEVELAMER CARBONATE 800 MG TAB (FP) PO SCH ×3 (09:51→20:09)
[2020-10-19] MEDS: PANTOPRAZOLE 40 MG TABLET PO SCH (09:52)
[2020-10-19] MEDS: DEXAMETHASONE SOD PHOSPHATE 4 MG/1 ML VIAL IVPUSH SCH (09:52)
[2020-10-19] MEDS: AMINO ACIDS/PROTEIN HYDROLYS 30 ML LIQUID.PKT PO SCH ×2 (09:52→20:09)
[2020-10-19] MEDS: ALLOPURINOL 100 MG TABLET (FP) PO SCH (09:53)
[2020-10-19] MEDS: APIXABAN 2.5 MG TABLET PO SCH (09:53)
[2020-10-19] MEDS: MULTIVIT INJ. ADULT COMBO WITH VIT K 1 COMBO 10 ML VIAL IV SCH (11:05)
[2020-10-19] MEDS: AMINO ACIDS 4.25%/D5W 1,000 ML IV SCH ×2 (11:31→20:08)
[2020-10-19 16:40] LABS: HEMATOCRIT 22.1 % (32.4-45.2); HEMOGLOBIN 7.3 GM/dL (10.7-15.3); MCHC 32.8 g/dl (32.0-36.0); MEAN CELL VOLUME 100.7 fl (80-96); MEAN PLT VOLUME 8.8 fl (7.5-11.1); PLATELET COUNT 227 K/MM3 (134-434); RBC 2.19 M/mm3 (3.60-5.2); RDW 18.8 % (11.6-15.6); WHITE BLOOD COUNT 11.1 K/mm3 (4.0-10.0)
[2020-10-19] MEDS: INSULIN (LEVEMIR) 100 UNITS/ML UNITS SQ SCH (21:29)
[2020-10-19] MEDS: EPOETIN ALFA-EPBX 20,000 UNIT/ML VIAL SQ SCH (21:30)
[2020-10-20] MEDS: VANCOMYCIN 250 MG/5 ML ORAL SOLUTION PO SCH ×3 (01:00→17:45)
[2020-10-20] MEDS: PERITONEAL DIALYSIS 1.5% SOLN 2,500 ML IP SCH ×3 (01:37→18:09)
[2020-10-20] MEDS: INSULIN SLIDING SCALE (NOVOLOG) 1 VIAL SQ SCH ×3 (06:30→18:06)
[2020-10-20 06:51] LABS: HEMATOCRIT 27.3 % (32.4-45.2); HEMOGLOBIN 9.5 GM/dL (10.7-15.3); MCH 32.1 pg (25.7-33.7); MCHC 34.6 g/dl (32.0-36.0); MEAN CELL VOLUME 92.7 fl (80-96); MEAN PLT VOLUME 8.3 fl (7.5-11.1); PLATELET COUNT 204 K/MM3 (134-434); RBC 2.94 M/mm3 (3.60-5.2); WHITE BLOOD COUNT 11.8 K/mm3 (4.0-10.0)
[2020-10-20 07:31] LABS: CALCIUM 7.2 mg/dL (8.5-10.1); CREATININE 5.5 mg/dL (0.55-1.3); MAGNESIUM 1.9 mg/dL (1.8-2.4); PHOSPHOROUS 3.3 mg/dL (2.5-4.9)
[2020-10-20] MEDS ORDERED: PT OWN MED DRAWER 7, Y5N ONE (08:46)
[2020-10-20] MEDS: SEVELAMER CARBONATE 800 MG TAB (FP) PO SCH ×3 (08:48→18:10)
[2020-10-20] MEDS: AMINO ACIDS/PROTEIN HYDROLYS 30 ML LIQUID.PKT PO SCH ×2 (08:48→18:09)
[2020-10-20] MEDS: DEXAMETHASONE SOD PHOSPHATE 4 MG/1 ML VIAL IVPUSH SCH (09:00)
[2020-10-20] MEDS: MIDODRINE HCL 5 MG TABLET PO SCH ×3 (09:01→17:44)
[2020-10-20] MEDS: ALLOPURINOL 100 MG TABLET (FP) PO SCH (09:01)
[2020-10-20] MEDS: prednisoLONE ACETATE 1% OPHTH SUSP 5 ML BOTTLE OD SCH ×4 (09:02→22:02)
[2020-10-20] MEDS: PANTOPRAZOLE 40 MG TABLET PO SCH (09:04)
[2020-10-20] MEDS: DORZOLAMIDE 2% HCL OPHTHALMIC SOLUTION 10 ML BOTTLE OD SCH ×2 (09:04→22:03)
[2020-10-20] MEDS: APIXABAN 2.5 MG TABLET PO SCH ×2 (09:14→22:02)
[2020-10-20] MEDS ORDERED: prednisoLONE ACETATE 1% OPHTH SUSP 5 ML BOTTLE OU SCH (10:00)
[2020-10-20] MEDS: MULTIVIT INJ. ADULT COMBO WITH VIT K 1 COMBO 10 ML VIAL IV SCH (13:42)
[2020-10-20] MEDS: AMINO ACIDS 4.25%/D5W 1,000 ML IV SCH (13:42)
[2020-10-20] MEDS ORDERED: INSULIN REGULAR HUMAN 100 UNITS/ML *VIAL IVPUSH STA (19:01)
[2020-10-20] MEDS ORDERED: INSULIN REGULAR HUMAN 100 UNITS/ML *VIAL* (FOR IVP) IVPUSH ONE (20:06)
[2020-10-20] MEDS ORDERED: INSULIN REGULAR 100 UNITS in SODIUM CHLORIDE 99 ML IVPB SCH (20:15)
[2020-10-20] MEDS: TIMOLOL 0.5% OPHTHALMIC SOL 5 ML BOTTLE OS SCH (21:00)
[2020-10-21] MEDS: VANCOMYCIN 250 MG/5 ML ORAL SOLUTION PO SCH ×4 (00:03→17:14)
[2020-10-21] MEDS: PERITONEAL DIALYSIS 1.5% SOLN 2,500 ML IP SCH ×4 (06:00→19:02)
[2020-10-21] MEDS ORDERED: INSULIN SLIDING SCALE (NOVOLOG) 1 VIAL SQ SCH (07:00)
[2020-10-21 07:26] LABS: HEMATOCRIT 27.6 % (32.4-45.2); HEMOGLOBIN 9.6 GM/dL (10.7-15.3); MCH 32.2 pg (25.7-33.7); MCHC 34.8 g/dl (32.0-36.0); MEAN CELL VOLUME 92.6 fl (80-96); PLATELET COUNT 190 K/MM3 (134-434); RBC 2.98 M/mm3 (3.60-5.2); WHITE BLOOD COUNT 13.3 K/mm3 (4.0-10.0)
[2020-10-21 07:41] LABS: CALCIUM 7.4 mg/dL (8.5-10.1)
[2020-10-21 07:43] LABS: MAGNESIUM 1.9 mg/dL (1.8-2.4)
[2020-10-21 07:44] LABS: BLOOD UREA NITROGEN 77.2 mg/dL (7-18)
[2020-10-21 07:47] LABS: CREATININE 5.8 mg/dL (0.55-1.3); PHOSPHOROUS 4.6 mg/dL (2.5-4.9)
[2020-10-21] MEDS ORDERED: POTASSIUM CHLORIDE ORAL LIQUID 20 MEQ/15 ML PO ONE (08:01)
[2020-10-21] MEDS ORDERED: KCL 10 MEQ IVPB 10 MEQ/100 ML INFUS.BAG IVPB SCH (08:45)
[2020-10-21] MEDS: prednisoLONE ACETATE 1% OPHTH SUSP 5 ML BOTTLE OD SCH ×4 (10:30→23:28)
[2020-10-21] MEDS ORDERED: PT OWN MED DRAWER 7, Y5N ONE ×4 (10:40→22:01)
[2020-10-21] MEDS: KCL 10 MEQ IVPB 10 MEQ/100 ML INFUS.BAG IVPB SCH ×2 (10:45→12:15)
[2020-10-21] MEDS: SEVELAMER CARBONATE 800 MG TAB (FP) PO SCH ×3 (10:50→17:12)
[2020-10-21] MEDS: DEXAMETHASONE SOD PHOSPHATE 4 MG/1 ML VIAL IVPUSH SCH (10:52)
[2020-10-21] MEDS: MIDODRINE HCL 5 MG TABLET PO SCH ×3 (10:53→18:23)
[2020-10-21] MEDS: ALLOPURINOL 100 MG TABLET (FP) PO SCH (10:53)
[2020-10-21] MEDS: PANTOPRAZOLE 40 MG TABLET PO SCH (10:53)
[2020-10-21] MEDS: APIXABAN 2.5 MG TABLET PO SCH ×3 (10:54→21:59)
[2020-10-21] MEDS: AMINO ACIDS/PROTEIN HYDROLYS 30 ML LIQUID.PKT PO SCH ×2 (10:56→17:11)
[2020-10-21] MEDS: INSULIN SLIDING SCALE (NOVOLOG) 1 VIAL SQ SCH ×3 (11:30→21:48)
[2020-10-21] MEDS: DORZOLAMIDE 2% HCL OPHTHALMIC SOLUTION 10 ML BOTTLE OD SCH ×2 (12:44→23:28)
[2020-10-21] MEDS: TIMOLOL 0.5% OPHTHALMIC SOL 5 ML BOTTLE OS SCH (12:44)
[2020-10-21] MEDS: AMINO ACIDS 4.25%/D5W 1,000 ML IV SCH (16:10)
[2020-10-21] MEDS: MULTIVIT INJ. ADULT COMBO WITH VIT K 1 COMBO 10 ML VIAL IV SCH (16:10)
[2020-10-21 18:11] LABS: BLOOD UREA NITROGEN 79.7 mg/dL (7-18); CALCIUM 7.2 mg/dL (8.5-10.1)
[2020-10-21 18:15] LABS: CREATININE 5.5 mg/dL (0.55-1.3)
[2020-10-21] MEDS ORDERED: INSULIN (NOVOLOG) ASPART 100 UNITS/ML 10ML VIAL SQ ONE (18:38)
[2020-10-21] MEDS ORDERED: PERITONEAL DIALYSIS 1.5% SOLN 2,500 ML IP SCH (18:45)
[2020-10-21] MEDS: POTASSIUM CHLORIDE ORAL LIQUID 20 MEQ/15 ML PO SCH (21:36)
[2020-10-21] MEDS: INSULIN (LEVEMIR) 100 UNITS/ML UNITS SQ SCH (21:49)
[2020-10-21] MEDS: POTASSIUM CHLORIDE 20 MEQ PREMIX IVPB 100 ML IVPB SCH (22:31)
[2020-10-22] MEDS: VANCOMYCIN 250 MG/5 ML ORAL SOLUTION PO SCH ×4 (01:25→18:55)
[2020-10-22] MEDS: POTASSIUM CHLORIDE 20 MEQ PREMIX IVPB 100 ML IVPB SCH (01:25)
[2020-10-22] MEDS: PERITONEAL DIALYSIS 1.5% SOLN 2,500 ML IP SCH ×5 (02:35→22:10)
[2020-10-22] MEDS ORDERED: PT OWN MED DRAWER 7, Y5N ONE ×2 (06:15→09:09)
[2020-10-22] MEDS: INSULIN SLIDING SCALE (NOVOLOG) 1 VIAL SQ SCH ×4 (06:29→21:57)
[2020-10-22 06:42] LABS: HEMATOCRIT 24.1 % (32.4-45.2); HEMOGLOBIN 8.2 GM/dL (10.7-15.3); MCH 32.2 pg (25.7-33.7); MEAN CELL VOLUME 94.8 fl (80-96); MEAN PLT VOLUME 7.9 fl (7.5-11.1); PLATELET COUNT 146 K/MM3 (134-434); RBC 2.55 M/mm3 (3.60-5.2); RDW 21.2 % (11.6-15.6); WHITE BLOOD COUNT 11.1 K/mm3 (4.0-10.0)
[2020-10-22 07:04] LABS: CALCIUM 7.1 mg/dL (8.5-10.1)
[2020-10-22 07:05] LABS: BLOOD UREA NITROGEN 80.8 mg/dL (7-18)
[2020-10-22 07:08] LABS: CREATININE 5.3 mg/dL (0.55-1.3)
[2020-10-22] MEDS: SEVELAMER CARBONATE 800 MG TAB (FP) PO SCH ×3 (09:00→18:55)
[2020-10-22] MEDS ORDERED: INSULIN (NOVOLOG) ASPART 100 UNITS/ML 10ML VIAL ONE (09:11)
[2020-10-22] MEDS: AMINO ACIDS/PROTEIN HYDROLYS 30 ML LIQUID.PKT PO SCH ×2 (09:14→18:55)
[2020-10-22] MEDS: POTASSIUM CHLORIDE ORAL LIQUID 20 MEQ/15 ML PO SCH ×2 (09:21→21:28)
[2020-10-22] MEDS: DEXAMETHASONE SOD PHOSPHATE 4 MG/1 ML VIAL IVPUSH SCH (09:21)
[2020-10-22] MEDS: ALLOPURINOL 100 MG TABLET (FP) PO SCH (09:22)
[2020-10-22] MEDS: APIXABAN 2.5 MG TABLET PO SCH ×2 (09:22→21:28)
[2020-10-22] MEDS: MIDODRINE HCL 5 MG TABLET PO SCH ×3 (09:22→18:00)
[2020-10-22] MEDS: PANTOPRAZOLE 40 MG TABLET PO SCH (09:22)
[2020-10-22] MEDS: prednisoLONE ACETATE 1% OPHTH SUSP 5 ML BOTTLE OD SCH ×3 (09:56→18:56)
[2020-10-22] MEDS: DORZOLAMIDE 2% HCL OPHTHALMIC SOLUTION 10 ML BOTTLE OD SCH (10:00)
[2020-10-22] MEDS: TIMOLOL 0.5% OPHTHALMIC SOL 5 ML BOTTLE OS SCH (11:00)
[2020-10-22] MEDS: EPOETIN ALFA-EPBX 20,000 UNIT/ML VIAL SQ SCH (12:00)
[2020-10-22] MEDS: AMINO ACIDS 4.25%/D5W 1,000 ML IV SCH (12:30)
[2020-10-22] MEDS: MULTIVIT INJ. ADULT COMBO WITH VIT K 1 COMBO 10 ML VIAL IV SCH (12:30)
[2020-10-22] MEDS: INSULIN (LEVEMIR) 100 UNITS/ML UNITS SQ SCH (21:51)
[2020-10-23] MEDS: prednisoLONE ACETATE 1% OPHTH SUSP 5 ML BOTTLE OD SCH ×5 (00:50→21:08)
[2020-10-23] MEDS: POTASSIUM CHLORIDE ORAL LIQUID 20 MEQ/15 ML PO SCH ×3 (00:50→21:07)
[2020-10-23] MEDS: DORZOLAMIDE 2% HCL OPHTHALMIC SOLUTION 10 ML BOTTLE OD SCH ×3 (00:51→21:08)
[2020-10-23] MEDS: PERITONEAL DIALYSIS 1.5% SOLN 2,500 ML IP SCH ×4 (01:16→10:30)
[2020-10-23] MEDS: VANCOMYCIN 250 MG/5 ML ORAL SOLUTION PO SCH ×4 (01:17→18:16)
[2020-10-23] MEDS: INSULIN SLIDING SCALE (NOVOLOG) 1 VIAL SQ SCH ×4 (06:37→21:07)
[2020-10-23 07:20] LABS: BASO % 0.6 % (0-2.0); EOS % 0.1 % (0-4.5); HEMATOCRIT 29.9 % (32.4-45.2); LYMPH % 7.9 % (8-40); MCH 31.9 pg (25.7-33.7); MCHC 33.6 g/dl (32.0-36.0); MEAN CELL VOLUME 95.2 fl (80-96); MEAN PLT VOLUME 7.9 fl (7.5-11.1); MONO % 3.9 % (3.8-10.2); NEUT % 87.5 % (42.8-82.8); PLATELET COUNT 166 K/MM3 (134-434); RBC 3.14 M/mm3 (3.60-5.2); RDW 21.4 % (11.6-15.6)
[2020-10-23] MEDS ORDERED: PT OWN MED DRAWER 7, Y5N ONE ×2 (07:33→13:06)
[2020-10-23 07:41] LABS: CHLORIDE 90 mmol/L (98-107); SODIUM 125 mmol/L (136-145)
[2020-10-23 07:45] LABS: CALCIUM 7.5 mg/dL (8.5-10.1)
[2020-10-23 07:46] LABS: BLOOD UREA NITROGEN 81.4 mg/dL (7-18); CO2 23 mmol/L (21-32); GLUCOSE,RANDOM 277 mg/dL (74-106); MAGNESIUM 1.6 mg/dL (1.8-2.4)
[2020-10-23 07:49] LABS: CREATININE 5.4 mg/dL (0.55-1.3); SGOT/AST 35 U/L (15-37); SGPT/ALT 31 U/L (13-61)
[2020-10-23 07:52] LABS: ALK PHOS 82 U/L (45-117)
[2020-10-23 07:55] LABS: ALBUMIN 1.6 g/dl (3.4-5.0); ANION GAP 13 MMOL/L (8-16)
[2020-10-23] MEDS: SEVELAMER CARBONATE 800 MG TAB (FP) PO SCH ×3 (08:55→18:11)
[2020-10-23] MEDS: AMINO ACIDS/PROTEIN HYDROLYS 30 ML LIQUID.PKT PO SCH ×2 (08:55→18:10)
[2020-10-23] MEDS: APIXABAN 2.5 MG TABLET PO SCH ×2 (09:19→21:02)
[2020-10-23] MEDS: MIDODRINE HCL 5 MG TABLET PO SCH ×3 (09:19→18:14)
[2020-10-23] MEDS: ALLOPURINOL 100 MG TABLET (FP) PO SCH (09:20)
[2020-10-23] MEDS: DEXAMETHASONE SOD PHOSPHATE 4 MG/1 ML VIAL IVPUSH SCH (09:30)
[2020-10-23] MEDS: PANTOPRAZOLE 40 MG TABLET PO SCH (09:30)
[2020-10-23] MEDS: KCL 10 MEQ IVPB 10 MEQ/100 ML INFUS.BAG IVPB SCH ×3 (09:30→11:40)
[2020-10-23] MEDS: MULTIVIT INJ. ADULT COMBO WITH VIT K 1 COMBO 10 ML VIAL IV SCH ×2 (09:46→13:10)
[2020-10-23 10:07] LABS: ANISOCYTOSIS 1+; MACROCYTOSIS 0; PLATELET ESTIMATE DECREASED
[2020-10-23 10:17] LABS: CORRECTED WBC 10.69 K/mm3
[2020-10-23] MEDS: TIMOLOL 0.5% OPHTHALMIC SOL 5 ML BOTTLE OS SCH (10:39)
[2020-10-23] MEDS ORDERED: PERITONEAL DIALYSIS 2.5% SOLN 2,500 ML IP SCH (11:00)
[2020-10-23] MEDS ORDERED: hydrALAZINE HCL 10 MG TABLET PO ONE (12:28)
[2020-10-23] MEDS: [UNRECOGNIZED DRUG - OTHER] IV SCH (13:10)
[2020-10-23] MEDS: SODIUM CHLORIDE IV SCH (13:10)
[2020-10-23] MEDS: POTASSIUM CHLORIDE IV SCH (13:10)
[2020-10-23] MEDS: PERITONEAL DIALYSIS 2.5% SOLN 2,500 ML IP SCH ×2 (16:30→22:30)
[2020-10-23] MEDS: INSULIN (LEVEMIR) 100 UNITS/ML UNITS SQ SCH (21:02)
[2020-10-24] MEDS: VANCOMYCIN 250 MG/5 ML ORAL SOLUTION PO SCH ×4 (00:28→17:30)
[2020-10-24] MEDS: PERITONEAL DIALYSIS 2.5% SOLN 2,500 ML IP SCH ×4 (04:30→22:28)
[2020-10-24] MEDS: INSULIN SLIDING SCALE (NOVOLOG) 1 VIAL SQ SCH ×4 (06:27→22:03)
[2020-10-24 07:20] LABS: BASO % 0.3 % (0-2.0); HEMATOCRIT 30.7 % (32.4-45.2); HEMOGLOBIN 10.3 GM/dL (10.7-15.3); LYMPH % 9.4 % (8-40); MCH 32.2 pg (25.7-33.7); MCHC 33.5 g/dl (32.0-36.0); MEAN CELL VOLUME 96.2 fl (80-96); MEAN PLT VOLUME 9.1 fl (7.5-11.1); MONO % 4.5 % (3.8-10.2); NEUT % 85.8 % (42.8-82.8); PLATELET COUNT 175 K/MM3 (134-434); RBC 3.19 M/mm3 (3.60-5.2)
[2020-10-24 07:51] LABS: CALCIUM 7.7 mg/dL (8.5-10.1)
[2020-10-24 07:52] LABS: ALBUMIN 1.7 g/dl (3.4-5.0); MAGNESIUM 1.6 mg/dL (1.8-2.4)
[2020-10-24 07:53] LABS: TOT PROT 5.9 g/dl (6.4-8.2)
[2020-10-24 07:54] LABS: CREATININE 5.2 mg/dL (0.55-1.3)
[2020-10-24 07:58] LABS: BILIRUBIN,TOTAL 0.4 mg/dL (0.2-1)
[2020-10-24] MEDS: AMINO ACIDS/PROTEIN HYDROLYS 30 ML LIQUID.PKT PO SCH ×2 (09:24→17:13)
[2020-10-24] MEDS: SEVELAMER CARBONATE 800 MG TAB (FP) PO SCH ×3 (09:24→17:13)
[2020-10-24] MEDS ORDERED: PT OWN MED DRAWER 7, Y5N ONE ×2 (09:29→11:39)
[2020-10-24] MEDS: DEXAMETHASONE SOD PHOSPHATE 4 MG/1 ML VIAL IVPUSH SCH (09:30)
[2020-10-24] MEDS: APIXABAN 2.5 MG TABLET PO SCH ×2 (09:33→22:02)
[2020-10-24] MEDS: POTASSIUM CHLORIDE ORAL LIQUID 20 MEQ/15 ML PO SCH ×2 (09:33→22:04)
[2020-10-24] MEDS: ALLOPURINOL 100 MG TABLET (FP) PO SCH (09:34)
[2020-10-24] MEDS: MIDODRINE HCL 5 MG TABLET PO SCH ×3 (09:34→17:30)
[2020-10-24] MEDS: PANTOPRAZOLE 40 MG TABLET PO SCH (09:34)
[2020-10-24] MEDS: TIMOLOL 0.5% OPHTHALMIC SOL 5 ML BOTTLE OS SCH (09:35)
[2020-10-24] MEDS: DORZOLAMIDE 2% HCL OPHTHALMIC SOLUTION 10 ML BOTTLE OD SCH ×2 (09:35→22:07)
[2020-10-24] MEDS: prednisoLONE ACETATE 1% OPHTH SUSP 5 ML BOTTLE OD SCH ×4 (09:36→22:06)
[2020-10-24 10:49] LABS: WHITE BLOOD COUNT 14.3 K/mm3 (4.0-10.0)
[2020-10-24 10:50] LABS: ANISOCYTOSIS 2+; MACROCYTOSIS 1+
[2020-10-24 10:51] LABS: PLATELET ESTIMATE SLT DECREASE
[2020-10-24 10:52] LABS: CORRECTED WBC 12.33 K/mm3
[2020-10-24] MEDS: SODIUM CHLORIDE IV SCH (12:05)
[2020-10-24] MEDS: POTASSIUM CHLORIDE IV SCH (12:05)
[2020-10-24] MEDS: [UNRECOGNIZED DRUG - OTHER] IV SCH (12:05)
[2020-10-24] MEDS: MULTIVIT INJ. ADULT COMBO WITH VIT K 1 COMBO 10 ML VIAL IV SCH (12:05)
[2020-10-24] MEDS: EPOETIN ALFA-EPBX 20,000 UNIT/ML VIAL SQ SCH ×2 (12:27→18:38)
[2020-10-24] MEDS ORDERED: MAGNESIUM SULF 50% (8.12 MEQ/2 ML-1 GM VIAL) IVPB ONE (15:48)
[2020-10-24] MEDS ORDERED: ALBUTEROL SO4 HFA INHALER IH PRN (18:30)
[2020-10-24] MEDS: INSULIN (LEVEMIR) 100 UNITS/ML UNITS SQ SCH (22:02)
[2020-10-25] MEDS: VANCOMYCIN 250 MG/5 ML ORAL SOLUTION PO SCH ×4 (00:57→17:42)
[2020-10-25] MEDS ORDERED: PT OWN MED DRAWER 7, Y5N ONE ×3 (04:24→15:32)
[2020-10-25] MEDS ORDERED: VASOPRESSIN 20 UNITS/ML VIAL IV ONE (05:20)
[2020-10-25] MEDS: INSULIN SLIDING SCALE (NOVOLOG) 1 VIAL SQ SCH ×4 (06:31→22:38)
[2020-10-25] MEDS: PERITONEAL DIALYSIS 2.5% SOLN 2,500 ML IP SCH ×3 (06:31→18:30)
[2020-10-25 07:09] LABS: BASO % 0.2 % (0-2.0); CORRECTED WBC 11.69 K/mm3; HEMATOCRIT 31.7 % (32.4-45.2); HEMOGLOBIN 10.5 GM/dL (10.7-15.3); LYMPH % 9.5 % (8-40); MCH 32.4 pg (25.7-33.7); MCHC 33.2 g/dl (32.0-36.0); MEAN CELL VOLUME 97.4 fl (80-96); MEAN PLT VOLUME 8.7 fl (7.5-11.1); MONO % 5.1 % (3.8-10.2); NEUT % 85.2 % (42.8-82.8); PLATELET COUNT 210 K/MM3 (134-434); RBC 3.25 M/mm3 (3.60-5.2); RDW 21.4 % (11.6-15.6); WHITE BLOOD COUNT 13.8 K/mm3 (4.0-10.0)
[2020-10-25 07:38] LABS: ALBUMIN 1.7 g/dl (3.4-5.0); BLOOD UREA NITROGEN 80.4 mg/dL (7-18); CALCIUM 7.9 mg/dL (8.5-10.1); MAGNESIUM 2.1 mg/dL (1.8-2.4)
[2020-10-25 07:41] LABS: CREATININE 5.3 mg/dL (0.55-1.3)
[2020-10-25 07:43] LABS: BILIRUBIN,TOTAL 0.3 mg/dL (0.2-1); TOT PROT 6.1 g/dl (6.4-8.2)
[2020-10-25] MEDS: SEVELAMER CARBONATE 800 MG TAB (FP) PO SCH ×3 (09:06→17:38)
[2020-10-25] MEDS: APIXABAN 2.5 MG TABLET PO SCH ×2 (09:07→22:25)
[2020-10-25] MEDS: AMINO ACIDS/PROTEIN HYDROLYS 30 ML LIQUID.PKT PO SCH ×2 (09:07→17:38)
[2020-10-25] MEDS: DEXAMETHASONE SOD PHOSPHATE 4 MG/1 ML VIAL IVPUSH SCH (09:07)
[2020-10-25] MEDS: prednisoLONE ACETATE 1% OPHTH SUSP 5 ML BOTTLE OD SCH ×4 (09:08→22:25)
[2020-10-25] MEDS: PANTOPRAZOLE 40 MG TABLET PO SCH (09:08)
[2020-10-25] MEDS: POTASSIUM CHLORIDE ORAL LIQUID 20 MEQ/15 ML PO SCH ×2 (09:08→22:25)
[2020-10-25] MEDS: ALLOPURINOL 100 MG TABLET (FP) PO SCH (09:08)
[2020-10-25] MEDS: MIDODRINE HCL 5 MG TABLET PO SCH ×3 (09:08→17:42)
[2020-10-25] MEDS: DORZOLAMIDE 2% HCL OPHTHALMIC SOLUTION 10 ML BOTTLE OD SCH ×2 (09:09→22:26)
[2020-10-25] MEDS: TIMOLOL 0.5% OPHTHALMIC SOL 5 ML BOTTLE OS SCH (09:09)
[2020-10-25] MEDS: [UNRECOGNIZED DRUG - OTHER] IV SCH (17:37)
[2020-10-25] MEDS: SODIUM CHLORIDE IV SCH (17:37)
[2020-10-25] MEDS: MULTIVIT INJ. ADULT COMBO WITH VIT K 1 COMBO 10 ML VIAL IV SCH (17:37)
[2020-10-25] MEDS: POTASSIUM CHLORIDE IV SCH (17:37)
[2020-10-25] MEDS: MIRTAZAPINE 15 MG TABLET (FP) PO SCH (22:25)
[2020-10-25] MEDS: INSULIN (LEVEMIR) 100 UNITS/ML UNITS SQ SCH (22:37)
[2020-10-26] MEDS: PERITONEAL DIALYSIS 2.5% SOLN 2,500 ML IP SCH ×4 (00:48→18:30)
[2020-10-26] MEDS: VANCOMYCIN 250 MG/5 ML ORAL SOLUTION PO SCH ×4 (00:48→17:00)
[2020-10-26] MEDS: INSULIN SLIDING SCALE (NOVOLOG) 1 VIAL SQ SCH ×4 (06:25→21:58)
[2020-10-26 08:01] LABS: BASO % 0.2 % (0-2.0); HEMATOCRIT 34.8 % (32.4-45.2); HEMOGLOBIN 11.6 GM/dL (10.7-15.3); LYMPH % 5.2 % (8-40); MCH 32.8 pg (25.7-33.7); MCHC 33.3 g/dl (32.0-36.0); MEAN CELL VOLUME 98.6 fl (80-96); MEAN PLT VOLUME 8.8 fl (7.5-11.1); MONO % 3.5 % (3.8-10.2); NEUT % 91.1 % (42.8-82.8); PLATELET COUNT 231 K/MM3 (134-434); RBC 3.53 M/mm3 (3.60-5.2); RDW 21.1 % (11.6-15.6)
[2020-10-26 08:49] LABS: ALBUMIN 1.8 g/dl (3.4-5.0); CALCIUM 8.5 mg/dL (8.5-10.1)
[2020-10-26 08:50] LABS: BLOOD UREA NITROGEN 81.4 mg/dL (7-18)
[2020-10-26 08:52] LABS: CREATININE 5.5 mg/dL (0.55-1.3)
[2020-10-26 08:53] LABS: TOT PROT 6.4 g/dl (6.4-8.2)
[2020-10-26 08:55] LABS: BILIRUBIN,TOTAL 0.5 mg/dL (0.2-1)
[2020-10-26] MEDS ORDERED: PT OWN MED DRAWER 7, Y5N ONE ×2 (09:36→16:23)
[2020-10-26] MEDS: AMINO ACIDS/PROTEIN HYDROLYS 30 ML LIQUID.PKT PO SCH ×3 (09:39→16:59)
[2020-10-26] MEDS: MIDODRINE HCL 5 MG TABLET PO SCH ×3 (09:39→16:59)
[2020-10-26] MEDS: PANTOPRAZOLE 40 MG TABLET PO SCH (09:39)
[2020-10-26] MEDS: APIXABAN 2.5 MG TABLET PO SCH ×2 (09:39→21:44)
[2020-10-26] MEDS: SEVELAMER CARBONATE 800 MG TAB (FP) PO SCH ×3 (09:40→17:01)
[2020-10-26] MEDS: DEXAMETHASONE SOD PHOSPHATE 4 MG/1 ML VIAL IVPUSH SCH (09:40)
[2020-10-26] MEDS: POTASSIUM CHLORIDE ORAL LIQUID 20 MEQ/15 ML PO SCH (09:42)
[2020-10-26] MEDS: prednisoLONE ACETATE 1% OPHTH SUSP 5 ML BOTTLE OD SCH ×4 (09:42→21:44)
[2020-10-26] MEDS: ALLOPURINOL 100 MG TABLET (FP) PO SCH (09:43)
[2020-10-26] MEDS: DORZOLAMIDE 2% HCL OPHTHALMIC SOLUTION 10 ML BOTTLE OD SCH ×2 (10:02→21:45)
[2020-10-26] MEDS: POTASSIUM CHLORIDE IV SCH ×2 (11:23→15:31)
[2020-10-26] MEDS: MULTIVIT INJ. ADULT COMBO WITH VIT K 1 COMBO 10 ML VIAL IV SCH (11:23)
[2020-10-26] MEDS: [UNRECOGNIZED DRUG - OTHER] IV SCH ×2 (11:23→15:31)
[2020-10-26] MEDS: SODIUM CHLORIDE IV SCH ×2 (11:23→15:31)
[2020-10-26] MEDS: TIMOLOL 0.5% OPHTHALMIC SOL 5 ML BOTTLE OS SCH (12:05)
[2020-10-26 12:48] LABS: ANISOCYTOSIS 2+; MACROCYTOSIS 1+; PLATELET ESTIMATE NORMAL
[2020-10-26 12:54] LABS: WHITE BLOOD COUNT 19.1 K/mm3 (4.0-10.0)
[2020-10-26 12:55] LABS: CORRECTED WBC 16.61 K/mm3
[2020-10-26] MEDS: EPOETIN ALFA-EPBX 20,000 UNIT/ML VIAL SQ SCH (18:56)
[2020-10-26] MEDS: MIRTAZAPINE 15 MG TABLET (FP) PO SCH (21:43)
[2020-10-26] MEDS: INSULIN (LEVEMIR) 100 UNITS/ML UNITS SQ SCH (21:44)
[2020-10-27] MEDS: PERITONEAL DIALYSIS 2.5% SOLN 2,500 ML IP SCH ×4 (00:29→18:30)
[2020-10-27] MEDS: POTASSIUM CHLORIDE TABS 10 MEQ TABLET.ER (FP) PO SCH ×3 (00:29→22:31)
[2020-10-27] MEDS: VANCOMYCIN 250 MG/5 ML ORAL SOLUTION PO SCH ×4 (00:29→17:18)
[2020-10-27] MEDS: [UNRECOGNIZED DRUG - OTHER] IV SCH ×3 (06:37→20:33)
[2020-10-27] MEDS: POTASSIUM CHLORIDE IV SCH ×3 (06:37→20:33)
[2020-10-27] MEDS: SODIUM CHLORIDE IV SCH ×3 (06:37→20:33)
[2020-10-27] MEDS: INSULIN SLIDING SCALE (NOVOLOG) 1 VIAL SQ SCH ×4 (06:48→22:34)
[2020-10-27] MEDS ORDERED: PT OWN MED DRAWER 7, Y5N ONE ×2 (10:05→20:16)
[2020-10-27] MEDS: AMINO ACIDS/PROTEIN HYDROLYS 30 ML LIQUID.PKT PO SCH ×2 (10:12→17:17)
[2020-10-27] MEDS: SEVELAMER CARBONATE 800 MG TAB (FP) PO SCH ×2 (10:12→13:25)
[2020-10-27] MEDS: DEXAMETHASONE SOD PHOSPHATE 4 MG/1 ML VIAL IVPUSH SCH (10:13)
[2020-10-27] MEDS: MIDODRINE HCL 5 MG TABLET PO SCH (10:14)
[2020-10-27] MEDS: APIXABAN 2.5 MG TABLET PO SCH ×2 (10:14→22:30)
[2020-10-27] MEDS: MULTIVIT INJ. ADULT COMBO WITH VIT K 1 COMBO 10 ML VIAL IV SCH (10:14)
[2020-10-27] MEDS: PANTOPRAZOLE 40 MG TABLET PO SCH (10:14)
[2020-10-27] MEDS: DORZOLAMIDE 2% HCL OPHTHALMIC SOLUTION 10 ML BOTTLE OD SCH ×2 (10:17→22:43)
[2020-10-27] MEDS: prednisoLONE ACETATE 1% OPHTH SUSP 5 ML BOTTLE OD SCH ×4 (10:17→22:42)
[2020-10-27] MEDS: ALLOPURINOL 100 MG TABLET (FP) PO SCH (10:17)
[2020-10-27] MEDS: TIMOLOL 0.5% OPHTHALMIC SOL 5 ML BOTTLE OS SCH (11:39)
[2020-10-27 11:56] LABS: BASO % 0.4 % (0-2.0); HEMATOCRIT 34.3 % (32.4-45.2); HEMOGLOBIN 11.3 GM/dL (10.7-15.3); MCH 32.8 pg (25.7-33.7); MEAN CELL VOLUME 99.3 fl (80-96); MEAN PLT VOLUME 8.5 fl (7.5-11.1); MONO % 3.8 % (3.8-10.2); NEUT % 92.8 % (42.8-82.8); PLATELET COUNT 213 K/MM3 (134-434); RBC 3.45 M/mm3 (3.60-5.2); RDW 22.3 % (11.6-15.6)
[2020-10-27 11:59] LABS: CORRECTED WBC 22.77 K/mm3; WHITE BLOOD COUNT 25.5 K/mm3 (4.0-10.0)
[2020-10-27 12:32] LABS: ALBUMIN 1.7 g/dl (3.4-5.0); ALK PHOS 130 U/L (45-117); ANION GAP 10 MMOL/L (8-16); BILIRUBIN,TOTAL 0.5 mg/dL (0.2-1); BLOOD UREA NITROGEN 89.5 mg/dL (7-18); CALCIUM 8.6 mg/dL (8.5-10.1); CHLORIDE 101 mmol/L (98-107); CO2 21 mmol/L (21-32); CREATININE 5.9 mg/dL (0.55-1.3); GLUCOSE,RANDOM 426 mg/dL (74-106); MAGNESIUM 1.7 mg/dL (1.8-2.4); PHOSPHOROUS 1.6 mg/dL (2.5-4.9); SGOT/AST 61 U/L (15-37); SGPT/ALT 91 U/L (13-61); SODIUM 132 mmol/L (136-145); TOT PROT 6.1 g/dl (6.4-8.2)
[2020-10-27] MEDS ORDERED: INSULIN (LEVEMIR) 100 UNITS/ML UNITS SQ ONE (12:57)
[2020-10-27 13:36] LABS: ANISOCYTOSIS 1+; MACROCYTOSIS 0; PLATELET ESTIMATE NORMAL
[2020-10-27] MEDS ORDERED: INSULIN (NOVOLOG) ASPART 100 UNITS/ML 10ML VIAL SQ ONE ×2 (17:30)
[2020-10-27] MEDS: MIRTAZAPINE 15 MG TABLET (FP) PO SCH (22:31)
[2020-10-27] MEDS: INSULIN (LEVEMIR) 100 UNITS/ML UNITS SQ SCH (22:33)
[2020-10-28] MEDS: VANCOMYCIN 250 MG/5 ML ORAL SOLUTION PO SCH ×4 (00:03→17:59)
[2020-10-28] MEDS: PERITONEAL DIALYSIS 2.5% SOLN 2,500 ML IP SCH ×4 (00:31→18:10)
[2020-10-28] MEDS: INSULIN SLIDING SCALE (NOVOLOG) 1 VIAL SQ SCH ×4 (06:20→22:08)
[2020-10-28 07:54] LABS: HEMATOCRIT 35.6 % (32.4-45.2); HEMOGLOBIN 11.7 GM/dL (10.7-15.3); MCHC 32.9 g/dl (32.0-36.0); MEAN CELL VOLUME 100.3 fl (80-96); MEAN PLT VOLUME 9.1 fl (7.5-11.1); PLATELET COUNT 234 K/MM3 (134-434); RBC 3.55 M/mm3 (3.60-5.2); RDW 24.5 % (11.6-15.6)
[2020-10-28 08:06] LABS: WHITE BLOOD COUNT 27.3 K/mm3 (4.0-10.0)
[2020-10-28] MEDS ORDERED: ACETAMINOPHEN 1000 MG/100 ML VIAL (NON FORMULARY) IVPB ONE (08:06)
[2020-10-28 08:15] LABS: CHLORIDE 102 mmol/L (98-107); SODIUM 136 mmol/L (136-145)
[2020-10-28 08:21] LABS: ALBUMIN 1.7 g/dl (3.4-5.0); ANION GAP 11 MMOL/L (8-16); BLOOD UREA NITROGEN 96.4 mg/dL (7-18); CALCIUM 8.9 mg/dL (8.5-10.1); CO2 23 mmol/L (21-32); MAGNESIUM 1.7 mg/dL (1.8-2.4)
[2020-10-28 08:25] LABS: PHOSPHOROUS 1.3 mg/dL (2.5-4.9); SGOT/AST 58 U/L (15-37)
[2020-10-28 08:26] LABS: BILIRUBIN,TOTAL 0.9 mg/dL (0.2-1); SGPT/ALT 84 U/L (13-61); TOT PROT 6.7 g/dl (6.4-8.2)
[2020-10-28 08:32] LABS: ALK PHOS 167 U/L (45-117); GLUCOSE,RANDOM 409 mg/dL (74-106)
[2020-10-28] MEDS ORDERED: PIPERACILLIN/TAZOB 2.25 GM 2.25 GM in DEXTROSE 5%-WATER - 50 ML IVPB ONE (09:30)
[2020-10-28] MEDS ORDERED: PIPERACILLIN/TAZOBACTAM 2.25 GM VIAL IVPB ONE ×2 (09:44→17:45)
[2020-10-28] MEDS ORDERED: DEXTROSE 5%-WATER - 50 ML IVPB ONE ×3 (09:44→17:45)
[2020-10-28] MEDS: DEXAMETHASONE SOD PHOSPHATE 4 MG/1 ML VIAL IVPUSH SCH (10:01)
[2020-10-28] MEDS: INSULIN (LEVEMIR) 100 UNITS/ML UNITS SQ SCH ×2 (10:03→22:08)
[2020-10-28] MEDS: APIXABAN 2.5 MG TABLET PO SCH (10:04)
[2020-10-28] MEDS: POTASSIUM CHLORIDE TABS 10 MEQ TABLET.ER (FP) PO SCH (10:04)
[2020-10-28] MEDS: AMINO ACIDS/PROTEIN HYDROLYS 30 ML LIQUID.PKT PO SCH ×2 (10:04→18:00)
[2020-10-28] MEDS: PANTOPRAZOLE 40 MG TABLET PO SCH (10:05)
[2020-10-28] MEDS: DORZOLAMIDE 2% HCL OPHTHALMIC SOLUTION 10 ML BOTTLE OD SCH ×2 (10:05→22:08)
[2020-10-28] MEDS: ALLOPURINOL 100 MG TABLET (FP) PO SCH (10:05)
[2020-10-28] MEDS: prednisoLONE ACETATE 1% OPHTH SUSP 5 ML BOTTLE OD SCH ×4 (10:05→22:08)
[2020-10-28] MEDS: TIMOLOL 0.5% OPHTHALMIC SOL 5 ML BOTTLE OS SCH (10:05)
[2020-10-28 11:01] LABS: ARTERIAL BLD GAS O2 SATURATION 98.7 mmHg (95-98); ARTERIAL BLOOD GAS BASE EXCESS -4.4 mmol/L (-2-2); ARTERIAL BLOOD GAS pH 7.492 (7.350-7.450)
[2020-10-28 11:09] LABS: ALLENS TEST POSITIVE
[2020-10-28 11:26] LABS: LACTIC ACID 3.9 mmol/L (0.4-2.0)
[2020-10-28] MEDS ORDERED: CEFTRIAXONE 1 GM in DEXTROSE 5%-WATER - 50 ML IVPB ONE (11:36)
[2020-10-28] MEDS ORDERED: LACTATED RINGERS SOLUTION 1000 ML INFUS.BAG IV ONE (11:37)
[2020-10-28] MEDS: AMINO ACIDS 4.25%/D5W 1,000 ML IV SCH (11:37)
[2020-10-28] MEDS ORDERED: SODIUM CHLORIDE 1,000 ML IV STA (11:46)
[2020-10-28] MEDS ORDERED: cefTRIAXone SODIUM 1 GM VIAL ONE (12:17)
[2020-10-28 13:07] LABS: ANISOCYTOSIS 2+; MACROCYTOSIS 1+; PLATELET ESTIMATE NORMAL; TOXIC GRANULATION 2+
[2020-10-28] MEDS: MULTIVIT INJ. ADULT COMBO WITH VIT K 1 COMBO 10 ML VIAL IV SCH (13:48)
[2020-10-28] MEDS ORDERED: PT OWN MED DRAWER 7, Y5N ONE (16:04)
[2020-10-28] MEDS ORDERED: Insulin (LOG) Aspart 100 UNITS/ML VIAL SQ ONE (17:05)
[2020-10-28] MEDS: PIPERACILLIN/TAZOB 2.25 GM 2.25 GM in DEXTROSE 5%-WATER - 50 ML IVPB SCH (17:59)
[2020-10-28] MEDS: MIRTAZAPINE 15 MG TABLET (FP) PO SCH (22:08)
[2020-10-29] MEDS: APIXABAN 2.5 MG TABLET PO SCH ×2 (00:20→10:41)
[2020-10-29] MEDS: AMINO ACIDS 4.25%/D5W 1,000 ML IV SCH ×2 (00:21→11:00)
[2020-10-29] MEDS: VANCOMYCIN 250 MG/5 ML ORAL SOLUTION PO SCH ×4 (00:22→17:38)
[2020-10-29] MEDS: PERITONEAL DIALYSIS 2.5% SOLN 2,500 ML IP SCH ×4 (00:32→18:30)
[2020-10-29] MEDS ORDERED: PIPERACILLIN/TAZOBACTAM 2.25 GM VIAL IVPB ONE ×3 (01:13→17:08)
[2020-10-29] MEDS: PIPERACILLIN/TAZOB 2.25 GM 2.25 GM in DEXTROSE 5%-WATER - 50 ML IVPB SCH ×3 (01:16→18:21)
[2020-10-29] MEDS: INSULIN (LEVEMIR) 100 UNITS/ML UNITS SQ SCH ×2 (06:00→21:26)
[2020-10-29] MEDS: INSULIN SLIDING SCALE (NOVOLOG) 1 VIAL SQ SCH ×4 (06:01→21:26)
[2020-10-29] MEDS ORDERED: DEXTROSE 5%-WATER - 50 ML IVPB ONE ×2 (08:27→17:08)
[2020-10-29] MEDS: TIMOLOL 0.5% OPHTHALMIC SOL 5 ML BOTTLE OS SCH (09:18)
[2020-10-29] MEDS: prednisoLONE ACETATE 1% OPHTH SUSP 5 ML BOTTLE OD SCH ×4 (09:18→21:22)
[2020-10-29] MEDS: DORZOLAMIDE 2% HCL OPHTHALMIC SOLUTION 10 ML BOTTLE OD SCH ×2 (09:18→21:22)
[2020-10-29] MEDS: DEXAMETHASONE SOD PHOSPHATE 4 MG/1 ML VIAL IVPUSH SCH (09:18)
[2020-10-29] MEDS: AMINO ACIDS/PROTEIN HYDROLYS 30 ML LIQUID.PKT PO SCH ×2 (09:46→16:47)
[2020-10-29] MEDS ORDERED: PT OWN MED DRAWER 7, Y5N ONE ×3 (09:55→10:45)
[2020-10-29] MEDS ORDERED: ENOXAPARIN NA (PORCINE) 40 MG/0.4 ML DISP.SYRIN SQ SCH (10:30)
[2020-10-29] MEDS: ALLOPURINOL 100 MG TABLET (FP) PO SCH (10:41)
[2020-10-29] MEDS: PANTOPRAZOLE 40 MG TABLET PO SCH (10:41)
[2020-10-29 10:54] LABS: BASO % 0.1 % (0-2.0); HEMATOCRIT 28.3 % (32.4-45.2); HEMOGLOBIN 9.2 GM/dL (10.7-15.3); LYMPH % 4.3 % (8-40); MCH 32.6 pg (25.7-33.7); MCHC 32.7 g/dl (32.0-36.0); MEAN CELL VOLUME 99.9 fl (80-96); MEAN PLT VOLUME 9.2 fl (7.5-11.1); MONO % 2.7 % (3.8-10.2); NEUT % 92.9 % (42.8-82.8); PLATELET COUNT 173 K/MM3 (134-434); RBC 2.83 M/mm3 (3.60-5.2); RDW 23.2 % (11.6-15.6); WHITE BLOOD COUNT 22.1 K/mm3 (4.0-10.0)
[2020-10-29] MEDS ORDERED: ENOXAPARIN NA (PORCINE) 30 MG/0.3 ML DISP.SYRIN SQ SCH (10:59)
[2020-10-29 11:05] LABS: CHLORIDE 94 mmol/L (98-107); SODIUM 128 mmol/L (136-145)
[2020-10-29 11:10] LABS: CALCIUM 8.2 mg/dL (8.5-10.1)
[2020-10-29 11:12] LABS: ANION GAP 12 MMOL/L (8-16); CO2 23 mmol/L (21-32); MAGNESIUM 1.5 mg/dL (1.8-2.4)
[2020-10-29 11:13] LABS: ALK PHOS 144 U/L (45-117); CREATININE 5.8 mg/dL (0.55-1.3); SGOT/AST 62 U/L (15-37); SGPT/ALT 76 U/L (13-61)
[2020-10-29 11:14] LABS: BF WBC & OTHER NUCLEATED CELLS 20 /mm3
[2020-10-29 11:15] LABS: ALBUMIN 1.2 g/dl (3.4-5.0); BILIRUBIN,TOTAL 1.1 mg/dL (0.2-1); GLUCOSE,RANDOM 458 mg/dL (74-106); TOT PROT 5.4 g/dl (6.4-8.2)
[2020-10-29] MEDS ORDERED: SODIUM PHOSPHATE - 30 MM in DEXTROSE 5%-WATER - 250 ML IVPB ONE (11:22)
[2020-10-29] MEDS: MULTIVIT INJ. ADULT COMBO WITH VIT K 1 COMBO 10 ML VIAL IV SCH (11:58)
[2020-10-29] MEDS ORDERED: ENOXAPARIN NA (PORCINE) 30 MG/0.3 ML DISP.SYRIN SQ ONE (12:45)
[2020-10-29 12:48] LABS: ANISOCYTOSIS 2+; MACROCYTOSIS 2+; OVALOCYTE 1+; PLATELET ESTIMATE NORMAL
[2020-10-29 13:26] VITALS: BMI 23.8
[2020-10-29] MEDS: MAGNESIUM SULFATE IVPB SCH (14:03)
[2020-10-29] MEDS: AMINO ACIDS IVPB SCH (14:03)
[2020-10-29] MEDS: [UNRECOGNIZED DRUG - OTHER] IVPB SCH (14:03)
[2020-10-29 14:47] LABS: BODY FLUID MACROPHAGES 3 %
[2020-10-29] MEDS: MIRTAZAPINE 15 MG TABLET (FP) PO SCH (21:22)
[2020-10-30] MEDS: PERITONEAL DIALYSIS 2.5% SOLN 2,500 ML IP SCH ×4 (00:45→18:45)
[2020-10-30] MEDS: VANCOMYCIN 250 MG/5 ML ORAL SOLUTION PO SCH ×4 (00:46→17:40)
[2020-10-30] MEDS ORDERED: PIPERACILLIN/TAZOBACTAM 2.25 GM VIAL IVPB ONE ×3 (00:50→17:24)
[2020-10-30] MEDS ORDERED: DEXTROSE 5%-WATER - 50 ML IVPB ONE ×3 (00:51→17:24)
[2020-10-30] MEDS: [UNRECOGNIZED DRUG - OTHER] IVPB SCH ×2 (01:00→05:39)
[2020-10-30] MEDS: AMINO ACIDS IVPB SCH ×4 (01:00→21:48)
[2020-10-30] MEDS: MAGNESIUM SULFATE IVPB SCH ×4 (01:00→21:48)
[2020-10-30] MEDS: PIPERACILLIN/TAZOB 2.25 GM 2.25 GM in DEXTROSE 5%-WATER - 50 ML IVPB SCH ×3 (01:27→17:38)
[2020-10-30] MEDS ORDERED: PT OWN MED DRAWER 7, Y5N ONE ×2 (01:38→12:06)
[2020-10-30] MEDS: INSULIN SLIDING SCALE (NOVOLOG) 1 VIAL SQ SCH ×4 (06:22→22:23)
[2020-10-30] MEDS: INSULIN (LEVEMIR) 100 UNITS/ML UNITS SQ SCH ×2 (06:22→22:23)
[2020-10-30 07:20] LABS: BASO % 0.5 % (0-2.0); HEMATOCRIT 30.2 % (32.4-45.2); HEMOGLOBIN 10.2 GM/dL (10.7-15.3); LYMPH % 3.7 % (8-40); MCH 32.9 pg (25.7-33.7); MCHC 33.7 g/dl (32.0-36.0); MEAN CELL VOLUME 97.6 fl (80-96); MEAN PLT VOLUME 8.9 fl (7.5-11.1); MONO % 5.3 % (3.8-10.2); NEUT % 90.5 % (42.8-82.8); PLATELET COUNT 203 K/MM3 (134-434); RDW 23.8 % (11.6-15.6); WHITE BLOOD COUNT 14.8 K/mm3 (4.0-10.0)
[2020-10-30 07:34] LABS: CHLORIDE 91 mmol/L (98-107); SODIUM 131 mmol/L (136-145)
[2020-10-30 07:37] LABS: ALBUMIN 1.2 g/dl (3.4-5.0); ANION GAP 16 MMOL/L (8-16); BLOOD UREA NITROGEN 101.1 mg/dL (7-18); CO2 24 mmol/L (21-32); MAGNESIUM 2.3 mg/dL (1.8-2.4)
[2020-10-30 07:40] LABS: CREATININE 5.5 mg/dL (0.55-1.3); SGOT/AST 135 U/L (15-37); SGPT/ALT 123 U/L (13-61)
[2020-10-30 07:43] LABS: ALK PHOS 173 U/L (45-117); TOT PROT 5.7 g/dl (6.4-8.2)
[2020-10-30 07:45] LABS: GLUCOSE,RANDOM 414 mg/dL (74-106)
[2020-10-30] MEDS ORDERED: [UNRECOGNIZED DRUG - OTHER] IVPB SCH (09:06)
[2020-10-30] MEDS ORDERED: MAGNESIUM SULFATE IVPB SCH (09:06)
[2020-10-30] MEDS ORDERED: AMINO ACIDS IVPB SCH (09:06)
[2020-10-30] MEDS ORDERED: POTASSIUM CHLORIDE IVPB SCH (09:06)
[2020-10-30] MEDS: AMINO ACIDS/PROTEIN HYDROLYS 30 ML LIQUID.PKT PO SCH ×2 (09:24→17:39)
[2020-10-30] MEDS: DEXAMETHASONE SOD PHOSPHATE 4 MG/1 ML VIAL IVPUSH SCH (09:36)
[2020-10-30] MEDS: prednisoLONE ACETATE 1% OPHTH SUSP 5 ML BOTTLE OD SCH ×4 (09:38→21:48)
[2020-10-30] MEDS: TIMOLOL 0.5% OPHTHALMIC SOL 5 ML BOTTLE OS SCH (09:39)
[2020-10-30] MEDS: DORZOLAMIDE 2% HCL OPHTHALMIC SOLUTION 10 ML BOTTLE OD SCH ×2 (09:39→21:49)
[2020-10-30] MEDS: PANTOPRAZOLE 40 MG TABLET PO SCH (09:39)
[2020-10-30] MEDS: ALLOPURINOL 100 MG TABLET (FP) PO SCH (09:40)
[2020-10-30] MEDS ORDERED: DEXAMETHASONE SOD PHOSPHATE 4 MG/1 ML VIAL IVPUSH SCH (12:31)
[2020-10-30] MEDS: MULTIVIT INJ. ADULT COMBO WITH VIT K 1 COMBO 10 ML VIAL IV SCH ×2 (14:54→16:21)
[2020-10-30] MEDS: [UNRECOGNIZED DRUG - OTHER] IVPB SCH ×2 (16:22→21:48)
[2020-10-30] MEDS: POTASSIUM CHLORIDE IVPB SCH ×2 (16:22→21:48)
[2020-10-30] MEDS: MIRTAZAPINE 15 MG TABLET (FP) PO SCH (21:49)
[2020-10-30] MEDS ORDERED: ROSUVASTATIN CA 10 MG TABLET (FP) PO SCH (22:00)
[2020-10-30] MEDS ORDERED: ROSUVASTATIN CA 20 MG TABLET (FP) PO SCH (22:00)
[2020-10-31] MEDS: PERITONEAL DIALYSIS 2.5% SOLN 2,500 ML IP SCH ×4 (01:28→18:46)
[2020-10-31] MEDS: VANCOMYCIN 250 MG/5 ML ORAL SOLUTION PO SCH ×5 (01:29→23:46)
[2020-10-31] MEDS ORDERED: DEXTROSE 5%-WATER - 50 ML IVPB ONE ×3 (01:31→17:02)
[2020-10-31] MEDS ORDERED: PIPERACILLIN/TAZOBACTAM 2.25 GM VIAL IVPB ONE ×3 (01:31→17:02)
[2020-10-31] MEDS: PIPERACILLIN/TAZOB 2.25 GM 2.25 GM in DEXTROSE 5%-WATER - 50 ML IVPB SCH ×3 (02:00→17:34)
[2020-10-31] MEDS: AMINO ACIDS IVPB SCH ×2 (05:57→16:59)
[2020-10-31] MEDS: [UNRECOGNIZED DRUG - OTHER] IVPB SCH ×2 (05:57→16:59)
[2020-10-31] MEDS: POTASSIUM CHLORIDE IVPB SCH ×2 (05:57→16:59)
[2020-10-31] MEDS: MAGNESIUM SULFATE IVPB SCH ×2 (05:57→16:59)
[2020-10-31] MEDS: INSULIN SLIDING SCALE (NOVOLOG) 1 VIAL SQ SCH ×4 (06:35→22:28)
[2020-10-31] MEDS: INSULIN (LEVEMIR) 100 UNITS/ML UNITS SQ SCH ×2 (06:35→22:28)
[2020-10-31 07:38] LABS: BASO % 0.2 % (0-2.0); EOS % 0.1 % (0-4.5); HEMOGLOBIN 9.7 GM/dL (10.7-15.3); LYMPH % 4.2 % (8-40); MCH 32.4 pg (25.7-33.7); MCHC 33.4 g/dl (32.0-36.0); MEAN CELL VOLUME 97.2 fl (80-96); MONO % 6.9 % (3.8-10.2); NEUT % 88.6 % (42.8-82.8); PLATELET COUNT 211 K/MM3 (134-434); RBC 2.98 M/mm3 (3.60-5.2); RDW 22.6 % (11.6-15.6)
[2020-10-31 07:59] LABS: CHLORIDE 87 mmol/L (98-107); SODIUM 126 mmol/L (136-145)
[2020-10-31 08:04] LABS: CALCIUM 8.2 mg/dL (8.5-10.1)
[2020-10-31 08:05] LABS: ALBUMIN 1.2 g/dl (3.4-5.0); ANION GAP 17 MMOL/L (8-16); CO2 22 mmol/L (21-32); WHITE BLOOD COUNT 15.3 K/mm3 (4.0-10.0)
[2020-10-31 08:07] LABS: SGOT/AST 165 U/L (15-37); SGPT/ALT 187 U/L (13-61)
[2020-10-31 08:08] LABS: CREATININE 5.3 mg/dL (0.55-1.3)
[2020-10-31 08:09] LABS: BILIRUBIN,TOTAL 0.9 mg/dL (0.2-1); TOT PROT 5.8 g/dl (6.4-8.2)
[2020-10-31 08:11] LABS: ALK PHOS 204 U/L (45-117)
[2020-10-31] MEDS: AMINO ACIDS/PROTEIN HYDROLYS 30 ML LIQUID.PKT PO SCH ×2 (08:34→17:34)
[2020-10-31 08:40] LABS: BLOOD UREA NITROGEN 109.4 mg/dL (7-18); GLUCOSE,RANDOM 414 mg/dL (74-106)
[2020-10-31 09:32] LABS: ANISOCYTOSIS 2+; CORRECTED WBC 13.54 K/mm3; MACROCYTOSIS 1+; PLATELET ESTIMATE NORMAL; TARGET CELLS 1+
[2020-10-31] MEDS ORDERED: FOLIC ACID 1 MG TABLET (FP) PO SCH (10:00)
[2020-10-31] MEDS: prednisoLONE ACETATE 1% OPHTH SUSP 5 ML BOTTLE OD SCH ×4 (10:01→22:29)
[2020-10-31] MEDS: APIXABAN 2.5 MG TABLET PO SCH ×2 (10:01→22:28)
[2020-10-31] MEDS: PANTOPRAZOLE 40 MG TABLET PO SCH (10:01)
[2020-10-31] MEDS: ALLOPURINOL 100 MG TABLET (FP) PO SCH (10:02)
[2020-10-31] MEDS: DORZOLAMIDE 2% HCL OPHTHALMIC SOLUTION 10 ML BOTTLE OD SCH ×2 (10:02→22:29)
[2020-10-31] MEDS: TIMOLOL 0.5% OPHTHALMIC SOL 5 ML BOTTLE OS SCH (10:02)
[2020-10-31] MEDS: THIAMINE HCL 200 MG/2 ML VIAL IVPB SCH ×2 (15:31→22:30)
[2020-10-31] MEDS: POTASSIUM CHLORIDE 10 MEQ in AMINO ACIDS 4.25%/D5W 1,000 ML IVPB SCH (17:33)
[2020-10-31] MEDS: MULTIVIT INJ. ADULT COMBO WITH VIT K 1 COMBO 10 ML VIAL IV SCH (17:33)
[2020-10-31] MEDS: MIRTAZAPINE 15 MG TABLET (FP) PO SCH (22:29)
[2020-11-01] MEDS ORDERED: PIPERACILLIN/TAZOBACTAM 2.25 GM VIAL IVPB ONE ×3 (00:43→16:16)
[2020-11-01] MEDS ORDERED: DEXTROSE 5%-WATER - 50 ML IVPB ONE ×3 (00:43→16:16)
[2020-11-01] MEDS: PERITONEAL DIALYSIS 2.5% SOLN 2,500 ML IP SCH ×4 (00:44→18:40)
[2020-11-01] MEDS: PIPERACILLIN/TAZOB 2.25 GM 2.25 GM in DEXTROSE 5%-WATER - 50 ML IVPB SCH ×3 (01:00→17:00)
[2020-11-01] MEDS: VANCOMYCIN 250 MG/5 ML ORAL SOLUTION PO SCH ×3 (06:06→17:01)
[2020-11-01] MEDS: INSULIN SLIDING SCALE (NOVOLOG) 1 VIAL SQ SCH ×5 (06:06→22:00)
[2020-11-01] MEDS: INSULIN (LEVEMIR) 100 UNITS/ML UNITS SQ SCH (06:06)
[2020-11-01] MEDS: POTASSIUM CHLORIDE 10 MEQ in AMINO ACIDS 4.25%/D5W 1,000 ML IVPB SCH (06:52)
[2020-11-01 07:25] LABS: BASO % 0.2 % (0-2.0); EOS % 0.1 % (0-4.5); HEMATOCRIT 28.6 % (32.4-45.2); HEMOGLOBIN 9.6 GM/dL (10.7-15.3); LYMPH % 4.6 % (8-40); MCH 32.3 pg (25.7-33.7); MCHC 33.7 g/dl (32.0-36.0); MEAN CELL VOLUME 95.9 fl (80-96); MEAN PLT VOLUME 8.7 fl (7.5-11.1); NEUT % 90.1 % (42.8-82.8); PLATELET COUNT 235 K/MM3 (134-434); RBC 2.98 M/mm3 (3.60-5.2); RDW 22.9 % (11.6-15.6); WHITE BLOOD COUNT 12.8 K/mm3 (4.0-10.0)
[2020-11-01 07:39] LABS: CHLORIDE 86 mmol/L (98-107); SODIUM 122 mmol/L (136-145)
[2020-11-01 07:43] LABS: ALBUMIN 1.2 g/dl (3.4-5.0); ANION GAP 14 MMOL/L (8-16); CO2 21 mmol/L (21-32)
[2020-11-01 07:44] LABS: CALCIUM 7.8 mg/dL (8.5-10.1); MAGNESIUM 2.5 mg/dL (1.8-2.4)
[2020-11-01 07:46] LABS: SGPT/ALT 196 U/L (13-61)
[2020-11-01 07:47] LABS: CREATININE 5.3 mg/dL (0.55-1.3); SGOT/AST 131 U/L (15-37)
[2020-11-01 07:48] LABS: BILIRUBIN,TOTAL 1.3 mg/dL (0.2-1); TOT PROT 5.6 g/dl (6.4-8.2)
[2020-11-01 07:49] LABS: ALK PHOS 212 U/L (45-117)
[2020-11-01 07:53] LABS: BLOOD UREA NITROGEN 108.5 mg/dL (7-18); GLUCOSE,RANDOM 459 mg/dL (74-106)
[2020-11-01] MEDS ORDERED: INSULIN SLIDING SCALE (NOVOLOG) 1 VIAL SQ ONE (07:55)
[2020-11-01] MEDS: DEXAMETHASONE SOD PHOSPHATE 4 MG/1 ML VIAL IVPUSH SCH (10:37)
[2020-11-01] MEDS: AMINO ACIDS/PROTEIN HYDROLYS 30 ML LIQUID.PKT PO SCH ×2 (10:37→16:56)
[2020-11-01] MEDS: APIXABAN 2.5 MG TABLET PO SCH ×2 (10:38→21:59)
[2020-11-01] MEDS: PANTOPRAZOLE 40 MG TABLET PO SCH (10:39)
[2020-11-01] MEDS: prednisoLONE ACETATE 1% OPHTH SUSP 5 ML BOTTLE OD SCH ×4 (10:39→21:58)
[2020-11-01] MEDS: TIMOLOL 0.5% OPHTHALMIC SOL 5 ML BOTTLE OS SCH (10:39)
[2020-11-01] MEDS: metoPROLOL SUCCINATE 25 MG TAB.SR.24H (FP) PO SCH (10:39)
[2020-11-01] MEDS: ALLOPURINOL 100 MG TABLET (FP) PO SCH (10:39)
[2020-11-01] MEDS: DORZOLAMIDE 2% HCL OPHTHALMIC SOLUTION 10 ML BOTTLE OD SCH ×2 (10:40→21:58)
[2020-11-01] MEDS ORDERED: PT OWN MED DRAWER 7, Y5N ONE (11:28)
[2020-11-01] MEDS: POTASSIUM CHLORIDE ORAL LIQUID 20 MEQ/15 ML PO ONE ×2 (11:54→12:18)
[2020-11-01] MEDS: THIAMINE HCL 200 MG/2 ML VIAL IVPB SCH ×2 (11:56→21:58)
[2020-11-01] MEDS: SODIUM CHLORIDE NASAL SPRAY 44 ML BOTTLE NS PRN (16:02)
[2020-11-01] MEDS: POTASSIUM CHLORIDE 20 MEQ in AMINO ACIDS 4.25%/D5W 1,000 ML IVPB SCH ×2 (18:09→21:35)
[2020-11-01] MEDS: MULTIVIT INJ. ADULT COMBO WITH VIT K 1 COMBO 10 ML VIAL IV SCH (18:09)
[2020-11-01] MEDS: MIRTAZAPINE 15 MG TABLET (FP) PO SCH (21:58)
[2020-11-01] MEDS ORDERED: INSULIN (LEVEMIR) 100 UNITS/ML UNITS SQ SCH (22:00)
[2020-11-02] MEDS: VANCOMYCIN 250 MG/5 ML ORAL SOLUTION PO SCH ×4 (00:30→17:22)
[2020-11-02] MEDS: PERITONEAL DIALYSIS 2.5% SOLN 2,500 ML IP SCH ×4 (00:40→18:35)
[2020-11-02] MEDS ORDERED: DEXTROSE 5%-WATER - 50 ML IVPB ONE ×3 (01:00→16:26)
[2020-11-02] MEDS ORDERED: PIPERACILLIN/TAZOBACTAM 2.25 GM VIAL IVPB ONE ×3 (01:00→16:26)
[2020-11-02] MEDS: PIPERACILLIN/TAZOB 2.25 GM 2.25 GM in DEXTROSE 5%-WATER - 50 ML IVPB SCH ×3 (01:03→17:22)
[2020-11-02] MEDS: INSULIN SLIDING SCALE (NOVOLOG) 1 VIAL SQ SCH ×4 (06:03→21:48)
[2020-11-02] MEDS: INSULIN (LEVEMIR) 100 UNITS/ML UNITS SQ SCH (06:03)
[2020-11-02] MEDS: POTASSIUM CHLORIDE 20 MEQ in AMINO ACIDS 4.25%/D5W 1,000 ML IVPB SCH ×2 (06:04→07:50)
[2020-11-02] MEDS: SODIUM CHLORIDE NASAL SPRAY 44 ML BOTTLE NS PRN (06:20)
[2020-11-02 08:04] LABS: BASO % 0.4 % (0-2.0); EOS % 0.6 % (0-4.5); HEMATOCRIT 29.7 % (32.4-45.2); HEMOGLOBIN 10.1 GM/dL (10.7-15.3); LYMPH % 7.8 % (8-40); MCH 32.6 pg (25.7-33.7); MEAN CELL VOLUME 95.8 fl (80-96); MEAN PLT VOLUME 8.6 fl (7.5-11.1); MONO % 2.9 % (3.8-10.2); NEUT % 88.3 % (42.8-82.8); PLATELET COUNT 267 K/MM3 (134-434); RDW 23.3 % (11.6-15.6); WHITE BLOOD COUNT 12.2 K/mm3 (4.0-10.0)
[2020-11-02 08:29] LABS: CHLORIDE 89 mmol/L (98-107); SODIUM 126 mmol/L (136-145)
[2020-11-02 08:45] LABS: ALBUMIN 1.2 g/dl (3.4-5.0); ANION GAP 18 MMOL/L (8-16); CO2 20 mmol/L (21-32); GLUCOSE,RANDOM 344 mg/dL (74-106)
[2020-11-02 08:46] LABS: MAGNESIUM 2.1 mg/dL (1.8-2.4)
[2020-11-02 08:48] LABS: ALK PHOS 221 U/L (45-117); CALCIUM 8.3 mg/dL (8.5-10.1); CREATININE 5.4 mg/dL (0.55-1.3); SGOT/AST 57 U/L (15-37); SGPT/ALT 141 U/L (13-61)
[2020-11-02 08:49] LABS: PHOSPHOROUS 2.5 mg/dL (2.5-4.9)
[2020-11-02 08:50] LABS: BILIRUBIN,TOTAL 1.3 mg/dL (0.2-1); TOT PROT 5.8 g/dl (6.4-8.2)
[2020-11-02 09:04] LABS: BLOOD UREA NITROGEN 107.3 mg/dL (7-18)
[2020-11-02 09:07] LABS: ANISOCYTOSIS 3+; MACROCYTOSIS 1+; PLATELET ESTIMATE NORMAL
[2020-11-02] MEDS ORDERED: PT OWN MED DRAWER 7, Y5N ONE ×4 (09:10→21:36)
[2020-11-02] MEDS ORDERED: POTASSIUM CHLORIDE TABS 20 MEQ TABLET.ER (FP) PO ONE (09:15)
[2020-11-02] MEDS: AMINO ACIDS/PROTEIN HYDROLYS 30 ML LIQUID.PKT PO SCH ×2 (09:20→17:20)
[2020-11-02] MEDS ORDERED: POTASSIUM CHLORIDE TABS 20 MEQ TABLET.ER (FP) PO SCH (10:00)
[2020-11-02] MEDS: DEXAMETHASONE SOD PHOSPHATE 4 MG/1 ML VIAL IVPUSH SCH (10:11)
[2020-11-02] MEDS: APIXABAN 2.5 MG TABLET PO SCH ×2 (10:12→21:45)
[2020-11-02] MEDS: THIAMINE HCL 200 MG/2 ML VIAL IVPB SCH ×2 (10:12→21:45)
[2020-11-02] MEDS: metoPROLOL SUCCINATE 25 MG TAB.SR.24H (FP) PO SCH (10:12)
[2020-11-02] MEDS: PANTOPRAZOLE 40 MG TABLET PO SCH (10:13)
[2020-11-02] MEDS: DORZOLAMIDE 2% HCL OPHTHALMIC SOLUTION 10 ML BOTTLE OD SCH ×2 (10:14→21:49)
[2020-11-02] MEDS: TIMOLOL 0.5% OPHTHALMIC SOL 5 ML BOTTLE OS SCH (10:14)
[2020-11-02] MEDS: prednisoLONE ACETATE 1% OPHTH SUSP 5 ML BOTTLE OD SCH ×4 (10:14→21:47)
[2020-11-02] MEDS: ALLOPURINOL 100 MG TABLET (FP) PO SCH (10:14)
[2020-11-02] MEDS: POTASSIUM CHLORIDE 30 MEQ in AMINO ACIDS 4.25%/D5W 1,000 ML IVPB SCH ×2 (10:45→21:45)
[2020-11-02 11:15] LABS: HEP B CORE AB, TOT Negative (Negative)
[2020-11-02] MEDS: EPOETIN ALFA-EPBX 4,000 UNIT/ML VIAL SQ SCH (12:32)
[2020-11-02] MEDS: MIRTAZAPINE 15 MG TABLET (FP) PO SCH (21:33)
[2020-11-02] MEDS: MULTIVIT INJ. ADULT COMBO WITH VIT K 1 COMBO 10 ML VIAL IV SCH (21:47)
[2020-11-02] MEDS ORDERED: INSULIN (LEVEMIR) 100 UNITS/ML UNITS SQ SCH (22:00)
[2020-11-03] MEDS: PERITONEAL DIALYSIS 2.5% SOLN 2,500 ML IP SCH ×4 (00:41→18:10)
[2020-11-03] MEDS: VANCOMYCIN 250 MG/5 ML ORAL SOLUTION PO SCH ×4 (00:42→17:20)
[2020-11-03] MEDS ORDERED: PIPERACILLIN/TAZOBACTAM 2.25 GM VIAL IVPB ONE ×3 (01:34→17:17)
[2020-11-03] MEDS ORDERED: DEXTROSE 5%-WATER - 50 ML IVPB ONE ×3 (01:34→17:18)
[2020-11-03] MEDS: PIPERACILLIN/TAZOB 2.25 GM 2.25 GM in DEXTROSE 5%-WATER - 50 ML IVPB SCH ×3 (02:40→17:27)
[2020-11-03] MEDS: INSULIN (LEVEMIR) 100 UNITS/ML UNITS SQ SCH ×2 (06:30→21:37)
[2020-11-03] MEDS: INSULIN SLIDING SCALE (NOVOLOG) 1 VIAL SQ SCH ×4 (06:31→21:37)
[2020-11-03 07:42] LABS: BASO % 0.5 % (0-2.0); EOS % 0.4 % (0-4.5); HEMATOCRIT 30.4 % (32.4-45.2); HEMOGLOBIN 10.5 GM/dL (10.7-15.3); LYMPH % 5.2 % (8-40); MCH 32.7 pg (25.7-33.7); MCHC 34.4 g/dl (32.0-36.0); MEAN CELL VOLUME 94.9 fl (80-96); MEAN PLT VOLUME 8.5 fl (7.5-11.1); MONO % 2.3 % (3.8-10.2); NEUT % 91.6 % (42.8-82.8); PLATELET COUNT 272 K/MM3 (134-434); RBC 3.21 M/mm3 (3.60-5.2); RDW 22.3 % (11.6-15.6); WHITE BLOOD COUNT 13.3 K/mm3 (4.0-10.0)
[2020-11-03 08:02] LABS: CHLORIDE 88 mmol/L (98-107); SODIUM 124 mmol/L (136-145)
[2020-11-03 08:04] LABS: ALBUMIN 1.2 g/dl (3.4-5.0); CALCIUM 8.2 mg/dL (8.5-10.1); MAGNESIUM 1.7 mg/dL (1.8-2.4)
[2020-11-03 08:05] LABS: ANION GAP 16 MMOL/L (8-16); CO2 19 mmol/L (21-32); GLUCOSE,RANDOM 343 mg/dL (74-106)
[2020-11-03 08:07] LABS: SGPT/ALT 125 U/L (13-61)
[2020-11-03 08:08] LABS: CREATININE 5.4 mg/dL (0.55-1.3); SGOT/AST 83 U/L (15-37)
[2020-11-03 08:14] LABS: BILIRUBIN,TOTAL 1.8 mg/dL (0.2-1)
[2020-11-03] MEDS ORDERED: POTASSIUM CHLORIDE TABS 20 MEQ TABLET.ER (FP) PO ONE (08:15)
[2020-11-03 08:29] LABS: ALK PHOS 259 U/L (45-117)
[2020-11-03 08:37] LABS: BLOOD UREA NITROGEN 104.9 mg/dL (7-18)
[2020-11-03] MEDS ORDERED: PT OWN MED DRAWER 7, Y5N ONE (08:57)
[2020-11-03] MEDS: AMINO ACIDS/PROTEIN HYDROLYS 30 ML LIQUID.PKT PO SCH ×2 (09:05→17:21)
[2020-11-03] MEDS: DEXAMETHASONE SOD PHOSPHATE 4 MG/1 ML VIAL IVPUSH SCH (09:09)
[2020-11-03] MEDS: metoPROLOL SUCCINATE 25 MG TAB.SR.24H (FP) PO SCH (09:10)
[2020-11-03] MEDS: PANTOPRAZOLE 40 MG TABLET PO SCH (09:10)
[2020-11-03] MEDS: prednisoLONE ACETATE 1% OPHTH SUSP 5 ML BOTTLE OD SCH ×4 (09:10→21:38)
[2020-11-03] MEDS: APIXABAN 2.5 MG TABLET PO SCH ×2 (09:10→21:37)
[2020-11-03] MEDS: POTASSIUM CHLORIDE TABS 20 MEQ TABLET.ER (FP) PO SCH (09:10)
[2020-11-03] MEDS: TIMOLOL 0.5% OPHTHALMIC SOL 5 ML BOTTLE OS SCH (09:11)
[2020-11-03] MEDS: DORZOLAMIDE 2% HCL OPHTHALMIC SOLUTION 10 ML BOTTLE OD SCH ×2 (09:11→21:34)
[2020-11-03] MEDS: ALLOPURINOL 100 MG TABLET (FP) PO SCH (09:11)
[2020-11-03 09:33] LABS: ANISOCYTOSIS 2+; MACROCYTOSIS 1+; PLATELET ESTIMATE NORMAL
[2020-11-03] MEDS: MULTIVIT INJ. ADULT COMBO WITH VIT K 1 COMBO 10 ML VIAL IV SCH (10:29)
[2020-11-03] MEDS: POTASSIUM CHLORIDE 30 MEQ in AMINO ACIDS 4.25%/D5W 1,000 ML IVPB SCH ×2 (10:29→13:25)
[2020-11-03] MEDS: INSULIN (NOVOLOG) ASPART 100 UNITS/ML 10ML VIAL SQ SCH (17:25)
[2020-11-03] MEDS: MIRTAZAPINE 15 MG TABLET (FP) PO SCH (21:38)
[2020-11-04] MEDS: VANCOMYCIN 250 MG/5 ML ORAL SOLUTION PO SCH ×4 (00:10→17:14)
[2020-11-04] MEDS: PERITONEAL DIALYSIS 2.5% SOLN 2,500 ML IP SCH ×4 (00:40→18:30)
[2020-11-04] MEDS ORDERED: DEXTROSE 5%-WATER - 50 ML IVPB ONE ×3 (01:26→16:23)
[2020-11-04] MEDS ORDERED: PIPERACILLIN/TAZOBACTAM 2.25 GM VIAL IVPB ONE ×3 (01:26→16:22)
[2020-11-04] MEDS: PIPERACILLIN/TAZOB 2.25 GM 2.25 GM in DEXTROSE 5%-WATER - 50 ML IVPB SCH ×3 (01:47→17:02)
[2020-11-04] MEDS: POTASSIUM CHLORIDE 30 MEQ in AMINO ACIDS 4.25%/D5W 1,000 ML IVPB SCH ×2 (01:51→06:00)
[2020-11-04] MEDS: INSULIN SLIDING SCALE (NOVOLOG) 1 VIAL SQ SCH ×4 (06:33→21:46)
[2020-11-04] MEDS: INSULIN (NOVOLOG) ASPART 100 UNITS/ML 10ML VIAL SQ SCH ×3 (06:34→16:44)
[2020-11-04] MEDS: INSULIN (LEVEMIR) 100 UNITS/ML UNITS SQ SCH ×2 (06:35→21:48)
[2020-11-04 08:00] LABS: BASO % 0.3 % (0-2.0); EOS % 0.2 % (0-4.5); HEMATOCRIT 27.3 % (32.4-45.2); HEMOGLOBIN 9.6 GM/dL (10.7-15.3); LYMPH % 3.5 % (8-40); MCHC 35.3 g/dl (32.0-36.0); MEAN CELL VOLUME 93.7 fl (80-96); MEAN PLT VOLUME 8.5 fl (7.5-11.1); MONO % 2.8 % (3.8-10.2); NEUT % 93.2 % (42.8-82.8); PLATELET COUNT 260 K/MM3 (134-434); RBC 2.91 M/mm3 (3.60-5.2); WHITE BLOOD COUNT 11.5 K/mm3 (4.0-10.0)
[2020-11-04 08:03] LABS: CHLORIDE 90 mmol/L (98-107); SODIUM 124 mmol/L (136-145)
[2020-11-04 08:05] LABS: CALCIUM 8.1 mg/dL (8.5-10.1); GLUCOSE,RANDOM 274 mg/dL (74-106)
[2020-11-04 08:06] LABS: ALBUMIN 1.1 g/dl (3.4-5.0); ANION GAP 14 MMOL/L (8-16); CO2 20 mmol/L (21-32); MAGNESIUM 1.6 mg/dL (1.8-2.4)
[2020-11-04 08:09] LABS: CREATININE 5.4 mg/dL (0.55-1.3); SGOT/AST 51 U/L (15-37); SGPT/ALT 90 U/L (13-61)
[2020-11-04 08:10] LABS: TOT PROT 5.8 g/dl (6.4-8.2)
[2020-11-04 08:12] LABS: ALK PHOS 227 U/L (45-117); BLOOD UREA NITROGEN 107.6 mg/dL (7-18)
[2020-11-04] MEDS ORDERED: MAGNESIUM OXIDE 400 MG TABLET (FP) PO ONE (08:30)
[2020-11-04] MEDS ORDERED: PT OWN MED DRAWER 7, Y5N ONE (09:17)
[2020-11-04] MEDS: DEXAMETHASONE SOD PHOSPHATE 4 MG/1 ML VIAL IVPUSH SCH (09:43)
[2020-11-04] MEDS: ALLOPURINOL 100 MG TABLET (FP) PO SCH (09:45)
[2020-11-04] MEDS: PANTOPRAZOLE 40 MG TABLET PO SCH (09:45)
[2020-11-04] MEDS: APIXABAN 2.5 MG TABLET PO SCH ×2 (09:46→21:53)
[2020-11-04] MEDS: metoPROLOL SUCCINATE 25 MG TAB.SR.24H (FP) PO SCH ×2 (09:46→11:48)
[2020-11-04] MEDS: AMINO ACIDS/PROTEIN HYDROLYS 30 ML LIQUID.PKT PO SCH ×2 (09:58→17:14)
[2020-11-04] MEDS: TIMOLOL 0.5% OPHTHALMIC SOL 5 ML BOTTLE OS SCH (10:00)
[2020-11-04] MEDS: DORZOLAMIDE 2% HCL OPHTHALMIC SOLUTION 10 ML BOTTLE OD SCH ×2 (10:00→21:54)
[2020-11-04] MEDS: prednisoLONE ACETATE 1% OPHTH SUSP 5 ML BOTTLE OD SCH ×4 (10:00→21:54)
[2020-11-04] MEDS ORDERED: POTASSIUM CHLORIDE ORAL LIQUID 20 MEQ/15 ML PO ONE (10:59)
[2020-11-04] MEDS: POTASSIUM CHLORIDE TABS 20 MEQ TABLET.ER (FP) PO SCH (11:12)
[2020-11-04] MEDS: MULTIVIT INJ. ADULT COMBO WITH VIT K 1 COMBO 10 ML VIAL IV SCH (11:15)
[2020-11-04 11:17] LABS: ANISOCYTOSIS 1+; MACROCYTOSIS 1+; OVALOCYTE 1+; PLATELET ESTIMATE NORMAL; TARGET CELLS 1+
[2020-11-04] MEDS: SODIUM CHLORIDE IVPB SCH (19:10)
[2020-11-04] MEDS: [UNRECOGNIZED DRUG - OTHER] IVPB SCH (19:10)
[2020-11-04] MEDS: POTASSIUM CHLORIDE IVPB SCH (19:10)
[2020-11-04] MEDS: MIRTAZAPINE 15 MG TABLET (FP) PO SCH (21:54)
[2020-11-05] MEDS: PERITONEAL DIALYSIS 2.5% SOLN 2,500 ML IP SCH ×4 (00:42→18:40)
[2020-11-05] MEDS: VANCOMYCIN 250 MG/5 ML ORAL SOLUTION PO SCH ×4 (00:43→17:13)
[2020-11-05] MEDS ORDERED: PIPERACILLIN/TAZOBACTAM 2.25 GM VIAL IVPB ONE ×3 (01:02→16:16)
[2020-11-05] MEDS ORDERED: DEXTROSE 5%-WATER - 50 ML IVPB ONE ×3 (01:02→16:16)
[2020-11-05] MEDS: PIPERACILLIN/TAZOB 2.25 GM 2.25 GM in DEXTROSE 5%-WATER - 50 ML IVPB SCH ×3 (01:17→17:01)
[2020-11-05] MEDS: INSULIN SLIDING SCALE (NOVOLOG) 1 VIAL SQ SCH ×4 (06:18→21:58)
[2020-11-05] MEDS: INSULIN (LEVEMIR) 100 UNITS/ML UNITS SQ SCH ×2 (06:19→21:58)
[2020-11-05] MEDS ORDERED: ACETAMINOPHEN 325 MG TABLET (FP) PO ONE (06:37)
[2020-11-05] MEDS: INSULIN (NOVOLOG) ASPART 100 UNITS/ML 10ML VIAL SQ SCH ×3 (07:24→16:58)
[2020-11-05] MEDS: AMINO ACIDS/PROTEIN HYDROLYS 30 ML LIQUID.PKT PO SCH ×2 (09:19→16:58)
[2020-11-05 09:35] LABS: HEMOGLOBIN 10.3 GM/dL (10.7-15.3); WHITE BLOOD COUNT 10.4 K/mm3 (4.0-10.0)
[2020-11-05 09:41] LABS: BASO % 0.7 % (0-2.0); HEMATOCRIT 29.7 % (32.4-45.2); LYMPH % 4.3 % (8-40); MCH 32.6 pg (25.7-33.7); MCHC 34.6 g/dl (32.0-36.0); MEAN CELL VOLUME 94.1 fl (80-96); MEAN PLT VOLUME 8.3 fl (7.5-11.1); MONO % 3.3 % (3.8-10.2); NEUT % 91.7 % (42.8-82.8); PLATELET COUNT 275 K/MM3 (134-434); RBC 3.15 M/mm3 (3.60-5.2); RDW 21.9 % (11.6-15.6)
[2020-11-05 10:04] LABS: CALCIUM 8.5 mg/dL (8.5-10.1)
[2020-11-05 10:05] LABS: ALBUMIN 1.2 g/dl (3.4-5.0); BLOOD UREA NITROGEN 103.7 mg/dL (7-18); MAGNESIUM 1.7 mg/dL (1.8-2.4)
[2020-11-05 10:08] LABS: CREATININE 5.6 mg/dL (0.55-1.3); TOT PROT 6.3 g/dl (6.4-8.2)
[2020-11-05 10:11] LABS: BILIRUBIN,TOTAL 1.3 mg/dL (0.2-1)
[2020-11-05] MEDS: ACETAMINOPHEN 1000 MG/100 ML VIAL (NON FORMULARY) IVPB PRN ×2 (10:50→22:00)
[2020-11-05] MEDS: DORZOLAMIDE 2% HCL OPHTHALMIC SOLUTION 10 ML BOTTLE OD SCH ×2 (11:07→21:59)
[2020-11-05] MEDS: prednisoLONE ACETATE 1% OPHTH SUSP 5 ML BOTTLE OD SCH ×4 (11:08→21:59)
[2020-11-05] MEDS: TIMOLOL 0.5% OPHTHALMIC SOL 5 ML BOTTLE OS SCH (11:08)
[2020-11-05] MEDS ORDERED: PT OWN MED DRAWER 7, Y5N ONE ×5 (11:27→14:59)
[2020-11-05 11:56] LABS: ANISOCYTOSIS 1+; MACROCYTOSIS 1+; OVALOCYTE 1+; PLATELET ESTIMATE NORMAL; TARGET CELLS 1+; TOXIC GRANULATION 1+
[2020-11-05] MEDS: MULTIVIT INJ. ADULT COMBO WITH VIT K 1 COMBO 10 ML VIAL IV SCH (12:47)
[2020-11-05] MEDS: SODIUM CHLORIDE IVPB SCH (12:47)
[2020-11-05] MEDS: [UNRECOGNIZED DRUG - OTHER] IVPB SCH (12:47)
[2020-11-05] MEDS: POTASSIUM CHLORIDE IVPB SCH (12:47)
[2020-11-05] MEDS ORDERED: SODIUM PHOSPHATE - 15 MM in DEXTROSE 5%-WATER - 250 ML IVPB ONE (13:00)
[2020-11-05] MEDS: predniSONE 10 MG TABLET (UD) PO SCH (13:03)
[2020-11-05] MEDS: APIXABAN 2.5 MG TABLET PO SCH ×2 (13:03→21:58)
[2020-11-05] MEDS: ALLOPURINOL 100 MG TABLET (FP) PO SCH (13:04)
[2020-11-05] MEDS: PANTOPRAZOLE 40 MG TABLET PO SCH (13:04)
[2020-11-05] MEDS: metoPROLOL SUCCINATE 25 MG TAB.SR.24H (FP) PO SCH (13:04)
[2020-11-05 14:55] LABS: BF WBC & OTHER NUCLEATED CELLS 19 /mm3
[2020-11-05 15:51] LABS: BODY FLUID MACROPHAGES 50 %; BODY FLUID MESOTHELIAL 5 %
[2020-11-05] MEDS: EPOETIN ALFA-EPBX 4,000 UNIT/ML VIAL SQ SCH (15:58)
[2020-11-05] MEDS: MIRTAZAPINE 15 MG TABLET (FP) PO SCH (21:59)
[2020-11-06] MEDS: PERITONEAL DIALYSIS 2.5% SOLN 2,500 ML IP SCH ×5 (00:42→23:58)
[2020-11-06] MEDS: VANCOMYCIN 250 MG/5 ML ORAL SOLUTION PO SCH ×3 (00:43→12:49)
[2020-11-06] MEDS ORDERED: DEXTROSE 5%-WATER - 50 ML IVPB ONE ×2 (01:42→09:52)
[2020-11-06] MEDS ORDERED: PIPERACILLIN/TAZOBACTAM 2.25 GM VIAL IVPB ONE ×2 (01:42→09:51)
[2020-11-06] MEDS: PIPERACILLIN/TAZOB 2.25 GM 2.25 GM in DEXTROSE 5%-WATER - 50 ML IVPB SCH ×2 (01:47→10:00)
[2020-11-06] MEDS: ACETAMINOPHEN 1000 MG/100 ML VIAL (NON FORMULARY) IVPB PRN (06:31)
[2020-11-06] MEDS: SODIUM CHLORIDE IVPB SCH (06:51)
[2020-11-06] MEDS: POTASSIUM CHLORIDE IVPB SCH (06:51)
[2020-11-06] MEDS: INSULIN (LEVEMIR) 100 UNITS/ML UNITS SQ SCH ×2 (06:51→22:22)
[2020-11-06] MEDS: [UNRECOGNIZED DRUG - OTHER] IVPB SCH (06:51)
[2020-11-06] MEDS: INSULIN (NOVOLOG) ASPART 100 UNITS/ML 10ML VIAL SQ SCH ×3 (06:52→17:52)
[2020-11-06] MEDS: INSULIN SLIDING SCALE (NOVOLOG) 1 VIAL SQ SCH ×4 (06:52→22:22)
[2020-11-06 08:25] LABS: BASO % 0.8 % (0-2.0); EOS % 0.1 % (0-4.5); HEMATOCRIT 27.9 % (32.4-45.2); HEMOGLOBIN 9.5 GM/dL (10.7-15.3); LYMPH % 6.6 % (8-40); MCH 31.7 pg (25.7-33.7); MCHC 33.9 g/dl (32.0-36.0); MEAN CELL VOLUME 93.5 fl (80-96); MEAN PLT VOLUME 8.3 fl (7.5-11.1); NEUT % 89.5 % (42.8-82.8); PLATELET COUNT 229 K/MM3 (134-434); RBC 2.98 M/mm3 (3.60-5.2); RDW 22.5 % (11.6-15.6); WHITE BLOOD COUNT 8.9 K/mm3 (4.0-10.0)
[2020-11-06] MEDS ORDERED: LIDOCAINE HCL 1%, 10 MG/ML (20ML VIAL) ONE (08:30)
[2020-11-06 09:07] LABS: CALCIUM 7.9 mg/dL (8.5-10.1)
[2020-11-06 09:08] LABS: BLOOD UREA NITROGEN 97.9 mg/dL (7-18); MAGNESIUM 1.6 mg/dL (1.8-2.4)
[2020-11-06 09:11] LABS: CREATININE 6.1 mg/dL (0.55-1.3)
[2020-11-06 09:12] LABS: BILIRUBIN,TOTAL 2.2 mg/dL (0.2-1); PHOSPHOROUS 3.6 mg/dL (2.5-4.9); TOT PROT 5.6 g/dl (6.4-8.2)
[2020-11-06] MEDS ORDERED: PT OWN MED DRAWER 7, Y5N ONE ×2 (09:51→14:57)
[2020-11-06] MEDS: metoPROLOL SUCCINATE 25 MG TAB.SR.24H (FP) PO SCH (10:00)
[2020-11-06] MEDS: AMINO ACIDS/PROTEIN HYDROLYS 30 ML LIQUID.PKT PO SCH ×2 (10:00→19:04)
[2020-11-06] MEDS: predniSONE 10 MG TABLET (UD) PO SCH (10:00)
[2020-11-06] MEDS: ALLOPURINOL 100 MG TABLET (FP) PO SCH (10:00)
[2020-11-06] MEDS: PANTOPRAZOLE 40 MG TABLET PO SCH (10:00)
[2020-11-06] MEDS: APIXABAN 2.5 MG TABLET PO SCH ×2 (10:00→22:08)
[2020-11-06] MEDS: DORZOLAMIDE 2% HCL OPHTHALMIC SOLUTION 10 ML BOTTLE OD SCH ×2 (10:00→22:09)
[2020-11-06] MEDS: TIMOLOL 0.5% OPHTHALMIC SOL 5 ML BOTTLE OS SCH (10:00)
[2020-11-06] MEDS: prednisoLONE ACETATE 1% OPHTH SUSP 5 ML BOTTLE OD SCH ×4 (10:00→22:09)
[2020-11-06] MEDS ORDERED: MAGNESIUM 1GM/D5W 100ML - 100 ML IVPB IVPB ONE (12:00)
[2020-11-06] MEDS: MULTIVIT INJ. ADULT COMBO WITH VIT K 1 COMBO 10 ML VIAL IV SCH (12:00)
[2020-11-06 12:03] LABS: ANISOCYTOSIS 1+; MACROCYTOSIS 1+; PLATELET ESTIMATE NORMAL
[2020-11-06] MEDS ORDERED: FLUCONAZOLE 200 MG/NS 100 ML IVPB ONE (13:45)
[2020-11-06] MEDS: SODIUM CHLORIDE 1,000 ML IV SCH (15:00)
[2020-11-06] MEDS ORDERED: MAGNESIUM SULF 50% (8.12 MEQ/2 ML-1 GM VIAL) IVPB ONE (15:16)
[2020-11-06] MEDS: MIRTAZAPINE 15 MG TABLET (FP) PO SCH (22:09)
[2020-11-07] MEDS: PERITONEAL DIALYSIS 2.5% SOLN 2,500 ML IP SCH ×3 (06:03→18:30)
[2020-11-07] MEDS: INSULIN (LEVEMIR) 100 UNITS/ML UNITS SQ SCH ×2 (07:08→22:07)
[2020-11-07] MEDS: INSULIN (NOVOLOG) ASPART 100 UNITS/ML 10ML VIAL SQ SCH ×3 (07:10→17:41)
[2020-11-07] MEDS: INSULIN SLIDING SCALE (NOVOLOG) 1 VIAL SQ SCH ×4 (07:11→22:07)
[2020-11-07] MEDS ORDERED: PT OWN MED DRAWER 7, Y5N ONE ×2 (09:54→14:22)
[2020-11-07] MEDS ORDERED: FLUCONAZOLE 100 MG/NS 50 ML IVPB SCH (10:00)
[2020-11-07] MEDS ORDERED: PANTOPRAZOLE SODIUM 40 MG in SODIUM CHLORIDE 100 ML IVPB SCH (11:00)
[2020-11-07] MEDS: SODIUM CHLORIDE 1,000 ML IV SCH ×2 (11:07→15:03)
[2020-11-07] MEDS: AMINO ACIDS/PROTEIN HYDROLYS 30 ML LIQUID.PKT PO SCH ×2 (11:08→17:30)
[2020-11-07] MEDS: METOPROLOL TARTRATE 25 MG TABLET (FP) PO SCH ×2 (11:08→22:04)
[2020-11-07] MEDS: APIXABAN 2.5 MG TABLET PO SCH ×2 (11:09→22:04)
[2020-11-07] MEDS: PANTOPRAZOLE SODIUM 40 MG VIAL IVPUSH SCH (11:10)
[2020-11-07] MEDS: MULTIVIT INJ. ADULT COMBO WITH VIT K 1 COMBO 10 ML VIAL IV SCH (11:10)
[2020-11-07] MEDS: predniSONE 10 MG TABLET (UD) PO SCH (11:10)
[2020-11-07] MEDS: prednisoLONE ACETATE 1% OPHTH SUSP 5 ML BOTTLE OD SCH ×4 (11:10→22:04)
[2020-11-07] MEDS: TIMOLOL 0.5% OPHTHALMIC SOL 5 ML BOTTLE OS SCH (11:12)
[2020-11-07] MEDS: DORZOLAMIDE 2% HCL OPHTHALMIC SOLUTION 10 ML BOTTLE OD SCH ×2 (11:12→22:04)
[2020-11-07] MEDS: ALLOPURINOL 100 MG TABLET (FP) PO SCH (11:13)
[2020-11-07] MEDS: metoPROLOL SUCCINATE 25 MG TAB.SR.24H (FP) PO SCH (11:36)
[2020-11-07] MEDS: PANTOPRAZOLE 40 MG TABLET PO SCH (11:36)
[2020-11-07] MEDS ORDERED: CASPOFUNGIN ACETATE 70 MG in SODIUM CHLORIDE 250 ML IVPB ONE (13:00)
[2020-11-07] MEDS: EPOETIN ALFA-EPBX 4,000 UNIT/ML VIAL SQ SCH (18:13)
[2020-11-07] MEDS: MIRTAZAPINE 15 MG TABLET (FP) PO SCH (22:04)
[2020-11-08] MEDS: PERITONEAL DIALYSIS 2.5% SOLN 2,500 ML IP SCH ×4 (00:30→18:30)
[2020-11-08] MEDS: INSULIN (NOVOLOG) ASPART 100 UNITS/ML 10ML VIAL SQ SCH ×3 (06:15→17:08)
[2020-11-08] MEDS: INSULIN (LEVEMIR) 100 UNITS/ML UNITS SQ SCH ×2 (06:17→21:35)
[2020-11-08] MEDS: INSULIN SLIDING SCALE (NOVOLOG) 1 VIAL SQ SCH ×4 (06:17→21:34)
[2020-11-08 07:47] LABS: BASO % 1.6 % (0-2.0); EOS % 0.7 % (0-4.5); HEMATOCRIT 24.3 % (32.4-45.2); HEMOGLOBIN 8.2 GM/dL (10.7-15.3); LYMPH % 20.5 % (8-40); MCH 32.1 pg (25.7-33.7); MCHC 33.9 g/dl (32.0-36.0); MEAN CELL VOLUME 94.8 fl (80-96); MEAN PLT VOLUME 8.7 fl (7.5-11.1); MONO % 5.5 % (3.8-10.2); NEUT % 71.7 % (42.8-82.8); PLATELET COUNT 210 K/MM3 (134-434); RBC 2.56 M/mm3 (3.60-5.2); RDW 21.9 % (11.6-15.6); WHITE BLOOD COUNT 5.4 K/mm3 (4.0-10.0)
[2020-11-08 07:51] LABS: CHLORIDE 105 mmol/L (98-107); SODIUM 138 mmol/L (136-145)
[2020-11-08 07:56] LABS: ALBUMIN 0.9 g/dl (3.4-5.0); CO2 20 mmol/L (21-32); GLUCOSE,RANDOM 172 mg/dL (74-106); MAGNESIUM 2.1 mg/dL (1.8-2.4)
[2020-11-08 07:59] LABS: CREATININE 5.1 mg/dL (0.55-1.3); SGOT/AST 178 U/L (15-37); SGPT/ALT 125 U/L (13-61)
[2020-11-08 08:01] LABS: BILIRUBIN,TOTAL 0.9 mg/dL (0.2-1); TOT PROT 4.8 g/dl (6.4-8.2)
[2020-11-08 08:02] LABS: ALK PHOS 222 U/L (45-117)
[2020-11-08 09:15] LABS: ANION GAP 14 MMOL/L (8-16); BLOOD UREA NITROGEN 76.1 mg/dL (7-18); CALCIUM 7.4 mg/dL (8.5-10.1)
[2020-11-08] MEDS ORDERED: PT OWN MED DRAWER 7, Y5N ONE ×3 (10:05→14:06)
[2020-11-08] MEDS: AMINO ACIDS/PROTEIN HYDROLYS 30 ML LIQUID.PKT PO SCH ×2 (10:30→17:03)
[2020-11-08] MEDS: KCL 10 MEQ IVPB 10 MEQ/100 ML INFUS.BAG IVPB SCH ×3 (10:30→13:49)
[2020-11-08] MEDS: ALLOPURINOL 100 MG TABLET (FP) PO SCH (10:31)
[2020-11-08] MEDS: APIXABAN 2.5 MG TABLET PO SCH ×2 (10:32→21:21)
[2020-11-08] MEDS: METOPROLOL TARTRATE 25 MG TABLET (FP) PO SCH ×2 (10:32→21:21)
[2020-11-08] MEDS: predniSONE 10 MG TABLET (UD) PO SCH (10:33)
[2020-11-08] MEDS: prednisoLONE ACETATE 1% OPHTH SUSP 5 ML BOTTLE OD SCH ×4 (10:33→21:36)
[2020-11-08] MEDS: PANTOPRAZOLE SODIUM 40 MG VIAL IVPUSH SCH (10:34)
[2020-11-08] MEDS: TIMOLOL 0.5% OPHTHALMIC SOL 5 ML BOTTLE OS SCH (10:35)
[2020-11-08] MEDS: DORZOLAMIDE 2% HCL OPHTHALMIC SOLUTION 10 ML BOTTLE OD SCH ×2 (10:36→21:37)
[2020-11-08] MEDS: MULTIVIT INJ. ADULT COMBO WITH VIT K 1 COMBO 10 ML VIAL IV SCH (10:59)
[2020-11-08] MEDS ORDERED: POTASSIUM CHLORIDE TABS 20 MEQ TABLET.ER (FP) PO ONE (13:00)
[2020-11-08] MEDS ORDERED: POTASSIUM CHLORIDE ORAL LIQUID 20 MEQ/15 ML PO ONE (13:28)
[2020-11-08] MEDS: SODIUM CHLORIDE 1,000 ML IV SCH (13:41)
[2020-11-08] MEDS ORDERED: ACETAMINOPHEN 1000 MG/100 ML VIAL (NON FORMULARY) IVPB ONE (14:45)
[2020-11-08] MEDS: CASPOFUNGIN ACETATE 50 MG in SODIUM CHLORIDE 250 ML IVPB SCH (15:26)
[2020-11-08] MEDS: ZINC OXIDE/PANTHENOL/VITAMIN E 56 GM TUBE TP PRN (17:53)
[2020-11-08] MEDS: MIRTAZAPINE 15 MG TABLET (FP) PO SCH (21:35)
[2020-11-09] MEDS: PERITONEAL DIALYSIS 2.5% SOLN 2,500 ML IP SCH ×4 (00:30→18:40)
[2020-11-09] MEDS: SODIUM CHLORIDE 1,000 ML IV SCH ×2 (05:58→14:11)
[2020-11-09] MEDS: INSULIN (LEVEMIR) 100 UNITS/ML UNITS SQ SCH ×2 (05:59→21:45)
[2020-11-09] MEDS: INSULIN (NOVOLOG) ASPART 100 UNITS/ML 10ML VIAL SQ SCH ×3 (05:59→16:36)
[2020-11-09] MEDS: INSULIN SLIDING SCALE (NOVOLOG) 1 VIAL SQ SCH ×4 (05:59→21:44)
[2020-11-09 08:40] LABS: BASO % 0.5 % (0-2.0); EOS % 0.3 % (0-4.5); HEMATOCRIT 24.3 % (32.4-45.2); HEMOGLOBIN 8.1 GM/dL (10.7-15.3); MCH 31.8 pg (25.7-33.7); MCHC 33.2 g/dl (32.0-36.0); MEAN CELL VOLUME 95.5 fl (80-96); MEAN PLT VOLUME 9.1 fl (7.5-11.1); MONO % 4.6 % (3.8-10.2); NEUT % 79.6 % (42.8-82.8); PLATELET COUNT 224 K/MM3 (134-434); RBC 2.54 M/mm3 (3.60-5.2); RDW 22.2 % (11.6-15.6); WHITE BLOOD COUNT 7.8 K/mm3 (4.0-10.0)
[2020-11-09 09:04] LABS: CALCIUM 7.8 mg/dL (8.5-10.1)
[2020-11-09 09:05] LABS: BLOOD UREA NITROGEN 71.7 mg/dL (7-18); MAGNESIUM 2.2 mg/dL (1.8-2.4)
[2020-11-09 09:08] LABS: CREATININE 5.4 mg/dL (0.55-1.3)
[2020-11-09 09:09] LABS: BILIRUBIN,TOTAL 0.6 mg/dL (0.2-1)
[2020-11-09 09:10] LABS: TOT PROT 5.2 g/dl (6.4-8.2)
[2020-11-09] MEDS ORDERED: EPOETIN ALFA-EPBX 10,000 UNIT/ML VIAL SQ SCH (10:00)
[2020-11-09] MEDS: ZINC OXIDE/PANTHENOL/VITAMIN E 56 GM TUBE TP PRN (10:00)
[2020-11-09 10:19] LABS: ANISOCYTOSIS 1+; MACROCYTOSIS 2+; PLATELET ESTIMATE NORMAL
[2020-11-09] MEDS ORDERED: PT OWN MED DRAWER 7, Y5N ONE ×2 (10:38→11:48)
[2020-11-09] MEDS: METOPROLOL TARTRATE 25 MG TABLET (FP) PO SCH ×2 (10:47→21:35)
[2020-11-09] MEDS: APIXABAN 2.5 MG TABLET PO SCH ×2 (10:48→21:35)
[2020-11-09] MEDS: predniSONE 10 MG TABLET (UD) PO SCH (10:48)
[2020-11-09] MEDS: ALLOPURINOL 100 MG TABLET (FP) PO SCH (10:48)
[2020-11-09] MEDS: AMINO ACIDS/PROTEIN HYDROLYS 30 ML LIQUID.PKT PO SCH ×2 (10:49→16:35)
[2020-11-09] MEDS: PANTOPRAZOLE SODIUM 40 MG VIAL IVPUSH SCH (10:52)
[2020-11-09] MEDS: DORZOLAMIDE 2% HCL OPHTHALMIC SOLUTION 10 ML BOTTLE OD SCH ×2 (11:02→21:45)
[2020-11-09] MEDS: TIMOLOL 0.5% OPHTHALMIC SOL 5 ML BOTTLE OS SCH (11:02)
[2020-11-09] MEDS: prednisoLONE ACETATE 1% OPHTH SUSP 5 ML BOTTLE OD SCH ×4 (11:03→21:45)
[2020-11-09] MEDS: CASPOFUNGIN ACETATE 50 MG in SODIUM CHLORIDE 250 ML IVPB SCH (12:11)
[2020-11-09] MEDS ORDERED: POTASSIUM CHLORIDE ORAL LIQUID 20 MEQ/15 ML NGT ONE (15:03)
[2020-11-09] MEDS: MIRTAZAPINE 15 MG TABLET (FP) PO SCH (21:45)
[2020-11-10] MEDS: PERITONEAL DIALYSIS 2.5% SOLN 2,500 ML IP SCH ×4 (00:31→18:32)
[2020-11-10] MEDS: INSULIN (NOVOLOG) ASPART 100 UNITS/ML 10ML VIAL SQ SCH ×3 (06:05→17:19)
[2020-11-10] MEDS: INSULIN SLIDING SCALE (NOVOLOG) 1 VIAL SQ SCH ×4 (06:06→22:13)
[2020-11-10] MEDS: INSULIN (LEVEMIR) 100 UNITS/ML UNITS SQ SCH ×2 (06:07→22:11)
[2020-11-10] MEDS: METOPROLOL TARTRATE 25 MG TABLET (FP) PO SCH ×2 (10:20→22:11)
[2020-11-10] MEDS: APIXABAN 2.5 MG TABLET PO SCH ×2 (10:20→22:11)
[2020-11-10] MEDS: PANTOPRAZOLE SODIUM 40 MG VIAL IVPUSH SCH (10:22)
[2020-11-10] MEDS: AMINO ACIDS/PROTEIN HYDROLYS 30 ML LIQUID.PKT PO SCH ×2 (10:22→17:15)
[2020-11-10] MEDS: predniSONE 10 MG TABLET (UD) PO SCH (10:22)
[2020-11-10] MEDS: ALLOPURINOL 100 MG TABLET (FP) PO SCH (10:23)
[2020-11-10] MEDS: TIMOLOL 0.5% OPHTHALMIC SOL 5 ML BOTTLE OS SCH (10:23)
[2020-11-10] MEDS: prednisoLONE ACETATE 1% OPHTH SUSP 5 ML BOTTLE OD SCH ×4 (10:23→22:14)
[2020-11-10] MEDS: DORZOLAMIDE 2% HCL OPHTHALMIC SOLUTION 10 ML BOTTLE OD SCH ×2 (10:23→22:14)
[2020-11-10] MEDS: CASPOFUNGIN ACETATE 50 MG in SODIUM CHLORIDE 250 ML IVPB SCH (12:15)
[2020-11-10 12:21] LABS: CALCIUM 8.2 mg/dL (8.5-10.1)
[2020-11-10 12:22] LABS: BLOOD UREA NITROGEN 82.9 mg/dL (7-18); MAGNESIUM 2.2 mg/dL (1.8-2.4)
[2020-11-10 12:25] LABS: CREATININE 5.6 mg/dL (0.55-1.3)
[2020-11-10 12:26] LABS: BILIRUBIN,TOTAL 0.6 mg/dL (0.2-1); TOT PROT 5.1 g/dl (6.4-8.2)
[2020-11-10 15:55] LABS: BASO % 0.2 % (0-2.0); EOS % 0.3 % (0-4.5); HEMATOCRIT 25.4 % (32.4-45.2); HEMOGLOBIN 8.4 GM/dL (10.7-15.3); MCH 31.5 pg (25.7-33.7); MEAN CELL VOLUME 95.5 fl (80-96); MEAN PLT VOLUME 9.3 fl (7.5-11.1); MONO % 6.8 % (3.8-10.2); NEUT % 81.7 % (42.8-82.8); PLATELET COUNT 260 K/MM3 (134-434); RBC 2.66 M/mm3 (3.60-5.2); RDW 21.9 % (11.6-15.6); WHITE BLOOD COUNT 10.9 K/mm3 (4.0-10.0)
[2020-11-10] MEDS: SODIUM CHLORIDE 1,000 ML IV SCH (17:14)
[2020-11-10] MEDS ORDERED: BANATROL PLUS POWDER PACKET PO ONE (22:00)
[2020-11-10] MEDS: MIRTAZAPINE 15 MG TABLET (FP) PO SCH (22:13)
[2020-11-11] MEDS: PERITONEAL DIALYSIS 2.5% SOLN 2,500 ML IP SCH ×4 (00:30→18:36)
[2020-11-11] MEDS: INSULIN (NOVOLOG) ASPART 100 UNITS/ML 10ML VIAL SQ SCH ×3 (06:03→17:39)
[2020-11-11] MEDS: INSULIN (LEVEMIR) 100 UNITS/ML UNITS SQ SCH ×2 (06:04→21:42)
[2020-11-11] MEDS: INSULIN SLIDING SCALE (NOVOLOG) 1 VIAL SQ SCH ×4 (06:05→21:40)
[2020-11-11 07:55] LABS: BASO % 0.4 % (0-2.0); EOS % 0.2 % (0-4.5); HEMATOCRIT 25.5 % (32.4-45.2); HEMOGLOBIN 8.6 GM/dL (10.7-15.3); LYMPH % 13.8 % (8-40); MCH 31.8 pg (25.7-33.7); MCHC 33.5 g/dl (32.0-36.0); MEAN CELL VOLUME 94.7 fl (80-96); MEAN PLT VOLUME 9.3 fl (7.5-11.1); MONO % 5.5 % (3.8-10.2); NEUT % 80.1 % (42.8-82.8); PLATELET COUNT 303 K/MM3 (134-434); RDW 21.7 % (11.6-15.6); WHITE BLOOD COUNT 9.9 K/mm3 (4.0-10.0)
[2020-11-11 08:11] LABS: CALCIUM 8.2 mg/dL (8.5-10.1)
[2020-11-11 08:12] LABS: MAGNESIUM 1.9 mg/dL (1.8-2.4)
[2020-11-11 08:15] LABS: BILIRUBIN,TOTAL 0.6 mg/dL (0.2-1); CREATININE 5.2 mg/dL (0.55-1.3); TOT PROT 6.2 g/dl (6.4-8.2)
[2020-11-11 08:20] LABS: ALBUMIN 1.4 g/dl (3.4-5.0)
[2020-11-11 09:43] LABS: ANISOCYTOSIS 1+; CORRECTED WBC 8.92 K/mm3; MACROCYTOSIS 1+; PLATELET ESTIMATE NORMAL
[2020-11-11] MEDS: APIXABAN 2.5 MG TABLET PO SCH ×2 (10:20→21:31)
[2020-11-11] MEDS: AMINO ACIDS/PROTEIN HYDROLYS 30 ML LIQUID.PKT PO SCH ×2 (10:20→17:38)
[2020-11-11] MEDS: predniSONE 10 MG TABLET (UD) PO SCH (10:20)
[2020-11-11] MEDS: ALLOPURINOL 100 MG TABLET (FP) PO SCH (10:20)
[2020-11-11] MEDS: prednisoLONE ACETATE 1% OPHTH SUSP 5 ML BOTTLE OD SCH ×4 (10:20→21:38)
[2020-11-11] MEDS: PANTOPRAZOLE SODIUM 40 MG VIAL IVPUSH SCH (10:20)
[2020-11-11] MEDS: DORZOLAMIDE 2% HCL OPHTHALMIC SOLUTION 10 ML BOTTLE OD SCH ×2 (10:20→21:38)
[2020-11-11] MEDS: METOPROLOL TARTRATE 25 MG TABLET (FP) PO SCH ×2 (10:20→21:30)
[2020-11-11] MEDS: TIMOLOL 0.5% OPHTHALMIC SOL 5 ML BOTTLE OS SCH (10:20)
[2020-11-11] MEDS: CASPOFUNGIN ACETATE 50 MG in SODIUM CHLORIDE 250 ML IVPB SCH (12:22)
[2020-11-11] MEDS ORDERED: SODIUM CHLORIDE 500 ML IV STA (14:39)
[2020-11-11 14:41] LABS: LACTIC ACID 3.8 mmol/L (0.4-2.0)
[2020-11-11] MEDS: SODIUM CHLORIDE 1,000 ML IV SCH (17:39)
[2020-11-11] MEDS: MIRTAZAPINE 15 MG TABLET (FP) PO SCH (21:37)
[2020-11-11 22:35] VITALS: TEMP 98.4
[2020-11-11] MEDS ORDERED: PIPERACILLIN/TAZOB 2.25 GM 2.25 GM in DEXTROSE 5%-WATER - 50 ML IVPB SCH (23:45)
[2020-11-11] MEDS ORDERED: VANCOMYCIN 1 GM in D5W (PRE-DOCKED) 1,000 MG/250 ML IVPB ONE (23:52)
[2020-11-12 00:10] LABS: ARTERIAL BLD GAS O2 SATURATION 92.4 mmHg (95-98); ARTERIAL BLOOD GAS BASE EXCESS -0.1 mmol/L (-2-2); ARTERIAL BLOOD GAS pH 7.516 (7.350-7.450)
[2020-11-12 00:18] LABS: ALLENS TEST POSITIVE
[2020-11-12] MEDS ORDERED: PIPERACILLIN/TAZOBACTAM 2.25 GM VIAL IVPB ONE (01:37)
[2020-11-12] MEDS ORDERED: DEXTROSE 5%-WATER - 50 ML IVPB ONE (01:37)
[2020-11-12] MEDS: PERITONEAL DIALYSIS 2.5% SOLN 2,500 ML IP SCH (01:42)
[2020-11-12] MEDS ORDERED: PIPERACILLIN/TAZOB 2.25 GM 2.25 GM in DEXTROSE 5%-WATER - 50 ML IVPB SCH (02:00)
[2020-11-12 03:06] VITALS: BP 102/50; PULSE 102
== END 2020-11-12 05:32 | disposition expired | DRG 208 ==
LOC: JER 11:39 → JERBED 17:26 → J7W 23:40 → J4S 10-09 14:46 → JICU 10-13 17:22 → J4S 10-25 21:42 → JICU 11-12 04:56 → J4S 11-12 08:06 → JICU 11-12 08:06
PROVIDERS: ADMIT Internal Medicine; ATTEND Internal Medicine Pulmonary Disease
PROC: XW13325 Transfusion of Convalescent Plasma (Nonautologous) into Peripheral Vein, Percutaneous Approach, New Technology Group 5 (ICD-10-PCS; 2020-10-10)
PROC: 05HB33Z Insertion of Infusion Device into Right Basilic Vein, Percutaneous Approach (ICD-10-PCS; 2020-10-13)
PROC: 05HM33Z Insertion of Infusion Device into Right Internal Jugular Vein, Percutaneous Approach (ICD-10-PCS; 2020-10-15)
PROC: B543ZZA Ultrasonography of Right Jugular Veins, Guidance (ICD-10-PCS; 2020-10-15)
PROC: 30233N1 Transfusion of Nonautologous Red Blood Cells into Peripheral Vein, Percutaneous Approach (ICD-10-PCS; 2020-10-19)
PROC: 0DH67UZ Insertion of Feeding Device into Stomach, Via Natural or Artificial Opening (ICD-10-PCS; 2020-11-08)
PROC: 3E1M39Z Irrigation of Peritoneal Cavity using Dialysate, Percutaneous Approach (ICD-10-PCS; 2020-11-11)
PROC: 5A1935Z Respiratory Ventilation, Less than 24 Consecutive Hours (ICD-10-PCS; principal; 2020-11-12)
PROC: 0BH17EZ Insertion of Endotracheal Airway into Trachea, Via Natural or Artificial Opening (ICD-10-PCS; 2020-11-12)
PROC: 5A12012 Performance of Cardiac Output, Single, Manual (ICD-10-PCS; 2020-11-12)
DX: U07.1 COVID-19 (principal); N18.6 End stage renal disease; A41.9 Sepsis, unspecified organism; R65.21 Severe sepsis with septic shock; G93.41 Metabolic encephalopathy; B37.7 Candidal sepsis; J96.01 Acute respiratory failure with hypoxia; C90.00 Multiple myeloma not having achieved remission; E87.2 Acidosis; I82.4Z1 Acute embolism and thrombosis of unspecified deep veins of right distal lower extremity; A04.72 Enterocolitis due to Clostridium difficile, not specified as recurrent; E87.1 Hypo-osmolality and hyponatremia; E87.3 Alkalosis; I12.0 Hypertensive chronic kidney disease with stage 5 chronic kidney disease or end stage renal disease; Z99.2 Dependence on renal dialysis; D63.1 Anemia in chronic kidney disease; D35.2 Benign neoplasm of pituitary gland; E78.5 Hyperlipidemia, unspecified; E87.6 Hypokalemia; E11.22 Type 2 diabetes mellitus with diabetic chronic kidney disease; R74.01 Elevation of levels of liver transaminase levels; M10.9 Gout, unspecified; I95.9 Hypotension, unspecified
CPT/HCPCS: 36415; 36430; 36600; 70450-TC; 71045-TC-FY; 74176-TC; 76705-TC; 80048; 80053; 80061; 81003; 82272; 82550; 82607; 82728; 82746; 82803; 82945; 82962; 83036; 83605; 83615; 83721; 83735; 83986; 84100; 84132; 84436; 84439; 84443; 84479; 84480; 84484; 85025; 85027; 85379; 85610; 85730; 86140; 86704; 86706; 86707; 86708; 86709; 86769; 86803; 86850; 86900; 86901; 86922; 87040; 87070; 87075; 87086; 87106; 87186; 87205; 87324; 87340; 87449; 93005; 93010; 93970-TC; 97161-GP; 99285-25; C9803; J0131; J0637; J1644; P9017; P9058; Q5106; U0003; U0005